=== PATIENT | female | born 1940 | race Caucasian/White ===

== ENCOUNTER → 2017-01-16 | Outpatient (REF) | payer MEDICARE ==
[~2017-01-16] MED LIST: /WARF5TA OR; ACET65TA OR; ALLO100T OR; ALLO100T PO; COUM1TAB17 PO; COUMADIN PO; DIGO25TA PO; ENAL20TA PO; ENALAPRIL PO; ENOX40SY SC; FURO40TA2 OR; FURO40TA2 PO; METF1000 PO; METFORMIN PO; METO25TAB PO; METOPROLOL PO; NUCYNTA PO; SIMVPOW2 PO; ZOCO40TA PO
== END ==
LOC: M LAB REF 14:45
PROVIDERS: ATTEND Internal Medicine
DX: M25.561 Pain in right knee (principal)

== ENCOUNTER → 2017-01-30 | Outpatient (REF) | payer MEDICARE ==
[2017-01-30 13:57] LABS: URIC ACID 6.5 MG/DL (2.6-6.0)
== END ==
LOC: M LAB REF 12:32
PROVIDERS: ATTEND Internal Medicine
DX: M10.9 Gout, unspecified (principal)

== ENCOUNTER → 2017-06-01 | Outpatient (REF) | payer MEDICARE ==
[~2017-06-01] MED LIST changes: -METF1000 PO; +METF10004 PO
[2017-06-01 19:31] LABS: PERCENT SATURATION 28.1 % (13.2-45.0)
== END ==
LOC: M LAB REF 16:52
PROVIDERS: ATTEND Internal Medicine
DX: D50.9 Iron deficiency anemia, unspecified (principal)

== ENCOUNTER → 2017-07-07 | Outpatient (REF) | payer MEDICARE ==
[2017-07-07 12:34] LABS: INR 3.68
== END ==
LOC: M LAB REF 11:54
PROVIDERS: ATTEND Internal Medicine
DX: Z51.81 Encounter for therapeutic drug level monitoring (principal)

== ENCOUNTER 2017-09-20 06:22 | Day surgery (SDC) | payer MEDICARE ==
[~2017-09-20] VITALS: Ht 154.9 cm; Wt 95.3 kg
[~2017-09-20 06:22] MED LIST changes: +ACETAMINOPHEN 325 MG TAB PO PRN; +ATOR1TAB19 PO; +CYCL10TA PO; +DIGO0.127 PO; +ENAL10TA2 PO; +MAGN64TASA PO; +TORS100T PO
[2017-09-20] MEDS ORDERED: SLF 3 ML SYR IV PRN (06:30)
[2017-09-20] MEDS ORDERED: OFLOXACIN 0.3 % (OCUFLOX) OPTH SOL 5ML OD ONE (07:00)
[2017-09-20] MEDS ORDERED: TROPICAMIDE 1% OPHTH SOLN 2ML OD ONE (07:00)
[2017-09-20] MEDS ORDERED: LIDOCAINE 3.5 % 1ML OPHTH TOPICAL GEL OU ONE (07:00)
[2017-09-20] MEDS ORDERED: CYCLOPENTOLATE 2% OPHTH SOLN 2ML BTL OD ONE (07:00)
[2017-09-20] MEDS ORDERED: PHENYLEPHRINE 2.5% OPHTH SOL 2ML OD ONE (07:00)
[2017-09-20] MEDS ORDERED: PROPARACAINE 0.5% OPHTH SOL 15ML OD PRN (07:01)
[2017-09-20] MEDS ORDERED: ACETYLCHOLINE OPHTH SOLN 1% 2ML (MIOCHOL-E) As Ordered ONE (07:50)
[2017-09-20] MEDS ORDERED: POVIDONE-IODINE 5% OPHTH PREP SOL 30ML As Ordered ONE (07:50)
[2017-09-20] MEDS ORDERED: HEALON DUET (HEALON 10MG/ML 0.55ML & HEALON ENDOCOAT 30MG/ML 0.85ML) As Ordered ONE (07:50)
[2017-09-20] MEDS ORDERED: CEFUROXIME 1MG/0.1ML INTRACAMERAL INJ As Ordered ONE (07:50)
[2017-09-20] MEDS ORDERED: LIDOCAINE 1% SDV 5 ML VIAL As Ordered ONE (07:50)
[2017-09-20] MEDS ORDERED: BALANCED SALT IRRIGATION SOLUTION 500ML BAG (FOR OR EYE MACHINE) As Ordered ONE (08:36)
[2017-09-20] MEDS ORDERED: MIDAZOLAM INJ 2 MG/2 ML VIAL (J2250) As Ordered ONE (08:57)
[2017-09-20] MEDS ORDERED: fentaNYL 100 MCG/2 ML INJECTION (J3010) As Ordered ONE (08:57)
[2017-09-20 09:57] VITALS: BP 138/88
[2017-09-20] MEDS ORDERED: TRIMETHOBENZAMIDE 300 MG CAP PO PRN (10:00)
[2017-09-20] MEDS ORDERED: AcetaZOLAMIDE 500 MG ER CAP PO ONE (10:00)
[2017-09-20] MEDS ORDERED: KETOROLAC 0.5% OPHTH SOLN OD ONE (10:00)
--- NOTE | 2017-09-20 10:38 | RO ---
DATE OF PROCEDURE: 09/20/2017DATE OF PROCEDURE: PREPROCEDURE DIAGNOSIS: Age related nuclear cataract right eye. POSTPROCEDURE DIAGNOSIS: Age related nuclear cataract right eye. PROCEDURE: Phacoemulsification and posterior chamber intraocular lens implantation, right eye. The lens used was PCB00, 30.5 diopter. SURGEON: Keisha Barlow MD DIVING SUPERVISOR: ANESTHESIA: Topical with sedation. DESCRIPTION OF PROCEDURE: The patient was prepped and draped in the usual fashion. A lid speculum was placed between the lids. The eye was fixated. A stab incision was made to the anterior chamber, and 1% non-preserved lidocaine was instilled. Then, viscoelastic was instilled. The eye was re-fixated. A 2.75 mm sapphire keratome was used to make a clear corneal temporal limbal incision. Capsulorrhexis was begun with a 30-gauge bent needle and then carried out in a circular fashion with capsulorrhexis forceps. The lens was hydrodissected, and then the phacoemulsification unit was used to make a groove in the nucleus in two meridians. The nucleus was then cracked into four quadrants. Each quadrant was removed with the phacoemulsification unit. Any remaining cortex was removed with the irrigation and aspiration (I and A) unit. Capsular bag was refilled with viscoelastic. A posterior chamber intraocular lens was placed in the capsular bag without difficulty. Any remaining viscoelastic was removed with the I and A unit. The wound was hydrated, and Miochol and cefuroxime were instilled into the anterior chamber. The patient tolerated the procedure well and went to the recovery room in stable condition.
[2017-09-20] MEDS ORDERED: SLF 3 ML SYR IV SCH (14:00)
== END 2017-09-20 10:01 | disposition home or self-care (01) ==
LOC: M SDC 06:22
PROVIDERS: ATTEND Ophthalmology
DX: H25.11 Age-related nuclear cataract, right eye (principal); I11.0 Hypertensive heart disease with heart failure; E78.5 Hyperlipidemia, unspecified; E11.9 Type 2 diabetes mellitus without complications; M10.9 Gout, unspecified; R29.898 Other symptoms and signs involving the musculoskeletal system; M17.12 Unilateral primary osteoarthritis, left knee; R06.02 Shortness of breath; I50.32 Chronic diastolic (congestive) heart failure; I48.2 Chronic atrial fibrillation; Z79.899 Other long term (current) drug therapy; Z79.01 Long term (current) use of anticoagulants; Z86.73 Personal history of transient ischemic attack (TIA), and cerebral infarction without residual deficits; Z96.652 Presence of left artificial knee joint; Z95.4 Presence of other heart-valve replacement
CPT/HCPCS: 66984; J2250; J3010; V2632

== ENCOUNTER → 2018-04-27 | Outpatient (CLI) | payer MEDICARE | LOC: M RAD 08:17 | DX: M54.5 Low back pain (principal); Z96.651 Presence of right artificial knee joint | CPT/HCPCS: 78306 ==

== ENCOUNTER 2018-05-03 09:25 | Inpatient (IN) | payer MEDICARE ==
[2018-05-03] MEDS: NORCO, ANEXSIA 5/325MG TABLET (HYDROcodone/ACETAMINOPHEN) PO (10:41)
[2018-05-03] MEDS ORDERED: ONDANSETRON 4MG/2ML VIAL (J2405) IV (16:00)
[2018-05-03] MEDS ORDERED: GLUCOSE 4 GM CHEW TABLET PO (16:30)
[2018-05-03] MEDS ORDERED: GLUCAGON FOR INJ 1 MG VIAL (J1610) SC (16:30)
[2018-05-03] MEDS ORDERED: DEXTROSE 50% 50 ML SYRINGE IV (16:30)
[2018-05-03 17:23] LABS: ANION GAP 12 MEQ/L (8-16); BLOOD UREA NITROGEN 37 MG/DL (7-18); CALCIUM LEVEL 10.1 MG/DL (8.8-10.2); CARBON DIOXIDE LEVEL 19 MEQ/L (21-32); CHLORIDE LEVEL 109 MEQ/L (98-107); CREATININE FOR GFR 1.13 MG/DL (0.55-1.30); GLOMERULAR FILTRATION RATE 49.7 (>39); GLUCOSE, FASTING 148 MG/DL (70-100); SODIUM LEVEL 140 MEQ/L (136-145)
[2018-05-03 17:24] LABS: BASO % 0.2 % (0.0-1.0); EOS # 0.1 10^3/uL (0.0-0.50); EOS % 0.4 % (0.0-3.0); HEMATOCRIT 33.9 % (36.0-47.0); HEMOGLOBIN 10.8 g/dl (12.0-15.5); IMMATURE GRANULOCYTE % 0.6 % (0-3.0); LYMPH # 1.4 10^3/uL (1.5-4.5); LYMPH % 9.4 % (24.0-44.0); MEAN CORPUSCULAR HEMOGLOBIN 29.9 pg (27.0-33.0); MEAN CORPUSCULAR HGB CONC 31.9 g/dl (32.0-36.5); MEAN CORPUSCULAR VOLUME 93.9 fl (80.0-96.0); MONO # 1.1 10^3/uL (0.0-0.8); MONO % 7.8 % (0.0-5.0); NEUTROPHILS # 11.8 10^3/uL (1.8-7.7); NEUTROPHILS % 81.6 % (36.0-66.0); PLATELET COUNT, AUTOMATED 314 10^3/uL (150-450); RED BLOOD COUNT 3.61 10^6/uL (4.00-5.40); RED CELL DISTRIBUTION WIDTH 13.2 % (11.5-14.5); WHITE BLOOD COUNT 14.4 10^3/uL (4.0-10.0)
[2018-05-03 17:31] LABS: POTASSIUM SERUM 5.3 MEQ/L (3.5-5.1)
[2018-05-03 17:42] LABS: INR 2.34; PROTHROMBIN TIME 26.1 SECONDS (12.1-14.4)
[2018-05-03 17:43] LABS: BEDSIDE GLUCOSE 136 MG/DL (83-110)
[2018-05-03 17:43] LABS: PARTIAL THROMBOPLASTIN TIME 52.7 SECONDS (25.4-37.6)
[2018-05-03 17:56] LABS: DIGOXIN LEVEL 1.1 NG/ML (0.5-2.0)
[2018-05-03] MEDS: HumaLOG INSULIN (NovoLOG) PER UNIT SC ×2 (18:15→20:55)
[2018-05-03] MEDS: PERCOCET 5MG/325MG TAB PO (18:16)
[2018-05-03 20:41] LABS: BEDSIDE GLUCOSE 185 MG/DL (83-110)
[2018-05-03] MEDS: MAGNESIUM CHLORIDE 64 MG TABCR (SLO MAG) PO (20:59)
[2018-05-03] MEDS: NYSTATIN 100,000 UNITS/GM TOPICAL PWD 15 GM TOP (20:59)
[2018-05-03] MEDS: CYCLOBENZAPRINE 10 MG TAB PO (20:59)
[2018-05-03] MEDS: WARFARIN SOD 5 MG TAB PO (20:59)
[2018-05-03] MEDS: SENOKOT S TAB PO (20:59)
[2018-05-03] MEDS: ENALAPRIL MALEATE 10 MG TAB PO (21:00)
[2018-05-04] MEDS: PERCOCET 5MG/325MG TAB PO ×3 (06:30→21:31)
[2018-05-04 06:55] LABS: BASO % 0.2 % (0.0-1.0); EOS # 0.1 10^3/uL (0.0-0.50); EOS % 0.8 % (0.0-3.0); HEMATOCRIT 31.3 % (36.0-47.0); HEMOGLOBIN 9.8 g/dl (12.0-15.5); IMMATURE GRANULOCYTE % 0.3 % (0-3.0); LYMPH # 1.4 10^3/uL (1.5-4.5); LYMPH % 12.5 % (24.0-44.0); MEAN CORPUSCULAR HEMOGLOBIN 29.6 pg (27.0-33.0); MEAN CORPUSCULAR HGB CONC 31.3 g/dl (32.0-36.5); MEAN CORPUSCULAR VOLUME 94.6 fl (80.0-96.0); MONO % 9.1 % (0.0-5.0); NEUTROPHILS # 8.9 10^3/uL (1.8-7.7); NEUTROPHILS % 77.1 % (36.0-66.0); PLATELET COUNT, AUTOMATED 271 10^3/uL (150-450); RED BLOOD COUNT 3.31 10^6/uL (4.00-5.40); RED CELL DISTRIBUTION WIDTH 13.3 % (11.5-14.5); WHITE BLOOD COUNT 11.5 10^3/uL (4.0-10.0)
[2018-05-04 07:06] LABS: ANION GAP 6 MEQ/L (8-16); BLOOD UREA NITROGEN 34 MG/DL (7-18); CALCIUM LEVEL 9.5 MG/DL (8.8-10.2); CARBON DIOXIDE LEVEL 24 MEQ/L (21-32); CHLORIDE LEVEL 111 MEQ/L (98-107); CREATININE FOR GFR 1.02 MG/DL (0.55-1.30); GLOMERULAR FILTRATION RATE 55.9 (>39); GLUCOSE, FASTING 125 MG/DL (70-100); SODIUM LEVEL 141 MEQ/L (136-145)
[2018-05-04 07:07] LABS: POTASSIUM SERUM 5.4 MEQ/L (3.5-5.1)
[2018-05-04] MEDS ORDERED: TORSEMIDE 20 MG TAB PO (09:00)
[2018-05-04] MEDS: SENOKOT S TAB PO ×2 (09:27→21:30)
[2018-05-04] MEDS: HumaLOG INSULIN (NovoLOG) PER UNIT SC ×4 (09:28→21:00)
[2018-05-04] MEDS: TORSEMIDE 20 MG TAB PO (09:30)
[2018-05-04] MEDS: ALLOPURINOL 100 MG TAB PO (09:30)
[2018-05-04] MEDS: DIGOXIN 0.125 MG TAB PO (09:30)
[2018-05-04] MEDS: ATORVASTATIN 10 MG TAB PO (09:30)
[2018-05-04] MEDS: MAGNESIUM CHLORIDE 64 MG TABCR (SLO MAG) PO ×2 (09:31→21:29)
[2018-05-04] MEDS: NYSTATIN 100,000 UNITS/GM TOPICAL PWD 15 GM TOP ×2 (09:31→21:29)
[2018-05-04 12:12] LABS: BEDSIDE GLUCOSE 181 MG/DL (83-110)
[2018-05-04 16:54] LABS: BEDSIDE GLUCOSE 118 MG/DL (83-110)
[2018-05-04] MEDS: CYCLOBENZAPRINE 10 MG TAB PO (18:31)
[2018-05-04 20:47] LABS: BEDSIDE GLUCOSE 123 MG/DL (83-110)
[2018-05-04] MEDS: WARFARIN SOD 5 MG TAB PO (21:30)
[2018-05-04] MEDS: ENALAPRIL MALEATE 10 MG TAB PO (21:30)
[2018-05-05 06:43] LABS: BASO % 0.4 % (0.0-1.0); EOS # 0.3 10^3/uL (0.0-0.50); EOS % 2.5 % (0.0-3.0); HEMOGLOBIN 10.2 g/dl (12.0-15.5); IMMATURE GRANULOCYTE % 0.6 % (0-3.0); LYMPH # 1.6 10^3/uL (1.5-4.5); LYMPH % 16.6 % (24.0-44.0); MEAN CORPUSCULAR HEMOGLOBIN 29.7 pg (27.0-33.0); MEAN CORPUSCULAR HGB CONC 30.9 g/dl (32.0-36.5); MEAN CORPUSCULAR VOLUME 95.9 fl (80.0-96.0); MONO % 10.4 % (0.0-5.0); NEUTROPHILS # 6.9 10^3/uL (1.8-7.7); NEUTROPHILS % 69.5 % (36.0-66.0); PLATELET COUNT, AUTOMATED 279 10^3/uL (150-450); RED BLOOD COUNT 3.44 10^6/uL (4.00-5.40); RED CELL DISTRIBUTION WIDTH 13.3 % (11.5-14.5); WHITE BLOOD COUNT 9.9 10^3/uL (4.0-10.0)
[2018-05-05 07:04] LABS: ANION GAP 7 MEQ/L (8-16); BLOOD UREA NITROGEN 40 MG/DL (7-18); CALCIUM LEVEL 8.9 MG/DL (8.8-10.2); CARBON DIOXIDE LEVEL 26 MEQ/L (21-32); CHLORIDE LEVEL 107 MEQ/L (98-107); CREATININE FOR GFR 1.25 MG/DL (0.55-1.30); GLOMERULAR FILTRATION RATE 44.2 (>39); GLUCOSE, FASTING 109 MG/DL (70-100); POTASSIUM SERUM 4.7 MEQ/L (3.5-5.1); SODIUM LEVEL 140 MEQ/L (136-145)
[2018-05-05] MEDS: HumaLOG INSULIN (NovoLOG) PER UNIT SC ×4 (07:56→21:00)
[2018-05-05] MEDS: PERCOCET 5MG/325MG TAB PO ×2 (07:57→14:56)
[2018-05-05] MEDS: ATORVASTATIN 10 MG TAB PO (07:59)
[2018-05-05] MEDS: DIGOXIN 0.125 MG TAB PO (08:01)
[2018-05-05] MEDS: ALLOPURINOL 100 MG TAB PO (08:01)
[2018-05-05] MEDS: SENOKOT S TAB PO ×2 (08:01→21:39)
[2018-05-05] MEDS: NYSTATIN 100,000 UNITS/GM TOPICAL PWD 15 GM TOP ×2 (08:02→21:40)
[2018-05-05] MEDS: TORSEMIDE 20 MG TAB PO (08:02)
[2018-05-05 09:46] LABS: INR 2.85; PROTHROMBIN TIME 30.5 SECONDS (12.1-14.4)
[2018-05-05] MEDS: MAGNESIUM CHLORIDE 64 MG TABCR (SLO MAG) PO ×2 (10:49→21:38)
[2018-05-05 12:07] LABS: BEDSIDE GLUCOSE 139 MG/DL (83-110)
[2018-05-05 17:18] LABS: BEDSIDE GLUCOSE 131 MG/DL (83-110)
[2018-05-05] MEDS: CYCLOBENZAPRINE 10 MG TAB PO (17:23)
[2018-05-05 20:20] LABS: BEDSIDE GLUCOSE 121 MG/DL (83-110)
[2018-05-05] MEDS: WARFARIN SOD 5 MG TAB PO (21:39)
[2018-05-05] MEDS: ENALAPRIL MALEATE 10 MG TAB PO (21:39)
[2018-05-06 07:13] LABS: BASO % 0.4 % (0.0-1.0); EOS # 0.2 10^3/uL (0.0-0.50); EOS % 1.6 % (0.0-3.0); HEMATOCRIT 35.4 % (36.0-47.0); HEMOGLOBIN 11.1 g/dl (12.0-15.5); IMMATURE GRANULOCYTE % 0.7 % (0-3.0); LYMPH # 1.2 10^3/uL (1.5-4.5); LYMPH % 11.7 % (24.0-44.0); MEAN CORPUSCULAR HEMOGLOBIN 29.8 pg (27.0-33.0); MEAN CORPUSCULAR HGB CONC 31.4 g/dl (32.0-36.5); MEAN CORPUSCULAR VOLUME 94.9 fl (80.0-96.0); MONO # 0.8 10^3/uL (0.0-0.8); MONO % 7.6 % (0.0-5.0); NEUTROPHILS # 8.2 10^3/uL (1.8-7.7); PLATELET COUNT, AUTOMATED 281 10^3/uL (150-450); RED BLOOD COUNT 3.73 10^6/uL (4.00-5.40); RED CELL DISTRIBUTION WIDTH 13.2 % (11.5-14.5); WHITE BLOOD COUNT 10.5 10^3/uL (4.0-10.0)
[2018-05-06 07:14] LABS: INR 3.15
[2018-05-06 07:15] LABS: ANION GAP 9 MEQ/L (8-16); BLOOD UREA NITROGEN 46 MG/DL (7-18); CALCIUM LEVEL 9.7 MG/DL (8.8-10.2); CARBON DIOXIDE LEVEL 21 MEQ/L (21-32); CHLORIDE LEVEL 107 MEQ/L (98-107); CREATININE FOR GFR 1.37 MG/DL (0.55-1.30); GLOMERULAR FILTRATION RATE 39.8 (>39); GLUCOSE, FASTING 115 MG/DL (70-100); POTASSIUM SERUM 4.4 MEQ/L (3.5-5.1); SODIUM LEVEL 137 MEQ/L (136-145)
[2018-05-06] MEDS: HumaLOG INSULIN (NovoLOG) PER UNIT SC ×4 (08:29→21:00)
[2018-05-06] MEDS: ALLOPURINOL 100 MG TAB PO (08:29)
[2018-05-06] MEDS: ATORVASTATIN 10 MG TAB PO (08:29)
[2018-05-06] MEDS: SENOKOT S TAB PO ×2 (08:29→21:10)
[2018-05-06] MEDS: TORSEMIDE 20 MG TAB PO (08:30)
[2018-05-06] MEDS: DIGOXIN 0.125 MG TAB PO (08:31)
[2018-05-06] MEDS: NYSTATIN 100,000 UNITS/GM TOPICAL PWD 15 GM TOP ×2 (08:32→21:12)
[2018-05-06] MEDS: MAGNESIUM CHLORIDE 64 MG TABCR (SLO MAG) PO ×2 (08:36→21:10)
[2018-05-06] MEDS: PERCOCET 5MG/325MG TAB PO ×2 (08:37→21:12)
[2018-05-06] MEDS: SPIRONOLACTONE 25 MG TAB PO (09:23)
[2018-05-06 12:18] LABS: BEDSIDE GLUCOSE 154 MG/DL (83-110)
[2018-05-06 17:07] LABS: BEDSIDE GLUCOSE 107 MG/DL (83-110)
[2018-05-06 21:01] LABS: BEDSIDE GLUCOSE 159 MG/DL (83-110)
[2018-05-06] MEDS: ENALAPRIL MALEATE 10 MG TAB PO (21:11)
[2018-05-07 07:21] LABS: BASO % 0.3 % (0.0-1.0); EOS # 0.2 10^3/uL (0.0-0.50); EOS % 1.9 % (0.0-3.0); HEMATOCRIT 33.9 % (36.0-47.0); HEMOGLOBIN 10.6 g/dl (12.0-15.5); IMMATURE GRANULOCYTE % 0.4 % (0-3.0); LYMPH # 1.4 10^3/uL (1.5-4.5); MEAN CORPUSCULAR HEMOGLOBIN 29.6 pg (27.0-33.0); MEAN CORPUSCULAR HGB CONC 31.3 g/dl (32.0-36.5); MEAN CORPUSCULAR VOLUME 94.7 fl (80.0-96.0); MONO # 1.1 10^3/uL (0.0-0.8); MONO % 11.2 % (0.0-5.0); NEUTROPHILS # 6.8 10^3/uL (1.8-7.7); NEUTROPHILS % 71.2 % (36.0-66.0); PLATELET COUNT, AUTOMATED 340 10^3/uL (150-450); RED BLOOD COUNT 3.58 10^6/uL (4.00-5.40); RED CELL DISTRIBUTION WIDTH 13.2 % (11.5-14.5); WHITE BLOOD COUNT 9.6 10^3/uL (4.0-10.0)
[2018-05-07] MEDS: HumaLOG INSULIN (NovoLOG) PER UNIT SC ×4 (07:30→20:59)
[2018-05-07 07:34] LABS: INR 3.85; PROTHROMBIN TIME 38.8 SECONDS (12.1-14.4)
[2018-05-07 07:38] LABS: ANION GAP 7 MEQ/L (8-16); BLOOD UREA NITROGEN 59 MG/DL (7-18); CALCIUM LEVEL 8.9 MG/DL (8.8-10.2); CARBON DIOXIDE LEVEL 28 MEQ/L (21-32); CHLORIDE LEVEL 105 MEQ/L (98-107); GLUCOSE, FASTING 121 MG/DL (70-100); POTASSIUM SERUM 4.4 MEQ/L (3.5-5.1); SODIUM LEVEL 140 MEQ/L (136-145)
[2018-05-07] MEDS: NYSTATIN 100,000 UNITS/GM TOPICAL PWD 15 GM TOP ×2 (09:00→21:05)
[2018-05-07] MEDS: DIGOXIN 0.125 MG TAB PO (10:19)
[2018-05-07] MEDS: TORSEMIDE 20 MG TAB PO (10:20)
[2018-05-07] MEDS: ATORVASTATIN 10 MG TAB PO (10:21)
[2018-05-07] MEDS: ALLOPURINOL 100 MG TAB PO (10:21)
[2018-05-07] MEDS: SENOKOT S TAB PO ×2 (10:21→21:04)
[2018-05-07] MEDS: SPIRONOLACTONE 25 MG TAB PO (10:22)
[2018-05-07] MEDS: MAGNESIUM CHLORIDE 64 MG TABCR (SLO MAG) PO ×2 (10:22→21:04)
[2018-05-07 11:55] LABS: BEDSIDE GLUCOSE 150 MG/DL (83-110)
[2018-05-07] MEDS: PERCOCET 5MG/325MG TAB PO ×2 (13:48→21:05)
[2018-05-07 17:11] LABS: BEDSIDE GLUCOSE 133 MG/DL (83-110)
[2018-05-07 20:40] LABS: BEDSIDE GLUCOSE 127 MG/DL (83-110)
[2018-05-07] MEDS ORDERED: WARFARIN SOD 7.5 MG TAB PO (21:00)
[2018-05-07] MEDS: BISACODYL 5 MG TAB PO (21:03)
[2018-05-08 06:58] LABS: BASO % 0.4 % (0.0-1.0); EOS # 0.2 10^3/uL (0.0-0.50); EOS % 2.4 % (0.0-3.0); HEMATOCRIT 35.6 % (36.0-47.0); HEMOGLOBIN 11.1 g/dl (12.0-15.5); IMMATURE GRANULOCYTE % 0.4 % (0-3.0); LYMPH # 1.5 10^3/uL (1.5-4.5); LYMPH % 16.7 % (24.0-44.0); MEAN CORPUSCULAR HEMOGLOBIN 29.8 pg (27.0-33.0); MEAN CORPUSCULAR HGB CONC 31.2 g/dl (32.0-36.5); MEAN CORPUSCULAR VOLUME 95.4 fl (80.0-96.0); MONO % 10.9 % (0.0-5.0); NEUTROPHILS # 6.3 10^3/uL (1.8-7.7); NEUTROPHILS % 69.2 % (36.0-66.0); PLATELET COUNT, AUTOMATED 349 10^3/uL (150-450); RED BLOOD COUNT 3.73 10^6/uL (4.00-5.40); RED CELL DISTRIBUTION WIDTH 13.2 % (11.5-14.5); WHITE BLOOD COUNT 9.2 10^3/uL (4.0-10.0)
[2018-05-08 07:07] LABS: INR 3.87; PROTHROMBIN TIME 38.9 SECONDS (12.1-14.4)
[2018-05-08 07:14] LABS: ANION GAP 8 MEQ/L (8-16); BLOOD UREA NITROGEN 57 MG/DL (7-18); CARBON DIOXIDE LEVEL 28 MEQ/L (21-32); CHLORIDE LEVEL 103 MEQ/L (98-107); CREATININE FOR GFR 1.45 MG/DL (0.55-1.30); GLOMERULAR FILTRATION RATE 37.3 (>39); GLUCOSE, FASTING 111 MG/DL (70-100); POTASSIUM SERUM 4.4 MEQ/L (3.5-5.1); SODIUM LEVEL 139 MEQ/L (136-145)
[2018-05-08] MEDS: SENOKOT S TAB PO ×2 (09:00→21:57)
[2018-05-08] MEDS: ATORVASTATIN 10 MG TAB PO (09:14)
[2018-05-08] MEDS: ALLOPURINOL 100 MG TAB PO (09:14)
[2018-05-08] MEDS: DIGOXIN 0.125 MG TAB PO (09:14)
[2018-05-08] MEDS: HumaLOG INSULIN (NovoLOG) PER UNIT SC ×4 (09:15→21:00)
[2018-05-08] MEDS: MAGNESIUM CHLORIDE 64 MG TABCR (SLO MAG) PO ×2 (09:15→21:57)
[2018-05-08] MEDS: NYSTATIN 100,000 UNITS/GM TOPICAL PWD 15 GM TOP ×2 (09:16→21:57)
[2018-05-08 12:13] LABS: BEDSIDE GLUCOSE 157 MG/DL (83-110)
[2018-05-08] MEDS: PERCOCET 5MG/325MG TAB PO ×2 (12:34→21:57)
[2018-05-08 16:50] LABS: BEDSIDE GLUCOSE 152 MG/DL (83-110)
[2018-05-08] MEDS: MIRALAX *UNIT DOSE* 17GM PACKET PO (17:34)
[2018-05-08 20:40] LABS: BEDSIDE GLUCOSE 150 MG/DL (83-110)
[2018-05-08] MEDS: BISACODYL 5 MG TAB PO (21:57)
[2018-05-09 05:55] LABS: BASO % 0.4 % (0.0-1.0); EOS # 0.3 10^3/uL (0.0-0.50); EOS % 3.4 % (0.0-3.0); HEMATOCRIT 34.2 % (36.0-47.0); HEMOGLOBIN 10.7 g/dl (12.0-15.5); IMMATURE GRANULOCYTE % 0.4 % (0-3.0); LYMPH # 1.5 10^3/uL (1.5-4.5); LYMPH % 17.8 % (24.0-44.0); MEAN CORPUSCULAR HEMOGLOBIN 29.6 pg (27.0-33.0); MEAN CORPUSCULAR HGB CONC 31.3 g/dl (32.0-36.5); MEAN CORPUSCULAR VOLUME 94.5 fl (80.0-96.0); MONO # 0.9 10^3/uL (0.0-0.8); MONO % 10.4 % (0.0-5.0); NEUTROPHILS # 5.5 10^3/uL (1.8-7.7); NEUTROPHILS % 67.6 % (36.0-66.0); PLATELET COUNT, AUTOMATED 336 10^3/uL (150-450); RED BLOOD COUNT 3.62 10^6/uL (4.00-5.40); WHITE BLOOD COUNT 8.2 10^3/uL (4.0-10.0)
[2018-05-09 06:05] LABS: INR 2.87; PROTHROMBIN TIME 30.7 SECONDS (12.1-14.4)
[2018-05-09 06:15] LABS: ANION GAP 7 MEQ/L (8-16); BLOOD UREA NITROGEN 52 MG/DL (7-18); CALCIUM LEVEL 9.4 MG/DL (8.8-10.2); CARBON DIOXIDE LEVEL 29 MEQ/L (21-32); CHLORIDE LEVEL 104 MEQ/L (98-107); CREATININE FOR GFR 1.15 MG/DL (0.55-1.30); GLOMERULAR FILTRATION RATE 48.7 (>39); GLUCOSE, FASTING 144 MG/DL (70-100); POTASSIUM SERUM 4.1 MEQ/L (3.5-5.1); SODIUM LEVEL 140 MEQ/L (136-145)
[2018-05-09] MEDS: MIRALAX *UNIT DOSE* 17GM PACKET PO (08:40)
[2018-05-09] MEDS: SENOKOT S TAB PO ×2 (08:40→20:32)
[2018-05-09] MEDS: ALLOPURINOL 100 MG TAB PO (08:40)
[2018-05-09] MEDS: ATORVASTATIN 10 MG TAB PO (08:40)
[2018-05-09] MEDS: HumaLOG INSULIN (NovoLOG) PER UNIT SC ×4 (08:40→20:31)
[2018-05-09] MEDS: MAGNESIUM CHLORIDE 64 MG TABCR (SLO MAG) PO ×2 (08:41→20:32)
[2018-05-09] MEDS: DIGOXIN 0.125 MG TAB PO (08:41)
[2018-05-09] MEDS: NYSTATIN 100,000 UNITS/GM TOPICAL PWD 15 GM TOP ×2 (09:50→20:31)
[2018-05-09 11:43] LABS: BEDSIDE GLUCOSE 117 MG/DL (83-110)
[2018-05-09] MEDS: PERCOCET 5MG/325MG TAB PO ×2 (12:27→20:33)
[2018-05-09 16:55] LABS: BEDSIDE GLUCOSE 157 MG/DL (83-110)
[2018-05-09] MEDS: WARFARIN SOD 7.5 MG TAB PO (17:55)
[2018-05-09 20:19] LABS: BEDSIDE GLUCOSE 104 MG/DL (83-110)
[2018-05-09] MEDS: WARFARIN SOD 5 MG TAB PO (20:33)
[2018-05-10 06:20] LABS: BASO # 0.1 10^3/uL (0.0-0.2); BASO % 0.7 % (0.0-1.0); EOS # 0.2 10^3/uL (0.0-0.50); EOS % 3.1 % (0.0-3.0); HEMATOCRIT 33.8 % (36.0-47.0); HEMOGLOBIN 10.5 g/dl (12.0-15.5); IMMATURE GRANULOCYTE % 0.5 % (0-3.0); LYMPH # 1.5 10^3/uL (1.5-4.5); LYMPH % 19.5 % (24.0-44.0); MEAN CORPUSCULAR HEMOGLOBIN 29.2 pg (27.0-33.0); MEAN CORPUSCULAR HGB CONC 31.1 g/dl (32.0-36.5); MEAN CORPUSCULAR VOLUME 94.2 fl (80.0-96.0); MONO # 0.9 10^3/uL (0.0-0.8); MONO % 11.4 % (0.0-5.0); NEUTROPHILS # 4.9 10^3/uL (1.8-7.7); NEUTROPHILS % 64.8 % (36.0-66.0); PLATELET COUNT, AUTOMATED 337 10^3/uL (150-450); RED BLOOD COUNT 3.59 10^6/uL (4.00-5.40); RED CELL DISTRIBUTION WIDTH 13.1 % (11.5-14.5); WHITE BLOOD COUNT 7.5 10^3/uL (4.0-10.0)
[2018-05-10 06:37] LABS: ANION GAP 5 MEQ/L (8-16); BLOOD UREA NITROGEN 39 MG/DL (7-18); CALCIUM LEVEL 9.9 MG/DL (8.8-10.2); CARBON DIOXIDE LEVEL 31 MEQ/L (21-32); CHLORIDE LEVEL 107 MEQ/L (98-107); CREATININE FOR GFR 1.13 MG/DL (0.55-1.30); GLOMERULAR FILTRATION RATE 49.7 (>39); GLUCOSE, FASTING 148 MG/DL (70-100); POTASSIUM SERUM 4.3 MEQ/L (3.5-5.1); SODIUM LEVEL 143 MEQ/L (136-145)
[2018-05-10 06:39] LABS: INR 2.03; PROTHROMBIN TIME 23.3 SECONDS (12.1-14.4)
[2018-05-10] MEDS: HumaLOG INSULIN (NovoLOG) PER UNIT SC ×2 (08:33→12:02)
[2018-05-10] MEDS: ALLOPURINOL 100 MG TAB PO (08:33)
[2018-05-10] MEDS: SENOKOT S TAB PO (08:34)
[2018-05-10] MEDS: ATORVASTATIN 10 MG TAB PO (08:35)
[2018-05-10] MEDS: MIRALAX *UNIT DOSE* 17GM PACKET PO (08:35)
[2018-05-10] MEDS: DIGOXIN 0.125 MG TAB PO (08:35)
[2018-05-10] MEDS: MAGNESIUM CHLORIDE 64 MG TABCR (SLO MAG) PO (08:36)
[2018-05-10] MEDS: NYSTATIN 100,000 UNITS/GM TOPICAL PWD 15 GM TOP (08:38)
[2018-05-10] MEDS: SPIRONOLACTONE 25 MG TAB PO (10:20)
[2018-05-10] MEDS: TORSEMIDE 20 MG TAB PO (10:21)
[2018-05-10 11:57] LABS: BEDSIDE GLUCOSE 172 MG/DL (83-110)
[2018-05-10] MEDS ORDERED: WARFARIN SOD 5 MG TAB PO ×2 (17:00)
== END 2018-05-10 12:56 | DRG 552 ==
LOC: M ED 09:25 → M ED INP 15:59 → M MS5PR 17:25
DX: M48.061 Spinal stenosis, lumbar region without neurogenic claudication (principal); I50.22 Chronic systolic (congestive) heart failure; J96.11 Chronic respiratory failure with hypoxia; N17.9 Acute kidney failure, unspecified; I11.0 Hypertensive heart disease with heart failure; E78.5 Hyperlipidemia, unspecified; M51.16 Intervertebral disc disorders with radiculopathy, lumbar region; E66.9 Obesity, unspecified; I48.91 Unspecified atrial fibrillation; M10.9 Gout, unspecified; E11.9 Type 2 diabetes mellitus without complications; I25.10 Atherosclerotic heart disease of native coronary artery without angina pectoris; M17.12 Unilateral primary osteoarthritis, left knee; I25.2 Old myocardial infarction; Z95.2 Presence of prosthetic heart valve; Z96.651 Presence of right artificial knee joint; Z98.41 Cataract extraction status, right eye; Z79.01 Long term (current) use of anticoagulants; Z79.899 Other long term (current) drug therapy; Z68.38 Body mass index [BMI] 38.0-38.9, adult; Z79.84 Long term (current) use of oral hypoglycemic drugs; Z99.81 Dependence on supplemental oxygen

== ENCOUNTER → 2018-05-14 | Outpatient (REF) ==
[2018-05-14 19:46] LABS: INR 3.78; PROTHROMBIN TIME 38.2 SECONDS (12.1-14.4)
== END ==
DX: I48.91 Unspecified atrial fibrillation (principal)

== ENCOUNTER → 2018-05-15 | Outpatient (REF) | payer MEDICARE ==
[2018-05-15 13:50] LABS: INR 3.23; PROTHROMBIN TIME 33.7 SECONDS (12.1-14.4)
== END ==
DX: I50.9 Heart failure, unspecified (principal)
CPT/HCPCS: 85610

== ENCOUNTER → 2018-05-16 | Outpatient (REF) ==
[2018-05-16 10:57] LABS: INR 2.73; PROTHROMBIN TIME 29.5 SECONDS (12.1-14.4)
== END ==
DX: I48.91 Unspecified atrial fibrillation (principal)

== ENCOUNTER → 2018-05-18 | Outpatient (REF) ==
[2018-05-18 11:38] LABS: INR 2.01; PROTHROMBIN TIME 23.1 SECONDS (12.1-14.4)
== END ==
DX: Z79.01 Long term (current) use of anticoagulants (principal)

== ENCOUNTER → 2018-05-22 | Outpatient (REF) ==
[2018-05-22 10:10] LABS: HEMATOCRIT 36.6 % (36.0-47.0); HEMOGLOBIN 11.7 g/dl (12.0-15.5); MEAN CORPUSCULAR HEMOGLOBIN 29.3 pg (27.0-33.0); MEAN CORPUSCULAR VOLUME 91.5 fl (80.0-96.0); PLATELET COUNT, AUTOMATED 323 10^3/uL (150-450); RED CELL DISTRIBUTION WIDTH 12.7 % (11.5-14.5); WHITE BLOOD COUNT 10.5 10^3/uL (4.0-10.0)
[2018-05-22 11:11] LABS: ANION GAP 12 MEQ/L (8-16); BLOOD UREA NITROGEN 99 MG/DL (7-18); CALCIUM LEVEL 10.3 MG/DL (8.8-10.2); CARBON DIOXIDE LEVEL 28 MEQ/L (21-32); CHLORIDE LEVEL 94 MEQ/L (98-107); CREATININE FOR GFR 2.25 MG/DL (0.55-1.30); GLOMERULAR FILTRATION RATE 22.5 (>39); GLUCOSE, FASTING 180 MG/DL (70-100); POTASSIUM SERUM 4.5 MEQ/L (3.5-5.1); SODIUM LEVEL 134 MEQ/L (136-145)
== END ==
DX: I50.9 Heart failure, unspecified (principal); I48.91 Unspecified atrial fibrillation

== ENCOUNTER 2018-05-24 08:18 | Outpatient (REF) ==
[2018-05-23 11:31] LABS: INR 2.15; PROTHROMBIN TIME 24.5 SECONDS (12.1-14.4)
[2018-05-25 10:43] LABS: ANION GAP 13 MEQ/L (8-16); BLOOD UREA NITROGEN 103 MG/DL (7-18); CALCIUM LEVEL 10.2 MG/DL (8.8-10.2); CARBON DIOXIDE LEVEL 24 MEQ/L (21-32); CHLORIDE LEVEL 99 MEQ/L (98-107); CREATININE FOR GFR 1.87 MG/DL (0.55-1.30); GLOMERULAR FILTRATION RATE 27.8 (>39); GLUCOSE, FASTING 108 MG/DL (70-100); POTASSIUM SERUM 4.9 MEQ/L (3.5-5.1); SODIUM LEVEL 136 MEQ/L (136-145)
[2018-05-25 19:22] LABS: CPK CREATINE PHOSPHOKINASE 76 U/L (26-192)
[2018-05-25 19:22] LABS: HEMATOCRIT 36.4 % (36.0-47.0); HEMOGLOBIN 11.6 g/dl (12.0-15.5); MEAN CORPUSCULAR HEMOGLOBIN 29.4 pg (27.0-33.0); MEAN CORPUSCULAR HGB CONC 31.9 g/dl (32.0-36.5); MEAN CORPUSCULAR VOLUME 92.4 fl (80.0-96.0); PLATELET COUNT, AUTOMATED 331 10^3/uL (150-450); RED BLOOD COUNT 3.94 10^6/uL (4.00-5.40); RED CELL DISTRIBUTION WIDTH 12.7 % (11.5-14.5); WHITE BLOOD COUNT 12.4 10^3/uL (4.0-10.0)
[2018-05-25 20:05] LABS: MYOGLOBIN SCREEN, URINE NEGATIVE (NEGATIVE)
== END 2018-05-25 ==
DX: I48.91 Unspecified atrial fibrillation (principal); I50.9 Heart failure, unspecified

== ENCOUNTER → 2018-05-28 | Outpatient (REF) ==
[2018-05-28 12:20] LABS: HEMATOCRIT 34.6 % (36.0-47.0); HEMOGLOBIN 11.1 g/dl (12.0-15.5); MEAN CORPUSCULAR HEMOGLOBIN 29.8 pg (27.0-33.0); MEAN CORPUSCULAR HGB CONC 32.1 g/dl (32.0-36.5); MEAN CORPUSCULAR VOLUME 92.8 fl (80.0-96.0); PLATELET COUNT, AUTOMATED 313 10^3/uL (150-450); RED BLOOD COUNT 3.73 10^6/uL (4.00-5.40); RED CELL DISTRIBUTION WIDTH 12.7 % (11.5-14.5); WHITE BLOOD COUNT 10.8 10^3/uL (4.0-10.0)
[2018-05-28 12:47] LABS: ANION GAP 9 MEQ/L (8-16); BLOOD UREA NITROGEN 83 MG/DL (7-18); CALCIUM LEVEL 9.9 MG/DL (8.8-10.2); CARBON DIOXIDE LEVEL 24 MEQ/L (21-32); CHLORIDE LEVEL 106 MEQ/L (98-107); CREATININE FOR GFR 1.85 MG/DL (0.55-1.30); GLOMERULAR FILTRATION RATE 28.1 (>39); GLUCOSE, FASTING 151 MG/DL (70-100); POTASSIUM SERUM 5.1 MEQ/L (3.5-5.1); SODIUM LEVEL 139 MEQ/L (136-145)
== END ==
DX: I50.9 Heart failure, unspecified (principal)

== ENCOUNTER → 2018-05-30 | Outpatient (REF) ==
[2018-05-30 12:44] LABS: HEMATOCRIT 35.1 % (36.0-47.0); HEMOGLOBIN 11.4 g/dl (12.0-15.5); MEAN CORPUSCULAR HEMOGLOBIN 29.9 pg (27.0-33.0); MEAN CORPUSCULAR HGB CONC 32.5 g/dl (32.0-36.5); MEAN CORPUSCULAR VOLUME 92.1 fl (80.0-96.0); PLATELET COUNT, AUTOMATED 300 10^3/uL (150-450); RED BLOOD COUNT 3.81 10^6/uL (4.00-5.40); RED CELL DISTRIBUTION WIDTH 12.8 % (11.5-14.5)
[2018-05-30 12:49] LABS: ANION GAP 10 MEQ/L (8-16); BLOOD UREA NITROGEN 72 MG/DL (7-18); CARBON DIOXIDE LEVEL 24 MEQ/L (21-32); CHLORIDE LEVEL 104 MEQ/L (98-107); CREATININE FOR GFR 1.68 MG/DL (0.55-1.30); GLOMERULAR FILTRATION RATE 31.4 (>39); GLUCOSE, FASTING 163 MG/DL (70-100); POTASSIUM SERUM 5.1 MEQ/L (3.5-5.1); SODIUM LEVEL 138 MEQ/L (136-145)
== END ==
DX: I50.9 Heart failure, unspecified (principal)

== ENCOUNTER → 2018-06-04 | Outpatient (REF) | payer MEDICARE ==
[2018-06-04 13:22] LABS: PHOSPHORUS LEVEL 3.4 MG/DL (2.5-4.9)
[2018-06-04 13:39] LABS: PROTHROMBIN TIME 21.2 SECONDS (12.1-14.4)
== END ==
LOC: M LAB REF 13:06
DX: I50.32 Chronic diastolic (congestive) heart failure (principal)
CPT/HCPCS: 84100

== ENCOUNTER 2018-06-08 13:46 | Emergency (ER) | payer MEDICARE ==
[2018-06-08 15:11] LABS: BASO % 0.3 % (0.0-1.0); EOS # 0.1 10^3/uL (0.0-0.50); EOS % 0.4 % (0.0-3.0); HEMATOCRIT 28.6 % (36.0-47.0); HEMOGLOBIN 9.1 g/dl (12.0-15.5); IMMATURE GRANULOCYTE % 0.6 % (0-3.0); LYMPH # 0.7 10^3/uL (1.5-4.5); LYMPH % 6.2 % (24.0-44.0); MEAN CORPUSCULAR HEMOGLOBIN 29.5 pg (27.0-33.0); MEAN CORPUSCULAR HGB CONC 31.8 g/dl (32.0-36.5); MEAN CORPUSCULAR VOLUME 92.9 fl (80.0-96.0); MONO # 0.8 10^3/uL (0.0-0.8); MONO % 6.4 % (0.0-5.0); NEUTROPHILS # 10.1 10^3/uL (1.8-7.7); NEUTROPHILS % 86.1 % (36.0-66.0); PLATELET COUNT, AUTOMATED 268 10^3/uL (150-450); RED BLOOD COUNT 3.08 10^6/uL (4.00-5.40); RED CELL DISTRIBUTION WIDTH 13.2 % (11.5-14.5); WHITE BLOOD COUNT 11.7 10^3/uL (4.0-10.0)
[2018-06-08 15:22] LABS: PROTHROMBIN TIME 24.9 SECONDS (12.1-14.4)
[2018-06-08 15:23] LABS: PARTIAL THROMBOPLASTIN TIME 41.5 SECONDS (25.4-37.6)
[2018-06-08 15:36] LABS: ALBUMIN 3.9 GM/DL (3.2-5.2); ALBUMIN/GLOBULIN RATIO 1.11 (1.00-1.93); ALKALINE PHOSPHATASE 73 U/L (45-117); ALT/SGPT 27 U/L (12-78); ANION GAP 10 MEQ/L (8-16); AST/SGOT 20 U/L (7-37); BILIRUBIN,DIRECT 0.2 MG/DL (0.0-0.2); BILIRUBIN,TOTAL 0.5 MG/DL (0.2-1.0); BLOOD UREA NITROGEN 35 MG/DL (7-18); C REACTIVE PROTEIN QUANTITATIV 5.28 MG/DL (0.00-0.30); CALCIUM LEVEL 9.4 MG/DL (8.8-10.2); CARBON DIOXIDE LEVEL 22 MEQ/L (21-32); CHLORIDE LEVEL 108 MEQ/L (98-107); CPK CREATINE PHOSPHOKINASE 99 U/L (26-192); CREATININE FOR GFR 1.91 MG/DL (0.55-1.30); GLOMERULAR FILTRATION RATE 27.1 (>39); GLUCOSE, FASTING 154 MG/DL (70-100); POTASSIUM SERUM 4.8 MEQ/L (3.5-5.1); SODIUM LEVEL 140 MEQ/L (136-145); TOTAL PROTEIN 7.4 GM/DL (6.4-8.2)
[2018-06-08 15:39] LABS: TROPONIN I 3.66 NG/ML (< 0.10)
[2018-06-08 15:46] LABS: CK-MB VALUE MASS 3.2 NG/ML (<3.6); DIGOXIN LEVEL 1.7 NG/ML (0.5-2.0); MB/CK RELATIVE INDEX 3.23 (< OR =4); NT-PRO BNP 20753 PG/ML (<450); THYROID STIMULATING HORMONE 0.349 uIU/ML (0.358-3.740)
[2018-06-08 18:20] LABS: CK-MB VALUE MASS 2.9 NG/ML (<3.6); CPK CREATINE PHOSPHOKINASE 215 U/L (26-192); MB/CK RELATIVE INDEX 1.34 (< OR =4)
[2018-06-08 18:22] LABS: TROPONIN I 3.23 NG/ML (< 0.10)
== END 2018-06-08 22:07 | disposition short-term general hospital (02) ==
LOC: M ED 13:46
DX: I21.4 Non-ST elevation (NSTEMI) myocardial infarction (principal); R79.89 Other specified abnormal findings of blood chemistry; M54.5 Low back pain; G89.29 Other chronic pain; R01.1 Cardiac murmur, unspecified; E11.9 Type 2 diabetes mellitus without complications; I11.9 Hypertensive heart disease without heart failure; I25.10 Atherosclerotic heart disease of native coronary artery without angina pectoris; Z95.2 Presence of prosthetic heart valve
CPT/HCPCS: 71045

== ENCOUNTER → 2018-10-30 | Outpatient (REF) | payer MEDICARE ==
[~2018-10-30] MED LIST changes: -ACETAMINOPHEN 325 MG TAB PO PRN; +BISO5TAB5 PO; +DEMA20TA6 PO; +DIGO0.12 PO; +METF-415 PO; +METF500T4 PO; +MONT10TA2 PO; +OXYC1TAB23 PO; +PERCOCET PO; +SPIR-10 PO; +TORS20TA2 PO; +TYLE650T35 PO; +VASO10TA8 PO; +WARF-20 PO; +WARF-23 PO
[2018-10-30 16:59] LABS: INR 2.17; PROTHROMBIN TIME 24.6 SECONDS (12.1-14.4)
== END ==
LOC: M LAB REF 16:28
PROVIDERS: ATTEND Internal Medicine
DX: I50.9 Heart failure, unspecified (principal)

== ENCOUNTER 2018-11-25 20:38 | Inpatient (IN) | payer MEDICARE ==
[~2018-11-25] VITALS: Ht 154.9 cm; Wt 94.5 kg
[2018-11-25 21:09] LABS: VENOUS BASE EXCESS -0.3 (-2.0-2.0); VENOUS HCO3 27.9 MEQ/L (23.0-27.0); VENOUS O2 SATURATION 84.6 % (60.0-80.0); VENOUS PARTIAL PRESSURE CO2 61.4 mmHg (38.0-50.0); VENOUS PARTIAL PRESSURE O2 55.5 mmHg (30.0-50.0); VENOUS PH 7.275 UNITS (7.330-7.430); VENOUS STANDARD HCO3 23.9 MEQ/L; VENOUS TOTAL CO2 29.8 MEQ/L (24.0-28.0)
[2018-11-25 21:12] LABS: BASO % 0.3 % (0.0-1.0); EOS % 0.3 % (0.0-3.0); HEMATOCRIT 43.2 % (36.0-47.0); HEMOGLOBIN 12.9 g/dl (12.0-15.5); LYMPH # 1.4 10^3/uL (1.5-4.5); LYMPH % 10.9 % (24.0-44.0); MEAN CORPUSCULAR HEMOGLOBIN 28.3 pg (27.0-33.0); MEAN CORPUSCULAR HGB CONC 29.9 g/dl (32.0-36.5); MEAN CORPUSCULAR VOLUME 94.7 fl (80.0-96.0); MONO # 1.2 10^3/uL (0.0-0.8); MONO % 9.6 % (0.0-5.0); NEUTROPHILS # 9.8 10^3/uL (1.8-7.7); NEUTROPHILS % 78.3 % (36.0-66.0); PLATELET COUNT, AUTOMATED 300 10^3/uL (150-450); RED BLOOD COUNT 4.56 10^6/uL (4.00-5.40); WHITE BLOOD COUNT 12.5 10^3/uL (4.0-10.0)
[2018-11-25 22:04] LABS: ABG BASE EXCESS 0.8 (-2.0-2.0); ABG HCO3 29.5 MEQ/L (22.0-26.0); ABG O2 SATURATION 99.9 % (95.0-99.0); ABG PARTIAL PRESSURE O2 256.7 mmHg (75.0-100.0); ABG STANDARD HCO3 25.2 MEQ/L (22.0-26.0); ABG TOTAL CO2 31.6 MEQ/L (23.0-31.0)
[2018-11-25 22:09] LABS: ABG PARTIAL PRESSURE CO2 67.3 mmHg (35.0-45.0)
[2018-11-25 22:29] LABS: ALBUMIN 4.4 GM/DL (3.2-5.2); BILIRUBIN,DIRECT 0.3 MG/DL (0.0-0.2); BILIRUBIN,TOTAL 0.6 MG/DL (0.2-1.0); CALCIUM LEVEL 9.9 MG/DL (8.8-10.2); CREATININE FOR GFR 1.75 MG/DL (0.55-1.30); GLOMERULAR FILTRATION RATE 29.9 (>39); MB/CK RELATIVE INDEX 4.22 (< OR =4); POTASSIUM SERUM 4.6 MEQ/L (3.5-5.1); TOTAL PROTEIN 7.7 GM/DL (6.4-8.2); TROPONIN I 1.83 NG/ML (< 0.10)
[2018-11-25] MEDS ORDERED: NITROGLYCERIN 2% OINT 1 GM *U/D* PKT TOP ONE (23:00)
[2018-11-25] MEDS ORDERED: ASPIRIN 81 MG CHEW TABLET PO ONE (23:00)
[2018-11-25] MEDS ORDERED: FUROSEMIDE 40 MG/4 ML VIAL (J1940) IV ONE (23:00)
[2018-11-25] MEDS ORDERED: WARF-23 PO (23:54)
[2018-11-25] MEDS ORDERED: ASPI81TA85 PO (23:54)
[2018-11-25] MEDS ORDERED: TORS20TA2 PO (23:54)
[2018-11-25] MEDS ORDERED: LISI-542 PO (23:54)
[2018-11-25] MEDS ORDERED: MAGN400T2 PO (23:54)
[2018-11-26] VITALS (19 sets, daily range): BP systolic 95–155; BP diastolic 49–92
[2018-11-26 00:03] LABS: INR 1.96; PARTIAL THROMBOPLASTIN TIME 31.4 SECONDS (25.4-37.6); PROTHROMBIN TIME 22.7 SECONDS (12.1-14.4)
[2018-11-26 00:24] LABS: ABG BASE EXCESS 3.3 (-2.0-2.0); ABG HCO3 30.6 MEQ/L (22.0-26.0); ABG O2 SATURATION 95.1 % (95.0-99.0); ABG PARTIAL PRESSURE CO2 59.1 mmHg (35.0-45.0); ABG STANDARD HCO3 27.3 MEQ/L (22.0-26.0); ABG TOTAL CO2 32.4 MEQ/L (23.0-31.0); ABG pH (ARTERIAL) 7.332 UNITS (7.350-7.450)
[2018-11-26 00:28] LABS: DIGOXIN LEVEL 1.3 NG/ML (0.5-2.0); MB/CK RELATIVE INDEX 5.56 (< OR =4); TROPONIN I 1.87 NG/ML (< 0.10)
[2018-11-26] MEDS ORDERED: DEXTROSE 50% 50 ML SYRINGE IV PRN (00:45)
[2018-11-26] MEDS ORDERED: GLUCAGON FOR INJ 1 MG VIAL (J1610) SC PRN (00:45)
[2018-11-26] MEDS ORDERED: GLUCOSE 4 GM CHEW TABLET PO PRN (00:45)
[2018-11-26] MEDS ORDERED: WARFARIN SOD 7.5 MG TAB PO ONE (01:15)
[2018-11-26] MEDS ORDERED: AZITHROMYCIN 250 MG TAB PO SCH (01:22)
[2018-11-26] MEDS ORDERED: LISINOPRIL 5 MG TAB PO SCH (01:31)
[2018-11-26] MEDS: methylPREDNISolone INJ 125 MG/2 ML VIAL (J2930) IV SCH ×2 (02:31→08:29)
[2018-11-26] MEDS: DOXYCYCLINE HYCLATE 100 MG TAB PO SCH ×2 (02:32→08:28)
[2018-11-26 02:51] LABS: AMORPHOUS SEDIMENT SMALL (NEGATIVE); APPEARANCE, URINE HAZY (CLEAR); BACTERIA, URINE AUTO NEGATIVE (NEGATIVE); BILIRUBIN, URINE AUTO NEGATIVE (NEGATIVE); BLOOD, URINE BLOOD NEGATIVE (NEGATIVE); COLOR, URINE YELLOW (YELLOW); GLUCOSE, URINE (UA) AUTO NEGATIVE (NEGATIVE); KETONE, URINE AUTO NEGATIVE (NEGATIVE); LEUKOCYTE ESTERASE, URINE AUTO NEGATIVE (NEGATIVE); MUCUS, URINE SMALL (NEGATIVE); NITRITE, URINE AUTO NEGATIVE (NEGATIVE); PROTEIN, URINE AUTO NEGATIVE (NEGATIVE); RBC, URINE AUTO 1 /HPF (0-3); SPECIFIC GRAVITY URINE AUTO 1.008 (1.002-1.035); SQUAMOUS EPITHELIAL CELL UR AU 2 /HPF (0-6); UROBILINOGEN, URINE AUTO 0.2 mg/dL (0.0-2.0); WBC, URINE AUTO 1 /HPF (0-3)
[2018-11-26] MEDS: IPRATROPIUM 0.5MG/ALBUTEROL 2.5MG INH SOL UD 3ML (DUONEB)(J7620) NEB SCH ×6 (04:20→23:42)
[2018-11-26 05:29] LABS: ABG BASE EXCESS 3.3 (-2.0-2.0); ABG HCO3 30.1 MEQ/L (22.0-26.0); ABG O2 SATURATION 98.2 % (95.0-99.0); ABG PARTIAL PRESSURE CO2 55.3 mmHg (35.0-45.0); ABG PARTIAL PRESSURE O2 113.7 mmHg (75.0-100.0); ABG STANDARD HCO3 27.5 MEQ/L (22.0-26.0); ABG TOTAL CO2 31.7 MEQ/L (23.0-31.0); ABG pH (ARTERIAL) 7.353 UNITS (7.350-7.450)
[2018-11-26 05:40] LABS: INR 1.9; PROTHROMBIN TIME 22.1 SECONDS (12.1-14.4)
[2018-11-26 06:02] LABS: MAGNESIUM LEVEL 2.3 MG/DL (1.8-2.4); THYROID STIMULATING HORMONE 0.063 uIU/ML (0.358-3.740); TROPONIN I 1.72 NG/ML (< 0.10)
[2018-11-26] MEDS: FUROSEMIDE 40 MG/4 ML VIAL (J1940) IV SCH ×2 (07:34→15:53)
[2018-11-26 07:36] LABS: BASO % 0.2 % (0.0-1.0); HEMATOCRIT 38.5 % (36.0-47.0); HEMOGLOBIN 11.7 g/dl (12.0-15.5); LYMPH # 0.5 10^3/uL (1.5-4.5); LYMPH % 3.9 % (24.0-44.0); MEAN CORPUSCULAR HEMOGLOBIN 28.6 pg (27.0-33.0); MEAN CORPUSCULAR HGB CONC 30.4 g/dl (32.0-36.5); MEAN CORPUSCULAR VOLUME 94.1 fl (80.0-96.0); MONO # 0.3 10^3/uL (0.0-0.8); MONO % 2.2 % (0.0-5.0); NEUTROPHILS # 12.2 10^3/uL (1.8-7.7); NEUTROPHILS % 92.9 % (36.0-66.0); PLATELET COUNT, AUTOMATED 236 10^3/uL (150-450); RED BLOOD COUNT 4.09 10^6/uL (4.00-5.40); WHITE BLOOD COUNT 13.2 10^3/uL (4.0-10.0)
[2018-11-26 07:47] LABS: CALCIUM LEVEL 9.9 MG/DL (8.8-10.2); CREATININE FOR GFR 1.52 MG/DL (0.55-1.30); FREE T4 1.45 NG/DL (0.76-1.46); GLOMERULAR FILTRATION RATE 35.2 (>39); POTASSIUM SERUM 4.7 MEQ/L (3.5-5.1)
--- NOTE | 2018-11-26 08:22 | REP ---
Portable chest x-ray: Single view. History: Shortness of breath. Comparison study: June 08, 2018. Findings: The patient is status post median sternotomy and cardiac valve replacement as before. A unipolar pacemaker has been inserted into the right heart via the left side in the interval since the prior chest x-ray. EKG electrodes are seen. Moderate to marked cardiomegaly is again observed. Pulmonary vasculature is cephalized and a little indistinct consistent with some degree of CHF. No pleural effusion or pulmonary edema is seen. There is discoid atelectasis in the right base. No infiltrate is seen. Impression: Moderate to marked cardiomegaly. Pulmonary vascular congestion. Discoid atelectasis right base. Status post cardiac valve replacement and pacemaker. Electronically Signed by Matthew Garrett MD 11/26/2018 09:20 A
[2018-11-26] MEDS: ASPIRIN 81 MG ENTERIC TAB PO SCH (08:27)
[2018-11-26] MEDS: MAGNESIUM OXIDE 400 MG TAB (MAG-OX) PO SCH ×2 (08:28→20:26)
[2018-11-26] MEDS: ATORVASTATIN 10 MG TAB PO SCH (08:28)
[2018-11-26] MEDS: DIGOXIN 0.125 MG TAB PO SCH (08:28)
[2018-11-26] MEDS: ALLOPURINOL 100 MG TAB PO SCH (08:28)
[2018-11-26] MEDS: HumaLOG INSULIN (NovoLOG) PER UNIT SC SCH ×3 (08:29→17:13)
[2018-11-26] MEDS: BISOPROLOL FUMARATE 5 MG TAB PO SCH (09:00)
[2018-11-26] MEDS ORDERED: SPIRONOLACTONE 25 MG TAB PO SCH (09:00)
--- NOTE | 2018-11-26 09:37 | HPE ---
DATE OF ADMISSION: 11/26/2018 CHIEF COMPLAINT: Progressively worsening dyspnea on exertion over the past several days to weeks. HISTORY OF PRESENT ILLNESS: The patient is a 78-year-old female with complex cardiac history. She has coronary artery disease (CAD) status post coronary artery bypass graft (CABG) approximately ten years ago. She has chronic respiratory failure on 2 liters of oxygen at home. The reason is unclear. She does not have a diagnosed history of chronic obstructive pulmonary disease (COPD) or asthma. No obstructive lung disease as per her knowing. However, on ABG in the emergency room, she was noted to be retaining. 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 The surgery was done approximately ten years ago. She has diabetes, gout, atrial fibrillation on Coumadin, hyperlipidemia, hypertension, systolic congestive heart failure, as mentioned CAD status post CABG. She has an AICD pacemaker in place, but states she still has to be a consultation with a Dr. Brice at [facility] to appropriately place the leads and have her AICD pacemaker functional. She presented today with worsening dyspnea on exertion. She states that she is only able to walk a few feet now before short of breath. This has progressively worsened over the last several weeks, primarily so over the past 3-4 days, with orthopnea and lower extremity edema. She denies any chest pain. She denies any chest pain. She denies any cough, fevers, or chills. She is nontoxic appearing. She denies any abdominal pain, constipation, diarrhea, or urinary symptoms. PAST MEDICAL HISTORY: See history of present illness (HPI). PAST SURGICAL HISTORY: She has had mitral valve repair, right knee arthroscopy, carpal tunnel syndrome, , cataract surgery. HOME MEDICATIONS: - Tylenol - allopurinol - aspirin - Lipitor - bisoprolol - lisinopril - magnesium oxide - metformin - spironolactone - torsemide - Coumadin - digoxin ALLERGIES: No known drug allergies. SOCIAL HISTORY: Denies tobacco, alcohol or illicit drug use. FAMILY HISTORY: Cancers, noncontributory in this setting. REVIEW OF SYSTEMS: A 12-point review of systems was completed, all of which were negative except those listed in the history of present illness. VITALS ON ADMISSION: Temperature 97.9, pulse 98, respirations 25. She was satting at 99% on nonrebreather when she came in. Blood pressure 147/87. PHYSICAL EXAMINATION: General: When I see the patient, she is well nourished. She is in no apparent distress. She is on BiPAP. Head is normocephalic, atraumatic. Eyes: Extraocular movements intact. Pupils equally round and reactive to light. Neck is supple. No noticeable jugular venous distention (JVD). Lungs: She has bibasilar crackles. No discernible wheezing. Cardiovascular: Irregularly irregular rhythm. She has a murmur heard at the apex, grade 2/6. Abdomen: Soft. Nontender. Nondistended. Positive bowel sounds. No rebound or guarding. Extremities: She has 1+ edema, but no calf tenderness. Skin appears to be intact. No rashes, lesions or breakdown. Neurological Exam: She is alert and oriented times three. No focal deficit appreciated in the exam. LABS AND IMAGING: Done in the ER, white count 12, hemoglobin/hematocrit (H/H) 12/43, platelet count 300. Initial blood gas 7.26, 67, 256, 29, 31, 99. Repeat 7.33, 59, 80, 30, 95. This is after being on BiPAP for 2 hours at settings of 12/6/10/30%. Coags: INR 1.96. Chemistry shows a BUN and creatinine of 54 and 1.7. Her baseline creatinine is unknown, but has best creatinine in the past several months of 2.9. Troponin 1.83, repeat of 1.87. Her EKG is atrial fibrillation, some intraventricular conduction delay, some ST elevation in the anterior septal leads likely secondary to repolarization. Chest x-ray shows bilateral haziness, pulmonary venous congestion, cardiomegaly, likely underlying pulmonary edema, AICD pacemaker in place with a single lead, likely underlying pulmonary edema, venous congestion, unable to rule out underlying infiltrate. ASSESSMENT AND PLAN: The patient is acute on chronic respiratory failure with hypercapnia and hypoxia likely multifactorial, acute on chronic congestive heart failure exacerbation likely secondary to possible medication noncompliance, rule out infectious causes, r/o ACS though to this point in time her troponin elevations likely seems to be from demand ischemia. The patient has shortness of breath which can be an anginal equivalent, however, her troponins have remained relatively steady after trending times two. For now, will continue Lasix 40 IV every 8 hours, strict ins and outs, daily weights, elevate head of bed, continue BiPAP, titrate to nasal cannula as needed, trend troponins, serial EKGs, telemetry, continue Coumadin. INR was slightly subtherapeutic at 1.96. Will give a 7.5 mg dose right now and continue with 5 mg daily with daily INRs. She is already anticoagulated on her Coumadin. Will continue her aspirin. Will do daily EKGs. Will repeat an echo. To be seen by cardiology in the a.m. Cardiology, Dr. Daniels, was spoken to in the emergency room. The patient is a private patient of Dr. Kennedy. As she is on BiPAP, pulmonary consult, Dr. Street, to follow in the a.m. For the hypercapnic respiratory failure, patient states she has no known history of COPD, obstructive airway disease. She is noted to be retaining, which is improved on BiPAP. She is on 2 liters of oxygen at home. Will continue the BiPAP. Will treat her as COPD, obstructive airway disease type patient with Solu-Medrol 40 twice a day. Insulin sliding scale while on Solu-Medrol. DuoNeb every [address] the patient cover for upper respiratory infection (URI). She does not have any type of infectious symptoms. She denies cough. She denies fevers or chills. She does not look infectious. Will cover her with doxycycline for now. Her was recently sick with respiratory syncytial virus (RSV) and presented to the hospital. He was recently discharged. Will also send a procalcitonin level. Based on the clinical picture, it does not appear to be an underlying pneumonia. For elevated troponins, NSTEMI, like type 2 demand ischemia in the setting of acute hypoxic respiratory failure, will continue to trend troponins, telemetry, serial EKGs, echo, cardiology consult in the a.m., continue anticoagulation with Coumadin. The patient denies any chest pain, though again as stated, the shortness of breath can be an anginal equivalent. Will continue aspirin. She was loaded with aspirin in the ER and will continue aspirin 81 mg. For congestive heart failure and atrial fibrillation, will continue her bisoprolol, will continue her digoxin, will continue her Coumadin with daily INRs, will also continue nitroglycerin as needed. For congestive heart failure exacerbation, continue spironolactone as well. For hypertension, continue lisinopril. This is also for congestive heart failure. For hyperlipidemia, continue Lipitor. For gout, continue allopurinol. For mitral valve repair secondary to endocarditis, will get the echo to evaluate and will get cardiology consult. For diabetes, hold metformin. Insulin sliding scale. For supportive deep vein thrombosis (DVT) prophylaxis, the patient is on Coumadin. GI prophylaxis is not indicated. Diet is cardiac, diabetic diet with fluid restriction. MTDD
--- NOTE | 2018-11-26 09:46 | REP ---
Portable chest x-ray: Single AP view. History: Dyspnea. Comparison study: November 25, 2018. Findings: The patient is status post median sternotomy, cardiac valve replacement, and unipolar pacemaker placement. EKG electrodes are seen. Moderate to marked cardiomegaly is again observed. Heart size is a little less prominent than on the previous day's radiograph. Pulmonary vascular markings are also improved. No pleural effusion or pulmonary edema seen. No focal infiltrate is observed. Oxygen delivery tubing is seen. Impression: Moderate cardiomegaly. Improved pulmonary vasculature. No focal infiltrate, pleural effusion, or pulmonary edema seen. Electronically Signed by Matthew Garrett MD 11/26/2018 09:48 A
--- NOTE | 2018-11-26 11:54 | IPNPDOC ---
Date Seen The patient was seen on 11/26/18. Progress Note SUBJECTIVE: Pt examined at bedside in ICU. Noted to be on BiPAP with FiO2 of 35. Pt is fast asleep and minimally interactive. No reported issues overnight. She continues to be diuresed with Tyler in place for strict I/Os. OBJECTIVE PHYSICAL EXAMINATION: VITAL SIGNS: Please see below. General: NAD, resting comfortably. Fast asleep, exam limited HEENT: NC, AT, moist mucous membranes. JVD difficult to assess given her body habitus CV: irregularly irregular, in Afib with HR 60s on monitor Resp: course rhonchi throughout with crackles b/l bases, on BiPAP Abd: obese, soft, NT, ND, hypoactive bowel sounds Extremities: 1+ pitting edema b/l LE. No cyanosis Skin: no visible rashes or lesions. Healing scars b/l LE : Tyler in place with dark yellow output LABORATORY DATA, IMAGING STUDIES, MICROBIOLOGY: Please see below. ASSESSMENT AND PLAN: Acute on chronic respiratory failure, with hypoxia and hypercarbia likely 2/2 to acutely decompensated CHF and questionable med compliance her ABG has improved this morning. Per Pulm, she will be weaned off BiPAP and recommended to discontinue Doxy and IV Solumedrol unlikely infectious as she continues to be afebrile and denied coughing or sputum. Mild leukocytosis likely 2/2 steroids. Procalcitonin level pending at baseline is on 2L NC, but no previous record of document obstructive disease or asthma continue optimizing fluid status Acutely decompensated CHF has hx of systolic chf. Last echo per our records is 03/2007. Last reported EF is 30% per clinic record presented with GUZMAN worsening over past few weeks, orthopnea, & LE edema continue home po Spironolactone 25mg. Replace home po Torsemide 20mg with IV Lasix 40mg q8h with hold parameters and net neg 2L continue home Zebeta with hold parameters home Lisinopril on hold given hypotension this am closely monitor I&O, daily wts, fluid restriction echo & cardiac rehab pending NSTEMI troponin has trended down to 1.72 this am. Repeat is pending. May be 2/2 demand ischemia[address] No new ST changes and pt denied chest pain or pressure of note, pt had subtherapeutic INR of 1.96 on admission. At baseline, is on 5mg po Warfarin. Was given a 1x dose of 7.5mg on admission. Check daily INR with goal 2-3. Cardiology consulted. Appreciate Dr. Castellanos's input Chronic Afib rate controlled on home Zebeta & Digoxin chronically anticoagulated on Coumadin per pt, has a nonfunctional AICD, with leads pending placement by Dr. Brice in [place]. Per records, vessel is too large and lead keeps falling. 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 VS, I&O, 24H, Fishbone Vital Signs/I&O Vital Signs Date Time Temp Pulse Resp B/P (MAP) Pulse Ox O2 Delivery O2 Flow Rate FiO2 11/26/18 09:00 74 95/54 11/26/18 08:30 91 2.0 11/26/18 08:00 35 11/26/18 08:00 98.2 22 11/26/18 02:23 NIPPV (BIPAP/CPAP) I&O- Last 24 Hours up to 6 AM 11/26/18 06:00 Intake Total 120 ml Output Total 650 ml Balance -530 ml Laboratory Data 24H LABS Laboratory Tests 2 11/25/18 20:46: Immature Granulocyte % (Auto) 0.6, White Blood Count 12.5H, Red Blood Count 4.56, Hemoglobin 12.9, Hematocrit 43.2, Mean Corpuscular Volume 94.7, Mean Corpuscular Hemoglobin 28.3, Mean Corpuscular Hemoglobin Concent 29.9L, Red Cell Distribution Width 17.0H, Platelet Count 300, Neutrophils (%) (Auto) 78.3H, Lymphocytes (%) (Auto) 10.9L, Monocytes (%) (Auto) 9.6H, Eosinophils (%) (Auto) 0.3, Basophils (%) (Auto) 0.3, Neutrophils # (Auto) 9.8H, Lymphocytes # (Auto) 1.4L, Monocytes # (Auto) 1.2H, Eosinophils # (Auto) 0.0, Basophils # (Auto) 0.0, Nucleated Red Blood Cells % (auto) 0.0, Blood Gas Bicarbonate Standard 23.9, Venous Blood pH 7.275L, Venous Blood Partial Pressure CO2 61.4H, Venous Blood Partial Pressure O2 55.5H, Venous Blood Total Carbon Dioxide 29.8H, Venous Blood HCO3 27.9H, Venous Blood Oxygen Saturation 84.6H, Venous Blood Base Excess -0.3, Anion Gap 10, Glomerular Filtration Rate 29.9L, Lactic Acid Level 2.9*H, Calcium Level 9.9, Aspartate Amino Transf (AST/SGOT) 35, Alanine Aminotransferase (ALT/SGPT) 39, Alkaline Phosphatase 224H, Total Bilirubin 0.6, Direct Bilirubin 0.3H, Total Creatine Kinase 45, Creatine Kinase MB 2.0, Creatine Kinase MB Relative Index 4.22H, Troponin I 1.83*H, Total Protein 7.7, Albumin 4.4, Albumin/Globulin Ratio 1.33 11/25/18 21:55: Blood Gas Bicarbonate Standard 25.2, Arterial Blood pH 7.260L, Arterial Blood Partial Pressure CO2 67.3*H, Arterial Blood Partial Pressure O2 256.7H, Arterial Blood Total CO2 31.6H, Arterial Blood HCO3 29.5H, Arterial Blood Base Excess 0.8, Arterial Blood Oxygen Saturation 99.9H 11/25/18 23:23: Total Creatine Kinase 36, Creatine Kinase MB 2.0, Creatine Kinase MB Relative Index 5.56H, Troponin I 1.87*H, Digoxin Level 1.3 11/25/18 23:42: Prothrombin Time 22.7H, Prothromb Time International Ratio 1.96, Activated Partial Thromboplast Time 31.4 11/26/18 00:04: Blood Gas Bicarbonate Standard 27.3H, Arterial Blood pH 7.332L, Arterial Blood Partial Pressure CO2 59.1H, Arterial Blood Partial Pressure O2 80.0, Arterial Blood Total CO2 32.4H, Arterial Blood HCO3 30.6H, Arterial Blood Base Excess 3.3H, Arterial Blood Oxygen Saturation 95.1 11/26/18 01:59: Lactic Acid Followup at 4 Hours 1.0 11/26/18 02:33: Urine Appearance HAZY, Urine Color YELLOW, Urine pH 5.0, Urine Specific [place] 1.008, Urine Protein NEGATIVE, Urine Glucose (UA) NEGATIVE, Urine Ketones NEGATIVE, Urine Urobilinogen 0.2, Urine Bilirubin NEGATIVE, Urine Leukocyte Esterase NEGATIVE, Urine Blood NEGATIVE, Urine Nitrite NEGATIVE, Urine WBC (Auto) 1, Urine RBC (Auto) 1, Urine Hyaline Casts (Auto) 7, Urine Bacteria (Auto) NEGATIVE, Urine Squamous Epithelial Cells 2, Urine Amorphous Sediment SMALLH, Urine Mucus (Auto) SMALL, Urine Sperm (Auto) 11/26/18 05:08: Prothrombin Time 22.1H, Prothromb Time International Ratio 1.90, Anion Gap 9, Glomerular Filtration Rate 35.2L, Blood Urea Nitrogen 59H, Creatinine 1.52H, Sodium Level 140, Potassium Level 4.7, Chloride Level 103, Carbon Dioxide Level 28, Calcium Level 9.9, Magnesium Level 2.3, Troponin I 1.72*H, Thyroid Stimulati ng Hormone (TSH) 0.063L, Free Thyroxine 1.45 11/26/18 05:10: Immature Granulocyte % (Auto) 0.8, White Blood Count 13.2H, Red Blood Count 4.09, Hemoglobin 11.7L, Hematocrit 38.5, Mean Corpuscular Volume 94.1, Mean Corpuscular Hemoglobin 28.6, Mean Corpuscular Hemoglobin Concent 30.4L, Red Cell Distribution Width 16.7H, Platelet Count 236, Neutrophils (%) (Auto) 92.9H, Lymphocytes (%) (Auto) 3.9L, Monocytes (%) (Auto) 2.2, Eosinophils (%) (Auto) 0.0, Basophils (%) (Auto) 0.2, Neutrophils # (Auto) 12.2H, Lymphocytes # (Auto) 0.5L, Monocytes # (Auto) 0.3, Eosinophils # (Auto) 0.0, Basophils # (Auto) 0.0, Nucleated Red Blood Cells % (auto) 0.0 11/26/18 05:18: Blood Gas Bicarbonate Standard 27.5H, Arterial Blood pH 7.353, Arterial Blood Partial Pressure CO2 55.3H, Arterial Blood Partial Pressure O2 113.7H, Arterial Blood Total CO2 31.7H, Arterial Blood HCO3 30.1H, Arterial Blood Base Excess 3.3H, Arterial Blood Oxygen Saturation 98.2 CBC/BMP Laboratory Tests 11/25/18 20:46 Red Blood Count 4.56, Mean Corpuscular Volume 94.7, Mean Corpuscular Hemoglobin 28.3, Mean Corpuscular Hemoglobin Concent 29.9 L, Red Cell Distribution Width 17.0 H, Neutrophils (%) (Auto) 78.3 H, Lymphocytes (%) (Auto) 10.9 L, Monocytes (%) (Auto) 9.6 H, Eosinophils (%) (Auto) 0.3, Basophils (%) (Auto) 0.3, Neutrophils # (Auto) 9.8 H, Lymphocytes # (Auto) 1.4 L, Monocytes # (Auto) 1.2 H, Eosinophils # (Auto) 0.0, Basophils # (Auto) 0.0 11/26/18 05:08 Calcium Level 9.9 11/26/18 05:10 Red Blood Count 4.09, Mean Corpuscular Volume 94.1, Mean Corpuscular Hemoglobin 28.6, Mean Corpuscular Hemoglobin Concent 30.4 L, Red Cell Distribution Width 16.7 H, Neutrophils (%) (Auto) 92.9 H, Lymphocytes (%) (Auto) 3.9 L, Monocytes (%) (Auto) 2.2, Eosinophils (%) (Auto) 0.0, Basophils (%) (Auto) 0.2, Neutrophils # (Auto) 12.2 H, Lymphocytes # (Auto) 0.5 L, Monocytes # (Auto) 0.3, Eosinophils # (Auto) 0.0, Basophils # (Auto) 0.0 GME ATTESTATION GME ATTESTATION My faculty preceptor for this patient encounter was physically present during the encounter and was fully available. All aspects of the patient interview, examination, medical decision making process, and medical care plan development were reviewed and approved by the faculty preceptor. The faculty preceptor is aware and concurs with the plan as stated in the body of this note and will attest to such by his/her cosignature. EMIGDIO HARPER DO Nov 26, 2018 10:55
--- NOTE | 2018-11-26 12:05 | CR ---
DATE OF CONSULTATION: 11/26/2018 REASON FOR CONSULTATION: Acute respiratory failure. HISTORY OF PRESENT ILLNESS: The pulmonary critical care team were asked by the medicine attending physician for consultation on Lenka Ling. She is a pleasant 78-year-old female who was admitted with respiratory failure. The patient gives a history stating that she started to become short of breath on Monday at some point and this continued throughout Monday and by Monday night she was brought to the emergency department at [facility] with increasing shortness of breath. The patient reports that she had no recent illnesses. She denies any recent fevers or chills. She states she has not been coughing or bringing up mucus recently. She does have a history of congestive heart failure and follows with cardiology for congestive heart failure as well as coronary artery disease and atrial fibrillation. She has a pacemaker that was implanted, but she states that she needs to go back for further adjustments. She states that appointment is coming up in a couple of weeks. She is on chronic anticoagulation therapy with Coumadin for history of atrial fibrillation and history of mitral valve replacement with a titanium valve. She reports that she is feeling better now that she was started on BiPap in the emergency room. She has been on BiPap overnight and her numbers on blood gas have improved. Her pH has normalized and her pCO2 has improved significantly. The patient states she is a lifelong smoker. She denies history of obstructive sleep apnea. She states that she does watch her weight closely and has not had any increases in weight recently. She states she does have some intermittent lower extremity edema, but she feels that has not changed much in recent days. Her prior admission from the summer lists her as having had a LVEF of 30% on echocardiogram. The patient is on spironolactone and torsemide as an outpatient. PAST MEDICAL HISTORY: 1. Coronary artery disease status post myocardial infarction (OR). Congestive heart failure with LVEF 30%. 2. Hypertensive heart disease. 3. Hyperlipidemia. 4. Atrial fibrillation. 5. 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 She has a metal valve. She is on Coumadin. 6. History of diabetes. 7. History of gout. 8. She is status post right total knee arthroplasty. 9. She is status post carpal tunnel surgery. REVIEW OF SYSTEMS: The patient denies fevers, chills, night sweats, unexplained weight loss, unexplained weight gain. HEENT: The patient denies headaches, acute changes in vision. She denies sore throat. Cardiac: The patient denies current chest pain or palpitations. She denies claudication symptoms. Pulmonary: The patient has had shortness of breath as noted above. She denies any significant cough or mucus production. She denies hemoptysis. Gastrointestinal (GI): The patient denies abdominal pain, nausea, vomiting, diarrhea, or constipation. Genitourinary (): The patient denies urinary symptoms. Endocrine: The patient does have a history of diabetes and is on metformin as an outpatient. Neurologic: The patient denies any unilateral weakness or dizziness. Psych: The patient denies any suicidal thoughts. Musculoskeletal: The patient denies any joint pain or joint swelling. Hematological: The patient denies any known blood transfusions or bleeding issues. She is on chronic anticoagulation with Coumadin. ALLERGIES: No known allergies. MEDICATIONS: - allopurinol 100 mg by mouth daily - atorvastatin 10 mg by mouth daily - spironolactone 12.5 mg by mouth daily - digoxin 125 mcg by mouth daily - metformin ER 500 mg by mouth twice a day - Tylenol 650 mg by mouth every 8 hours as needed - bisoprolol 5 mg by mouth daily - torsemide 20 mg by mouth daily - magnesium oxide 400 mg by mouth twice a day - warfarin 5 mg by mouth daily - lisinopril 5 mg daily - aspirin 81 mg daily SOCIAL HISTORY: The patient lives with her . She is a lifelong nonsmoker. She denies alcohol or illicit drug use. FAMILY MEDICAL HISTORY: Noncontributory. PHYSICAL EXAMINATION: Vitals: Temperature 98.2, pulse 74, blood pressure 110/55, pulse oximetry 91% on BiPap 126 with FIO2 of 35. General: The patient is alert and oriented. She is seen in the intensive care unit (ICU) with BiPap mask on. She is alert to place and knows the year. She speaks in complete sentences. HEENT: Head is normocephalic, atraumatic. Moist mucous membranes. Neck: Neck is supple. No cervical lymphadenopathy. No obvious jugular venous distention (JVD). Trachea is midline. Cardiac: Irregularly irregular, metallic valvular click. Pulmonary: Scattered rhonchi or rales. No accessory muscle use. Abdomen: Positive bowel sounds, soft, nontender. No rebound or guarding. Extremities: Trace bilateral lower extremity edema. Skin: Skin is warm and dry. Neurologic: Nonfocal. LABORATORY DATA: ABG: pH 7.353, pCO2 55.3, pO2 113.7, HCO3 30.1. CBC: WBC is 13.2, hemoglobin 11.7, hematocrit 38.5, platelets 236. Sodium 140, potassium 4.7, chloride 103, carbon dioxide 28, BUN 59, creatinine 1.52, glucose 206, calcium 9.9, magnesium 2.3, TSH 0.063, free T4 1.45. Troponin I: 1.83/1.87/1.72. Coagulation: PT 22.1, INR 1.90. Chest x-ray from 11/25/2018 shows cardiomegaly, pulmonary vascular congestion, valve replacement, pacemaker/AICD. Chest x-ray done this morning on 11/26/2018 - overall improvement with decreased pulmonary vascular markings, cardiomegaly still noted, status post valve replacement and pacemaker. EKGs were reviewed and show atrial fibrillation. ASSESSMENT/PLAN: 1. Acute hypercarbic and hypoxic respiratory failure. Likely secondary to congestive heart failure. Pulmonary critical care team was consulted for BiPap management. The patient has improved with BiPap. We will discontinue BiPap. The patient does not have a history of chronic obstructive pulmonary disease (COPD and therefore we recommend stopping Solu-Medrol. The patient does not have any evidence of infection and therefore we recommend stopping the doxycycline. As noted, the patient has improved on BiPap, which we will stop. At this point, we will sign off on this patient. However, if there are any additional respiratory issues, we will be happy to see the patient again. 2. Congestive heart failure. As noted, likely causing her acute respiratory failure. The patient is getting diuresed with Lasix and Aldactone and there is improvement on chest x-ray. The primary medical team is a managing the congestive heart failure. 3. GI prophylaxis. The patient is currently not on a proton pump inhibitor (PPI). We would recommend adding PPI, especially if the patient is on steroids.
[2018-11-26 12:21] LABS: TROPONIN I 1.71 NG/ML (< 0.10)
--- NOTE | 2018-11-26 17:30 | CR ---
DATE OF CONSULTATION: 11/26/2018 REFERRING PHYSICIAN: Dr. Abdifatah Cooney REASON FOR CONSULTATION: Abnormal troponin I, heart failure. HISTORY OF PRESENT ILLNESS: Lenka Ling is a pleasant 78-year-old woman with chronic systolic and diastolic heart failure on the basis of valvular cardiomyopathy (prior severe mitral regurgitation. She has angiographically normal coronary arteries on her last cardiac catheterization. She is status-post placement of a biventricular AICD for which the left ventricular lead could not be successfully implanted which occurred 11/01/2018. Her AICD device is a [employer] which is attached to an AICD lead. Her biventricular AICD operation was by Dr. Myrtle Rios at [facility] in [place] 11/01/2018. She has been referred to and has seen Dr. Abiel Brice with regards to placement of a epicardial left ventricular lead. The patient tells me that she is scheduled to undergo placement of the left ventricle epicardial lead on 12/03/2018. She had her placement of her mitral valve with a #31 [employer] mechanical prosthesis because of severe mitral regurgitation/severe mitral stenosis as well as placement of a #30 [employer]ace tricuspid valve annuloplasty ring performed by Dr. Kaur 05/21/[address] [facility] in [place]. She is known to have degenerative, calcific aortic valve with moderate aortic valve stenosis. She had streptococcus group B prosthetic infective endocarditis which was previously successfully treated with IV antibiotics. She has left bundle branch block, systemic hypertension, obesity type 2 diabetes, hypercholesterolemia, and gout and chronic kidney disease stage 3. Patient has chronic atrial fibrillation. Dobutamine stress echocardiogram 07/29/2018 showed baseline echocardiogram, severe global hyperkinesis with paradoxical septal motion and severe reduction in overall LV systolic function (LVEF 15% by visual estimate). Mild concentric LVH. Normal RV size and systolic function, well seated and normally functioning double tilting disc mitral prosthesis. Severe focal thickening and focal calcific deposits of a three-cuspid aortic valve with moderate aortic regurgitation. Mild reduction in aortic cusp mobility. Peak gradient across the aortic valve was 39 mmHg with peak aortic valve velocity 313 cm squared consistent with moderate aortic stenosis. Very mild aortic regurgitation. Mild diltation of the proximal ascending aorta (3.8 cm). Tricuspid annuloplasty ring in situ. Moderate tricuspid regurgitation. No tricuspid stenosis. Severe left atrial dilatation. Moderate dilatation of the right atrium suggestive of moderate elevation of estimated right ventricular systolic pressure (56 mmHg). Very small pericardial effusion. Type 2 spontaneous echocontrast seen in the left ventricle. The Dobutamine portion of the stress echocardiogram showed progressive improvement in overall LV contraction performance. Aortic cusp mobility continued to remain mildly decreased during Dobutamine infusion. Aortic valve gradients were not remeasured showing Dobutamine infusion. The patient's most recent cardiac catheterization occurred 06/08/2018 at [facility]. Mild gradient on pull back across the aortic valve consistent with mild aortic stenosis. Left ventricle and diastolic pressure elevated at 22 mmHg. LV diastolic pressure of 7 mmHg. Approximately 15 mm gradient across the aortic valve on pull back. Coronary circulation was right dominant. CARDIAC SYMPTOMS STATUS: Patient reports progressive worsening and shortness of breath in the 3 days prior to her hospitalization. She presented to the hospital 11/25/2017. Her dyspnea worsened to the point with dyspnea with inactivity and dyspnea at rest. No orthopnea or PND. She is normally on home oxygen 2 liters per minute by nasal cannula. She reports chronic mild bilateral leg edema which she reports chronic mild bilateral leg edema which she thought was worse for the past 3 days prior to hospitalization. No chest pain or chest discomfort with overhead exertion. No palpitations. No presyncope or syncope. No embolic events. No intermittent claudication. ADVERSE DRUG REACTIONS: No known adverse drug reactions. MEDICATIONS PRIOR TO ADMISSION: Acetaminophen 650 mg every 8 hours as needed for pain, allopurinol 100 mg daily, aspirin 81 mg daily, atorvastatin 10 mg daily, bisoprolol 5 mg daily, digoxin 125 mcg daily, lisinopril 5 mg at bedtime. Magnesium oxide 400 mg twice a day, metformin extended release 500 mg twice a day, spironolactone 12.5 mg daily, torsemide 20 mg daily, warfarin 5 mg tablets 5 mg at bedtime. CURRENT MEDICATIONS IN HOSPITAL: Acetaminophen 650 mg every 4 hours as needed for pain, DuoNebs every 4 hours, allopurinol 100 mg daily, aspirin 81 mg daily, atorvastatin 10 mg daily, bisoprolol 5 mg daily, Digoxin 0.125 mg by mouth daily, furosemide 40 mg IV every 8 hours, Humalog insulin before meals per sliding scale, magnesium oxide 400 mg by mouth twice a day, spironolactone 12.5 mg daily, warfarin 5 mg at bedtime. OTHER PAST MEDICAL AND SURGICAL HISTORY: Cardiomyopathy, chronic systolic and diastolic heart failure, previous severe mitral stenosis and severe mitral regurgitation, previous severe tricuspid regurgitation, status-post mitral valve replacement with #31 [employer] mechanical bioprosthesis and tricuspid annuloplasty ring (#30 Sherwin-Peace ring) by Dr. Kaur 05/21/2007, chronic atrial fibrillation, moderate aortic stenosis with aortic regurgitation, status-post biventricular AICF implant 11/01/2018 for which the left ventricular lead could not be successfully placed, awaiting placement of an epicardial left ventricle pacing lead, systemic hypertension, left bundle branch bloc, prior defective endocarditis of the mechanical bioprosthesis successfully treated with antibiotics (group B streptococcus), obesity, chronic kidney disease stage 3, type 2 diabetes, hypercholesterolemia, gout, previous acute hepatitis (10/2015), history of acute kidney injury 10/2015 secondary to hypotension secondary to retroperitoneal bleed, arthritis, prior stroke, bilateral carpal tunnel. SURGICAL HISTORY: section 1960 and 1963, left carpal tunnel surgery release 04/2005, right carpal tunnel release 05/2005, colonoscopy 2005, right knee replacement 2010, bilateral cataract extractions 2015. SOCIAL HISTORY: DO NOT RESUSCITATE. Life long nonsmoker. No alcohol. . Resident of [place], [place]. Retired. FAMILY HISTORY: Positive for premature coronary artery disease. REVIEW OF SYSTEMS: As per history of present illness above. No anxiety or panic attacks. History of bilateral eyelid reconstruction, stroke 2008 (no residual), pneumonia 11/04/2015, times two, post menopausal, kidney stones 30 years ago, left knee arthritis, gout, status-post right total knee replacement, bilateral carpal tunnel release, spinal stenosis, type 2 diabetes on oral hypoglycemics. All other 10 point review of systems is negative. PHYSICAL EXAMINATION: Pleasant , obese woman who appears her stated age not in any respiratory distress. Height 61 inches, weight 87.5 kg, BMI 36.4, blood pressure 120/52, pulse 73 (irregularly irregular), oxygen saturation 94% on oxygen 2 liters by nasal cannula. No conjunctiva pallor, icterus. Teeth in poor condition. Oral mucosa is moist and without pallor. Jugular venous pulsations were at 10 cm, trachea is midline. No palpable thyroid. No clubbing of the nailbed cyanosis or splinter hemorrhages. No skin lesions, skin pallor or icterus. Oriented to person, place and time. No curvature of the spine. Gait is not appropriate to test at this time as patient is on bedrest for heart failure. Gross motor strength and tone normal. No tremors. Respiratory expansion effort was good. No crackles or wheezes. No dullness to percussion. No palpable apex beat. AICD in situ left pectoral region. The incision appears to be healing well. Well healed midline sternal scar. First heart sound was mechanical and crisp. Second heart sound was single. No S3 appreciated. Grade 2 mixed frequency systolic ejection murmur maximal over the right 2nd interspace with radiation towards the carotids. No diastolic murmurs appreciated. Carotids were normal in volume and contour. No carotid bruits. Difficulty to palpate the abdominal aorta due to abdominal obesity. No abdominal bruits. Femoral pulse is normal. Pedal pulse is normal. 2 mm of pitting edema is present at mid and mid and distal tibial level bilaterally. No varicose veins. Abdomen was obese, soft and nontender with normal bowel sounds. No hepatosplenography or organomegaly. The span not measurable due to abdominal obesity. Stool for occult blood not presently indicated. ELECTROCARDIOGRAM: 11/25/2018 at 2222 hours shows atrial fibrillation with controlled ventricular response, atypical left bundle branch block with left axis deviation secondary repolarization abnormalities. I have independently visualized the patient's semi-upright portable AP chest x-ray acquired 11/26/2018 at 0658 hours. It shows presence of an AICD in the left pectoral region. Presence of a single coil AICD lead implanted at the right ventricle apex. Presence of a ring corresponding to the patient's mitral valve mechanical prosthesis in the mitral position and presence of a ring corresponding to the tricuspid annuloplasty ring. Midline sternal wires. Presence of cardiomegaly despite the portable technique. Presence of pulmonary vascular redistribution. Peribronchial cuffing and some mild patchy interstitial edema. No alveolar edema. No pleural effusions. LABORATORY WORK 11/26/2018: WBC 13.2, hemoglobin 11.7, hematocrit 38.5, platelets 236, PT/INR 1.90, sodium 140, potassium 4.7, chloride 103, CO2 28, BUN 59, creatinine 1.52, estimated GFR 35.2, glucose 206, calcium 9.9, magnesium 2.3, ASSESSMENT AND RECOMMENDATIONS: 1. Heart failure (systolic and diastolic), acute on chronic. This patient's heart failure is secondary to valvular cardiomyopathy from previous severe mitral regurgitation. Other factors that may contribute to the patient's heart failure include left bundle branch block, systemic hypertension, diabetes, and moderate atrial stenosis. Periaortic stenosis is not severe enough to justify aortic valve replacement at this time. She is decompensated and has pulmonary venous congestion and some mild interstitial pulmonary edema. Her NT PROBNP is quite severely elevated. Patient has been taken off of lisinopril. Once she has been off of lisinopril for 36 hours I recommend she be started on Entresto 26-24 mg twice a day which I have ordered. Continue bisoprolol 5 mg daily, Digoxin 125 mcg daily, furosemide 40 mg IV every 8 hours, spironolactone 12.5 mg daily. Patient tells me she is scheduled for placement of a left ventricle epicardial lead 12/03/[address] Abiel Brice in [place]. Recommend cardiac rehabilitation. Recommend a 2.5 gram sodium restriction and an 1800 mL per day oral fluid restriction. Continue with input and output and daily weights and daily electrolytes and renal function. 2. Abnormal troponin I. This patient's last cardiac catheterization showed angiographically normal coronary arteries (06/11/2018). She has not been having any chest pain or chest discomfort. I believe her mildly elevated troponin I levels are secondary to heart failure and further exaggerated by chronic kidney disease stage 3B. I would recommend not repeating a cardiac catheterization at this time as I believe that would be inappropriate. 3. Chronic atrial fibrillation. Continue warfarin target PT/INR is 2.5-3.5 because the patient has a mechanical mitral valve. Continue bisoprolol and Digoxin at the current doses for rate control. 4. Degenerative calcific aortic valve disease with moderate aortic stenosis and mild aortic regurgitation. Stable. She does not meet criteria for aortic valve replacement at this time. 5. Status post biventricular AICD in situ. Patient is awaiting placement of an epicardial left ventricular lead in [place] by Dr. Abiel Brice on 12/03/2018. 6. Status post mechanical double tilting disc mitral valve prosthesis status-post tricuspid valve repair. Prior severe mitral regurgitation, severe mitral stenosis and severe tricuspid regurgitation. Prior infective endocarditis (could be streptococcus) successfully treated with IV antibiotics. Stable. 7. Systemic hypertension. Blood pressure presently controlled. Continue furosemide IV at the current dosage. Continue bisoprolol and spironolactone at the current dosage. As noted above I will be switching her from lisinopril to valsartan (Entresto). 8. Left bundle branch block. Awaiting implantation of an epicardial left ventricular pacing lead to attach to her biventricular AICD as mentioned above. 9. Valvular cardiomyopathy. Patient's valvular cardiomyopathy is secondary to previous chronic severe mitral regurgitation. She is status-post mitral valve replacement with the last assessment showing normal function of the mitral valve prosthesis. Management of systolic and diastolic heart failure as described above.
--- NOTE | 2018-11-26 17:33 | ECHO ---
DATE OF PROCEDURE: 11/26/2018 REFERRING PHYSICIAN: Dr. Arias Monday INDICATION: Dyspnea. HEIGHT: 155 cm WEIGHT: 90 kg 2D MEASUREMENTS: Ventricular septum: 1.13 cm Posterior wall: 1.36 cm Left ventricle diastole: 6.8 cm Left atrium: 7.5 cm Left atrial volume index: 76 Inferior vena cava: 2.1 cm Aortic annulus: 2.0 cm DOPPLER MEASUREMENTS: Mild aortic regurgitation. Mild aortic stenosis. Peak aortic valve velocity: 285 cm/s Peak aortic valve gradient: 33 mmHg Mean aortic valve gradient: 19 mmHg Aortic VTI: 55.8 cm LVOT velocity: 71.4 cm/s LVOT VTI: 14.6 cm No mitral regurgitation. No mitral stenosis. Moderate tricuspid regurgitation. Estimated right ventricle systolic pressure: 56-61 mmHg DESCRIPTION: Rhythm was atrial fibrillation with controlled ventricular response. Image quality was fair. This was a 2D, M-mode, color flow Doppler and pulse wave Doppler examination and included mitral annular tissue Doppler. CONCLUSIONS: 1. Moderate left ventricle dilatation with mild eccentric left ventricle hypertrophy. Paradoxical septal motion with moderate global left ventricular (LV) hypokinesis elsewhere. Severe reduction in overall LV systolic function. Left ventricular ejection fraction (LVEF) 25% by visual estimate. Unable to determine LV diastolic function in the setting of atrial fibrillation and mechanical mitral valve in situ. 2. Well-seated and normally functioning double-tilting disc mitral valve prosthesis. No mitral regurgitation or stenosis. 3. Severe left atrial dilatation. 4. Severe focal thickening and focal calcific deposits of a 3-cusp aortic valve. Mild reduction in aortic cusp mobility. Mild aortic stenosis and mild aortic regurgitation. 5. Very small pericardial effusion. No diastolic chamber collapse. 6. Presence of an implantable cardioverter defibrillator (ICD) lead coursing towards the right ventricle apex. 7. Suggestive of moderately severe elevation of estimated right ventricle systolic pressure. Normal right ventricle size and systolic function. At least mild hypertrophy of the right ventricle free wall. Inferior vena cava dilatation. Suggestive of elevated central venous pressure in the range of 10-15 mmHg. At least mild right atrial dilatation.
[2018-11-26] MEDS: WARFARIN SOD 5 MG TAB PO SCH (20:27)
--- NOTE | 2018-11-26 20:58 | REPVR ---
EXAM: US Retroperitoneal Limited, Kidneys EXAM DATE/TIME: 11/26/2018 8:36 PM CLINICAL HISTORY: 78 years old, female; Signs and symptoms; Other: Oliguria TECHNIQUE: Real-time ultrasound of the retroperitoneum with image documentation. Examination was focused on the kidneys. COMPARISON: No relevant prior studies available. FINDINGS: Tubes, catheters and devices/bladder: Bladder collapsed due to the presence of a Tyler catheter. Right kidney: Right kidney measures 10.3 x 5.8 x 5 cm. Renal parenchyma hyperechoic. There are 2 right renal cyst measuring 3 x 2.8 x 4.6 cm in the upper pole with complex hypoechoic fluid and a simple cyst in the mid to lower pole measuring 4.2 x 4.5 x 4 cm. Left kidney: Left kidney measures 11.8 x 3.8 x 6.4 cm. Mild increased echogenicity of the renal parenchyma. Small upper pole exophytic cyst measures 1.1 x 1 x 1 cm. IMPRESSION: Increased echogenicity of both kidneys consistent with advanced patient age and/or medical renal disease. Bilateral renal cysts including a complex cyst in the upper pole the right kidney. Finding likely represents a hemorrhagic cyst and should be correlated with additional imaging such as CT or MRI if clinically desired. Followup ultrasound could also be obtained to document stability. Urinary bladder not evaluated due to the presence of a Tyler catheter. Electronically signed by: Carlos Suh On 11/26/2018 20:58:37 PM
--- NOTE | 2018-11-26 22:35 | ECGEPIP ---
Stationary ECG Study [facility] Test Date: 2018-11-26 Pat Name: FANY CASTILLO Department: Room: [place] [address] Gender: F Electromechanisms Design Drafter: ALEJANDRA : 1940 Requested By: PATT MONDAY Order Number: [id number] Reading MD: Roberth Nicole Measurements Intervals [place] Rate: 83 P: [place]: 0 QRS: 221 QRSD: 129 T: 31 QT: 388 QTc: 456 Interpretive Statements ATRIAL FIBRILLATION MARKED RIGHT AXIS DEVIATION ANTEROSEPTAL MYOCARDIAL INFARCTION, PROBABLY OLD SIMILAR TO 06/08/18 Electronically Signed On 11-26-2018 22:35:28 EST by Roberth Nicole
[2018-11-26] MEDS ORDERED: FUROSEMIDE 100 MG/10 ML VIAL (J1940) IV ONE (23:55)
[2018-11-27] VITALS: BP 113/74
[2018-11-27 04:00] VITALS: BP 136/87
[2018-11-27] MEDS: IPRATROPIUM 0.5MG/ALBUTEROL 2.5MG INH SOL UD 3ML (DUONEB)(J7620) NEB SCH ×6 (04:31→23:45)
[2018-11-27 05:11] LABS: HEMATOCRIT 34.8 % (36.0-47.0); HEMOGLOBIN 10.7 g/dl (12.0-15.5); MEAN CORPUSCULAR HEMOGLOBIN 28.2 pg (27.0-33.0); MEAN CORPUSCULAR HGB CONC 30.7 g/dl (32.0-36.5); MEAN CORPUSCULAR VOLUME 91.8 fl (80.0-96.0); PLATELET COUNT, AUTOMATED 245 10^3/uL (150-450); RED BLOOD COUNT 3.79 10^6/uL (4.00-5.40); WHITE BLOOD COUNT 15.1 10^3/uL (4.0-10.0)
[2018-11-27 05:23] LABS: INR 2.61; PROTHROMBIN TIME 28.5 SECONDS (12.1-14.4)
[2018-11-27 05:33] LABS: CALCIUM LEVEL 9.9 MG/DL (8.8-10.2); CREATININE FOR GFR 2.15 MG/DL (0.55-1.30); GLOMERULAR FILTRATION RATE 23.6 (>39); POTASSIUM SERUM 4.8 MEQ/L (3.5-5.1)
[2018-11-27 08:00] VITALS: BP 116/62
[2018-11-27] MEDS: FUROSEMIDE 40 MG/4 ML VIAL (J1940) IV SCH (08:00)
[2018-11-27] MEDS: ALLOPURINOL 100 MG TAB PO SCH (08:24)
[2018-11-27] MEDS: MAGNESIUM OXIDE 400 MG TAB (MAG-OX) PO SCH ×2 (08:24→20:26)
[2018-11-27] MEDS: ATORVASTATIN 10 MG TAB PO SCH (08:24)
[2018-11-27] MEDS: BISOPROLOL FUMARATE 5 MG TAB PO SCH (08:25)
[2018-11-27] MEDS: ASPIRIN 81 MG ENTERIC TAB PO SCH (08:25)
[2018-11-27] MEDS: DIGOXIN 0.125 MG TAB PO SCH (08:26)
[2018-11-27] MEDS: HumaLOG INSULIN (NovoLOG) PER UNIT SC SCH ×3 (08:26→17:46)
[2018-11-27] MEDS ORDERED: SPIRONOLACTONE 12.5MG PER 1/2 TABLET PO SCH (09:00)
[2018-11-27 12:00] VITALS: BP 122/60
[2018-11-27] MEDS ORDERED: NS 500 ML IV ONE (13:30)
--- NOTE | 2018-11-27 14:32 | REP ---
CT abdomen and pelvis without IV or oral contrast: History: Renal cyst. Oliguria. No comparison abdomen CT. CT findings: Preliminary digital clod puller radiograph demonstrates a large calcified uterine myoma filling much of the pelvis just to the left of midline. This is unchanged from prior radiographs in this patient dating back to May 10, 2011. The bowel gas pattern is unremarkable. The lung bases show discoid atelectasis in the left lower lobe. No pleural effusion is seen. Moderate cardiac enlargement is observed with a pacemaker. Normal adrenal glands are seen. No hepatic or splenic lesion is observed. The gallbladder shows no evidence of stone or mural thickening. No pancreatic abnormality is observed. There appears to be a descending duodenal diverticulum. There are renal cysts affecting the right kidney. The largest of these measures 4.8 cm in greatest diameter. There is a complex cyst in the right kidney measuring 3.8 cm in greatest diameter with slightly increased attenuation consistent with proteinaceous content. No hydronephrosis or intrarenal calculus is seen. No ureteral stone is observed on either side. The calcified uterine myoma measures 8.2 x 8.1 cm in transverse dimension. There is a Tyler catheter in the urinary bladder. The bladder is displaced somewhat to the right and compressed by the large uterine myoma. No ovarian mass lesion is seen. No pelvic adenopathy is observed. No abdominal wall defect is seen. Small and large intestinal bowel loops are unremarkable. No obstructive lesion is seen. Impression: There are three cysts in the right kidney. No hydronephrosis is seen. There is some left colonic diverticulosis. There is a 8.2 cm densely calcified uterine myoma. Tyler catheter. Cardiomegaly with pacemaker. Electronically Signed by Matthew Garrett MD 11/27/2018 08:39 P
[2018-11-27 16:00] VITALS: BP 111/78
[2018-11-27 20:00] VITALS: BP 139/65
[2018-11-27] MEDS: WARFARIN SOD 5 MG TAB PO SCH (20:28)
--- NOTE | 2018-11-27 20:30 | IPNPDOC ---
Date Seen The patient was seen on 11/27/18. Progress Note SUBJECTIVE: Pt examined at bedside in ICU with in room. Was weaned off BiPap yesterday and doing well on her baseline 2L NC. She has no new complaints and no reported events overnight. Still having low urine output despite heavy Lasix doses. OBJECTIVE PHYSICAL EXAMINATION: VITAL SIGNS: Please see below. General: NAD, resting comfortably. Fast asleep, exam limited HEENT: NC, AT, moist mucous membranes. JVD difficult to assess given her body habitus CV: irregularly irregular, in Afib on monitor. Systolic click present from MV repair Resp: course rhonchi throughout with crackles b/l bases, on BiPAP Abd: obese, soft, NT, ND, hypoactive bowel sounds Extremities: 1+ pitting edema b/l LE. No cyanosis Skin: no visible rashes or lesions. Healing scars b/l LE : Tyler in place with dark yellow-light pink output LABORATORY DATA, IMAGING STUDIES, MICROBIOLOGY: Please see below. ASSESSMENT AND PLAN: Acutely decompensated CHF Likely source of her sob has hx of systolic & diastolic chf. Echo this admission reveals EF 25%, LVH & RVH with signs of pulm HTN. Cr yomi from baseline 1.5 to 2.15 today, likely 2/2 heavy diuretics. Discussed with Cardiology: recommended stop Lasix & Spironolactone and start 500cc bolus NS @50cc/hr continue home Zebeta with hold parameters continue holding Lisinopril given LOYD closely monitor I&O, daily wts, 1800cc fluid restriction. Tyler leakage noted- will attempt to switch to PureWick catheter cardiac rehab pending Acute on chronic respiratory failure, with hypoxia and hypercarbia resolved. Pt weaned of BiPAP 2/4 and now back to baseline 2L NC, although no previously documented lung disease likely was 2/2 to acutely decompensated CHF and questionable med compliance unlikely infectious as she continues to be afebrile and denied coughing or sputum. Mild leukocytosis likely 2/2 steroids. Procalcitonin level essentially WNL 0.18 LOYD with oliguria expected to improve as diuretics are held and started on gentle fluids renal US & CT reveal complex cysts and uterine myoma. Will reassess in am, pending urine o/p NSTEMI stable, Cardio consulted. Appreciate Dr. Castellanos's input. Likely 2/2 acute on chronic CHF and CKD. No new ST changes or chest pain or pressure. Repeat cardiac cath not recommended per Cardio of note, pt had subtherapeutic INR of 1.96 on admission. At baseline, is on 5mg po Warfarin. Was given a 1x dose of 7.5mg on admission. Check daily INR with goal 2.5-3.5, given her hx of mechanical mitral valve. Chronic Afib rate controlled on home Zebeta & Digoxin chronically anticoagulated on Coumadin per pt, has a nonfunctional AICD, with leads pending placement by Dr. Brice in [place]. 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 Currently on hold given LOYD. BP controlled on Zebeta. Continue monitoring. Gout continue home Allopurinol DVT ppx: on Warfarin DISPOSITION: pending clinical improvement with volume status & renal function. Will downgrade to PCU. VS, I&O, 24H, Fishbone Vital Signs/I&O Vital Signs Date Time Temp Pulse Resp B/P (MAP) Pulse Ox O2 Delivery O2 Flow Rate FiO2 11/27/18 16:00 98.5 84 20 111/78 (89) 96 2.0 11/26/18 08:00 35 11/26/18 02:23 NIPPV (BIPAP/CPAP) I&O- Last 24 Hours up to 6 AM 11/27/18 06:00 Intake Total 720 ml Output Total 726 ml Balance -6 ml Laboratory Data 24H LABS Laboratory Tests 2 11/26/18 20:28: Bedside Glucose (Misc Panel) 277H 11/27/18 04:48: Nucleated Red Blood Cells % (auto) 0.0, Prothrombin Time 28.5H, Prothromb Time International Ratio 2.61, Anion Gap 8, Glomerular Filtration Rate 23.6L, Blood Urea Nitrogen 84H, Creatinine 2.15H, Sodium Level 139, Potassium Level 4.8, Chloride Level 102, Carbon Dioxide Level 29, Calcium Level 9.9 11/27/18 12:09: Bedside Glucose (Misc Panel) 213H 11/27/18 17:10: Bedside Glucose (Misc Panel) 146H CBC/BMP Laboratory Tests 11/27/18 04:48 Red Blood Count 3.79 L, Mean Corpuscular Volume 91.8, Mean Corpuscular Hemoglobin 28.2, Mean Corpuscular Hemoglobin Concent 30.7 L, Red Cell Distribution Width 16.9 H, Calcium Level 9.9 GME ATTESTATION GME ATTESTATION My faculty preceptor for this patient encounter was physically present during the encounter and was fully available. All aspects of the patient interview, examination, medical decision making process, and medical care plan development were reviewed and approved by the faculty preceptor. The faculty preceptor is aware and concurs with the plan as stated in the body of this note and will attest to such by his/her cosignature. EMIGDIO HARPER DO Nov 27, 2018 19:05
[2018-11-27] MEDS: ACETAMINOPHEN 650MG ER TAB (TYLENOL ARTHRITIS) PO PRN (20:41)
[2018-11-28] VITALS: BP 124/58
[2018-11-28 04:00] VITALS: BP 131/54
[2018-11-28] MEDS: IPRATROPIUM 0.5MG/ALBUTEROL 2.5MG INH SOL UD 3ML (DUONEB)(J7620) NEB SCH ×6 (04:38→19:39)
[2018-11-28 05:05] LABS: HEMATOCRIT 37.6 % (36.0-47.0); HEMOGLOBIN 11.3 g/dl (12.0-15.5); MEAN CORPUSCULAR HEMOGLOBIN 28.5 pg (27.0-33.0); MEAN CORPUSCULAR HGB CONC 30.1 g/dl (32.0-36.5); MEAN CORPUSCULAR VOLUME 94.7 fl (80.0-96.0); PLATELET COUNT, AUTOMATED 271 10^3/uL (150-450); RED BLOOD COUNT 3.97 10^6/uL (4.00-5.40); WHITE BLOOD COUNT 13.1 10^3/uL (4.0-10.0)
[2018-11-28 05:21] LABS: INR 2.73; PROTHROMBIN TIME 29.5 SECONDS (12.1-14.4)
[2018-11-28 05:26] LABS: CREATININE FOR GFR 1.67 MG/DL (0.55-1.30); GLOMERULAR FILTRATION RATE 31.6 (>39); POTASSIUM SERUM 4.9 MEQ/L (3.5-5.1)
[2018-11-28 08:00] VITALS: BP 126/69
--- NOTE | 2018-11-28 08:33 | ECGEPIP ---
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
[2018-11-28] MEDS: HumaLOG INSULIN (NovoLOG) PER UNIT SC SCH ×4 (08:37→21:00)
[2018-11-28] MEDS: ASPIRIN 81 MG ENTERIC TAB PO SCH (08:38)
[2018-11-28] MEDS: DIGOXIN 0.125 MG TAB PO SCH (08:38)
[2018-11-28] MEDS: ALLOPURINOL 100 MG TAB PO SCH (08:46)
[2018-11-28] MEDS: BISOPROLOL FUMARATE 5 MG TAB PO SCH (08:46)
[2018-11-28] MEDS: ATORVASTATIN 10 MG TAB PO SCH (08:46)
[2018-11-28] MEDS: MAGNESIUM OXIDE 400 MG TAB (MAG-OX) PO SCH ×2 (08:46→21:42)
[2018-11-28] MEDS ORDERED: ENTRESTO 24-26MG TABLET (SACUBITRIL/VALSARTAN) PO ONE (11:00)
[2018-11-28 12:00] VITALS: BP 99/68
--- NOTE | 2018-11-28 15:42 | IPNPDOC ---
Date Seen The patient was seen on 11/28/18. Progress Note SUBJECTIVE: Pt examined at bedside in ICU. Continues to do well on her baseline 2L NC and overall feeling better. Urine output & edema are improving. OBJECTIVE PHYSICAL EXAMINATION: VITAL SIGNS: Please see below. General: NAD, resting comfortably. A&Ox3 HEENT: NC, AT, moist mucous membranes. JVD difficult to assess given her body habitus CV: irregularly irregular, in Afib on monitor. Systolic click present from MV repair Resp: rhonchi with mild bibasilar crackles Abd: obese, soft, NT, ND, normal bowel sounds Extremities: trace edema b/l LE. No cyanosis Skin: no visible rashes or lesions. Healing scars b/l LE : Tyler in place with dark yellow-light pink output LABORATORY DATA, IMAGING STUDIES, MICROBIOLOGY: Please see below. ASSESSMENT AND PLAN: Acutely decompensated CHF Likely source of her sob. Volume status is improving has hx of systolic & diastolic chf. Echo this admission reveals EF 25%, LVH & RVH with signs of pulm HTN. continue home Zebeta. On Entresto per Cardio closely monitor I&O, daily wts, 1800cc fluid restriction cardiac rehab pending LOYD with oliguria improving. Cr back to 1.67 after diuretics were helf and pt given gentle hydration yesterday renal US & CT reveal complex cysts and uterine myoma. Discussed results with pt. F/u o/p Acute on chronic respiratory failure, with hypoxia and hypercarbia resolved. Pt weaned of BiPAP 2/4 and now back to baseline 2L NC, although no previously documented lung disease likely was 2/2 to acutely decompensated CHF and questionable med compliance Elevated Troponin stable, Cardio consulted. Appreciate Dr. Castellanos's input. Likely 2/2 acute on chronic CHF and CKD. No new ST changes or chest pain or pressure. Repeat cardiac cath not recommended per Cardio of note, pt had subtherapeutic INR of 1.96 on admission. At baseline, is on 5mg po Warfarin. Was given a 1x dose of 7.5mg on admission. Check daily INR with goal 2.5-3.5, given her hx of mechanical mitral valve. She continues to be therapeutic. Chronic Afib rate controlled on home Zebeta & Digoxin chronically anticoagulated on Coumadin per pt, has a nonfunctional AICD, with leads pending placement by Dr. Brice in [place]. 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 Currently on hold given LOYD. BP controlled on Zebeta. Continue monitoring. Gout continue home Allopurinol DVT ppx: on Warfarin DISPOSITION: pending clinical improvement & PT. VS, I&O, 24H, Fishbone Vital Signs/I&O Vital Signs Date Time Temp Pulse Resp B/P (MAP) Pulse Ox O2 Delivery O2 Flow Rate FiO2 11/28/18 12:00 97.6 77 20 99/68 (78) 97 2.0 11/26/18 08:00 35 11/26/18 02:23 NIPPV (BIPAP/CPAP) I&O- Last 24 Hours up to 6 AM 11/28/18 06:00 Intake Total 1430 ml Output Total 1240 ml Balance 190 ml Laboratory Data 24H LABS Laboratory Tests 2 11/27/18 17:10: Bedside Glucose (Misc Panel) 146H 11/28/18 04:39: Nucleated Red Blood Cells % (auto) 0.0, Prothrombin Time 29.5H, Prothromb Time International Ratio 2.73, Anion Gap 6L, Glomerular Filtration Rate 31.6L, Blood Urea Nitrogen 87H, Creatinine 1.67H, Sodium Level 140, Potassium Level 4.9, Chloride Level 104, Carbon Dioxide Level 30, Calcium Level 10.0 11/28/18 12:29: Bedside Glucose (Misc Panel) 240H CBC/BMP Laboratory Tests 11/28/18 04:39 Red Blood Count 3.97 L, Mean Corpuscular Volume 94.7, Mean Corpuscular Hemoglobin 28.5, Mean Corpuscular Hemoglobin Concent 30.1 L, Red Cell Distribution Width 17.1 H, Calcium Level 10.0 GME ATTESTATION GME ATTESTATION My faculty preceptor for this patient encounter was physically present during the encounter and was fully available. All aspects of the patient interview, examination, medical decision making process, and medical care plan development were reviewed and approved by the faculty preceptor. The faculty preceptor is aware and concurs with the plan as stated in the body of this note and will attest to such by his/her cosignature. EMIGDIO HARPER DO Nov 28, 2018 15:42
[2018-11-28 20:00] VITALS: BP 141/61
[2018-11-28] MEDS: ENTRESTO 24-26MG TABLET (SACUBITRIL/VALSARTAN) PO SCH (21:42)
[2018-11-28] MEDS: ACETAMINOPHEN 650MG ER TAB (TYLENOL ARTHRITIS) PO PRN (21:42)
[2018-11-28] MEDS: WARFARIN SOD 5 MG TAB PO SCH (21:42)
[2018-11-29] VITALS: BP 111/53
[2018-11-29] MEDS: IPRATROPIUM 0.5MG/ALBUTEROL 2.5MG INH SOL UD 3ML (DUONEB)(J7620) NEB SCH ×7 (01:11→22:54)
[2018-11-29 04:00] VITALS: BP 118/70
[2018-11-29 05:02] LABS: HEMATOCRIT 37.9 % (36.0-47.0); HEMOGLOBIN 11.3 g/dl (12.0-15.5); MEAN CORPUSCULAR HEMOGLOBIN 28.3 pg (27.0-33.0); MEAN CORPUSCULAR HGB CONC 29.8 g/dl (32.0-36.5); MEAN CORPUSCULAR VOLUME 94.8 fl (80.0-96.0); PLATELET COUNT, AUTOMATED 254 10^3/uL (150-450); WHITE BLOOD COUNT 10.6 10^3/uL (4.0-10.0)
[2018-11-29 05:20] LABS: INR 2.57; PROTHROMBIN TIME 28.1 SECONDS (12.1-14.4)
[2018-11-29 05:21] LABS: CALCIUM LEVEL 9.5 MG/DL (8.8-10.2); CREATININE FOR GFR 1.29 MG/DL (0.55-1.30); GLOMERULAR FILTRATION RATE 42.6 (>39); POTASSIUM SERUM 4.6 MEQ/L (3.5-5.1)
[2018-11-29 08:00] VITALS: BP 117/75
[2018-11-29] MEDS: HumaLOG INSULIN (NovoLOG) PER UNIT SC SCH ×4 (09:44→20:09)
[2018-11-29] MEDS: ASPIRIN 81 MG ENTERIC TAB PO SCH (09:45)
[2018-11-29] MEDS: DIGOXIN 0.125 MG TAB PO SCH (09:45)
[2018-11-29] MEDS: ENTRESTO 24-26MG TABLET (SACUBITRIL/VALSARTAN) PO SCH ×2 (09:45→20:08)
[2018-11-29] MEDS: ATORVASTATIN 10 MG TAB PO SCH (09:45)
[2018-11-29] MEDS: ALLOPURINOL 100 MG TAB PO SCH (09:46)
[2018-11-29] MEDS: BISOPROLOL FUMARATE 5 MG TAB PO SCH (09:46)
[2018-11-29] MEDS: MAGNESIUM OXIDE 400 MG TAB (MAG-OX) PO SCH ×2 (09:46→20:09)
[2018-11-29 12:00] VITALS: BP 90/49
--- NOTE | 2018-11-29 12:45 | IPNPDOC ---
Date Seen The patient was seen on 11/29/18. Progress Note SUBJECTIVE: Pt examined at bedside in ICU. Continues to do well on her baseline 2L NC and overall feeling better. States she feels better than her usual. OBJECTIVE PHYSICAL EXAMINATION: VITAL SIGNS: Please see below. General: NAD, resting comfortably. A&Ox3 HEENT: NC, AT, moist mucous membranes. JVD difficult to assess given her body habitus CV: irregularly irregular, in Afib on monitor. Systolic click present from MV repair Resp: rhonchi with minimal base crackles Abd: obese, soft, NT, ND, normal bowel sounds Extremities: trace edema b/l LE. No cyanosis Skin: no visible rashes or lesions. Healing scars b/l LE : catheter in place, light pink output LABORATORY DATA, IMAGING STUDIES, MICROBIOLOGY: Please see below. ASSESSMENT AND PLAN: Acutely decompensated CHF Likely source of her sob. Volume status is improving has hx of systolic & diastolic chf. Echo this admission reveals EF 25%, LVH & RVH with signs of pulm HTN. continue home Zebeta. On Entresto per Cardio closely monitor I&O, daily wts, 1800cc fluid restriction cardiac rehab pending LOYD with oliguria improving. Cr back down to 1.29 today. Is tolerating Entresto bid well-restarted yesterday per Cardio renal US & CT reveal complex cysts and uterine myoma. Will require o/p f/u Acute on chronic respiratory failure, with hypoxia and hypercarbia resolved. Pt weaned of BiPAP 2/4 and now back to baseline 2L NC, although no previously documented lung disease likely was 2/2 to acutely decompensated CHF and questionable med compliance Elevated Troponin stable, Cardio consulted. Appreciate Dr. Castellanos's input. Likely 2/2 acute on chronic CHF and CKD. No new ST changes or chest pain or pressure. Repeat cardiac cath not recommended per Cardio of note, pt had subtherapeutic ond admission, but currently at goal (2.5-3.5, given her hx of mechanical mitral valve) Chronic Afib rate controlled on home Zebeta & Digoxin chronically anticoagulated on Coumadin per pt, has a nonfunctional AICD, with leads pending placement by Dr. Brice in [place]. Per pt, "vessel is too large and lead keeps falling." Continue o/p f/u-she has appt 12/03/18. 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 Currently on hold given LOYD. BP controlled on Zebeta. Continue monitoring. Gout continue home Allopurinol DVT ppx: on Warfarin DISPOSITION: pending clinical improvement & PT. Possible d/c in next few days VS, I&O, 24H, Fishbone Vital Signs/I&O Vital Signs Date Time Temp Pulse Resp B/P (MAP) Pulse Ox O2 Delivery O2 Flow Rate FiO2 11/29/18 09:46 74 117/75 11/29/18 04:00 97.9 22 96 2.0 11/26/18 08:00 35 11/26/18 02:23 NIPPV (BIPAP/CPAP) I&O- Last 24 Hours up to 6 AM 11/29/18 06:00 Intake Total 720 ml Output Total 550 ml Balance 170 ml Laboratory Data 24H LABS Laboratory Tests 2 11/28/18 17:28: Bedside Glucose (Misc Panel) 188H 11/28/18 21:45: Bedside Glucose (Misc Panel) 181H 11/29/18 04:41: Nucleated Red Blood Cells % (auto) 0.0, Prothrombin Time 28.1H, Prothromb Time International Ratio 2.57, Anion Gap 4L, Glomerular Filtration Rate 42.6, Blood Urea Nitrogen 68H, Creatinine 1.29, Sodium Level 139, Potassium Level 4.6, Chloride Level 106, Carbon Dioxide Level 29, Calcium Level 9.5 11/29/18 11:46: Bedside Glucose (Misc Panel) 255H CBC/BMP Laboratory Tests 11/29/18 04:41 Red Blood Count 4.00, Mean Corpuscular Volume 94.8, Mean Corpuscular Hemoglobin 28.3, Mean Corpuscular Hemoglobin Concent 29.8 L, Red Cell Distribution Width 16.8 H, Calcium Level 9.5 GME ATTESTATION GME ATTESTATION My faculty preceptor for this patient encounter was physically present during the encounter and was fully available. All aspects of the patient interview, examination, medical decision making process, and medical care plan development were reviewed and approved by the faculty preceptor. The faculty preceptor is aware and concurs with the plan as stated in the body of this note and will attest to such by his/her cosignature. EMIGDIO HARPER DO Nov 29, 2018 12:45
[2018-11-29 16:00] VITALS: BP 107/57
[2018-11-29 20:00] VITALS: BP 119/76
[2018-11-29] MEDS: ACETAMINOPHEN 650MG ER TAB (TYLENOL ARTHRITIS) PO PRN (20:07)
[2018-11-29] MEDS: WARFARIN SOD 5 MG TAB PO SCH (20:08)
[2018-11-30] VITALS: BP 119/82
[2018-11-30] MEDS: IPRATROPIUM 0.5MG/ALBUTEROL 2.5MG INH SOL UD 3ML (DUONEB)(J7620) NEB SCH ×6 (03:46→23:29)
[2018-11-30 04:00] VITALS: BP 128/55
[2018-11-30 04:48] LABS: HEMOGLOBIN 11.4 g/dl (12.0-15.5); MEAN CORPUSCULAR HEMOGLOBIN 28.4 pg (27.0-33.0); MEAN CORPUSCULAR VOLUME 94.8 fl (80.0-96.0); PLATELET COUNT, AUTOMATED 265 10^3/uL (150-450); RED BLOOD COUNT 4.01 10^6/uL (4.00-5.40); WHITE BLOOD COUNT 9.6 10^3/uL (4.0-10.0)
[2018-11-30 05:09] LABS: CALCIUM LEVEL 9.1 MG/DL (8.8-10.2); CREATININE FOR GFR 1.39 MG/DL (0.55-1.30); POTASSIUM SERUM 4.9 MEQ/L (3.5-5.1)
[2018-11-30 05:11] LABS: INR 2.5; PROTHROMBIN TIME 27.5 SECONDS (12.1-14.4)
[2018-11-30 08:00] VITALS: BP 121/91
[2018-11-30] MEDS: HumaLOG INSULIN (NovoLOG) PER UNIT SC SCH ×4 (08:22→21:00)
[2018-11-30] MEDS: ENTRESTO 24-26MG TABLET (SACUBITRIL/VALSARTAN) PO SCH ×2 (08:23→22:08)
[2018-11-30] MEDS: BISOPROLOL FUMARATE 5 MG TAB PO SCH (08:23)
[2018-11-30] MEDS: ALLOPURINOL 100 MG TAB PO SCH (08:23)
[2018-11-30] MEDS: MAGNESIUM OXIDE 400 MG TAB (MAG-OX) PO SCH ×2 (08:23→22:08)
[2018-11-30] MEDS: ASPIRIN 81 MG ENTERIC TAB PO SCH (08:24)
[2018-11-30] MEDS: DIGOXIN 0.125 MG TAB PO SCH (08:24)
[2018-11-30] MEDS: ATORVASTATIN 10 MG TAB PO SCH (08:24)
[2018-11-30 12:00] VITALS: BP 101/58
--- NOTE | 2018-11-30 14:37 | IPNPDOC ---
Date Seen The patient was seen on 11/30/18. Progress Note SUBJECTIVE: Pt examined at bedside in ICU. No issues overnight. Remains on her baseline 2L NC. Her PureWick cath fell out yesterday with movement, and I/Os are now through weighing her pads. Otherwise, is doing well and has no complaints. In PT. OBJECTIVE PHYSICAL EXAMINATION: VITAL SIGNS: Please see below. General: NAD, resting comfortably. A&Ox3 HEENT: [place], AT, moist mucous membranes. JVD difficult to assess given her body habitus CV: irregularly irregular, in Afib on monitor. Systolic click present from MV repair Resp: CTAB besides mild base crackles Abd: obese, soft, NT, ND, normal bowel sounds Extremities: trace edema b/l LE. No cyanosis Skin: no visible rashes or lesions. Healing scars b/l LE LABORATORY DATA, IMAGING STUDIES, MICROBIOLOGY: Please see below. ASSESSMENT AND PLAN: Acutely decompensated CHF with reduced EF Likely source of her sob. Volume status is improving has hx of systolic & diastolic chf. Echo this admission reveals EF 25%, LVH & RVH with signs of pulm HTN. continue home Zebeta. On Entresto per Cardio-would like to maintain her on current dose closely monitor I&O, daily wts, 1800cc fluid restriction cardiac rehab pending LOYD with oliguria Cr at 1.39 today. Is tolerating Entresto bid well. Appears euvolemic on exam and will continue monitoring output and renal fxn on curret dose per cardio renal US & CT reveal complex cysts and uterine myoma. Will require o/p f/u ------- Acute on chronic respiratory failure, with hypoxia and hypercarbia resolved. Pt weaned of BiPAP 2/4 and now back to baseline 2L NC, although no previously documented lung disease likely was 2/2 to acutely decompensated CHF and questionable med compliance Elevated Troponin stable, Cardio consulted. Appreciate Dr. Castellanos's input. Likely 2/2 acute on chronic CHF and CKD. No new ST changes or chest pain or pressure. Repeat cardiac cath not recommended per Cardio of note, pt had subtherapeutic INR admission, but currently at goal (2.5-3.5, given her hx of mechanical mitral valve) Chronic Afib rate controlled on home Zebeta & Digoxin chronically anticoagulated on Coumadin per pt, has a nonfunctional AICD, with leads pending placement by Dr. Brice in [place]. Per pt, "vessel is too large and lead keeps falling." Continue o/p f/u-she has appt 12/03/18. 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 Currently on hold given LOYD. BP controlled on Zebeta. Continue monitoring. Gout continue home Allopurinol DVT ppx: on Warfarin DISPOSITION: pending clinical improvement & PT. Possible d/c in next few days. Will downgrade to Med Surg. VS, I&O, 24H, Fishbone Vital Signs/I&O Vital Signs Date Time Temp Pulse Resp B/P (MAP) Pulse Ox O2 Delivery O2 Flow Rate FiO2 11/30/18 12:00 98.4 62 20 101/58 (72) 97 2.0 11/26/18 08:00 35 11/26/18 02:23 NIPPV (BIPAP/CPAP) I&O- Last 24 Hours up to 6 AM 11/30/18 06:00 Intake Total 1190 ml Output Total 825 ml Balance 365 ml Laboratory Data 24H LABS Laboratory Tests 2 11/29/18 17:24: Bedside Glucose (Misc Panel) 144H 11/29/18 20:05: Bedside Glucose (Misc Panel) 202H 11/30/18 04:16: Nucleated Red Blood Cells % (auto) 0.0, Prothrombin Time 27.5H, Prothromb Time International Ratio 2.50, Anion Gap 5L, Glomerular Filtration Rate 39.0, Blood Urea Nitrogen 64H, Creatinine 1.39H, Sodium Level 139, Potassium Level 4.9, Chloride Level 105, Carbon Dioxide Level 29, Calcium Level 9.1 11/30/18 11:27: Bedside Glucose (Misc Panel) 225H CBC/BMP Laboratory Tests 11/30/18 04:16 Red Blood Count 4.01, Mean Corpuscular Volume 94.8, Mean Corpuscular Hemoglobin 28.4, Mean Corpuscular Hemoglobin Concent 30.0 L, Red Cell Distribution Width 16.5 H, Calcium Level 9.1 GME ATTESTATION GME ATTESTATION My faculty preceptor for this patient encounter was physically present during the encounter and was fully available. All aspects of the patient interview, examination, medical decision making process, and medical care plan development were reviewed and approved by the faculty preceptor. The faculty preceptor is aware and concurs with the plan as stated in the body of this note and will attest to such by his/her cosignature. EMIGDIO HARPER DO Nov 30, 2018 14:00
[2018-11-30 16:35] VITALS: BP 112/66
[2018-11-30 22:00] VITALS: BP 137/70
[2018-11-30] MEDS: ACETAMINOPHEN 650MG ER TAB (TYLENOL ARTHRITIS) PO PRN (22:07)
[2018-11-30] MEDS: WARFARIN SOD 5 MG TAB PO SCH (22:08)
[2018-12-01] MEDS: IPRATROPIUM 0.5MG/ALBUTEROL 2.5MG INH SOL UD 3ML (DUONEB)(J7620) NEB SCH ×5 (04:00→20:08)
[2018-12-01 06:00] VITALS: BP 109/55
[2018-12-01 06:43] LABS: HEMATOCRIT 36.3 % (36.0-47.0); HEMOGLOBIN 11.1 g/dl (12.0-15.5); MEAN CORPUSCULAR HGB CONC 30.6 g/dl (32.0-36.5); MEAN CORPUSCULAR VOLUME 91.7 fl (80.0-96.0); PLATELET COUNT, AUTOMATED 267 10^3/uL (150-450); RED BLOOD COUNT 3.96 10^6/uL (4.00-5.40); WHITE BLOOD COUNT 9.7 10^3/uL (4.0-10.0)
[2018-12-01 06:54] LABS: CALCIUM LEVEL 9.2 MG/DL (8.8-10.2); CREATININE FOR GFR 1.14 MG/DL (0.55-1.30); GLOMERULAR FILTRATION RATE 49.1 (>39); POTASSIUM SERUM 5.2 MEQ/L (3.5-5.1)
[2018-12-01] MEDS: ATORVASTATIN 10 MG TAB PO SCH (09:53)
[2018-12-01] MEDS: HumaLOG INSULIN (NovoLOG) PER UNIT SC SCH ×4 (09:53→21:00)
[2018-12-01] MEDS: DIGOXIN 0.125 MG TAB PO SCH (09:53)
[2018-12-01] MEDS: MAGNESIUM OXIDE 400 MG TAB (MAG-OX) PO SCH ×2 (09:54→21:33)
[2018-12-01] MEDS: BISOPROLOL FUMARATE 5 MG TAB PO SCH (09:54)
[2018-12-01] MEDS: ENTRESTO 24-26MG TABLET (SACUBITRIL/VALSARTAN) PO SCH ×2 (09:54→21:33)
[2018-12-01] MEDS: ALLOPURINOL 100 MG TAB PO SCH (09:55)
[2018-12-01] MEDS: ASPIRIN 81 MG ENTERIC TAB PO SCH (09:55)
--- NOTE | 2018-12-01 13:20 | IPNPDOC ---
Date Seen The patient was seen on 12/01/18. Progress Note SUBJECTIVE: Pt examined at bedside in Med Surg. No issues overnight. Cleared PT yesterday and feels almost back to baseline. No complaints today. OBJECTIVE PHYSICAL EXAMINATION: VITAL SIGNS: Please see below. General: NAD, resting comfortably. A&Ox3 HEENT: NC, AT, moist mucous membranes. JVD difficult to assess given her body habitus CV: irregularly irregular. Systolic click present from MV repair Resp: CTAB, no w/r/r Abd: obese, soft, NT, ND, normal bowel sounds Extremities: trace edema b/l LE. No cyanosis Skin: no visible rashes or lesions. Healing scars b/l LE LABORATORY DATA, IMAGING STUDIES, MICROBIOLOGY: Please see below. ASSESSMENT AND PLAN: Acutely decompensated CHF with reduced EF much improved with diuresis. Tolerating Entresto well-Cardio would like to maintain her on current dose has hx of systolic & diastolic chf. Echo this admission reveals EF 25%, LVH & RVH with signs of pulm HTN. continue monitoring I&O, daily wts, 1800cc fluid restriction LOYD with oliguria Cr improved WNL today. Is tolerating Entresto bid well. Appears euvolemic on exam and will continue monitoring output and renal fxn on curret dose per cardio renal US & CT reveal complex cysts and uterine myoma. Pt aware this will require o/p f/u ------- Acute on chronic respiratory failure, with hypoxia and hypercarbia resolved. Pt weaned of BiPAP 2/4 and now back to baseline 2L NC, although no previously documented lung disease likely was 2/2 to acutely decompensated CHF and questionable med compliance Elevated Troponin stable, Cardio consulted. Appreciate Dr. Castellanos's input. Likely 2/2 acute on chronic CHF and CKD. No new ST changes or chest pain or pressure. Repeat cardiac cath not recommended per Cardio of note, pt had subtherapeutic INR admission, but currently at goal (2.5-3.5, given her hx of mechanical mitral valve) Chronic Afib rate controlled on home Zebeta & Digoxin chronically anticoagulated on Coumadin per pt, has a nonfunctional AICD, with leads pending placement by Dr. Brice in [place]. Per pt, "vessel is too large and lead keeps falling." Continue o/p f/u-she has appt 12/03/18. 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 Currently on hold given LOYD. BP controlled on Zebeta. Continue monitoring. Gout continue home Allopurinol DVT ppx: on Warfarin DISPOSITION: pending clinical improvement. D/C delayed, as she requires home services not available over the weekend. Will aim to d/c in time for her to make her appt with Director Orange Dr. Brice on 12/03. VS, I&O, 24H, Fishbone Vital Signs/I&O Vital Signs Date Time Temp Pulse Resp B/P (MAP) Pulse Ox O2 Delivery O2 Flow Rate FiO2 12/01/18 09:54 75 120/60 12/01/18 08:00 2.5 12/01/18 06:00 97.9 18 95 11/26/18 08:00 35 11/26/18 02:23 NIPPV (BIPAP/CPAP) I&O- Last 24 Hours up to 6 AM 12/01/18 06:00 Intake Total 1360 ml Output Total 550 ml Balance 810 ml Laboratory Data 24H LABS Laboratory Tests 2 11/30/18 16:54: Bedside Glucose (Misc Panel) 183H 11/30/18 21:29: Bedside Glucose (Misc Panel) 213H 12/01/18 06:13: Bedside Glucose (Misc Panel) 163H 12/01/18 06:15: Nucleated Red Blood Cells % (auto) 0.0, Anion Gap 3L, Glomerular Filtration Rate 49.1, Blood Urea Nitrogen 57H, Creatinine 1.14, Sodium Level 140, Potassium Level 5.2H, Chloride Level 107, Carbon Dioxide Level 30, Calcium Level 9.2 12/01/18 11:30: Bedside Glucose (Misc Panel) 206H CBC/BMP Laboratory Tests 12/01/18 06:15 Red Blood Count 3.96 L, Mean Corpuscular Volume 91.7, Mean Corpuscular Hemoglobin 28.0, Mean Corpuscular Hemoglobin Concent 30.6 L, Red Cell Distribution Width 16.4 H, Calcium Level 9.2 GME ATTESTATION GME ATTESTATION My faculty preceptor for this patient encounter was physically present during the encounter and was fully available. All aspects of the patient interview, examination, medical decision making process, and medical care plan development were reviewed and approved by the faculty preceptor. The faculty preceptor is aware and concurs with the plan as stated in the body of this note and will attest to such by his/her cosignature. EMIGDIO HARPER DO Dec 01, 2018 13:20
[2018-12-01 14:00] VITALS: BP 113/52
[2018-12-01 14:02] LABS: INR 2.49; PROTHROMBIN TIME 27.4 SECONDS (12.1-14.4)
[2018-12-01] MEDS: WARFARIN SOD 5 MG TAB PO SCH (21:33)
[2018-12-01 22:00] VITALS: BP 135/56
[2018-12-01] MEDS ORDERED: ENTR1TAB PO (23:05)
[2018-12-02] MEDS: IPRATROPIUM 0.5MG/ALBUTEROL 2.5MG INH SOL UD 3ML (DUONEB)(J7620) NEB SCH ×7 (04:19→23:29)
[2018-12-02 06:00] VITALS: BP 137/72
[2018-12-02 06:56] LABS: HEMATOCRIT 37.4 % (36.0-47.0); HEMOGLOBIN 11.2 g/dl (12.0-15.5); MEAN CORPUSCULAR HEMOGLOBIN 28.1 pg (27.0-33.0); MEAN CORPUSCULAR HGB CONC 29.9 g/dl (32.0-36.5); PLATELET COUNT, AUTOMATED 264 10^3/uL (150-450); RED BLOOD COUNT 3.98 10^6/uL (4.00-5.40); WHITE BLOOD COUNT 8.1 10^3/uL (4.0-10.0)
[2018-12-02 07:19] LABS: INR 2.51; PROTHROMBIN TIME 27.6 SECONDS (12.1-14.4)
[2018-12-02 07:20] LABS: CALCIUM LEVEL 9.4 MG/DL (8.8-10.2); CREATININE FOR GFR 1.22 MG/DL (0.55-1.30); GLOMERULAR FILTRATION RATE 45.4 (>39); POTASSIUM SERUM 5.2 MEQ/L (3.5-5.1)
[2018-12-02] MEDS: MAGNESIUM OXIDE 400 MG TAB (MAG-OX) PO SCH ×2 (09:00→20:57)
[2018-12-02] MEDS: ASPIRIN 81 MG ENTERIC TAB PO SCH (09:00)
[2018-12-02] MEDS: ATORVASTATIN 10 MG TAB PO SCH (09:00)
[2018-12-02] MEDS: HumaLOG INSULIN (NovoLOG) PER UNIT SC SCH ×4 (09:00→20:58)
[2018-12-02] MEDS: DIGOXIN 0.125 MG TAB PO SCH (09:01)
[2018-12-02] MEDS: ALLOPURINOL 100 MG TAB PO SCH (09:01)
[2018-12-02] MEDS: BISOPROLOL FUMARATE 5 MG TAB PO SCH (09:01)
[2018-12-02] MEDS: ENTRESTO 24-26MG TABLET (SACUBITRIL/VALSARTAN) PO SCH ×2 (09:02→20:56)
--- NOTE | 2018-12-02 12:01 | IPNPDOC ---
Text Note Date of Service The patient was seen on 12/02/18. NOTE SUBJECTIVE: Patient seen and examined at bedside. No acute overnight events reported. Patient has no new medical complaints. OBJECTIVE PHYSICAL EXAMINATION: VITAL SIGNS: Please see below. General: NAD, sitting comfortably in chair, in good spirits, at bedside HEENT: NC/AT CV: irregularly irregular. Systolic click Resp: CTA B/L, no w/r/r Abd: obese, soft, NT, ND, +BS Extremities: trace edema b/l LE. No cyanosis Skin: no visible rashes or lesions. Healing scars b/l LE LABORATORY DATA, IMAGING STUDIES, MICROBIOLOGY: Please see below. ASSESSMENT AND PLAN: Acutely decompensated CHF with reduced EF much improved with diuresis. Tolerating Entresto well-Cardio would like to maintain her on current dose has hx of systolic & diastolic chf. Echo this admission reveals EF 25%, LVH & RVH with signs of pulm HTN. continue monitoring I&O, daily wts, 1800cc fluid restriction LOYD with oliguria Is tolerating Entresto bid well. Appears euvolemic on exam and will continue monitoring output and renal fxn on curret dose per cardio renal US & CT reveal complex cysts and uterine myoma. Pt aware this will require o/p f/u ------- Acute on chronic respiratory failure, with hypoxia and hypercarbia resolved. Pt weaned of BiPAP 2/4 and now back to baseline 2L NC, although no previously documented lung disease likely was 2/2 to acutely decompensated CHF and questionable med compliance Elevated Troponin Cardio consulted. Appreciate Dr. Castellanos's input. Likely 2/2 acute on chronic CHF and CKD. No new ST changes or chest pain or pressure. Repeat cardiac cath not recommended per Cardio of note, pt had subtherapeutic INR admission, but currently at goal (2.5-3.5, given her hx of mechanical mitral valve) Chronic Afib rate controlled on home Zebeta & Digoxin chronically anticoagulated on Coumadin per pt, has a nonfunctional AICD, with leads pending placement by Dr. Brice in [place]. Per pt, "vessel is too large and lead keeps falling." Continue o/p f/u-she has appt 12/03/18. 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 Currently on hold given LOYD. BP controlled on Zebeta. Continue monitoring. Gout continue home Allopurinol DVT ppx: on Warfarin DISPOSITION: Anticipating discharge in 24 hours, reinstate home services; Will aim to d/c in time for her to make her appt with Anesthesia Attending Dr. Brice on 12/03. VS,Fishbone, I+O VS, Fishbone, I+O Laboratory Tests 12/02/18 06:30 Red Blood Count 3.98 L, Mean Corpuscular Volume 94.0, Mean Corpuscular Hemoglobin 28.1, Mean Corpuscular Hemoglobin Concent 29.9 L, Red Cell Distribution Width 16.5 H, Calcium Level 9.4 Vital Signs Date Time Temp Pulse Resp B/P (MAP) Pulse Ox O2 Delivery O2 Flow Rate FiO2 12/02/18 09:01 62 12/02/18 09:01 132/70 12/02/18 06:00 96.5 20 96 2.5 11/26/18 08:00 35 11/26/18 02:23 NIPPV (BIPAP/CPAP) I&O- Last 24 Hours up to 6 AM 12/02/18 06:00 Intake Total 1500 ml Output Total 0 ml Balance 1500 ml ELAINE HARRISON MD Dec 02, 2018 12:01
[2018-12-02 14:00] VITALS: BP 110/51
[2018-12-02] MEDS: WARFARIN SOD 5 MG TAB PO SCH (20:56)
[2018-12-02] MEDS: ACETAMINOPHEN 650MG ER TAB (TYLENOL ARTHRITIS) PO PRN (20:57)
[2018-12-02 22:00] VITALS: BP 112/56
[2018-12-03] MEDS: IPRATROPIUM 0.5MG/ALBUTEROL 2.5MG INH SOL UD 3ML (DUONEB)(J7620) NEB SCH ×2 (03:19→09:21)
[2018-12-03 06:00] VITALS: BP 115/69
[2018-12-03 06:50] LABS: HEMATOCRIT 36.5 % (36.0-47.0); HEMOGLOBIN 11.4 g/dl (12.0-15.5); MEAN CORPUSCULAR HEMOGLOBIN 28.4 pg (27.0-33.0); MEAN CORPUSCULAR HGB CONC 31.2 g/dl (32.0-36.5); PLATELET COUNT, AUTOMATED 294 10^3/uL (150-450); RED BLOOD COUNT 4.01 10^6/uL (4.00-5.40)
[2018-12-03 07:18] LABS: CALCIUM LEVEL 9.4 MG/DL (8.8-10.2); CREATININE FOR GFR 1.33 MG/DL (0.55-1.30); GLOMERULAR FILTRATION RATE 41.1 (>39); POTASSIUM SERUM 5.5 MEQ/L (3.5-5.1)
[2018-12-03] MEDS: HumaLOG INSULIN (NovoLOG) PER UNIT SC SCH (08:12)
[2018-12-03] MEDS ORDERED: PATIROMER SORBITEX CALCIUM 8.4 GM POWDER PACKET (VELTASSA) PO ONE (08:15)
[2018-12-03 09:30] VITALS: BP 155/68
[2018-12-03] MEDS: ENTRESTO 24-26MG TABLET (SACUBITRIL/VALSARTAN) PO SCH (10:11)
[2018-12-03] MEDS: ALLOPURINOL 100 MG TAB PO SCH (10:12)
[2018-12-03] MEDS: MAGNESIUM OXIDE 400 MG TAB (MAG-OX) PO SCH (10:12)
[2018-12-03] MEDS: ATORVASTATIN 10 MG TAB PO SCH (10:13)
[2018-12-03] MEDS: ASPIRIN 81 MG ENTERIC TAB PO SCH (10:13)
[2018-12-03 10:14] VITALS: BP 155/68
[2018-12-03] MEDS: BISOPROLOL FUMARATE 5 MG TAB PO SCH (10:14)
[2018-12-03] MEDS: DIGOXIN 0.125 MG TAB PO SCH (10:15)
--- NOTE | 2018-12-03 13:54 | DS.PDOC ---
Discharge Summary General Date of Admission Nov 26, 2018 at 00:42 Date of Discharge 12/03/18 Primary Care Physician: SARA BAUER DO Attending Physician: ELAINE HARRISON MD Specialist/Consultants Involve Press Catcher/critical care: Dr. Street Catering Associate: Dr. Castellanos Discharge Summary PROCEDURES PERFORMED DURING STAY: 2d echo ADMITTING DIAGNOSES: 1. Acute on chronic CHF exacerbation 2. Elevated troponins 3. Acute hypercarbic and hypoxic respiratory failure DISCHARGE DIAGNOSES: 1. Acutely decompensated chronic heart failure, systolic and diastolic 2. Elevated troponin 3. Acute hypercarbic and hypoxic respiratory failure 4. Acute on CKD 5. Hyperkalemia CAD S/P CABG Chronic respiratory failure, on 2L NC baseline NIDDM 2 Gout Atrial fibrillation chronically on Coumadin Hyperlipidemia Hypertension with hypertensive heart disease CHF, with reduced EF of 25% History of mechanical mitral valve repair for endocarditis COMPLICATIONS/CHIEF COMPLAINT: Chf Exacerbation, Resp Failure W/ Hypercapnia. HISTORY OF PRESENT ILLNESS: 70-year-old female presented with progressively worsening dyspnea on exertion for the past couple days 2 weeks. Of note, she has an AICD pacemaker in place that is currently not functional. She normally follows with Dr. Brice in [place] who has to place the leads, as it appears the leads have fallen off the left ventricle in the past. On admission, she complained that she was only able to walk a few feet before getting short of breath, also associated with orthopnea and lower extremity edema. No chest pain, cough, fevers, chills. HOSPITAL COURSE: Patient was admitted to the hospital and started IV diuretics, strict I's and O's, daily weights. Pulmonology was consulted for BiPAP management. Of note, INR was slightly subtherapeutic on admission at 1.96 area did she is given a 7.5 MG dose of Coumadin, and resumed on her normal 5 MG dose. Daily INR for checks, and her INR remained therapeutic thereafter. Patient was given DuoNeb treatments as well. Her elevated troponins of 1.83 were deemed 2/2 her CKD, increased work of breathing, and acutely decompensated CHF. She had no chest pain or ST changes on EKG, and cardiology did not believe a cardiac cath was necessary. Patient was eventually weaned off BiPAP without complications, and her fluid status was optimized and she overall improved. 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 She was changed from lisinopril, spironolactone, and torsemide to Entresto twice a day. During her stay, she did have a period of oliguria, which improved with time and continued Entresto per Cardio. Renal ultrasound and CT revealed complex cysts and uterine myoma, which patient was made aware of and recommended for follow-up outpatient. Was back to her baseline of 2L NC and much improved from admission, cleared PT, and was safely discharged home with home health. Of note, on her last day, her potassium was 5.5. Due to Kayexalate being backordered, patient was given a dose of Valtessa, and a handwritten prescription to get a repeat BMP the next day. She is to follow-up with her PCP and cardiology, and return to ER for emergency. DISCHARGE MEDICATIONS: Please see below. ALLERGIES: Please see below. PHYSICAL EXAMINATION ON DISCHARGE: VITAL SIGNS: Please see below. General: NAD, resting comfortably. A&Ox3 HEENT: NC, AT, moist mucous membranes. JVD difficult to assess given her body habitus CV: irregularly irregular. Systolic click present from MV repair Resp: CTAB, no w/r/r Abd: obese, soft, NT, ND, normal bowel sounds Extremities: trace edema b/l LE. No cyanosis Skin: no visible rashes or lesions. Healing scars b/l LE LABORATORY DATA: Please see below. IMAGING: * 11/25/2018 CXR: Moderate to marked cardiomegaly. Pulmonary vascular congestion. Discoid atelectasis right base. Status post cardiac valve replacement and pacemaker. * 11/26/2018 CXR: Moderate cardiomegaly. Improved pulmonary vasculature. No focal infiltrate, pleural effusion, or pulmonary edema seen. * 11/26/2018 2-D echo: 1. Moderate left ventricle dilatation with mild eccentric left ventricle hypertrophy. Paradoxical septal motion with moderate global left ventricular (LV) hypokinesis elsewhere. Severe reduction in overall LV systolic function. Left ventricular ejection fraction (LVEF) 25% by visual estimate. Unable to determine LV diastolic function in the setting of atrial fibrillation and mechanical mitral valve in situ. 2. Well-seated and normally functioning double-tilting disc mitral valve prosthesis. No mitral regurgitation or stenosis. 3. Severe left atrial dilatation. 4. Severe focal thickening and focal calcific deposits of a 3-cusp aortic valve. Mild reduction in aortic cusp mobility. Mild aortic stenosis and mild aortic regurgitation. 5. Very small pericardial effusion. No diastolic chamber col lapse. 6. Presence of an implantable cardioverter defibrillator (ICD) lead coursing towards the right ventricle apex. 7. Suggestive of moderately severe elevation of estimated right ventricle systolic pressure. Normal right ventricle size and systolic function. At least mild hypertrophy of the right ventricle free wall. Inferior vena cava dilatation. Suggestive of elevated central venous pressure in the range of 10-15 mmHg. At least mild right atrial dilatation. * 11/26/2018 renal ultrasound: Increased echogenicity of both kidneys consistent with advanced patient age and/or medical renal disease. Bilateral renal cysts including a complex cyst in the upper pole the right kidney. Finding likely represents a hemorrhagic cyst and should be correlated with additional imaging such as CT or MRI if clinically desired. Followup ultrasound could also be obtained to document stability. Urinary bladder not evaluated due to the presence of a Tyler catheter. * 11/2018 CT abdomen and pelvis: There are three cysts in the right kidney. No hydronephrosis is seen. There is some left colonic diverticulosis. There is a 8.2 cm densely calcified uterine myoma. Tyler catheter. Cardiomegaly with pacemaker. PROGNOSIS: fair ACTIVITY: As tolerated. DIET: DASH DISPOSITION: Home with services. DISCHARGE INSTRUCTIONS: 1. Follow-up with PCP within one week, with cardiology as scheduled, including Dr. Brice since her case for AICD lead placement 2. NEW MEDS: Entresto bid. STOP: Lisinopril, spironolactone, torsemide 3. Return to ER for emergency DISCHARGE CONDITION: Stable. TIME SPENT ON DISCHARGE: Greater than 35 minutes. Vital Signs/I&Os Vital Signs Date Time Temp Pulse Resp B/P (MAP) Pulse Ox O2 Delivery O2 Flow Rate FiO2 12/03/18 10:15 69 12/03/18 10:14 155/68 12/03/18 09:30 97.6 19 97 2.0 12/03/18 09:21 Nasal Cannula I&O- Last 24 Hours up to 6 AM 12/03/18 06:00 Intake Total 1220 ml Output Total 0 ml Balance 1220 ml Laboratory Data Labs 24H Laboratory Tests 2 12/02/18 16:31: Bedside Glucose (Misc Panel) 156H 12/02/18 20:53: Bedside Glucose (Misc Panel) 186H 12/03/18 06:19: Nucleated Red Blood Cells % (auto) 0.0, Anion Gap 4L, Glomerular Filtration Rate 41.1, Blood Urea Nitrogen 54H, Creatinine 1.33H, Sodium Level 137, Potassium Level 5.5H, Chloride Level 105, Carbon Dioxide Level 28, Calcium Level 9.4 CBC/BMP Laboratory Tests 12/03/18 06:19 Red Blood Count 4.01, Mean Corpuscular Volume 91.0, Mean Corpuscular Hemoglobin 28.4, Mean Corpuscular Hemoglobin Concent 31.2 L, Red Cell Distribution Width 16.6 H, Calcium Level 9.4 FSBS Laboratory Tests Test 12/02/18 16:31 12/02/18 20:53 Range/Units Bedside Glucose (Misc Panel) 156 186 83-110 MG/DL Discharge Medications Scheduled (Digoxin) 125 Mcg Tab, 125 MCG PO DAILY, (Reported) Allopurinol (Allopurinol) 100 Mg Tab, 100 MG PO DAILY, (Reported) Aspirin (Aspir-81) 81 Mg Tab, 81 MG PO DAILY, (Reported) Atorvastatin Calcium (Atorvastatin Calcium) 10 Mg Tab, 10 MG PO DAILY, (Reported) Bisoprolol Fumarate (Bisoprolol Fumarate) 5 Mg Tab, 5 MG PO DAILY, (Reported) Magnesium Oxide (Magnesium Oxide) 400 Mg Tab, 400 MG PO BID, (Reported) Metformin Hydrochloride (Metformin HCl ER) 500 Mg Tab, 500 MG PO BID, (Reported) Sacubitril/Valsartan (Entresto 24-26 mg) 1 Tab Tab, 1 TAB PO BID Warfarin Sod (Warfarin Sodium) 5 Mg Tab, 5 MG PO QHS, (Reported) Scheduled PRN Acetaminophen (Tylenol 8 Hour Arthritis) 650 Mg Tab, 650 MG PO Q8H PRN for PAIN, (Reported) Allergies Coded Allergies: No Known Allergies (Verified , 09/20/17) GME ATTESTATION GME ATTESTATION My faculty preceptor for this patient encounter was physically present during the encounter and was fully available. All aspects of the patient interview, examination, medical decision making process, and medical care plan development were reviewed and approved by the faculty preceptor. The faculty preceptor is aware and concurs with the plan as stated in the body of this note and will attest to such by his/her cosignature. EMIGDIO HARPER DO Dec 03, 2018 13:54
== END 2018-12-03 11:40 | disposition home health service (06) | DRG 291 ==
LOC: M ED 20:38 → M ED INP 11-26 00:42 → M ICU 11-26 03:00 → M MS5PR 11-30 16:21
PROVIDERS: ADMIT Internal Medicine; ATTEND Internal Medicine
DX: I13.0 Hypertensive heart and chronic kidney disease with heart failure and stage 1 through stage 4 chronic kidney disease, or unspecified chronic kidney disease (principal); J96.22 Acute and chronic respiratory failure with hypercapnia; J96.21 Acute and chronic respiratory failure with hypoxia; I50.43 Acute on chronic combined systolic (congestive) and diastolic (congestive) heart failure; N17.9 Acute kidney failure, unspecified; I25.10 Atherosclerotic heart disease of native coronary artery without angina pectoris; E11.9 Type 2 diabetes mellitus without complications; M10.9 Gout, unspecified; I35.2 Nonrheumatic aortic (valve) stenosis with insufficiency; I48.2 Chronic atrial fibrillation; N18.3 Chronic kidney disease, stage 3 (moderate); E87.5 Hyperkalemia; E78.5 Hyperlipidemia, unspecified; I42.8 Other cardiomyopathies; Z95.1 Presence of aortocoronary bypass graft; Z95.810 Presence of automatic (implantable) cardiac defibrillator; Z79.82 Long term (current) use of aspirin; Z79.84 Long term (current) use of oral hypoglycemic drugs; Z79.01 Long term (current) use of anticoagulants; Z79.899 Other long term (current) drug therapy; Z98.49 Cataract extraction status, unspecified eye; Z91.14 Patient's other noncompliance with medication regimen; Z95.4 Presence of other heart-valve replacement; Z96.651 Presence of right artificial knee joint; Z68.36 Body mass index [BMI] 36.0-36.9, adult

== ENCOUNTER → 2018-12-04 | Outpatient (CLI) | payer MEDICARE ==
[~2018-12-04] MED LIST changes: +ASPI81TA85 PO; +ENTR1TAB PO; +LISI-542 PO; +MAGN400T2 PO
[2018-12-04 18:10] LABS: CALCIUM LEVEL 9.9 MG/DL (8.8-10.2); CREATININE FOR GFR 1.24 MG/DL (0.55-1.30); GLOMERULAR FILTRATION RATE 44.5 (>39); POTASSIUM SERUM 5.5 MEQ/L (3.5-5.1)
== END ==
LOC: M LAB 17:32
PROVIDERS: ATTEND Internal Medicine
DX: I48.91 Unspecified atrial fibrillation (principal); E87.5 Hyperkalemia

== ENCOUNTER → 2018-12-04 | Outpatient (REF) | payer MEDICARE ==
[2018-12-04 13:47] LABS: CALCIUM LEVEL 9.7 MG/DL (8.8-10.2); CREATININE FOR GFR 1.2 MG/DL (0.55-1.30); GLOMERULAR FILTRATION RATE 46.3 (>39); POTASSIUM SERUM 6.4 MEQ/L (3.5-5.1)
== END ==
LOC: M SHH 11:34 → M LAB REF 11:34
PROVIDERS: ATTEND Internal Medicine
DX: E87.5 Hyperkalemia (principal)

== ENCOUNTER 2019-01-12 17:24 | Inpatient (IN) | payer MEDICARE ==
[~2019-01-12] VITALS: Ht 154.9 cm; Wt 89.1 kg
[2019-01-12] MEDS ORDERED: POTA1TAB14 PO (18:07)
[2019-01-12] MEDS ORDERED: DAILTAB49 PO (18:07)
[2019-01-12] MEDS ORDERED: DOK100TA PO (18:07)
[2019-01-12] MEDS ORDERED: CEFU1TAB20 PO (18:07)
[2019-01-12] MEDS ORDERED: FURO40TA2 PO (18:07)
[2019-01-12] MEDS ORDERED: CARV3.12 PO (18:07)
[2019-01-12] MEDS ORDERED: FERR32TA PO (18:07)
[2019-01-12] MEDS ORDERED: ENOX40IN3 SC (18:07)
[2019-01-12] MEDS ORDERED: FOLI1TAB11 PO (18:07)
[2019-01-12] MEDS ORDERED: MORPHINE 2 MG/ML 1ML SYRINGE (J2270) IV ONE (18:30)
[2019-01-12 18:53] LABS: BASO % 0.3 % (0.0-1.0); EOS # 0.2 10^3/uL (0.0-0.50); EOS % 2.5 % (0.0-3.0); HEMATOCRIT 31.9 % (36.0-47.0); HEMOGLOBIN 9.6 g/dl (12.0-15.5); LYMPH # 1.3 10^3/uL (1.5-4.5); LYMPH % 13.7 % (24.0-44.0); MEAN CORPUSCULAR HEMOGLOBIN 28.7 pg (27.0-33.0); MEAN CORPUSCULAR HGB CONC 30.1 g/dl (32.0-36.5); MEAN CORPUSCULAR VOLUME 95.2 fl (80.0-96.0); MONO # 0.9 10^3/uL (0.0-0.8); MONO % 9.1 % (0.0-5.0); PLATELET COUNT, AUTOMATED 293 10^3/uL (150-450); RED BLOOD COUNT 3.35 10^6/uL (4.00-5.40); WHITE BLOOD COUNT 9.4 10^3/uL (4.0-10.0)
[2019-01-12 19:11] LABS: INR 2.1
[2019-01-12 19:12] LABS: PARTIAL THROMBOPLASTIN TIME 52.5 SECONDS (25.4-37.6)
[2019-01-12 19:18] LABS: C REACTIVE PROTEIN QUANTITATIV 1.47 MG/DL (0.00-0.30); CALCIUM LEVEL 9.4 MG/DL (8.8-10.2); CREATININE FOR GFR 1.17 MG/DL (0.55-1.30); GLOMERULAR FILTRATION RATE 47.6 (>39); POTASSIUM SERUM 5.4 MEQ/L (3.5-5.1)
--- NOTE | 2019-01-12 19:25 | ECGEPIP ---
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
[2019-01-12 19:51] LABS: ERYTHROCYTE SEDIMENTATION RATE 46 mm/hr (0-30)
[2019-01-12] MEDS ORDERED: PERCOCET 5MG/325MG TAB PO ONE (20:00)
--- NOTE | 2019-01-12 20:07 | REPVR ---
EXAM: US Duplex Left Lower Extremity Veins, Limited EXAM DATE/TIME: 01/12/2019 7:31 PM CLINICAL HISTORY: 78 years old, female; Pain; Leg, lower; Left TECHNIQUE: Imaging protocol: Real-time Duplex ultrasound of the Left Lower Extremity with 2-D gonzalez scale, color Doppler flow and spectral waveform analysis. Limited exam focused on the left lower extremity veins. COMPARISON: No relevant prior studies available. FINDINGS: Left deep veins: Unremarkable. The common femoral, femoral, proximal profunda femoral and popliteal veins are patent without thrombus. Normal Doppler waveforms. Normal compressibility and/or augmentation response. Left superficial veins: Unremarkable. Saphenofemoral junction is patent without thrombus. Soft tissues: Large fluid collection demonstrated in the proximal medial left calf measures 14.8 x 3.7 x 7 cm. Soft tissue edema in the calf. IMPRESSION: 1. Large fluid collection demonstrated in the proximal medial left calf measures 14.8 x 3.7 x 7 cm (? seroma). 2. Soft tissue edema in the calf. No DVT. Electronically signed by: Carlos Suh On 01/12/2019 20:06:50 PM
[2019-01-12] MEDS: HYDROMORPHONE HCL 0.5 MG/ 0.5 ML SYRINGE (J1170 PER 1) IV PRN ×2 (20:24→23:21)
[2019-01-12] MEDS ORDERED: LOVE0.8I SC (22:35)
[2019-01-12] MEDS ORDERED: FURO20TA2 PO (22:35)
[2019-01-12] MEDS ORDERED: ENTR1TAB PO (22:35)
[2019-01-12] MEDS ORDERED: BISACODYL 5 MG TAB PO PRN (23:15)
[2019-01-12] MEDS ORDERED: ONDANSETRON 4 MG TAB (S0181) PO PRN (23:15)
--- NOTE | 2019-01-12 23:31 | HPEPDOC ---
[facility] Medical History & Physical Date of Admission Jan 12, 2019 History and Physical CHIEF COMPLAINT: [LEFT LEG PAIN] HISTORY OF PRESENT ILLNESS: Patient is a 78 yo female with multiple pmhx listed below, including sCHF who has AICD and PM placement 3 weeks ago and was placed on lovenox and coumadin. Her INR is therapeutic, but patient has multiple hematomas and ecchymoses. She has been having left leg cramps for the past few days and until today when she couldn't walk due to pain in her leg so she came to the ED. She denied fever, chills, chest pain, sob, headache, blurry vision, dysuria , hematuria or hematochezia. ROS - all 14 point review of system is negative except for whats listed in HPI PAST MEDICAL HISTORY: coronary artery disease (CAD) status post coronary artery bypass graft (CABG) approximately ten years ago. Chronic respiratory failure on 2 liters of oxygen at home. afib on AC sCHF PAST SURGICAL HISTORY: She has had mitral valve repair, right knee arthroscopy, carpal tunnel syndrome, , cataract surgery. ALLERGIES: No known drug allergies. SOCIAL HISTORY: Denies tobacco, alcohol or illicit drug use. FAMILY HISTORY: Cancers, noncontributory in this setting. ALLERGIES: Please see below. Physical exam Gen: NAD, healthy appearing , HEENT: normocephalic, atraumatic, no discharge from ears or nose, no oropharyngeal erythema or exudate, neck is supple, no lymphadenopathy, trachea midline CVS: RRR, normal S1n S2, + murmur, rubs, or gallops, B/L lower extremity edema, left leg swelling -wrapped, no jvd Resp: LCTAB, no rhonchi, wheezes or crackles Abd : soft nontender, normal bowel sounds, no rebound tenderness or guarding, multiple ecchymoses and hematoma on abd where lovenox was being injection MSK: strength 5/5, but reduced strength and ROM in left leg due to swelling Neuro: AOAx3, no confusion, no focal deficit skin - multiple areas of ecchymoses and hematomas Psych: normal mood and affect, good judgment HOME MEDICATIONS: Please see below. LABORATORY DATA: See below. IMAGING: [venous doppler - hematoma , no dvt , no active blood flow in hematoma -less likely patient is still bleeding ] MICROBIOLOGY: Please see below. ASSESSMENT and PLan hematoma in left leg -left leg is wrapped , could not appreciate DP pulse but capillary refill is within 2sec - continue compression -c/w prn pain meds -hold coumadin and lovenox per concrete floor installer (per ED) - ortho was contacted by ED and rec to monitor for now - periodic exam for compression syndrome if hematoma gets bigger c/w home meds except AC dvt ppx - INR therapeutic Vital Signs Vital Signs Date Time Temp Pulse Resp B/P (MAP) Pulse Ox O2 Delivery O2 Flow Rate FiO2 01/12/19 22:55 84 20 97 Nasal Cannula 2.0 01/12/19 22:30 150/63 (92) 01/12/19 17:51 97.1 Laboratory Data Labs 24H Laboratory Tests 2 01/12/19 18:34: Prothrombin Time 24.0H, Prothromb Time International Ratio 2.10, Activated Partial Thromboplast Time 52.5H 01/12/19 18:35: Immature Granulocyte % (Auto) 0.4, White Blood Count 9.4, Red Blood Count 3.35L, Hemoglobin 9.6L, Hematocrit 31.9L, Mean Corpuscular Volume 95.2, Mean Corpuscular Hemoglobin 28.7, Mean Corpuscular Hemoglobin Concent 30.1L, Red Cell Distribution Width 17.2H, Platelet Count 293, Neutrophils (%) (Auto) 74.0H, Lymphocytes (%) (Auto) 13.7L, Monocytes (%) (Auto) 9.1H, Eosinophils (%) (Auto) 2.5, Basophils (%) (Auto) 0.3, Neutrophils # (Auto) 7.0, Lymphocytes # (Auto) 1.3L, Monocytes # (Auto) 0.9H, Eosinophils # (Auto) 0.2, Basophils # (Auto) 0.0, Nucleated Red Blood Cells % (auto) 0.0, Erythrocyte Sedimentation Rate 46H, Anion Gap 7L, Glomerular Filtration Rate 47.6, Blood Urea Nitrogen 41H, Creatinine 1.17, Sodium Level 140, Potassium Level 5.4H, Chloride Level 104, Carbon Dioxide Level 29, Calcium Level 9.4, C-Reactive Protein, Quantitative 1.47H CBC/BMP Laboratory Tests 01/12/19 18:35 Red Blood Count 3.35 L, Mean Corpuscular Volume 95.2, Mean Corpuscular Hemoglobin 28.7, Mean Corpuscular Hemoglobin Concent 30.1 L, Red Cell Distribution Width 17.2 H, Neutrophils (%) (Auto) 74.0 H, Lymphocytes (%) (Auto) 13.7 L, Monocytes (%) (Auto) 9.1 H, Eosinophils (%) (Auto) 2.5, Basophils (%) (Auto) 0.3, Neutrophils # (Auto) 7.0, Lymphocytes # (Auto) 1.3 L, Monocytes # (Auto) 0.9 H, Eosinophils # (Auto) 0.2, Basophils # (Auto) 0.0, Calcium Level 9.4 Microbiology Microbiology 01/12/19 Blood Culture, Received Pending 01/12/19 Blood Culture, Received Pending Home Medications Scheduled (Digoxin) 125 Mcg Tab, 125 MCG PO DAILY Allopurinol (Allopurinol) 100 Mg Tab, 100 MG PO DAILY Aspirin (Aspir-81) 81 Mg Tab, 81 MG PO DAILY Atorvastatin Calcium (Atorvastatin Calcium) 10 Mg Tab, 10 MG PO DAILY Bisoprolol Fumarate (Bisoprolol Fumarate) 5 Mg Tab, 5 MG PO DAILY Carvedilol (Carvedilol) 3.125 Mg Tab, 3.125 MG PO BID Cefuroxime Axetil (Cefuroxime Axetil) 250 Mg Tab, 250 MG PO BID Enoxaparin Sodium (Lovenox) 100 Mg/Ml Inj, 100 MG SC BID Ferrous Gluconate (Ferrous Gluconate) 324 Mg Tab, 324 MG PO BID Folic Acid (Folic Acid) 1 Mg Tab, 1 MG PO DAILY Furosemide (Furosemide) 20 Mg Tab, 20 MG PO BID Magnesium Oxide (Magnesium Oxide) 400 Mg Tab, 400 MG PO BID Metformin Hydrochloride (Metformin HCl ER) 500 Mg Tab, 500 MG PO DAILY Potassium Chloride (Potassium Chloride ER) 20 Meq Tab, 20 MEQ PO DAILY Sacubitril/Valsartan (Entresto 24-26 mg) 1 Tab Tab, 1 TAB PO BID Warfarin Sod (Warfarin Sodium) 5 Mg Tab, 5 MG PO QHS RELATIVE STATES THIS WAS HER LAST DOSE PER PHYSICIAN Scheduled PRN Acetaminophen (Tylenol 8 Hour Arthritis) 650 Mg Tab, 650 MG PO Q8H PRN for PAIN Miscellaneous Medications (Daily Multiple Vitamin) 1 Tab Tab, 1 TAB PO Allergies Coded Allergies: No Known Allergies (Verified , 09/20/17) LISE PNEA MD Jan 12, 2019 23:15
[2019-01-13] MEDS: PERCOCET 5MG/325MG TAB PO PRN ×4 (00:13→18:46)
[2019-01-13] MEDS: MORPHINE 4 MG/ML 1ML VIAL/SYRINGE (J2270) IV PRN ×3 (00:14→21:10)
[2019-01-13] MEDS ORDERED: METAL LOCK LOOP XX ONE (02:43)
[2019-01-13 06:46] LABS: BASO % 0.4 % (0.0-1.0); EOS # 0.1 10^3/uL (0.0-0.50); EOS % 0.7 % (0.0-3.0); HEMATOCRIT 28.9 % (36.0-47.0); HEMOGLOBIN 8.7 g/dl (12.0-15.5); LYMPH # 0.8 10^3/uL (1.5-4.5); LYMPH % 11.1 % (24.0-44.0); MEAN CORPUSCULAR HEMOGLOBIN 29.8 pg (27.0-33.0); MEAN CORPUSCULAR HGB CONC 30.1 g/dl (32.0-36.5); MONO # 0.7 10^3/uL (0.0-0.8); MONO % 9.7 % (0.0-5.0); NEUTROPHILS # 5.7 10^3/uL (1.8-7.7); NEUTROPHILS % 77.7 % (36.0-66.0); PLATELET COUNT, AUTOMATED 260 10^3/uL (150-450); RED BLOOD COUNT 2.92 10^6/uL (4.00-5.40); WHITE BLOOD COUNT 7.3 10^3/uL (4.0-10.0)
[2019-01-13 07:03] LABS: INR 1.91; PROTHROMBIN TIME 22.2 SECONDS (12.1-14.4)
[2019-01-13 07:09] LABS: CALCIUM LEVEL 9.6 MG/DL (8.8-10.2); CREATININE FOR GFR 1.28 MG/DL (0.55-1.30); GLOMERULAR FILTRATION RATE 42.9 (>39); MAGNESIUM LEVEL 2.2 MG/DL (1.8-2.4); POTASSIUM SERUM 4.7 MEQ/L (3.5-5.1)
[2019-01-13] MEDS: DOCUSATE SODIUM 100 MG CAP PO SCH ×2 (09:16→21:11)
[2019-01-13] MEDS: FUROSEMIDE 20 MG TAB PO SCH ×2 (09:16→17:00)
[2019-01-13] MEDS: DIGOXIN 0.125 MG TAB PO SCH (09:17)
[2019-01-13] MEDS: MAGNESIUM OXIDE 400 MG TAB (MAG-OX) PO SCH ×2 (09:17→21:10)
[2019-01-13] MEDS: ALLOPURINOL 100 MG TAB PO SCH (09:17)
[2019-01-13] MEDS: FOLIC ACID 1 MG TAB PO SCH (09:17)
[2019-01-13] MEDS: PANTOPRAZOLE 40MG TAB (PROTONIX) PO SCH (09:17)
[2019-01-13] MEDS: ATORVASTATIN 10 MG TAB PO SCH (09:17)
[2019-01-13] MEDS: CARVedilol 3.125 MG TAB PO SCH ×2 (09:18→21:11)
[2019-01-13] MEDS: POTASSIUM CHLORIDE 10 MEQ SR TABLET PO SCH (09:18)
[2019-01-13] MEDS: FERROUS GLUCONATE 324 MG TAB PO SCH ×2 (09:43→21:10)
--- NOTE | 2019-01-13 10:09 | REP ---
LEFT KNEE, FOUR VIEWS: Four views of the left knee performed. I see no acute fracture or dislocation. There is moderately severe joint space narrowing with subchondral sclerosis and spurring of the medial joint. There is chondral calcinosis, subchondral sclerosis and spurring of the lateral joint. There is patellofemoral compartment narrowing. Benign appearing soft tissue calcification is seen in the proximal lower leg. IMPRESSION: Moderate degenerative changes without fracture or dislocation. Electronically Signed by Bruce Maddox MD 01/13/2019 10:41 A
--- NOTE | 2019-01-13 10:11 | REP ---
LEFT LOWER LEG, TWO VIEWS: Two views of left lower leg performed. There is moderately severe joint space narrowing of the medial knee joint. There is moderate spurring at the margins of the joint. There is chondrocalcinosis in the lateral joint. Benign appearing soft tissue calcifications are seen in the lower leg. IMPRESSION: Moderate degenerative changes at the knee. Osseous structures are intact with no acute fracture or dislocation. Electronically Signed by Bruce Maddox MD 01/13/2019 10:41 A
[2019-01-13 12:48] VITALS: BP 127/61
[2019-01-13] MEDS: WARFARIN SOD 5 MG TAB PO SCH (17:00)
[2019-01-13] MEDS ORDERED: NYSTATIN 100,000 UNITS/GM TOPICAL PWD 15 GM TOP PRN (18:00)
--- NOTE | 2019-01-13 18:26 | IPNPDOC ---
Subjective Date Seen The patient was seen on 01/13/19. Subjective Chief Complaint/HPI Patient seen and examined at the bedside. Reports that her left lower extremity pain is improved this morning following application of surgical compression dressing. Objective Physical Examination General Exam: Positive: Alert, Cooperative, No Acute Distress ENT Exam: Positive: Atraumatic, Mucous membr. moist/pink Neck Exam: Negative: JVD Chest Exam: Positive: Clear to auscultation, Normal air movement Heart Exam: Positive: Rate Normal, Normal S1, Normal S2 Abdomen Exam: Positive: Soft; Negative: Tenderness Extremity Exam: Positive: Other (left lower extremity noted to be wrapped in surgical compression dressing from inferior to the knee distally to the ankle. The patient is noted to have a palpable pulse distally. Good capillary refill in the nailbeds. Neurovascularly intact distally.) Psych Exam: Positive: Oriented x 3 Assessment /Plan Plan/VTE VTE Prophylaxis Ordered?: Yes Plan Left Leg Hematoma 2/2 Dual Anticoagulation Therapy U/S of the LLE notable for large fluid collection measuring 14.8 x 13.7 x 7 cm The patient's left lower extremity is neurovascularly intact distally with palpable pulse, good capillary refill, and intact sensation to light palpation I have discussed the case with the on-call Orthopedic Surgeon, Dr. Quinn via telephone this morning who reviewed the case with the ER attending on last night, and he has recommended compression dressing at this time, no surgical intervention indicated. I have also discussed the case with Cardiology (Dr. Castellanos was online marketer, patient follows with Dr. Kennedy as outpatient) via telephone this morning. He has recommended resuming the patient's coumadin at this time given no active bleeding and the need for AC given the patient's mechanical mitral valve. Lovenox has been discontinued Risks, benefits, and alternative options regarding anticoagulation discussed at length with the patient and her at the bedside, as well as the recommendations of orthopedic surgery and cardiology as delineated above. The patient and her have verbalized understanding of the same, and are agreeable to resuming anticoagulation therapy at this time. History of systolic and diastolic congestive heart failure Patient has an AICD which is pending left ventricular epicardial lead placement in [place] with Dr. Brice sometime next week Patient not decompensated at this time. Continue therapy as ordered Chronic kidney disease Serum creatinine appears to be at baseline Chronic atrial fibrillation Continue Coreg, Digoxin, Coumadin History of mechanical mitral valve Continue Coumadin with goal INR of 2.5-3.5 Diabetes mellitus Insulin sliding scale Hypertension, stable Continue medications as ordered Gout Continue allopurinol GERD Continue PPI Dyslipidemia Continue statin DVT prophylaxis On Coumadin Disposition-pending continued clinical improvement VS, I&O, 24H, Fishbone Vital Signs/I&O Vital Signs Date Time Temp Pulse Resp B/P (MAP) Pulse Ox O2 Delivery O2 Flow Rate FiO2 01/13/19 15:17 16 01/13/19 12:48 98.9 89 127/61 (83) 97 2.0 01/13/19 09:13 Room Air Laboratory Data 24H LABS Laboratory Tests 2 01/12/19 18:34: Prothrombin Time 24.0H, Prothromb Time International Ratio 2.10, Activated Partial Thromboplast Time 52.5H 01/12/19 18:35: Immature Granulocyte % (Auto) 0.4, White Blood Count 9.4, Red Blood Count 3.35L, Hemoglobin 9.6L, Hematocrit 31.9L, Mean Corpuscular Volume 95.2, Mean Corpuscular Hemoglobin 28.7, Mean Corpuscular Hemoglobin Concent 30.1L, Red Cell Distribution Width 17.2H, Platelet Count 293, Neutrophils (%) (Auto) 74.0H, Lymphocytes (%) (Auto) 13.7L, Monocytes (%) (Auto) 9.1H, Eosinophils (%) (Auto) 2.5, Basophils (%) (Auto) 0.3, Neutrophils # (Auto) 7.0, Lymphocytes # (Auto) 1.3L, Monocytes # (Auto) 0.9H, Eosinophils # (Auto) 0.2, Basophils # (Auto) 0.0, Nucleated Red Blood Cells % (auto) 0.0, Erythrocyte Sedimentation Rate 46H, Anion Gap 7L, Glomerular Filtration Rate 47.6, Blood Urea Nitrogen 41H, Creatinine 1.17, Sodium Level 140, Potassium Level 5.4H, Chloride Level 104, Carbon Dioxide Level 29, Calcium Level 9.4, C-Reactive Protein, Quantitative 1.47H 01/13/19 06:30: Prothrombin Time 22.2H, Prothromb Time International Ratio 1.91, Immature Granulocyte % (Auto) 0.4, White Blood Count 7.3, Red Blood Count 2.92L, Hemoglobin 8.7L, Hematocrit 28.9L, Mean Corpuscular Volume 99.0H, Mean Corpuscular Hemoglobin 29.8, Mean Corpuscular Hemoglobin Concent 30.1L, Red Cell Distribution Width 17.0H, Platelet Count 260, Neutrophils (%) (Auto) 77.7H, Lymphocytes (%) (Auto) 11.1L, Monocytes (%) (Auto) 9.7H, Eosinophils (%) (Auto) 0.7, Basophils (%) (Auto) 0.4, Neutrophils # (Auto) 5.7, Lymphocytes # (Auto) 0.8L, Monocytes # (Auto) 0.7, Eosinophils # (Auto) 0.1, Basophils # (Auto) 0.0, Nucleated Red Blood Cells % (auto) 0.0, Anion Gap 5L, Glomerular Filtration Rate 42.9, Blood Urea Nitrogen 41H, Creatinine 1.28, Sodium Level 139, Potassium Level 4.7, Chloride Level 103, Carbon Dioxide Level 31, Calcium Level 9.6, Magnesium Level 2.2 CBC/BMP Laboratory Tests 01/12/19 18:35 Red Blood Count 3.35 L, Mean Corpuscular Volume 95.2, Mean Corpuscular Hemoglobin 28.7, Mean Corpuscular Hemoglobin Concent 30.1 L, Red Cell Distribution Width 17.2 H, Neutrophils (%) (Auto) 74.0 H, Lymphocytes (%) (Auto) 13.7 L, Monocytes (%) (Auto) 9.1 H, Eosinophils (%) (Auto) 2.5, Basophils (%) (Auto) 0.3, Neutrophils # (Auto) 7.0, Lymphocytes # (Auto) 1.3 L, Monocytes # (Auto) 0.9 H, Eosinophils # (Auto) 0.2, Basophils # (Auto) 0.0, Calcium Level 9.4 01/13/19 06:30 Red Blood Count 2.92 L, Mean Corpuscular Volume 99.0 H, Mean Corpuscular Hemoglobin 29.8, Mean Corpuscular Hemoglobin Concent 30.1 L, Red Cell Distribution Width 17.0 H, Neutrophils (%) (Auto) 77.7 H, Lymphocytes (%) (Auto) 11.1 L, Monocytes (%) (Auto) 9.7 H, Eosinophils (%) (Auto) 0.7, Basophils (%) (Auto) 0.4, Neutrophils # (Auto) 5.7, Lymphocytes # (Auto) 0.8 L, Monocytes # (Auto) 0.7, Eosinophils # (Auto) 0.1, Basophils # (Auto) 0.0, Calcium Level 9.6 Microbiology Microbiology 01/12/19 Blood Culture, Received Pending 01/12/19 Blood Culture, Received Pending SANTA HUANG MD Jan 13, 2019 18:26
[2019-01-13 22:00] VITALS: BP 116/60
[2019-01-14] MEDS: PERCOCET 5MG/325MG TAB PO PRN ×4 (02:12→22:47)
[2019-01-14 04:15] VITALS: BP 131/63
[2019-01-14] MEDS: MORPHINE 4 MG/ML 1ML VIAL/SYRINGE (J2270) IV PRN ×2 (05:42→13:26)
[2019-01-14 06:00] VITALS: BP 134/59
[2019-01-14 06:09] LABS: HEMATOCRIT 27.8 % (36.0-47.0); HEMOGLOBIN 8.4 g/dl (12.0-15.5); MEAN CORPUSCULAR HEMOGLOBIN 29.2 pg (27.0-33.0); MEAN CORPUSCULAR HGB CONC 30.2 g/dl (32.0-36.5); MEAN CORPUSCULAR VOLUME 96.5 fl (80.0-96.0); PLATELET COUNT, AUTOMATED 282 10^3/uL (150-450); RED BLOOD COUNT 2.88 10^6/uL (4.00-5.40); WHITE BLOOD COUNT 10.5 10^3/uL (4.0-10.0)
[2019-01-14 06:33] LABS: INR 1.69; PROTHROMBIN TIME 20.2 SECONDS (12.1-14.4)
[2019-01-14 06:34] LABS: CREATININE FOR GFR 1.25 MG/DL (0.55-1.30); GLOMERULAR FILTRATION RATE 44.1 (>39); MAGNESIUM LEVEL 2.4 MG/DL (1.8-2.4)
[2019-01-14] MEDS: FUROSEMIDE 20 MG TAB PO SCH ×2 (08:08→17:14)
[2019-01-14] MEDS: DIGOXIN 0.125 MG TAB PO SCH (08:09)
[2019-01-14] MEDS: CARVedilol 3.125 MG TAB PO SCH ×2 (08:09→20:13)
[2019-01-14] MEDS: FERROUS GLUCONATE 324 MG TAB PO SCH ×2 (08:09→20:12)
[2019-01-14] MEDS: ATORVASTATIN 10 MG TAB PO SCH (08:09)
[2019-01-14] MEDS: ALLOPURINOL 100 MG TAB PO SCH (08:09)
[2019-01-14] MEDS: FOLIC ACID 1 MG TAB PO SCH (08:09)
[2019-01-14] MEDS: PANTOPRAZOLE 40MG TAB (PROTONIX) PO SCH (08:09)
[2019-01-14] MEDS: DOCUSATE SODIUM 100 MG CAP PO SCH ×2 (08:09→20:13)
[2019-01-14] MEDS: POTASSIUM CHLORIDE 10 MEQ SR TABLET PO SCH (08:10)
[2019-01-14] MEDS: MAGNESIUM OXIDE 400 MG TAB (MAG-OX) PO SCH ×2 (08:10→20:13)
[2019-01-14 14:00] VITALS: BP 147/81
--- NOTE | 2019-01-14 14:09 | IPNPDOC ---
Subjective Date Seen The patient was seen on 01/14/19. Subjective Chief Complaint/HPI Patient seen and examined at the bedside this point. The patient states that she had a rough night last night as her pain in her left lower extremity was uncontrolled. She reports some alleviation of the pain when she sits at the edge of the bed with her lower extremities dangling off of the side. She reports that she still has good range of motion, and intact sensation. Otherwise, no acute overnight events noted. Objective Physical Examination General Exam: Positive: Alert, Cooperative, No Acute Distress ENT Exam: Positive: Atraumatic, Mucous membr. moist/pink Neck Exam: Negative: JVD Chest Exam: Positive: Clear to auscultation, Normal air movement Heart Exam: Positive: Rate Normal, Normal S1, Normal S2 Abdomen Exam: Positive: Soft; Negative: Tenderness Extremity Exam: Positive: Other (left lower extremity noted to be wrapped in surgical compression dressing from around the ankle joint. The patient is noted to have a palpable pulse distally. Good capillary refill in the nailbeds. Neurovascularly intact distally. ROM of the ankle joint intact.) Psych Exam: Positive: Oriented x 3 Assessment /Plan Plan/VTE VTE Prophylaxis Ordered?: Yes Plan Left Leg Hematoma 2/2 Dual Anticoagulation Therapy U/S of the LLE notable for large fluid collection measuring 14.8 x 13.7 x 7 cm The patient's left lower extremity is neurovascularly intact distally with palpable pulse, good capillary refill, and intact sensation to light palpation However, the patient notes continued pain despite pain medication as ordered. In addition, she also notes that the swelling in the LLE is somewhat increased I called the orthopedic surgical service this morning, and have asked them to once again evaluate the patient. We will follow up with their recommendations History of systolic and diastolic congestive heart failure Patient has an AICD which is pending left ventricular epicardial lead placement in [place] with Dr. Brice sometime next week Patient not decompensated at this time. Continue therapy as ordered Chronic kidney disease Serum creatinine appears to be at baseline Chronic atrial fibrillation Continue Coreg, Digoxin, Coumadin History of mechanical mitral valve Continue Coumadin with goal INR of 2.5-3.5 INR subtherapeutic at this time--we will adjust dosing accordingly We will try to avoid bridging with Lovenox SC given hematoma--risks, benefits, alternative options of this discussed with the patient and her at the bedside who have verbalized understanding of the same. Diabetes mellitus Insulin sliding scale Hypertension, stable Continue medications as ordered Gout Continue allopurinol GERD Continue PPI Dyslipidemia Continue statin DVT prophylaxis On Coumadin Disposition-pending continued clinical improvement VS, I&O, 24H, Fishbone Vital Signs/I&O Vital Signs Date Time Temp Pulse Resp B/P (MAP) Pulse Ox O2 Delivery O2 Flow Rate FiO2 01/14/19 13:26 19 01/14/19 08:09 78 01/14/19 08:09 135/64 01/14/19 06:00 97.7 99 2.0 01/13/19 09:13 Room Air I&O- Last 24 Hours up to 6 AM 01/14/19 06:00 Intake Total 540 ml Output Total 0 ml Balance 540 ml Laboratory Data 24H LABS Laboratory Tests 2 01/14/19 05:48: Nucleated Red Blood Cells % (auto) 0.0, Prothrombin Time 20.2H, Prothromb Time International Ratio 1.69, Anion Gap 5L, Glomerular Filtration Rate 44.1, Blood Urea Nitrogen 38H, Creatinine 1.25, Sodium Level 134L, Potassium Level 5.0, Chl oride Level 98, Carbon Dioxide Level 31, Calcium Level 10.0, Magnesium Level 2.4 CBC/BMP Laboratory Tests 01/14/19 05:48 Red Blood Count 2.88 L, Mean Corpuscular Volume 96.5 H, Mean Corpuscular Hemoglobin 29.2, Mean Corpuscular Hemoglobin Concent 30.2 L, Red Cell Distribution Width 16.6 H, Calcium Level 10.0 Microbiology Microbiology 01/12/19 Blood Culture - Preliminary, Resulted No growth after 24 hours . All specim... 01/12/19 Blood Culture - Preliminary, Resulted No growth after 24 hours . All specim... SANTA HUANG MD Jan 14, 2019 14:09
[2019-01-14] MEDS ORDERED: WARFARIN SOD 2.5 MG TAB PO ONE (17:00)
[2019-01-14] MEDS: ACETAMINOPHEN TAB 650MG DOSE (2X325MG) PO PRN (17:15)
[2019-01-14] MEDS: WARFARIN SOD 5 MG TAB PO SCH (18:35)
[2019-01-14 18:46] LABS: HEMATOCRIT 25.7 % (36.0-47.0)
--- NOTE | 2019-01-14 19:51 | REP ---
Clinical: Rule out fluid collection. Technique: Axial noncontrast images of the left lower extremity from the distal femoral metaphysis through the ankle with coronal and sagittal re-formations. Findings: There is a large heterogeneous fluid collection involving the posteromedial calf deep to the subcutaneous tissues measuring 7.9 x 5.2 cm maximal AP and transverse diameter extending from the level of the posterior knee to the mid/distal tibia approximately 27 cm in length likely representing an intramuscular hematoma involving the gastrocnemius muscle. Extensive subcutaneous edema and infiltration to the subcutaneous fat throughout the visualized left lower extremity is appreciated along with smaller scattered fluid collections along the medial upper calf as well as fluid along the lateral aspect overlying the distal fibula. No evidence for subcutaneous or abnormal gas collections noted. The osseous structures demonstrate age-related osteodystrophy and degenerative changes without evidence for acute fracture or dislocation. Extensive atherosclerotic changes and peripheral vascular disease noted with intimal calcifications. Impression: Large complex fluid collection likely representing hematoma and likely involving the gastrocnemius muscle along with smaller subcutaneous collections and extensive subcutaneous edema and infiltration. Clinical correlation is recommended and differential diagnosis includes post traumatic as well as post infectious/inflammatory pathologic causes. Electronically Signed by Donald Martínez MD 01/14/2019 07:42 P
--- NOTE | 2019-01-14 21:28 | CR ---
DATE OF CONSULTATION: 01/14/2019 CONSULTATION FOR: Dr. Bhat CHIEF COMPLAINT: Left calf pain and swelling. HISTORY: This is a 78-year-old woman who was admitted 01/12/2019 due to some pain in her left leg. Apparently the night before she bumped her calf and developed some swelling in her leg. She has been treated recently on Coumadin but was also placed on Lovenox 3 weeks prior. She has recent placement of an automatic implantable cardioverter defibrillator (AICD) and pacemaker. She is due to have some sort of followup cardiac procedure later this week in [place]. She has been intermittently elevating the leg. There has been some use of a compressive wrap, just gently Mekhi wrapping the leg. She indicates that the pain had been fairly constant for the first couple of days. Today it seems to be more intermittent. She is getting some pain medication and today has received apparently Percocet and 2 mg of IV morphine. The pain is fairly diffuse in the calf. She has no pain with range of motion of the ankle, foot or toes. There has been no progression in the swelling in her left lower extremity. She has difficulty bearing weight. PAST MEDICAL HISTORY: Notable for coronary disease, status post coronary artery bypass graft (CABG). She has chronic respiratory failure and on oxygen at home. She has atrial fibrillation. PAST SURGICAL HISTORY: Past surgical history is listed as mitral valve repair, right knee arthroplasty, carpal tunnel release, section, cataract surgery. ALLERGIES: She has no known drug allergies. SOCIAL HISTORY: Denies any tobacco or alcohol use. FAMILY HISTORY: Notable for cancers but otherwise noncontributory. MEDICATIONS ON ADMISSION: Include digoxin, allopurinol, aspirin, atorvastatin, bisoprolol fumarate, carvedilol, cefuroxime, Lovenox which she is not currently getting but was getting 100 mg twice a day at home, ferrous gluconate, folic acid, Lasix, magnesium oxide, metformin, potassium chloride, Entresto and Coumadin. She is also getting as needed Tylenol. REVIEW OF SYSTEMS: Denies any current chest pain, shortness of breath. Denies any abdominal discomfort. Endocrine as noted above for diabetes. PHYSICAL EXAMINATION: She is alert and oriented. She is in no acute distress. She is resting comfortably. She does say that the pain in her calf is intermittent, at times is completely pain free, and other times it can be an 8. She seems to get some relief when she hangs it in a more dependent position. She has no significant erythema of the calf. There are some very superficial abrasions, no sign of any infection. She does have some diffuse tenderness of her calf but it is relatively mild. There is absolutely zero pain elicited with passive and active range of motion of her toes and her foot and ankle. She does have some swelling that extends up into her knee and thigh on the left side as well. No signs of compartment syndrome, currently. Abdomen is soft, nontender, nondistended. Nonlabored breathing. IMAGING STUDIES: She has had an ultrasound on 01/12/2019 in the emergency room that showed a fluid collection in her left calf that presumably would be a hematoma. They felt it was 14.8 x 3.7 x 7 cm. No evidence of deep vein thrombosis (DVT). Also had a tib-fib x-ray that showed some underlying arthritis of the knee but no other acute findings. And her left knee was noted to have arthritis. She has fairly significant medial compartment narrowing. Again, no acute findings. IMPRESSION: Left calf swelling, pain is somewhat intermittent in nature. She tends to keep it in a more dependent position, which I have told her is probably working against this and she really needs to keep it elevated above her heart. This is likely to be a hematoma that is related to a contusion and her anticoagulation. It does not appear to be progressing in any sense in terms of her symptoms or in terms of her reported size of her calf. She is neurovascularly intact with intact pulses, good capillary refill and no signs at all of current compartment syndrome. Her pain is intermittent, and she has no pain with active or passive range of motion of her foot, ankle and toes distally which works against this being a compartment syndrome. She does have some degree of tightness of her left calf, but it is not tense that would be more consistent with compartment syndrome. RECOMMENDATIONS: 1. Elevation. I think we need to keep this above her heart, and I have talked to her and her about this and elevated the bed and propped pillows under her leg to demonstrate how I would like this done. 2. I think it is worth a retrial of compressive wrap just gently with an Mekhi wrap. I do not think that we are going to be able to get a thromboembolism deterrent (JAVIER) stocking on her leg. 3. It appears that they are holding the Lovenox and keeping her Coumadin going. It is likely that her anticoagulation is an important part of her medical care. I would suggest continuing that for now. 4. Would recommend getting a CT scan of her left lower extremity from involving her tib-fib region to assess this fluid collection. 5. Would suggest possibly considering radiology ultrasound-guided drain placement depending upon what this fluid collection looks like. 6. There does not appear to be any emergent surgical indications here, and the patient is not likely to be a good surgical candidate, but for now I think we need to concentrate on elevation, gentle compression and a trial of icing. It does seem that her symptoms are becoming more tolerable. Will follow along. Thank you for the consult REKHA
[2019-01-14 22:00] VITALS: BP 128/59
[2019-01-15 00:45] LABS: HEMATOCRIT 24.7 % (36.0-47.0); HEMOGLOBIN 7.6 g/dl (12.0-15.5)
[2019-01-15 06:00] VITALS: BP 125/69
[2019-01-15 06:31] LABS: HEMATOCRIT 23.6 % (36.0-47.0); HEMOGLOBIN 7.4 g/dl (12.0-15.5); MEAN CORPUSCULAR HEMOGLOBIN 29.5 pg (27.0-33.0); MEAN CORPUSCULAR HGB CONC 31.4 g/dl (32.0-36.5); PLATELET COUNT, AUTOMATED 263 10^3/uL (150-450); RED BLOOD COUNT 2.51 10^6/uL (4.00-5.40)
[2019-01-15 06:46] LABS: INR 1.99; PROTHROMBIN TIME 22.9 SECONDS (12.1-14.4)
[2019-01-15 06:56] LABS: CALCIUM LEVEL 10.2 MG/DL (8.8-10.2); CREATININE FOR GFR 1.34 MG/DL (0.55-1.30); GLOMERULAR FILTRATION RATE 40.7 (>39); MAGNESIUM LEVEL 2.4 MG/DL (1.8-2.4); POTASSIUM SERUM 5.2 MEQ/L (3.5-5.1)
[2019-01-15] MEDS: FERROUS GLUCONATE 324 MG TAB PO SCH ×2 (08:32→20:10)
[2019-01-15] MEDS: MAGNESIUM OXIDE 400 MG TAB (MAG-OX) PO SCH ×2 (08:32→20:11)
[2019-01-15] MEDS: DIGOXIN 0.125 MG TAB PO SCH (08:32)
[2019-01-15] MEDS: ATORVASTATIN 10 MG TAB PO SCH (08:33)
[2019-01-15] MEDS: FUROSEMIDE 20 MG TAB PO SCH ×2 (08:33→17:16)
[2019-01-15] MEDS: DOCUSATE SODIUM 100 MG CAP PO SCH ×2 (08:33→20:10)
[2019-01-15] MEDS: CARVedilol 3.125 MG TAB PO SCH ×2 (08:33→20:11)
[2019-01-15] MEDS: ALLOPURINOL 100 MG TAB PO SCH (08:33)
[2019-01-15] MEDS: PANTOPRAZOLE 40MG TAB (PROTONIX) PO SCH (08:34)
[2019-01-15] MEDS: FOLIC ACID 1 MG TAB PO SCH (08:34)
[2019-01-15] MEDS ORDERED: PATIROMER SORBITEX CALCIUM 8.4 GM POWDER PACKET (VELTASSA) PO ONE (10:00)
[2019-01-15] MEDS ORDERED: LIDOCAINE 1% MDV 20ML VIAL As Ordered ONE (12:40)
--- NOTE | 2019-01-15 12:58 | IPNPDOC ---
Subjective Date Seen The patient was seen on 01/15/19. Subjective Chief Complaint/HPI Patient seen and examined at the bedside. Reports that her left lower extremity is still painful, and that she was only able to get a few hours of sleep last night. She continues to have palpable pulses, good range of motion in the ankle, intact sensation, and good capillary refill. An ultrasound guided drain placement has been ordered by orthopedic surgery to be done by interventional radiology. 1 unit of packed blood cells has also been ordered given her hemoglobin drop below 8.0 Objective Physical Examination General Exam: Positive: Alert, Cooperative, No Acute Distress ENT Exam: Positive: Atraumatic, Mucous membr. moist/pink Neck Exam: Negative: JVD Chest Exam: Positive: Clear to auscultation, Normal air movement Heart Exam: Positive: Rate Normal, Normal S1, Normal S2 Abdomen Exam: Positive: Soft; Negative: Tenderness Extremity Exam: Positive: Other (left lower extremity noted to be wrapped in surgical compression dressing from inferior to the knee distally to the ankle. The patient is noted to have a palpable pulse distally. Good capillary refill in the nailbeds. Neurovascularly intact distally.) Psych Exam: Positive: Oriented x 3 Assessment /Plan Plan/VTE VTE Prophylaxis Ordered?: Yes Plan Left Leg Hematoma 2/2 Dual Anticoagulation Therapy U/S of the LLE notable for large fluid collection measuring 14.8 x 13.7 x 7 cm from admission The patient's left lower extremity is neurovascularly intact distally with palpable pulse, good capillary refill, and intact sensation to light palpation CT Extremity from 01/14 notable for large complex fluid collection involving the gastrocnemius muscle with extensive subcutaneous edema and infiltration Orthopedic surgery on board--ultrasound guided drain placement with interventional radiology has been ordered History of systolic and diastolic congestive heart failure Patient has an AICD which is pending left ventricular epicardial lead placement in [place] with Dr. Brice sometime next week Patient not decompensated at this time. Continue therapy as ordered Chronic kidney disease Serum creatinine appears to be at baseline Chronic atrial fibrillation Continue Coreg, Digoxin, Coumadin History of mechanical mitral valve Continue Coumadin with goal INR of 2.5-3.5 INR subtherapeutic at this time--we will adjust dosing accordingly We will try to avoid bridging with Lovenox SC given hematoma--risks, benefits, alternative options of this discussed with the patient and her at the bedside who have verbalized understanding of the same. Diabetes mellitus Insulin sliding scale Hypertension, stable Continue medications as ordered Gout Continue allopurinol GERD Continue PPI Dyslipidemia Continue statin DVT prophylaxis On Coumadin Disposition-pending continued clinical improvement VS, I&O, 24H, [place] Vital Signs/I&O Vital Signs Date Time Temp Pulse Resp B/P (MAP) Pulse Ox O2 Delivery O2 Flow Rate FiO2 01/15/19 08:32 90 01/15/19 06:00 97.5 18 125/69 (87) 97 2.0 01/13/19 09:13 Room Air I&O- Last 24 Hours up to 6 AM 01/15/19 06:00 Intake Total 400 ml Output Total 650 ml Balance -250 ml Laboratory Data 24H LABS Laboratory Tests 2 01/15/19 06:08: Nucleated Red Blood Cells % (auto) 0.0, Prothrombin Time 22.9H, Prothromb Time International Ratio 1.99, Anion Gap 6L, Glomerular Filtration Rate 40.7, Blood Urea Nitrogen 46H, Creatinine 1.34H, Sodium Level 136, Potassium Level 5.2H, Chloride Level 100, Carbon Dioxide Level 30, Calcium Level 10.2, Magnesium Level 2.4 CBC/BMP Laboratory Tests 01/14/19 18:40 01/15/19 00:13 01/15/19 06:08 Red Blood Count 2.51 L, Mean Corpuscular Volume 94.0, Mean Corpuscular Hemoglobin 29.5, Mean Corpuscular Hemoglobin Concent 31.4 L, Red Cell Distribution Width 16.6 H, Calcium Level 10.2 Microbiology Microbiology 01/12/19 Blood Culture - Preliminary, Resulted No Growth after 48 hours. All Specime... 01/12/19 Blood Culture - Preliminary, Resulted No Growth after 48 hours. All Specime... SANTA HUANG MD Jan 15, 2019 12:58
[2019-01-15 14:00] VITALS: BP 142/64
[2019-01-15] MEDS ORDERED: WARFARIN SOD 2.5 MG TAB PO ONE (17:00)
[2019-01-15] MEDS: WARFARIN SOD 5 MG TAB PO SCH (17:16)
[2019-01-15 22:00] VITALS: BP 130/85
[2019-01-16 06:00] VITALS: BP 141/63
[2019-01-16 06:39] LABS: HEMATOCRIT 25.5 % (36.0-47.0); MEAN CORPUSCULAR HGB CONC 31.4 g/dl (32.0-36.5); MEAN CORPUSCULAR VOLUME 95.5 fl (80.0-96.0); PLATELET COUNT, AUTOMATED 265 10^3/uL (150-450); RED BLOOD COUNT 2.67 10^6/uL (4.00-5.40); WHITE BLOOD COUNT 13.3 10^3/uL (4.0-10.0)
[2019-01-16 06:43] LABS: INR 2.18; PROTHROMBIN TIME 24.7 SECONDS (12.1-14.4)
[2019-01-16 06:53] LABS: CALCIUM LEVEL 9.8 MG/DL (8.8-10.2); CREATININE FOR GFR 1.36 MG/DL (0.55-1.30); MAGNESIUM LEVEL 2.4 MG/DL (1.8-2.4); POTASSIUM SERUM 4.9 MEQ/L (3.5-5.1)
[2019-01-16] MEDS: DOCUSATE SODIUM 100 MG CAP PO SCH ×2 (08:35→20:15)
[2019-01-16] MEDS: FERROUS GLUCONATE 324 MG TAB PO SCH ×2 (08:35→20:15)
[2019-01-16] MEDS: MAGNESIUM OXIDE 400 MG TAB (MAG-OX) PO SCH ×2 (08:36→20:15)
[2019-01-16] MEDS: PANTOPRAZOLE 40MG TAB (PROTONIX) PO SCH (08:36)
[2019-01-16] MEDS: ATORVASTATIN 10 MG TAB PO SCH (08:36)
[2019-01-16] MEDS: CARVedilol 3.125 MG TAB PO SCH ×2 (08:36→20:16)
[2019-01-16] MEDS: ALLOPURINOL 100 MG TAB PO SCH (08:36)
[2019-01-16] MEDS: DIGOXIN 0.125 MG TAB PO SCH (08:36)
[2019-01-16] MEDS: FUROSEMIDE 20 MG TAB PO SCH ×2 (08:36→18:00)
[2019-01-16] MEDS: FOLIC ACID 1 MG TAB PO SCH (08:36)
--- NOTE | 2019-01-16 10:06 | REP ---
ULTRASOUND-GUIDED LEFT CALF HEMATOMA DRAIN The procedure was performed under the direct supervision of Dr. maddox. The risks and benefits of the procedure were explained to the patient and informed consent was obtained. The left calf hematoma was localized using ultrasound guidance. The skin was prepped and draped in a sterile fashion. 1% lidocaine was used as a local anesthetic. Using ultrasound guidance a 10-[place] standard the medial catheter was inserted using trocar technique. 40 ml of red colored fluid was withdrawn and sent to lab for analysis. The catheter was affixed to the skin and a sterile dressing was applied. The catheter was connected to a gravity drainage bag. The patient tolerated the procedure well and there were no immediate complications. After the appropriate amount of monitored convalescence the patient was discharged from the department. Reviewed by SANDRA Steward 01/15/2019 04:23 P Electronically Signed by Bruce Maddox MD 01/16/2019 09:58 A
--- NOTE | 2019-01-16 12:22 | IPNPDOC ---
Subjective Date Seen The patient was seen on 01/16/19. Subjective Chief Complaint/HPI Patient seen and examined at the bedside. She had an ultrasound guided drain placement in her left lower extremity and has drained out 130 mL of serosanguineous/bloody fluid. Her pain appears to be better controlled, as she has not required any pain medications since 01/14. No other acute overnight events noted. Objective Physical Examination General Exam: Positive: Alert, Cooperative, No Acute Distress ENT Exam: Positive: Atraumatic, Mucous membr. moist/pink Neck Exam: Negative: JVD Chest Exam: Positive: Clear to auscultation, Normal air movement Heart Exam: Positive: Rate Normal, Normal S1, Normal S2 Abdomen Exam: Positive: Soft; Negative: Tenderness Extremity Exam: Positive: Other (left lower extremity noted to be wrapped in surgical compression dressing from inferior to the knee distally to the ankle. The patient is noted to have a palpable pulse distally. Good capillary refill in the nailbeds. Neurovascularly intact distally. +Drain placement with bloody/serosanguineous fluid collection noted in bag.) Psych Exam: Positive: Oriented x 3 Assessment /Plan Plan/VTE VTE Prophylaxis Ordered?: Yes Plan Left Leg Hematoma 2/2 Dual Anticoagulation Therapy U/S of the LLE notable for large fluid collection measuring 14.8 x 13.7 x 7 cm from admission The patient's left lower extremity is neurovascularly intact distally with palpable pulse, good capillary refill, and intact sensation to light palpation CT Extremity from 01/14 notable for large complex fluid collection involving the gastrocnemius muscle with extensive subcutaneous edema and infiltration s/p ultrasound guided drain placement on 01/15--total drainage of 130 cc's noted thus far Patient with improved pain control Orthopedic surgery on board-- we will cont to follow up with their recommendations Acute on Chronic Normocytic Anemia 2/2 LLE Hematoma s/p Transfusion of 1 Unit of PRBC's since admission Will serially monitor H&H's, and transfuse for hemoglobin less than 8 History of systolic and diastolic congestive heart failure Patient has an AICD which is pending left ventricular epicardial lead placement in [place] with Dr. Brice which is tentatively scheduled for Monday01/18/19 Patient not decompensated at this time. Continue therapy as ordered Chronic kidney disease Serum creatinine appears to be at baseline Chronic atrial fibrillation Continue Coreg, Digoxin, Coumadin History of mechanical mitral valve Continue Coumadin with goal INR of 2.5-3.5 INR subtherapeutic at this time--we will adjust dosing accordingly We will try to avoid bridging with Lovenox SC given hematoma--risks, benefits, alternative options of this discussed with the patient and her at the bedside who have verbalized understanding of the same. Diabetes mellitus Insulin sliding scale Hypertension, stable Continue medications as ordered Gout Continue allopurinol GERD Continue PPI Dyslipidemia Continue statin DVT prophylaxis On Coumadin Disposition-pending continued clinical improvement VS, I&O, 24H, Fishbone Vital Signs/I&O Vital Signs Date Time Temp Pulse Resp B/P (MAP) Pulse Ox O2 Delivery O2 Flow Rate FiO2 01/16/19 08:36 84 01/16/19 08:36 127/66 01/16/19 06:00 98.1 19 95 2.0 01/13/19 09:13 Room Air I&O- Last 24 Hours up to 6 AM 01/16/19 06:00 Intake Total 1720 ml Output Total 130 ml Balance 1590 ml Laboratory Data 24H LABS Laboratory Tests 2 01/16/19 06:13: Nucleated Red Blood Cells % (auto) 0.2H, Prothrombin Time 24.7H, Prothromb Time International Ratio 2.18, Anion Gap 8, Glomerular Filtration Rate 40.0, Blood Urea Nitrogen 44H, Creatinine 1.36H, Sodium Level 136, Potassium Level 4.9, Chloride Level 99, Carbon Dioxide Level 29, Calcium Level 9.8, Magnesium Level 2.4 CBC/BMP Laboratory Tests 01/16/19 06:13 Red Blood Count 2.67 L, Mean Corpuscular Volume 95.5, Mean Corpuscular Hemoglobin 30.0, Mean Corpuscular Hemoglobin Concent 31.4 L, Red Cell Distributi on Width 17.2 H, Calcium Level 9.8 Microbiology Microbiology 01/12/19 Blood Culture - Preliminary, Resulted No Growth after 72 hours. All specime... 01/12/19 Blood Culture - Preliminary, Resulted No Growth after 72 hours. All specime... 01/15/19 Anaerobic Culture, Received Pending 01/15/19 Gram Stain - Final, Resulted 01/15/19 Body Fluid Culture, Resulted Pending SANTA HUANG MD Jan 16, 2019 12:22
[2019-01-16 14:00] VITALS: BP 135/57
[2019-01-16 16:31] LABS: HEMATOCRIT 25.5 % (36.0-47.0); HEMOGLOBIN 8.1 g/dl (12.0-15.5)
[2019-01-16] MEDS ORDERED: WARFARIN SOD 2.5 MG TAB PO ONE (17:00)
[2019-01-16] MEDS: WARFARIN SOD 5 MG TAB PO SCH (18:00)
[2019-01-16 22:00] VITALS: BP 128/66
[2019-01-17 06:00] VITALS: BP 133/64
[2019-01-17 06:18] LABS: HEMATOCRIT 25.5 % (36.0-47.0); HEMOGLOBIN 7.8 g/dl (12.0-15.5); MEAN CORPUSCULAR HGB CONC 30.6 g/dl (32.0-36.5); MEAN CORPUSCULAR VOLUME 94.8 fl (80.0-96.0); PLATELET COUNT, AUTOMATED 313 10^3/uL (150-450); RED BLOOD COUNT 2.69 10^6/uL (4.00-5.40); WHITE BLOOD COUNT 14.4 10^3/uL (4.0-10.0)
[2019-01-17 06:23] LABS: INR 2.14; PROTHROMBIN TIME 24.3 SECONDS (12.1-14.4)
[2019-01-17 06:41] LABS: CALCIUM LEVEL 9.8 MG/DL (8.8-10.2); CREATININE FOR GFR 1.4 MG/DL (0.55-1.30); GLOMERULAR FILTRATION RATE 38.7 (>39); MAGNESIUM LEVEL 2.4 MG/DL (1.8-2.4); POTASSIUM SERUM 4.6 MEQ/L (3.5-5.1)
[2019-01-17] MEDS: FERROUS GLUCONATE 324 MG TAB PO SCH ×2 (09:04→20:24)
[2019-01-17] MEDS: MAGNESIUM OXIDE 400 MG TAB (MAG-OX) PO SCH ×2 (09:04→20:25)
[2019-01-17] MEDS: ATORVASTATIN 10 MG TAB PO SCH (09:04)
[2019-01-17] MEDS: CARVedilol 3.125 MG TAB PO SCH ×2 (09:05→20:28)
[2019-01-17] MEDS: ALLOPURINOL 100 MG TAB PO SCH (09:05)
[2019-01-17] MEDS: FUROSEMIDE 20 MG TAB PO SCH (09:05)
[2019-01-17] MEDS: PANTOPRAZOLE 40MG TAB (PROTONIX) PO SCH (09:05)
[2019-01-17] MEDS: FOLIC ACID 1 MG TAB PO SCH (09:05)
[2019-01-17] MEDS: DIGOXIN 0.125 MG TAB PO SCH (09:06)
[2019-01-17] MEDS: DOCUSATE SODIUM 100 MG CAP PO SCH ×2 (09:06→20:24)
[2019-01-17] MEDS: ACETAMINOPHEN TAB 650MG DOSE (2X325MG) PO PRN (09:06)
[2019-01-17] MEDS ORDERED: FUROSEMIDE 40 MG/4 ML VIAL (J1940) IV ONE (11:00)
[2019-01-17 11:24] VITALS: BP 138/70
[2019-01-17 14:00] VITALS: BP 107/59
[2019-01-17] MEDS: ACETAMINOPHEN 500 MG TAB PO SCH ×2 (16:36→20:29)
[2019-01-17] MEDS ORDERED: WARFARIN SOD 2.5 MG TAB PO SCH (17:00)
[2019-01-17 22:00] VITALS: BP 129/70
--- NOTE | 2019-01-17 22:29 | IPNPDOC ---
Subjective Date Seen The patient was seen on 01/17/19. Subjective Chief Complaint/HPI Left leg pain and cramps and inability to walk Events since last encounter Very somnolent this morning but easily arousable. No confusion . Says feels very tired. thinks that she has been sleeping of severeal days and is is catching up on the sleep. Did not get any narcotic or sedativemidication. Does not have any appetite. Had low grade fever this morning. Objective Physical Examination General Exam: Positive: Alert, Cooperative, No Acute Distress ENT Exam: Positive: Atraumatic, Mucous membr. moist/pink Neck Exam: Negative: JVD Chest Exam: Positive: Clear to auscultation, Normal air movement Heart Exam: Positive: Rate Normal, Normal S1, Normal S2 Abdomen Exam: Positive: Soft; Negative: Tenderness Extremity Exam: Positive: Other (left lower extremity noted to be wrapped in surgical compression dressing from inferior to the knee distally to the ankle. The patient is noted to have a palpable pulse distally. Good capillary refill in the nailbeds. Neurovascularly intact distally. +Drain placement with bloody/serosanguineous fluid collection noted in bag.) Psych Exam: Positive: Oriented x 3 Assessment /Plan Assessment Left Leg Hematoma 2/2 Dual Anticoagulation Therapy U/S of the LLE notable for large fluid collection measuring 14.8 x 13.7 x 7 cm from admission The patient's left lower extremity is neurovascularly intact distally with palpable pulse, good capillary refill, and intact sensation to light palpation CT Extremity from 01/14 notable for large complex fluid collection involving the gastrocnemius muscle with extensive subcutaneous edema and infiltration s/p ultrasound guided drain placement on 01/15--total drainage of 130 cc's noted thus far Patient with improved pain control Orthopedic surgery on board-- we will cont to follow up with their rec ommendations Acute on Chronic Normocytic Anemia 2/2 LLE Hematoma s/p Transfusion of 1 Unit of PRBC's since admission Will serially monitor H&H's, and transfuse for hemoglobin less than 8 History of systolic and diastolic congestive heart failure Patient has an AICD which is pending left ventricular epicardial lead placement in [place] with Dr. Brice which is tentatively scheduled for Monday01/18/19 Patient not decompensated at this time. Continue therapy as ordered Chronic kidney disease Serum creatinine appears to be at baseline Chronic atrial fibrillation Continue Coreg, Digoxin, Coumadin History of mechanical mitral valve Continue Coumadin with goal INR of 2.5-3.5 INR subtherapeutic at this time--we will adjust dosing accordingly We will try to avoid bridging with Lovenox SC given hematoma--risks, benefits, alternative options of this discussed with the patient and her at the bedside who have verbalized understanding of the same. Diabetes mellitus Insulin sliding scale Hypertension, stable Continue medications as ordered Gout Continue allopurinol GERD Continue PPI Dyslipidemia Continue statin DVT prophylaxis On Coumadin Disposition-pending continued clinical improvement Plan/VTE VTE Prophylaxis Ordered?: Yes VS, I&O, 24H, Fishbone Vital Signs/I&O Vital Signs Date Time Temp Pulse Resp B/P (MAP) Pulse Ox O2 Delivery O2 Flow Rate FiO2 01/17/19 22:00 97.2 80 18 129/70 (89) 98 2.0 01/13/19 09:13 Room Air I&O- Last 24 Hours up to 6 AM0 01/17/19 06:00 Intake Total 1300 ml Output Total 40 ml Balance 1260 ml Laboratory Data 24H LABS Laboratory Tests 2 01/17/19 05:46: Nucleated Red Blood Cells % (auto) 0.1H, Prothrombin Time 24.3H, Prothromb Time International Ratio 2.14, Anion Gap 7L, Glomerular Filtration Rate 38.7L, Blood Urea Nitrogen 50H, Creatinine 1.40H, Sodium Level 136, Potassium Level 4.6, Chloride Level 99, Carbon Dioxide Level 30, Calcium Level 9.8, Magnesium Level 2.4 CBC/BMP Laboratory Tests 01/17/19 05:46 Red Blood Count 2.69 L, Mean Corpuscular Volume 94.8, Mean Corpuscular Hemoglobin 29.0, Mean Corpuscular Hemoglobin Concent 30.6 L, Red Cell Distribution Width 17.0 H, Calcium Level 9.8 Microbiology Microbiology 01/12/19 Blood Culture - Final, Complete NO GROWTH AFTER 5 DAYS 01/12/19 Blood Culture - Final, Complete NO GROWTH AFTER 5 DAYS 01/15/19 Anaerobic Culture - Final, Complete 01/15/19 Gram Stain - Final, Complete 01/15/19 Body Fluid Culture - Final, Complete MARYJANE MARIEE MD Jan 17, 2019 22:29
[2019-01-18 02:00] VITALS: BP 140/66
[2019-01-18] MEDS ORDERED: MORPHINE 4 MG/ML 1ML VIAL/SYRINGE (J2270) IV ONE (03:30)
[2019-01-18 06:00] VITALS: BP 111/61
[2019-01-18 06:19] LABS: HEMATOCRIT 29.8 % (36.0-47.0); HEMOGLOBIN 9.5 g/dl (12.0-15.5); MEAN CORPUSCULAR HEMOGLOBIN 29.7 pg (27.0-33.0); MEAN CORPUSCULAR HGB CONC 31.9 g/dl (32.0-36.5); MEAN CORPUSCULAR VOLUME 93.1 fl (80.0-96.0); PLATELET COUNT, AUTOMATED 318 10^3/uL (150-450); WHITE BLOOD COUNT 12.9 10^3/uL (4.0-10.0)
[2019-01-18 06:27] LABS: INR 2.6; PROTHROMBIN TIME 28.4 SECONDS (12.1-14.4)
[2019-01-18 06:45] LABS: CALCIUM LEVEL 9.6 MG/DL (8.8-10.2); CREATININE FOR GFR 1.25 MG/DL (0.55-1.30); GLOMERULAR FILTRATION RATE 44.1 (>39); MAGNESIUM LEVEL 2.4 MG/DL (1.8-2.4); POTASSIUM SERUM 4.5 MEQ/L (3.5-5.1)
[2019-01-18] MEDS: FERROUS GLUCONATE 324 MG TAB PO SCH ×2 (08:00→20:42)
[2019-01-18] MEDS: DOCUSATE SODIUM 100 MG CAP PO SCH ×2 (08:00→20:41)
[2019-01-18] MEDS: FOLIC ACID 1 MG TAB PO SCH (08:00)
[2019-01-18] MEDS: PANTOPRAZOLE 40MG TAB (PROTONIX) PO SCH (08:00)
[2019-01-18] MEDS: ATORVASTATIN 10 MG TAB PO SCH (08:00)
[2019-01-18] MEDS: ALLOPURINOL 100 MG TAB PO SCH (08:00)
[2019-01-18] MEDS: MAGNESIUM OXIDE 400 MG TAB (MAG-OX) PO SCH ×2 (08:00→20:41)
[2019-01-18] MEDS: CARVedilol 3.125 MG TAB PO SCH ×2 (08:01→20:41)
[2019-01-18] MEDS: DIGOXIN 0.125 MG TAB PO SCH (08:01)
[2019-01-18] MEDS: ACETAMINOPHEN 500 MG TAB PO SCH ×3 (08:01→20:42)
[2019-01-18] MEDS: FUROSEMIDE 20 MG TAB PO SCH (10:55)
[2019-01-18] MEDS ORDERED: FUROSEMIDE 40 MG/4 ML VIAL (J1940) IV ONE (13:30)
[2019-01-18] MEDS ORDERED: oxyCODONE 5MG TAB PO PRN (13:30)
[2019-01-18 14:00] VITALS: BP 141/5
[2019-01-18] MEDS: WARFARIN SOD 3 MG TAB PO SCH (16:46)
[2019-01-18 22:00] VITALS: BP 107/55
--- NOTE | 2019-01-18 22:43 | IPNPDOC ---
Subjective Date Seen The patient was seen on 01/18/19. Subjective Chief Complaint/HPI Awake and alert this morning. Complaining of left calf pain. feels much better after sleeping well yesterday. No fever or chills, no chest pain or sob. Does complain of some swelling of her fingers. Objective Physical Examination General Exam: Positive: Alert, Cooperative, No Acute Distress ENT Exam: Positive: Atraumatic, Mucous membr. moist/pink Neck Exam: Negative: JVD Chest Exam: Positive: Clear to auscultation, Normal air movement Heart Exam: Positive: Rate Normal, Normal S1, Normal S2 Abdomen Exam: Positive: Soft; Negative: Tenderness Extremity Exam: Positive: Other (left lower extremity noted to be wrapped in surgical compression dressing from inferior to the knee distally to the ankle. The patient is noted to have a palpable pulse distally. Good capillary refill in the nailbeds. Neurovascularly intact distally. +Drain placement with bloody/serosanguineous fluid collection noted in bag.) Psych Exam: Positive: Oriented x 3 Assessment /Plan Assessment Left Leg Hematoma after trauma to calf 2/2 Dual Anticoagulation Therapy U/S of the LLE notable for large fluid collection measuring 14.8 x 13.7 x 7 cm from admission The patient's left lower extremity is neurovascularly intact distally with palpable pulse, good capillary refill, and intact sensation to light palpation CT Extremity from 01/14 notable for large complex fluid collection involving the gastrocnemius muscle with extensive subcutaneous edema and infiltration s/p ultrasound guided drain placement on 01/15--total drainage of 130 cc's now drain is out. Patient with improved pain control Orthopedic surgery on board-- we will cont to follow up with their recommendations Acute on Chronic Normocytic Anemia 2/2 LLE Hematoma s/p Transfusion of 1 Unit of PRBC's since admission Will serially monitor H&H's, and transfuse for hemoglobin less than 8 History of systolic and diastolic congestive heart failure Patient has an AICD which is pending left ventricular epicardial lead placement in [place] with Dr. Brice which is tentatively scheduled for Monday01/18/19 seems to be gettting a little fluid overloaded will give IV lasix today then continue po lasix. Chronic kidney disease Serum creatinine appears to be at baseline Chronic atrial fibrillation Continue Coreg, Digoxin, Coumadin History of mechanical mitral valve Continue Coumadin with goal INR of 2.5-3.5 INR subtherapeutic at this time--we will adjust dosing accordingly We will try to avoid bridging with Lovenox SC given hematoma--risks, benefits, alternative options of this discussed with the patient and her at the bedside who have verbalized understanding of the same. Diabetes mellitus Insulin sliding scale Hypertension, stable Continue medications as ordered Gout Continue allopurinol GERD Continue PPI Dyslipidemia Continue statin DVT prophylaxis On Coumadin Disposition-pending continued clinical improvement Plan/VTE VTE Prophylaxis Ordered?: Yes VS, I&O, 24H, Fishbone Vital Signs/I&O Vital Signs Date Time Temp Pulse Resp B/P (MAP) Pulse Ox O2 Delivery O2 Flow Rate FiO2 01/18/19 20:41 87 142/67 01/18/19 14:44 16 01/18/19 14:00 96.9 96 2.0 01/13/19 09:13 Room Air I&O- Last 24 Hours up to 6 AM 01/18/19 06:00 Intake Total 1091 ml Output Total 605 ml Balance 486 ml Laboratory Data 24H LABS Laboratory Tests 2 01/18/19 05:45: Nucleated Red Blood Cells % (auto) 0.2H, Prothrombin Time 28.4H, Prothromb Time International Ratio 2.60, Anion Gap 6L, Glomerular Filtration Rate 44.1, Blood Urea Nitrogen 52H, Creatinine 1.25, Sodium Level 135L, Potassium Level 4.5, Chloride Level 99, Carbon Dioxide Level 30, Calcium Level 9.6, Magnesium Level 2.4 CBC/BMP Laboratory Tests 01/18/19 05:45 Red Blood Count 3.20 L, Mean Corpuscular Volume 93.1, Mean Corpuscular Hemoglobin 29.7, Mean Corpuscular Hemoglobin Concent 31.9 L, Red Cell Distribution Width 16.2 H, Calcium Level 9.6 Microbiology Microbiology 01/12/19 Blood Culture - Final, Complete NO GROWTH AFTER 5 DAYS 01/12/19 Blood Culture - Final, Complete NO GROWTH AFTER 5 DAYS 01/15/19 Anaerobic Culture - Final, Complete 01/15/19 Gram Stain - Final, Complete 01/15/19 Body Fluid Culture - Final, Complete MARYJANE MARIEE MD Jan 18, 2019 22:43
[2019-01-19 06:00] VITALS: BP 121/69
[2019-01-19 06:21] LABS: HEMATOCRIT 29.5 % (36.0-47.0); HEMOGLOBIN 9.3 g/dl (12.0-15.5); MEAN CORPUSCULAR HEMOGLOBIN 29.3 pg (27.0-33.0); MEAN CORPUSCULAR HGB CONC 31.5 g/dl (32.0-36.5); MEAN CORPUSCULAR VOLUME 93.1 fl (80.0-96.0); PLATELET COUNT, AUTOMATED 332 10^3/uL (150-450); RED BLOOD COUNT 3.17 10^6/uL (4.00-5.40); WHITE BLOOD COUNT 10.8 10^3/uL (4.0-10.0)
[2019-01-19 06:29] LABS: INR 2.74; PROTHROMBIN TIME 29.6 SECONDS (12.1-14.4)
[2019-01-19 06:45] LABS: CALCIUM LEVEL 9.8 MG/DL (8.8-10.2); CREATININE FOR GFR 1.03 MG/DL (0.55-1.30); GLOMERULAR FILTRATION RATE 55.2 (>39); MAGNESIUM LEVEL 2.2 MG/DL (1.8-2.4); POTASSIUM SERUM 4.5 MEQ/L (3.5-5.1)
[2019-01-19] MEDS: PANTOPRAZOLE 40MG TAB (PROTONIX) PO SCH (08:25)
[2019-01-19] MEDS: FOLIC ACID 1 MG TAB PO SCH (08:25)
[2019-01-19] MEDS: MAGNESIUM OXIDE 400 MG TAB (MAG-OX) PO SCH ×2 (08:25→20:06)
[2019-01-19] MEDS: FERROUS GLUCONATE 324 MG TAB PO SCH ×2 (08:25→20:06)
[2019-01-19] MEDS: ALLOPURINOL 100 MG TAB PO SCH (08:25)
[2019-01-19] MEDS: ATORVASTATIN 10 MG TAB PO SCH (08:25)
[2019-01-19] MEDS: ACETAMINOPHEN 500 MG TAB PO SCH ×3 (08:26→20:07)
[2019-01-19] MEDS: DOCUSATE SODIUM 100 MG CAP PO SCH ×2 (08:26→20:06)
[2019-01-19] MEDS: CARVedilol 3.125 MG TAB PO SCH ×2 (08:27→20:06)
[2019-01-19] MEDS: DIGOXIN 0.125 MG TAB PO SCH (08:27)
[2019-01-19] MEDS: FUROSEMIDE 20 MG TAB PO SCH ×2 (10:00→16:46)
[2019-01-19] MEDS ORDERED: LACTULOSE 20 GM/30 ML SYRUP UD PO PRN (12:00)
--- NOTE | 2019-01-19 13:35 | IPNPDOC ---
Subjective Date Seen The patient was seen on 01/19/19. Subjective Chief Complaint/HPI Pain better controlled this am . No complaints. Objective Physical Examination General Exam: Positive: Alert, Cooperative, No Acute Distress ENT Exam: Positive: Atraumatic, Mucous membr. moist/pink Neck Exam: Negative: JVD Chest Exam: Positive: Clear to auscultation, Normal air movement Heart Exam: Positive: Rate Normal, Normal S1, Normal S2; Negative: Gallops, Murmurs, Rubs Abdomen Exam: Positive: Normal bowel sounds, Soft; Negative: Tenderness Extremity Exam: Positive: Edema, Tenderness, Swelling, Other (left lower extremity noted to be wrapped in surgical compression dressing from inferior to the knee distally to the ankle. The patient is noted to have a palpable pulse distally. Good capillary refill in the nailbeds. Neurovascularly intact distally. +Drain placement with bloody/serosanguineous fluid collection noted in bag.) Psych Exam: Positive: Oriented x 3 Assessment /Plan Assessment Left Leg Hematoma after trauma to calf 2/2 Dual Anticoagulation Therapy U/S of the LLE notable for large fluid collection measuring 14.8 x 13.7 x 7 cm from admission The patient's left lower extremity is neurovascularly intact distally with palpable pulse, good capillary refill, and intact sensation to light palpation CT Extremity from 01/14 notable for large complex fluid collection involving the gastrocnemius muscle with extensive subcutaneous edema and infiltration s/p ultrasound guided drain placement on 01/15--total drainage of 130 cc's now drain is out. Patient with improved pain control Orthopedic surgery on board-- we will cont to follow up with their recommendations Acute on Chronic Normocytic Anemia 2/2 LLE Hematoma s/p Transfusion of 1 Unit of PRBC's since admission Will serially monitor H&H's, and transfuse for hemoglobin less than 8 History of systolic and diastolic congestive heart failure Patient has an AICD which is pending left ventricular epicardial lead placement in [place] with Dr. Brice which is tentatively scheduled for Monday01/18/19 seems to be gettting a little fluid overloaded will give IV lasix today then continue po lasix. Chronic kidney disease Serum creatinine appears to be at baseline Chronic atrial fibrillation Continue Coreg, Digoxin, Coumadin History of mechanical mitral valve Continue Coumadin with goal INR of 2.5-3.5 INR subtherapeutic at this time--we will adjust dosing accordingly We will try to avoid bridging with Lovenox SC given hematoma--risks, benefits, alternative options of this discussed with the patient and her at the bedside who have verbalized understanding of the same. Diabetes mellitus Insulin sliding scale Hypertension, stable Continue medications as ordered Gout Continue allopurinol GERD Continue PPI Dyslipidemia Continue statin DVT prophylaxis On Coumadin Disposition-pending continued clinical improvement Plan/VTE VTE Prophylaxis Ordered?: Yes VS, I&O, 24H, Fishbone Vital Signs/I&O Vital Signs Date Time Temp Pulse Resp B/P (MAP) Pulse Ox O2 Delivery O2 Flow Rate FiO2 01/19/19 08:27 74 01/19/19 08:27 121/69 01/19/19 06:00 97.8 18 95 2.0 01/13/19 09:13 Room Air l I&O- Last 24 Hours up to 6 AM 01/19/19 06:00 Intake Total 2660 ml Output Total 0 ml Balance 2660 ml Laboratory Data 24H LABS Laboratory Tests 2 01/19/19 06:00: Nucleated Red Blood Cells % (auto) 0.2H, Prothrombin Time 29.6H, Prothromb Time International Ratio 2.74, Anion Gap 7L, Glomerular Filtration Rate 55.2, Blood Urea Nitrogen 48H, Creatinine 1.03, Sodium Level 135L, Potassium Level 4.5, Chloride Level 97L, Carbon Dioxide Level 31, Calcium Level 9.8, Magnesium Level 2.2 CBC/BMP Laboratory Tests 01/19/19 06:00 Red Blood Count 3.17 L, Mean Corpuscular Volume 93.1, Mean Corpuscular Hemoglobin 29.3, Mean Corpuscular Hemoglobin Concent 31.5 L, Red Cell Distribution Width 15.9 H, Calcium Level 9.8 Microbiology Microbiology 01/12/19 Blood Culture - Final, Complete NO GROWTH AFTER 5 DAYS 01/12/19 Blood Culture - Final, Complete NO GROWTH AFTER 5 DAYS 01/15/19 Anaerobic Culture - Final, Complete 01/15/19 Gram Stain - Final, Complete 01/15/19 Body Fluid Culture - Final, Complete MARYJANE MARIEE MD Jan 19, 2019 13:35
[2019-01-19 14:00] VITALS: BP 106/55
[2019-01-19] MEDS: WARFARIN SOD 3 MG TAB PO SCH (16:12)
[2019-01-19 22:00] VITALS: BP 118/65
[2019-01-20 06:00] VITALS: BP 119/67
[2019-01-20 06:27] LABS: HEMATOCRIT 31.8 % (36.0-47.0); HEMOGLOBIN 9.9 g/dl (12.0-15.5); MEAN CORPUSCULAR HEMOGLOBIN 29.8 pg (27.0-33.0); MEAN CORPUSCULAR HGB CONC 31.1 g/dl (32.0-36.5); MEAN CORPUSCULAR VOLUME 95.8 fl (80.0-96.0); PLATELET COUNT, AUTOMATED 352 10^3/uL (150-450); RED BLOOD COUNT 3.32 10^6/uL (4.00-5.40); WHITE BLOOD COUNT 9.8 10^3/uL (4.0-10.0)
[2019-01-20 06:40] LABS: INR 2.35; PROTHROMBIN TIME 26.2 SECONDS (12.1-14.4)
[2019-01-20 07:01] LABS: CALCIUM LEVEL 9.7 MG/DL (8.8-10.2); CREATININE FOR GFR 1.05 MG/DL (0.55-1.30); MAGNESIUM LEVEL 2.2 MG/DL (1.8-2.4); POTASSIUM SERUM 4.6 MEQ/L (3.5-5.1)
[2019-01-20] MEDS: DOCUSATE SODIUM 100 MG CAP PO SCH ×2 (08:13→20:40)
[2019-01-20] MEDS: ALLOPURINOL 100 MG TAB PO SCH (08:13)
[2019-01-20] MEDS: ATORVASTATIN 10 MG TAB PO SCH (08:13)
[2019-01-20] MEDS: MAGNESIUM OXIDE 400 MG TAB (MAG-OX) PO SCH ×2 (08:13→20:40)
[2019-01-20] MEDS: PANTOPRAZOLE 40MG TAB (PROTONIX) PO SCH (08:13)
[2019-01-20] MEDS: FOLIC ACID 1 MG TAB PO SCH (08:13)
[2019-01-20] MEDS: CARVedilol 3.125 MG TAB PO SCH ×2 (08:14→20:39)
[2019-01-20] MEDS: DIGOXIN 0.125 MG TAB PO SCH (08:14)
[2019-01-20] MEDS: FERROUS GLUCONATE 324 MG TAB PO SCH ×2 (08:14→20:35)
[2019-01-20] MEDS: FUROSEMIDE 20 MG TAB PO SCH ×2 (08:14→16:18)
[2019-01-20] MEDS: ACETAMINOPHEN 500 MG TAB PO SCH ×3 (08:15→20:35)
--- NOTE | 2019-01-20 12:53 | IPNPDOC ---
Subjective Date Seen The patient was seen on 01/20/19. Subjective Chief Complaint/HPI Feels good today, still cannot bear much weight on the left leg. generalized swelling is going down. No fever or chills, no chest pain or SOB. Objective Physical Examination General Exam: Positive: Alert, Cooperative, No Acute Distress ENT Exam: Positive: Atraumatic, Mucous membr. moist/pink Neck Exam: Negative: JVD Chest Exam: Positive: Clear to auscultation, Normal air movement Heart Exam: Positive: Rate Normal, Normal S1, Normal S2; Negative: Gallops, Murmurs, Rubs Abdomen Exam: Positive: Normal bowel sounds, Soft; Negative: Tenderness Extremity Exam: Positive: Edema, Tenderness, Swelling, Other (left lower extremity noted to be wrapped in surgical compression dressing from inferior to the knee distally to the ankle. The patient is noted to have a palpable pulse distally. Good capillary refill in the nailbeds. Neurovascularly intact distally. +Drain placement with bloody/serosanguineous fluid collection noted in bag.) Psych Exam: Positive: Oriented x 3 Assessment /Plan Assessment Left Leg Hematoma after trauma to calf 2/2 Dual Anticoagulation Therapy U/S of the LLE notable for large fluid collection measuring 14.8 x 13.7 x 7 cm from admission The patient's left lower extremity is neurovascularly intact distally with palpable pulse, good capillary refill, and intact sensation to light palpation CT Extremity from 01/14 notable for large complex fluid collection involving the gastrocnemius muscle with extensive subcutaneous edema and infiltration s/p ultrasound guided drain placement on 01/15--total drainage of 130 cc's now drain is out. Patient with improved pain control Orthopedic surgery on board-- we will cont to follow up with their recommendations Acute on Chronic Normocytic Anemia 2/2 LLE Hematoma s/p Transfusion of 1 Unit of PRBC's since admission Will serially monitor H&H's, and transfuse for hemoglobin less than 8 History of systolic and diastolic congestive heart failure Patient has an AICD which is pending left ventricular epicardial lead placement in [place] with Dr. Brice which is tentatively scheduled for Monday01/18/19 seems to be gettting a little fluid overloaded will give IV lasix today then continue po lasix. Chronic kidney disease Serum creatinine appears to be at baseline Chronic atrial fibrillation Continue Coreg, Digoxin, Coumadin History of mechanical mitral valve Continue Coumadin with goal INR of 2.5-3.5 INR subtherapeutic at this time--we will adjust dosing accordingly We will try to avoid bridging with Lovenox SC given hematoma--risks, benefits, alternative options of this discussed with the patient and her at the bedside who have verbalized understanding of the same. Diabetes mellitus Insulin sliding scale Hypertension, stable Continue medications as ordered Gout Continue allopurinol GERD Continue PPI Dyslipidemia Continue statin DVT prophylaxis On Coumadin Disposition-pending continued clinical improvement Plan/VTE VTE Prophylaxis Ordered?: Yes VS, I&O, 24H, Fishbone Vital Signs/I&O Vital Signs Date Time Temp Pulse Resp B/P (MAP) Pulse Ox O2 Delivery O2 Flow Rate FiO2 01/20/19 09:00 2.0 01/20/19 08:14 78 01/20/19 08:14 119/67 01/20/19 06:00 97.2 18 97 I&O- Last 24 Hours up to 6 AM 01/20/19 06:00 Intake Total 2180 ml Output Total 0 ml Balance 2180 ml Laboratory Data 24H LABS Laboratory Tests 2 01/20/19 06:03: Nucleated Red Blood Cells % (auto) 0.2H, Prothrombin Time 26.2H, Prothromb Time International Ratio 2.35, Anion Gap 5L, Glomerular Filtration Rate 54.0, Blood Urea Nitrogen 44H, Creatinine 1.05, Sodium Level 136, Potassium Level 4.6, Chloride Level 99, Carbon Dioxide Level 32, Calcium Level 9.7, Magnesium Level 2.2 CBC/BMP Laboratory Tests 01/20/19 06:03 Red Blood Count 3.32 L, Mean Corpuscular Volume 95.8, Mean Corpuscular Hemoglobin 29.8, Mean Corpuscular Hemoglobin Concent 31.1 L, Red Cell Distribution Width 15.9 H, Calcium Level 9.7 Microbiology Microbiology 01/12/19 Blood Culture - Final, Complete NO GROWTH AFTER 5 DAYS 01/12/19 Blood Culture - Final, Complete NO GROWTH AFTER 5 DAYS 01/15/19 Anaerobic Culture - Final, Complete 01/15/19 Gram Stain - Final, Complete 01/15/19 Body Fluid Culture - Final, Complete MARYJANE MARIEE MD Jan 20, 2019 12:53
[2019-01-20 14:00] VITALS: BP 129/75
[2019-01-20] MEDS: WARFARIN SOD 2 MG TAB PO SCH (16:18)
[2019-01-20] MEDS: WARFARIN SOD 5 MG TAB PO SCH (16:18)
[2019-01-20 22:00] VITALS: BP 120/58
[2019-01-21 06:00] VITALS: BP 110/59
[2019-01-21 08:12] LABS: HEMATOCRIT 31.7 % (36.0-47.0); HEMOGLOBIN 9.8 g/dl (12.0-15.5); MEAN CORPUSCULAR HEMOGLOBIN 29.3 pg (27.0-33.0); MEAN CORPUSCULAR HGB CONC 30.9 g/dl (32.0-36.5); MEAN CORPUSCULAR VOLUME 94.6 fl (80.0-96.0); PLATELET COUNT, AUTOMATED 395 10^3/uL (150-450); RED BLOOD COUNT 3.35 10^6/uL (4.00-5.40); WHITE BLOOD COUNT 10.5 10^3/uL (4.0-10.0)
[2019-01-21 08:23] LABS: INR 2.35; PROTHROMBIN TIME 26.2 SECONDS (12.1-14.4)
[2019-01-21] MEDS: DOCUSATE SODIUM 100 MG CAP PO SCH ×2 (08:47→20:49)
[2019-01-21] MEDS: ALLOPURINOL 100 MG TAB PO SCH (08:48)
[2019-01-21] MEDS: PANTOPRAZOLE 40MG TAB (PROTONIX) PO SCH (08:48)
[2019-01-21] MEDS: MAGNESIUM OXIDE 400 MG TAB (MAG-OX) PO SCH ×2 (08:48→20:50)
[2019-01-21] MEDS: FOLIC ACID 1 MG TAB PO SCH (08:48)
[2019-01-21] MEDS: FUROSEMIDE 20 MG TAB PO SCH ×2 (08:48→16:45)
[2019-01-21] MEDS: ATORVASTATIN 10 MG TAB PO SCH (08:48)
[2019-01-21] MEDS: FERROUS GLUCONATE 324 MG TAB PO SCH ×2 (08:48→20:49)
[2019-01-21] MEDS: DIGOXIN 0.125 MG TAB PO SCH (08:51)
[2019-01-21] MEDS: CARVedilol 3.125 MG TAB PO SCH ×2 (08:52→20:50)
[2019-01-21] MEDS: ACETAMINOPHEN 500 MG TAB PO SCH ×3 (08:52→20:50)
[2019-01-21 10:23] LABS: BLOOD UREA NITROGEN 37 MG/DL (7-18); CALCIUM LEVEL 9.6 MG/DL (8.8-10.2); CARBON DIOXIDE LEVEL 29 MEQ/L (21-32); CHLORIDE LEVEL 101 MEQ/L (98-107); CREATININE FOR GFR 0.93 MG/DL (0.55-1.30); GLOMERULAR FILTRATION RATE > 60.0 (>39); GLUCOSE, FASTING 183 MG/DL (70-100); POTASSIUM SERUM 4.9 MEQ/L (3.5-5.1); SODIUM LEVEL 138 MEQ/L (136-145)
--- NOTE | 2019-01-21 13:56 | IPNPDOC ---
Subjective Date Seen The patient was seen on 01/21/19. Subjective Chief Complaint/HPI Feels well today. No complaints except for left leg pain. Now able to bear some weight on it. Her leg swelling and hand swelling has gone done, no chest pain ro sob , no abdominal pain , nausea or vomiting or diarrhea. Objective Physical Examination General Exam: Positive: Alert, Cooperative, No Acute Distress ENT Exam: Positive: Atraumatic, Mucous membr. moist/pink Neck Exam: Negative: JVD Chest Exam: Positive: Clear to auscultation, Normal air movement Heart Exam: Positive: Rate Normal, Normal S1, Normal S2; Negative: Gallops, Murmurs, Rubs Abdomen Exam: Positive: Normal bowel sounds, Soft; Negative: Tenderness Extremity Exam: Positive: Edema, Tenderness, Swelling, Other (left lower extremity noted to be wrapped in surgical compression dressing from inferior to the knee distally to the ankle. The patient is noted to have a palpable pulse distally. Good capillary refill in the nailbeds. Neurovascularly intact distally. +Drain placement with bloody/serosanguineous fluid collection noted in bag.) Psych Exam: Positive: Oriented x 3 Assessment /Plan Assessment Left Leg Hematoma after trauma to calf Being on 2/2 Dual Anticoagulation Therapy U/S of the LLE notable for large fluid collection measuring 14.8 x 13.7 x 7 cm from admission The patient's left lower extremity is neurovascularly intact distally with palpable pulse, good capillary refill, and intact sensation to light palpation CT Extremity from 01/14 notable for large complex fluid collection involving the gastrocnemius muscle with extensive subcutaneous edema and infiltration s/p ultrasound guided drain placement on 01/15--total drainage of 130 cc's now drain is out. Patient with improved pain control Orthopedic surgery on board-- we will cont to follow up with their recommendations Acute on Chronic Normocytic Anemia 2/2 LLE Hematoma s/p Transfusion of 1 Unit of PRBC's since admission Will serially monitor H&H's, and transfuse for hemoglobin less than 8 History of systolic and diastolic congestive heart failure Patient has an AICD which is pending left ventricular epicardial lead placement in [place] with Dr. Brice which is tentatively scheduled for Monday01/18/19 seems to be gettting a little fluid overloaded will give IV lasix today then continue po lasix. Chronic kidney disease Serum creatinine appears to be at baseline Chronic atrial fibrillation Continue Coreg, Digoxin, Coumadin History of mechanical mitral valve Continue Coumadin with goal INR of 2.5-3.5 INR subtherapeutic at this time--we will adjust dosing accordingly We will try to avoid bridging with Lovenox SC given hematoma--risks, benefits, alternative options of this discussed with the patient and her at the bedside who have verbalized understanding of the same. Diabetes mellitus Insulin sliding scale Hypertension, stable Continue medications as ordered Gout Continue allopurinol GERD Continue PPI Dyslipidemia Continue statin DVT prophylaxis On Coumadin Disposition-pending continued clinical improvement Plan/VTE VTE Prophylaxis Ordered?: Yes VS, I&O, 24H, Fishbone Vital Signs/I&O Vital Signs Date Time Temp Pulse Resp B/P (MAP) Pulse Ox O2 Delivery O2 Flow Rate FiO2 01/21/19 08:52 2.0 01/21/19 08:52 85 141/71 01/21/19 06:00 97.5 17 99 I&O- Last 24 Hours up to 6 AM 01/21/19 06:00 Intake Total 1870 ml Output Total 0 ml Balance 1870 ml Laboratory Data 24H LABS Laboratory Tests 2 01/21/19 07:50: Nucleated Red Blood Cells % (auto) 0.0, Prothrombin Time 26.2H, Prothromb Time International Ratio 2.35, Anion Gap 8, Glomerular Filtration Rate > 60.0, Blood Urea Nitrogen 37H, Creatinine 0.93, Sodium Level 138, Potassium Level 4.9, Chloride Level 101, Carbon Dioxide Level 29, Calcium Level 9.6 CBC/BMP Laboratory Tests 01/21/19 07:50 Red Blood Count 3.35 L, Mean Corpuscular Volume 94.6, Mean Corpuscular Hemoglobin 29.3, Mean Corpuscular Hemoglobin Concent 30.9 L, Red Cell Distri bution Width 15.9 H, Calcium Level 9.6 Microbiology Microbiology 01/12/19 Blood Culture - Final, Complete NO GROWTH AFTER 5 DAYS 01/12/19 Blood Culture - Final, Complete NO GROWTH AFTER 5 DAYS 01/15/19 Anaerobic Culture - Final, Complete 01/15/19 Gram Stain - Final, Complete 01/15/19 Body Fluid Culture - Final, Complete MARYJANE MARIEE MD Jan 21, 2019 13:56
[2019-01-21 14:00] VITALS: BP 146/97
[2019-01-21 15:00] VITALS: BP 138/88
[2019-01-21] MEDS: WARFARIN SOD 5 MG TAB PO SCH (16:44)
[2019-01-21] MEDS: WARFARIN SOD 2 MG TAB PO SCH (16:44)
[2019-01-21 22:00] VITALS: BP 124/66
[2019-01-22 06:00] VITALS: BP 115/60
[2019-01-22] MEDS: ATORVASTATIN 10 MG TAB PO SCH (07:58)
[2019-01-22] MEDS: FERROUS GLUCONATE 324 MG TAB PO SCH (07:58)
[2019-01-22] MEDS: DOCUSATE SODIUM 100 MG CAP PO SCH (07:59)
[2019-01-22] MEDS: ACETAMINOPHEN 500 MG TAB PO SCH (07:59)
[2019-01-22] MEDS: DIGOXIN 0.125 MG TAB PO SCH (07:59)
[2019-01-22] MEDS: ALLOPURINOL 100 MG TAB PO SCH (07:59)
[2019-01-22] MEDS: FUROSEMIDE 20 MG TAB PO SCH (07:59)
[2019-01-22 08:00] VITALS: BP 146/65
[2019-01-22] MEDS: PANTOPRAZOLE 40MG TAB (PROTONIX) PO SCH (08:00)
[2019-01-22] MEDS: MAGNESIUM OXIDE 400 MG TAB (MAG-OX) PO SCH (08:00)
[2019-01-22] MEDS: CARVedilol 3.125 MG TAB PO SCH (08:00)
[2019-01-22] MEDS: FOLIC ACID 1 MG TAB PO SCH (08:00)
--- NOTE | 2019-01-22 13:18 | DS.PDOC ---
Discharge Summary General Date of Admission Jan 14, 2019 at 16:59 Date of Discharge January 22, 2019 Discharge Summary DISCHARGE DIAGNOSES: Left leg Hematoma due to trauma to calf Acute blood loss due to hematoma acute anemia Systolic and Diastolic CHF CKD Afib on chronic warfarin Mechanical Mitral Valve on chronic warfarin HTN DM gout GERD Dyslipidemia DISCHARGE MEDICATIONS: pls see below HISTORY OF PRESENTING ILLNESS: Patient is a 78 yo female with multiple pmhx listed below, including sCHF who has AICD and PM placement 3 weeks ago and was placed on lovenox and coumadin. Her INR is therapeutic, but patient has multiple hematomas and ecchymoses. She has been having left leg cramps for the past few days and until today when she couldn't walk due to pain in her leg so she came to the ED. She denied fever, chills, chest pain, sob, headache, blurry vision, dysuria , hematuria or hematochezia. HOSPITAL COURSE; Left Leg Hematoma after trauma to calf Being on 2/2 Dual Anticoagulation Therapy U/S of the LLE notable for large fluid collection measuring 14.8 x 13.7 x 7 cm from admission The patient's left lower extremity is neurovascularly intact distally with palpable pulse, good capillary refill, and intact sensation to light palpation CT Extremity from 01/14 notable for large complex fluid collection involving the gastrocnemius muscle with extensive subcutaneous edema and infiltration s/p ultrasound guided drain placement on 01/15--total drainage of 130 cc's now drain is out. Patient with improved pain control Orthopedic surgery on board-- we will cont to follow up with their recommendations Acute on Chronic Normocytic Anemia 2/2 LLE Hematoma s/p Transfusion of 1 Unit of PRBC's since admission Will serially monitor H&H's, and transfuse for hemoglobin less than 8 History of systolic and diastolic congestive heart failure Patient has an AICD which is pending left ventricular epicardial lead placement in [place] with Dr. Brice which is tentatively scheduled for Monday01/18/19 seems to be gettting a little fluid overloaded will give IV lasix today then continue po lasix. Chronic kidney disease Serum creatinine appears to be at baseline Chronic atrial fibrillation Continue Coreg, Digoxin, Coumadin History of mechanical mitral valve Continue Coumadin with goal INR of 2.5-3.5 INR subtherapeutic at this time--we will adjust dosing accordingly We will try to avoid bridging with Lovenox SC given hematoma--risks, benefits, alternative options of this discussed with the patient and her at the bedside who have verbalized understanding of the same. Diabetes mellitus Insulin sliding scale Hypertension, stable Continue medications as ordered Gout Continue allopurinol GERD Continue PPI Dyslipidemia Continue statin DVT prophylaxis On Coumadin DISCHARGE PHYSICAL EXAMINATION VITALS: PLS SEE BELOW General Exam: Positive: Alert, Cooperative, No Acute Distress ENT Exam: Positive: Atraumatic, Mucous membr. moist/pink Neck Exam: Negative: JVD Chest Exam: Positive: Clear to auscultation, Normal air movement Heart Exam: Positive: Rate Normal, Normal S1, Normal S2; Negative: Gallops, Murmurs, Rubs Abdomen Exam: Positive: Normal bowel sounds, Soft; Negative: Tenderness Extremity Exam: Positive: Edema, Tenderness, Swelling, Other (left lower extremity noted to be wrapped in surgical compression dressing from inferior to the knee distally to the ankle. The patient is noted to have a palpable pulse distally. Good capillary refill in the nailbeds. Neurovascularly intact distally. +Drain placement with bloody/serosanguineous fluid collection noted in bag.) Psych Exam: Positive: Oriented x 3 LABORATORY DATA, IMAGING STUDIES, MICROBIOLOGY: PLS SEE BELOW TIME SPENT ON DISCHARGE: 30 MIN Vital Signs/I&Os Vital Signs Date Time Temp Pulse Resp B/P (MAP) Pulse Ox O2 Delivery O2 Flow Rate FiO2 01/22/19 08:00 2.0 01/22/19 08:00 88 146/65 01/22/19 06:00 98.6 20 96 I&O- Last 24 Hours up to 6 AM 01/22/19 05:59 Intake Total 1260 ml Output Total 0 ml Balance 1260 ml Microbiology Microbiology 01/12/19 Blood Culture - Final, Complete NO GROWTH AFTER 5 DAYS 01/12/19 Blood Culture - Final, Complete NO GROWTH AFTER 5 DAYS 01/15/19 Anaerobic Culture - Final, Complete 01/15/19 Gram Stain - Final, Complete 01/15/19 Body Fluid Culture - Final, Complete Discharge Medications Scheduled (Digoxin) 125 Mcg Tab, 125 MCG PO DAILY, (Reported) Allopurinol (Allopurinol) 100 Mg Tab, 100 MG PO DAILY, (Reported) Atorvastatin Calcium (Atorvastatin Calcium) 10 Mg Tab, 10 MG PO DAILY, (Reported) Bisoprolol Fumarate (Bisoprolol Fumarate) 5 Mg Tab, 5 MG PO DAILY, (Reported) Carvedilol (Carvedilol) 3.125 Mg Tab, 3.125 MG PO BID, (Reported) Cefuroxime Axetil (Cefuroxime Axetil) 250 Mg Tab, 250 MG PO BID, (Reported) Ferrous Gluconate (Ferrous Gluconate) 324 Mg Tab, 324 MG PO BID, (Reported) Folic Acid (Folic Acid) 1 Mg Tab, 1 MG PO DAILY, (Reported) Furosemide (Furosemide) 20 Mg Tab, 20 MG PO BID, (Reported) Magnesium Oxide (Magnesium Oxide) 400 Mg Tab, 400 MG PO BID, (Reported) Metformin Hydrochloride (Metformin HCl ER) 500 Mg Tab, 500 MG PO DAILY, (Reported) Potassium Chloride (Potassium Chloride ER) 20 Meq Tab, 20 MEQ PO DAILY, (Reported) Sacubitril/Valsartan (Entresto 24-26 mg) 1 Tab Tab, 1 TAB PO BID, (Reported) Warfarin Sod (Warfarin Sodium) 5 Mg Tab, 5 MG PO QHS, (Reported) RELATIVE STATES THIS WAS HER LAST DOSE PER PHYSICIAN Scheduled PRN Acetaminophen (Tylenol 8 Hour Arthritis) 650 Mg Tab, 650 MG PO Q8H PRN for PAIN, (Reported) Miscellaneous Medications (Daily Multiple Vitamin) 1 Tab Tab, 1 TAB PO, (Reported) Allergies Coded Allergies: No Known Allergies (Verified , 09/20/17) EWA MONDRAGON MD Jan 22, 2019 13:17
== END 2019-01-22 09:36 | DRG 813 ==
LOC: M ED 17:24 → EDBD 17:24 → M ED INP 23:10 → M MSPAV 01-13 12:46 → OBSVTOIN 01-14 16:59
PROVIDERS: ADMIT Internal Medicine; ATTEND General Practice
PROC: 30233N1 Transfusion of Nonautologous Red Blood Cells into Peripheral Vein, Percutaneous Approach (ICD-10-PCS; 2019-01-14)
PROC: 0K9 Muscles, Drainage (ICD-10-PCS; principal; 2019-01-15)
DX: D68.32 Hemorrhagic disorder due to extrinsic circulating anticoagulants (principal); I50.42 Chronic combined systolic (congestive) and diastolic (congestive) heart failure; J96.10 Chronic respiratory failure, unspecified whether with hypoxia or hypercapnia; I13.0 Hypertensive heart and chronic kidney disease with heart failure and stage 1 through stage 4 chronic kidney disease, or unspecified chronic kidney disease; D62 Acute posthemorrhagic anemia; S80.12XA Contusion of left lower leg, initial encounter; I25.10 Atherosclerotic heart disease of native coronary artery without angina pectoris; I48.2 Chronic atrial fibrillation; E11.22 Type 2 diabetes mellitus with diabetic chronic kidney disease; M10.9 Gout, unspecified; E78.5 Hyperlipidemia, unspecified; K21.9 Gastro-esophageal reflux disease without esophagitis; N18.9 Chronic kidney disease, unspecified; Z79.01 Long term (current) use of anticoagulants; Z79.82 Long term (current) use of aspirin; Z79.4 Long term (current) use of insulin; Z79.899 Other long term (current) drug therapy; Z98.49 Cataract extraction status, unspecified eye; Z95.810 Presence of automatic (implantable) cardiac defibrillator; Z95.2 Presence of prosthetic heart valve; T45.515A Adverse effect of anticoagulants, initial encounter; Z99.81 Dependence on supplemental oxygen; W22.8XXA Striking against or struck by other objects, initial encounter; Y92.009 Unspecified place in unspecified non-institutional (private) residence as the place of occurrence of the external cause

== ENCOUNTER → 2019-01-25 | Outpatient (REF) | payer MEDICARE ==
[~2019-01-25] MED LIST changes: -/WARF5TA OR; +CARV3.12 PO; +CEFU1TAB20 PO; +COUM1TAB17 OR; +DAILTAB49 PO; +DOK100TA PO; +ENOX40IN3 SC; -ENOX40SY SC; +FERR32TA PO; +FOLI1TAB11 PO; +FURO20TA2 PO; +LOVE0.8I SC; +LOVE1INJ SC; +METO1TAB63 PO; -METO25TAB PO; +POTA1TAB14 PO
[2019-01-25 10:51] LABS: INR 3.24; PROTHROMBIN TIME 33.8 SECONDS (12.1-14.4)
== END ==
PROVIDERS: ATTEND Physician Assistant
DX: Z79.01 Long term (current) use of anticoagulants (principal); I48.91 Unspecified atrial fibrillation

== ENCOUNTER → 2019-01-28 | Outpatient (REF) | payer MEDICARE ==
[~2019-01-28] MED LIST changes: -DAILTAB49 PO; +TH DTAB2 PO
[2019-01-28 12:53] LABS: INR 2.08; PROTHROMBIN TIME 23.8 SECONDS (12.1-14.4)
== END ==
PROVIDERS: ATTEND Internal Medicine
DX: I48.91 Unspecified atrial fibrillation (principal)

== ENCOUNTER → 2019-01-30 | Outpatient (REF) ==
[2019-01-30 09:11] LABS: HEMATOCRIT 36.7 % (36.0-47.0); HEMOGLOBIN 10.8 g/dl (12.0-15.5); MEAN CORPUSCULAR HGB CONC 29.4 g/dl (32.0-36.5); MEAN CORPUSCULAR VOLUME 98.7 fl (80.0-96.0); PLATELET COUNT, AUTOMATED 419 10^3/uL (150-450); RED BLOOD COUNT 3.72 10^6/uL (4.00-5.40); WHITE BLOOD COUNT 9.4 10^3/uL (4.0-10.0)
[2019-01-30 09:28] LABS: INR 1.67; PROTHROMBIN TIME 19.9 SECONDS (12.1-14.4)
[2019-01-30 09:30] LABS: BLOOD UREA NITROGEN 25 MG/DL (7-18); CARBON DIOXIDE LEVEL 33 MEQ/L (21-32); CHLORIDE LEVEL 101 MEQ/L (98-107); CREATININE FOR GFR 0.93 MG/DL (0.55-1.30); GLOMERULAR FILTRATION RATE > 60.0 (>39); GLUCOSE, FASTING 137 MG/DL (70-100); POTASSIUM SERUM 5.2 MEQ/L (3.5-5.1); SODIUM LEVEL 139 MEQ/L (136-145)
== END ==
PROVIDERS: ATTEND Internal Medicine
DX: I48.91 Unspecified atrial fibrillation (principal)

== ENCOUNTER → 2019-02-04 | Outpatient (REF) ==
[2019-02-04 10:01] LABS: INR 1.8; PROTHROMBIN TIME 21.2 SECONDS (12.1-14.4)
== END ==
PROVIDERS: ATTEND Internal Medicine
DX: I48.91 Unspecified atrial fibrillation (principal)

== ENCOUNTER → 2019-02-05 | Outpatient (REF) ==
[2019-02-05 09:32] LABS: HEMATOCRIT 35.1 % (36.0-47.0); HEMOGLOBIN 10.4 g/dl (12.0-15.5); MEAN CORPUSCULAR HEMOGLOBIN 29.1 pg (27.0-33.0); MEAN CORPUSCULAR HGB CONC 29.6 g/dl (32.0-36.5); MEAN CORPUSCULAR VOLUME 98.3 fl (80.0-96.0); PLATELET COUNT, AUTOMATED 340 10^3/uL (150-450); RED BLOOD COUNT 3.57 10^6/uL (4.00-5.40); WHITE BLOOD COUNT 7.9 10^3/uL (4.0-10.0)
[2019-02-05 09:51] LABS: BLOOD UREA NITROGEN 22 MG/DL (7-18); CARBON DIOXIDE LEVEL 33 MEQ/L (21-32); CHLORIDE LEVEL 103 MEQ/L (98-107); CREATININE FOR GFR 0.88 MG/DL (0.55-1.30); GLOMERULAR FILTRATION RATE > 60.0 (>39); GLUCOSE, FASTING 131 MG/DL (70-100); POTASSIUM SERUM 4.6 MEQ/L (3.5-5.1); SODIUM LEVEL 140 MEQ/L (136-145)
== END ==
PROVIDERS: ATTEND Internal Medicine
DX: M79.605 Pain in left leg (principal)

== ENCOUNTER → 2019-02-06 | Outpatient (REF) | payer MEDICARE ==
[2019-02-06 09:50] LABS: INR 1.9; PROTHROMBIN TIME 22.1 SECONDS (12.1-14.4)
== END ==
PROVIDERS: ATTEND Internal Medicine
DX: I48.91 Unspecified atrial fibrillation (principal)

== ENCOUNTER → 2019-02-11 | Outpatient (REF) ==
[2019-02-11 08:42] LABS: INR 2.03; PROTHROMBIN TIME 23.3 SECONDS (12.1-14.4)
== END ==
PROVIDERS: ATTEND Internal Medicine
DX: I48.91 Unspecified atrial fibrillation (principal)

== ENCOUNTER → 2019-02-12 | Outpatient (REF) ==
[2019-02-12 09:18] LABS: HEMATOCRIT 35.9 % (36.0-47.0); HEMOGLOBIN 10.7 g/dl (12.0-15.5); MEAN CORPUSCULAR HEMOGLOBIN 30.1 pg (27.0-33.0); MEAN CORPUSCULAR HGB CONC 29.8 g/dl (32.0-36.5); MEAN CORPUSCULAR VOLUME 101.1 fl (80.0-96.0); PLATELET COUNT, AUTOMATED 312 10^3/uL (150-450); RED BLOOD COUNT 3.55 10^6/uL (4.00-5.40); WHITE BLOOD COUNT 7.3 10^3/uL (4.0-10.0)
[2019-02-12 09:54] LABS: BLOOD UREA NITROGEN 24 MG/DL (7-18); CARBON DIOXIDE LEVEL 35 MEQ/L (21-32); CHLORIDE LEVEL 100 MEQ/L (98-107); CREATININE FOR GFR 0.82 MG/DL (0.55-1.30); GLOMERULAR FILTRATION RATE > 60.0 (>39); GLUCOSE, FASTING 128 MG/DL (70-100); POTASSIUM SERUM 4.9 MEQ/L (3.5-5.1); SODIUM LEVEL 140 MEQ/L (136-145)
== END ==
PROVIDERS: ATTEND Internal Medicine
DX: I50.9 Heart failure, unspecified (principal)

== ENCOUNTER → 2019-02-13 | Outpatient (REF) ==
[2019-02-13 11:14] LABS: INR 1.98; PROTHROMBIN TIME 22.9 SECONDS (12.1-14.4)
== END ==
PROVIDERS: ATTEND Internal Medicine
DX: I48.91 Unspecified atrial fibrillation (principal); Z79.01 Long term (current) use of anticoagulants

== ENCOUNTER → 2019-02-19 | Outpatient (REF) ==
[2019-02-19 08:46] LABS: HEMATOCRIT 35.4 % (36.0-47.0); HEMOGLOBIN 10.4 g/dl (12.0-15.5); MEAN CORPUSCULAR HEMOGLOBIN 29.5 pg (27.0-33.0); MEAN CORPUSCULAR HGB CONC 29.4 g/dl (32.0-36.5); MEAN CORPUSCULAR VOLUME 100.6 fl (80.0-96.0); PLATELET COUNT, AUTOMATED 257 10^3/uL (150-450); RED BLOOD COUNT 3.52 10^6/uL (4.00-5.40); WHITE BLOOD COUNT 7.3 10^3/uL (4.0-10.0)
[2019-02-19 09:01] LABS: BLOOD UREA NITROGEN 25 MG/DL (7-18); CALCIUM LEVEL 9.8 MG/DL (8.8-10.2); CARBON DIOXIDE LEVEL 33 MEQ/L (21-32); CHLORIDE LEVEL 102 MEQ/L (98-107); GLOMERULAR FILTRATION RATE > 60.0 (>39); GLUCOSE, FASTING 125 MG/DL (70-100); POTASSIUM SERUM 4.6 MEQ/L (3.5-5.1); SODIUM LEVEL 141 MEQ/L (136-145)
== END ==
PROVIDERS: ATTEND Internal Medicine
DX: I48.91 Unspecified atrial fibrillation (principal)

== ENCOUNTER → 2019-02-20 | Outpatient (REF) ==
[2019-02-20 09:22] LABS: INR 1.98; PROTHROMBIN TIME 22.9 SECONDS (12.1-14.4)
== END ==
PROVIDERS: ATTEND Internal Medicine
DX: I48.91 Unspecified atrial fibrillation (principal)

== ENCOUNTER → 2019-02-22 | Outpatient (REF) | payer MEDICARE ==
[2019-02-22 11:16] LABS: INR 2.16; PROTHROMBIN TIME 24.5 SECONDS (12.1-14.4)
== END ==
PROVIDERS: ATTEND Internal Medicine
DX: Z79.01 Long term (current) use of anticoagulants (principal); I50.9 Heart failure, unspecified

== ENCOUNTER → 2019-02-27 | Outpatient (REF) ==
[2019-02-27 09:23] LABS: HEMATOCRIT 36.6 % (36.0-47.0); HEMOGLOBIN 10.9 g/dl (12.0-15.5); MEAN CORPUSCULAR HEMOGLOBIN 29.6 pg (27.0-33.0); MEAN CORPUSCULAR HGB CONC 29.8 g/dl (32.0-36.5); MEAN CORPUSCULAR VOLUME 99.5 fl (80.0-96.0); PLATELET COUNT, AUTOMATED 269 10^3/uL (150-450); RED BLOOD COUNT 3.68 10^6/uL (4.00-5.40); WHITE BLOOD COUNT 7.5 10^3/uL (4.0-10.0)
[2019-02-27 09:27] LABS: INR 2.17; PROTHROMBIN TIME 24.6 SECONDS (12.1-14.4)
[2019-02-27 09:37] LABS: BLOOD UREA NITROGEN 30 MG/DL (7-18); CALCIUM LEVEL 10.3 MG/DL (8.8-10.2); CARBON DIOXIDE LEVEL 34 MEQ/L (21-32); CHLORIDE LEVEL 104 MEQ/L (98-107); GLOMERULAR FILTRATION RATE > 60.0 (>39); GLUCOSE, FASTING 143 MG/DL (70-100); POTASSIUM SERUM 4.6 MEQ/L (3.5-5.1); SODIUM LEVEL 142 MEQ/L (136-145)
== END ==
PROVIDERS: ATTEND Internal Medicine
DX: I48.91 Unspecified atrial fibrillation (principal)

== ENCOUNTER → 2019-03-04 | Outpatient (REF) | payer MEDICARE ==
[2019-03-04 10:32] LABS: INR 1.97; PROTHROMBIN TIME 22.8 SECONDS (12.1-14.4)
== END ==
PROVIDERS: ATTEND Internal Medicine
DX: I48.91 Unspecified atrial fibrillation (principal)

== ENCOUNTER 2019-05-29 12:13 | Inpatient (IN) | payer MEDICARE, MEDICAID ==
[~2019-05-29] VITALS: Ht 154.9 cm; Wt 99.2 kg
[2019-05-29] MEDS ORDERED: FURO40TA2 PO (12:34)
[2019-05-29] MEDS ORDERED: WARF-60 PO ×2 (12:34→15:32)
[2019-05-29] MEDS ORDERED: FUROSEMIDE 40 MG/4 ML VIAL (J1940) IV ONE (13:00)
[2019-05-29 13:07] LABS: VENOUS HCO3 26.3 MEQ/L (23.0-27.0); VENOUS O2 SATURATION 98.3 % (60.0-80.0); VENOUS PARTIAL PRESSURE CO2 44.5 mmHg (38.0-50.0); VENOUS PARTIAL PRESSURE O2 111.7 mmHg (30.0-50.0); VENOUS STANDARD HCO3 25.4 MEQ/L; VENOUS TOTAL CO2 27.7 MEQ/L (24.0-28.0)
[2019-05-29 13:16] LABS: BASO % 0.1 % (0.0-1.0); EOS % 0.5 % (0.0-3.0); HEMATOCRIT 40.1 % (36.0-47.0); HEMOGLOBIN 12.8 g/dl (12.0-15.5); LYMPH # 0.9 10^3/uL (1.5-4.5); LYMPH % 11.6 % (24.0-44.0); MEAN CORPUSCULAR HEMOGLOBIN 28.9 pg (27.0-33.0); MEAN CORPUSCULAR HGB CONC 31.9 g/dl (32.0-36.5); MEAN CORPUSCULAR VOLUME 90.5 fl (80.0-96.0); MONO # 0.7 10^3/uL (0.0-0.8); MONO % 8.7 % (0.0-5.0); NEUTROPHILS # 6.4 10^3/uL (1.8-7.7); NEUTROPHILS % 78.6 % (36.0-66.0); PLATELET COUNT, AUTOMATED 252 10^3/uL (150-450); RED BLOOD COUNT 4.43 10^6/uL (4.00-5.40); WHITE BLOOD COUNT 8.1 10^3/uL (4.0-10.0)
[2019-05-29 13:43] LABS: INR 4.91; PROTHROMBIN TIME 46.1 SECONDS (11.8-14.0)
[2019-05-29 14:13] LABS: CALCIUM LEVEL 9.5 MG/DL (8.8-10.2); CK-MB VALUE MASS 1.9 NG/ML (<3.6); CREATININE FOR GFR 1.54 MG/DL (0.55-1.30); GLOMERULAR FILTRATION RATE 34.6 (>39); POTASSIUM SERUM 4.1 MEQ/L (3.5-5.1); TROPONIN I 3.04 NG/ML (< 0.10)
--- NOTE | 2019-05-29 14:19 | REP ---
REASON FOR EXAM: Cough and dyspnea. COMPARISON EXAM: 11/26/2018. The technique utilized in obtaining the radiograph has magnified the cardiac silhouette and accentuated the interstitial markings. There is global cardiomegaly status quo. There is a single chamber bipolar pacemaker device. Chronic fibrotic changes are seen throughout the lung fong status quo. There is mild right CP angle blunting representing a change. No acute patchy parenchymal opacities have developed. There is no change in the osseous structures. IMPRESSION: 1. New right CP angle blunting possibly reflecting a small pleural effusion, correlate clinically with followup. 2. Other findings and chronic changes as described above. Electronically Signed by Rocael Hua DO 05/29/2019 05:13 P
[2019-05-29 14:42] LABS: DIGOXIN LEVEL 1.3 NG/ML (0.5-2.0); THYROID STIMULATING HORMONE 0.839 uIU/ML (0.358-3.740)
[2019-05-29] MEDS ORDERED: ACET-683 PO (15:32)
[2019-05-29] MEDS ORDERED: TAB-TAB PO (15:32)
[2019-05-29] MEDS ORDERED: ECOT81TA5 PO (15:33)
[2019-05-29] MEDS ORDERED: METO25TA PO (16:06)
--- NOTE | 2019-05-29 16:51 | HPEPDOC ---
General Date of Admission 05/29/19 Date of Service: May 29, 2019 Chief Complaint The patient is a 79-year-old female admitted with a reason for visit of Shortness Of Breath. History of Present Illness 79-year-old female with past medical history of hypertension, dyslipidemia, mitral valve replacement, tricuspid valve repair, chronic atrial fibrillation, gout, and systolic and diastolic congestive heart failure status post ICD with a left ventricular ejection fraction of 20% from April 2019 presented to the ER with a chief complaint of increased shortness of breath and increased lower extremity swelling. The patient states that she has gained over 20 pounds over the last 2+ weeks. She states that there was some confusion about how often to take her diuretic therapy over the last several weeks. She was supposed to be taking metolazone 2.5 mg 3 times a week, but was only taking it once a week. The patient denies any increased fluid or salt intake. She denies any complaints of fevers, chills, cough, chest pain, palpitations, abdominal pain, or any nausea/vomiting/diarrhea. She went to see her primary care physician today who sent her to the ER for further evaluation and management after noticing the significant fluid overload and weight gain. In the ER, the patient was noted to be in decompensated heart failure. She was also noted to have an elevated troponin level. The case was discussed with Dr. Castellanos of Cardiology upon admission, who did not recommend transfer for cardiac catheterization as the patient recently had a clean cardiac cath in May 2018. He recommended volume optimization with IV diuretic therapy. The patient will be admitted to the hospitalist service for management of the same. Home Medications Scheduled Acetaminophen (Acetaminophen) 500 Mg Tablet, 1,000 MG PO QHS, (Reported) Allopurinol (Allopurinol) 100 Mg Tab, 100 MG PO DAILY, (Reported) Aspirin (Ecotrin) 81 Mg Tablet.dr, 81 MG PO DAILY, (Reported) Atorvastatin Calcium (Atorvastatin Calcium) 10 Mg Tab, 10 MG PO DAILY, (Reported) Carvedilol (Carvedilol) 3.125 Mg Tab, 3.125 MG PO BID, (Reported) Digoxin (Digoxin) 125 Mcg Tab, 125 MCG PO DAILY, (Reported) Folic Acid (Folic Acid) 1 Mg Tab, 1 MG PO DAILY, (Reported) Furosemide (Furosemide) 40 Mg Tablet, 40 MG PO BID, (Reported) Magnesium Oxide (Magnesium Oxide) 400 Mg Tab, 400 MG PO BID, (Reported) Metolazone (Metolazone) 2.5 Mg Tablet, 2.5 MG PO QWEEK, (Reported) MONDAY Multivitamin (Tab-A-Sergio) 1 Each Tablet, 1 TAB PO DAILY, (Reported) Sacubitril/Valsartan (Entresto 24 mg-26 mg Tablet) 1 Tab Tab, 1 TAB PO BID, (Reported) Warfarin Sodium (Warfarin Sodium) 6 Mg Tablet, 6 MG PO 5XW, (Reported) QPM: MON, MON, WED, , MON Warfarin Sodium (Warfarin Sodium) 6 Mg Tablet, 3 MG PO 2XW, (Reported) QPM: AND MON Allergies Coded Allergies: No Known Allergies (Verified , 09/20/17) Past Medical History Medical History As noted in HPI Surgical History section 196 and 1963, left carpal tunnel surgery release 04/2005, right carpal tunnel release 05/2005, colonoscopy 2005, right knee replacement 2010, bilateral cataract extractions 2015. Social History * Smoker: Denies Alcohol: Denies Drugs: denies Review of Systems Other systems 10 point ROS negative unless otherwise specified in the HPI. Physical Examination General Exam: Positive: Alert, Cooperative, No Acute Distress ENT Exam: Positive: Atraumatic, Mucous membr. moist/pink Chest Exam: Positive: Rales (bibasilar), Diminished Heart Exam: Positive: Rate Normal, Normal S1, Normal S2 Telemetry: Positive: Other Telemetry: (paced electronic ventricular rhythm) Abdomen Exam: Positive: Soft; Negative: Tenderness Extremity Exam: Positive: Edema (4+); Negative: Tenderness Skin Exam: Positive: Other skin issue (LLE with some erythema noted distal to the knee/proximal to the ankle joint on the dorsal surface) Psych Exam: Positive: Oriented x 3 Vital Signs Vital Signs Date Time Temp Pulse Resp B/P (MAP) Pulse Ox O2 Delivery O2 Flow Rate FiO2 05/29/19 16:13 80 97 Nasal Cannula 2.0 05/29/19 13:00 110/70 (83) 05/29/19 12:45 96.8 20 Laboratory Data Labs 24H Laboratory Tests 2 05/29/19 12:53: Immature Granulocyte % (Auto) 0.5, White Blood Count 8.1, Red Blood Count 4.43, Hemoglobin 12.8, Hematocrit 40.1, Mean Corpuscular Volume 90.5, Mean Corpuscular Hemoglobin 28.9, Mean Corpuscular Hemoglobin Concent 31.9L, Red Cell Distribution Width 15.5H, Platelet Count 252, Neutrophils (%) (Auto) 78.6H, Lymphocytes (%) (Auto) 11.6L, Monocytes (%) (Auto) 8.7H, Eosinophils (%) (Auto) 0.5, Basophils (%) (Auto) 0.1, Neutrophils # (Auto) 6.4, Lymphocytes # (Auto) 0.9L, Monocytes # (Auto) 0.7, Eosinophils # (Auto) 0.0, Basophils # (Auto) 0.0, Nucleated Red Blood Cells % (auto) 0.2H, Anion Gap 8, Glomerular Filtration Rate 34.6L, Blood Urea Nitrogen 56H, Creatinine 1.54H, Sodium Level 138, Potassium Level 4.1, Chloride Level 102, Carbon Dioxide Level 28, Calcium Level 9.5, Total Creatine Kinase 38, Creatine Kinase MB 1.9, Creatine Kinase MB Relative Index 5.00H, Troponin I 3.04*H, KQ-Ecr-X-Type Natriuretic Peptide 7457H, Thyroid Stimulating Hormone (TSH) 0.839, Digoxin Level 1.3 05/29/19 12:55: Prothrombin Time 46.1H, Prothromb Time International Ratio 4.91, Blood Gas Bicarbonate Standard 25.4, Venous Blood pH 7.390, Venous Blood Partial Pressure CO2 44.5, Venous Blood Partial Pressure O2 111.7H, Venous Blood Total Carbon D ioxide 27.7, Venous Blood HCO3 26.3, Venous Blood Oxygen Saturation 98.3H, Venous Blood Base Excess 1.0, Lactic Acid Level 1.6 CBC/BMP Laboratory Tests 05/29/19 12:53 Red Blood Count 4.43, Mean Corpuscular Volume 90.5, Mean Corpuscular Hemoglobin 28.9, Mean Corpuscular Hemoglobin Concent 31.9 L, Red Cell Distribution Width 15.5 H, Neutrophils (%) (Auto) 78.6 H, Lymphocytes (%) (Auto) 11.6 L, Monocytes (%) (Auto) 8.7 H, Eosinophils (%) (Auto) 0.5, Basophils (%) (Auto) 0.1, Ne utrophils # (Auto) 6.4, Lymphocytes # (Auto) 0.9 L, Monocytes # (Auto) 0.7, Eosinophils # (Auto) 0.0, Basophils # (Auto) 0.0, Calcium Level 9.5, Total Creatine Kinase 38 Microbiology Microbiology 05/29/19 Blood Culture, Received Pending 05/29/19 Blood Culture, Received Pending Plan / VTE VTE Prophylaxis Ordered?: Yes Plan Plan 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 IV Lasix q4h ordered with net negative goal Daily Weights Fluid Restriction Strict monitoring of I/O's We will cont to monitor the patient Acute Kidney Injury 2/2 Above Serum creatinine noted to be 1.5 We will follow up with a BMP in the AM Elevated Troponin Level Likely 2/2 Decompensated CHF in the setting of LOYD It appears that the patient had a cardiac cath done in May of 2018 for elevated Troponin levels and was found to have normal coronary arties I discussed the case with Dr. Castellanos, he has recommended to treat the decompensated CHF, and does not recommend another cardiac cath given the recent cardiac catheterization results and evidence of acute on chronic decompensation of systolic heart failure due to nonadherence of medications. We will cont to monitor cardiac markers Chronic atrial fibrillation Continue Coreg, Digoxin Coumadin on hold 2/2 supra-therapeutic INR History of mechanical mitral valve Continue Coumadin with goal INR of 2.5-3.5 INR supratherapeutic at this time--we will adjust dosing accordingly Diabetes mellitus Insulin sliding scale Hypertension, stable Continue medications as ordered Gout Continue allopurinol GERD Continue PPI Dyslipidemia Continue statin DVT prophylaxis On Coumadin at baseline Disposition-pending continued clinical improvement SANTA HUANG MD May 29, 2019 16:51
[2019-05-29 18:07] VITALS: BP 110/70
[2019-05-29 20:00] VITALS: BP 122/63
[2019-05-29] MEDS: MAGNESIUM OXIDE 400 MG TAB (MAG-OX) PO SCH (20:49)
[2019-05-29] MEDS: ACETAMINOPHEN 500 MG TAB PO SCH (20:49)
[2019-05-29] MEDS: CEPHALEXIN 500 MG CAP PO SCH (20:49)
[2019-05-29] MEDS: CARVedilol 3.125 MG TAB PO SCH (20:50)
[2019-05-29] MEDS: FUROSEMIDE 40 MG/4 ML VIAL (J1940) IV SCH (20:50)
--- NOTE | 2019-05-29 21:44 | ECGEPIP ---
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
[2019-05-29 22:54] LABS: MB/CK RELATIVE INDEX 5.41 (< OR =4); TROPONIN I 2.89 NG/ML (< 0.10)
[2019-05-29 23:59] VITALS: BP 130/70
[2019-05-30] MEDS: FUROSEMIDE 40 MG/4 ML VIAL (J1940) IV SCH ×7 (00:47→23:48)
[2019-05-30 04:00] VITALS: BP 125/79
[2019-05-30 05:39] LABS: HEMATOCRIT 41.8 % (36.0-47.0); HEMOGLOBIN 12.6 g/dl (12.0-15.5); MEAN CORPUSCULAR HEMOGLOBIN 27.6 pg (27.0-33.0); MEAN CORPUSCULAR HGB CONC 30.1 g/dl (32.0-36.5); MEAN CORPUSCULAR VOLUME 91.7 fl (80.0-96.0); PLATELET COUNT, AUTOMATED 256 10^3/uL (150-450); RED BLOOD COUNT 4.56 10^6/uL (4.00-5.40); WHITE BLOOD COUNT 8.1 10^3/uL (4.0-10.0)
[2019-05-30 05:53] LABS: INR 4.11
[2019-05-30 05:55] LABS: HEMOGLOBIN A1c 9.2 %
[2019-05-30 06:21] LABS: CALCIUM LEVEL 9.3 MG/DL (8.8-10.2); CK-MB VALUE MASS 2.2 NG/ML (<3.6); CREATININE FOR GFR 1.51 MG/DL (0.55-1.30); GLOMERULAR FILTRATION RATE 35.4 (>39); MAGNESIUM LEVEL 2.4 MG/DL (1.8-2.4); MB/CK RELATIVE INDEX 6.11 (< OR =4); POTASSIUM SERUM 3.8 MEQ/L (3.5-5.1); TROPONIN I 2.87 NG/ML (< 0.10)
--- NOTE | 2019-05-30 07:21 | REP ---
Bilateral lower extremity Duplex Doppler venous ultrasound: Real time compression and duplex Doppler interrogation of the bilateral lower extremity deep venous system is performed. Bilaterally, the common femoral, superficial femoral and popliteal veins are fully compressible with transducer pressure and demonstrate normal spontaneous and phasic flow, without evidence of deep venous thrombosis. Impression: No evidence of deep venous thrombosis of the bilateral lower extremity femoral popliteal venous system. Electronically Signed by Bruce Maddox MD 05/29/2019 03:02 P
[2019-05-30 07:57] VITALS: BP 120/58
[2019-05-30] MEDS: ASPIRIN 81 MG ENTERIC TAB PO SCH (08:10)
[2019-05-30] MEDS: CEPHALEXIN 500 MG CAP PO SCH ×2 (08:12→20:09)
[2019-05-30] MEDS: ATORVASTATIN 10 MG TAB PO SCH (08:12)
[2019-05-30] MEDS: CARVedilol 3.125 MG TAB PO SCH ×2 (08:12→20:09)
[2019-05-30] MEDS: FOLIC ACID 1 MG TAB PO SCH (08:12)
[2019-05-30] MEDS: MULTIVITAMINS/MINERALS THERAP 1 TAB PO SCH (08:12)
[2019-05-30] MEDS: MAGNESIUM OXIDE 400 MG TAB (MAG-OX) PO SCH ×2 (08:12→20:09)
[2019-05-30] MEDS: DIGOXIN 0.0625MG PER 1/2TABLET PO SCH (09:00)
[2019-05-30 12:00] VITALS: BP 125/80
[2019-05-30] MEDS ORDERED: GLUCOSE 4 GM CHEW TABLET PO PRN (12:30)
[2019-05-30] MEDS ORDERED: DEXTROSE 50% 50 ML SYRINGE IV PRN (12:30)
[2019-05-30] MEDS ORDERED: GLUCAGON FOR INJ 1 MG VIAL (J1610) SC PRN (12:30)
--- NOTE | 2019-05-30 13:07 | IPNPDOC ---
Subjective Date Seen The patient was seen on 05/30/19. Subjective Chief Complaint/HPI Patient seen and examined at the bedside. She reports that she is feeling much better after receiving doses of IV Lasix. The patient's output was not able to be likely measured due to incontinent urinary episodes. However, according to the bed scale the patient has lost close to 4 kg of weight. Objective Physical Examination General Exam: Positive: Alert, Cooperative, No Acute Distress ENT Exam: Positive: Atraumatic, Mucous membr. 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 IV Lasix q4h ordered with net negative goal Daily Weights Fluid Restriction Strict monitoring of I/O's We will cont to monitor the patient Acute Kidney Injury 2/2 Above Serum creatinine noted to be 1.5 We will continue to monitor Serum Cr Elevated Troponin Level Likely 2/2 Decompensated CHF in the setting of LOYD It appears that the patient had a cardiac cath done in May of 2018 for elevated Troponin levels and was found to have normal coronary arteries I discussed the case with Dr. Castellanos, he has recommended to treat the decompensated CHF, and does not recommend another cardiac cath given the recent cardiac catheterization results and evidence of acute on chronic decompensation of systolic heart failure due to nonadherence of medications. We will cont to monitor cardiac markers Chronic atrial fibrillation Continue Coreg, Digoxin Coumadin on hold 2/2 supra-therapeutic INR History of mechanical mitral valve Continue Coumadin with goal INR of 2.5-3.5 INR supratherapeutic at this time--we will adjust dosing accordingly Diabetes mellitus Insulin sliding scale Hypertension, stable Continue medications as ordered Gout Continue allopurinol GERD Continue PPI Dyslipidemia Continue statin DVT prophylaxis On Coumadin at baseline Disposition-pending continued clinical improvement VS, I&O, 24H, Fishbone Vital Signs/I&O Vital Signs Date Time Temp Pulse Resp B/P (MAP) Pulse Ox O2 Delivery O2 Flow Rate FiO2 05/30/19 09:00 80 05/30/19 08:12 120/58 05/30/19 07:57 96.2 22 97 2.0 05/29/19 17:28 Nasal Cannula I&O- Last 24 Hours up to 6 AM 05/30/19 06:00 Intake Total 0 ml Output Total 0 ml Balance 0 ml Laboratory Data 24H LABS Laboratory Tests 2 05/29/19 21:58: Total Creatine Kinase 37, Creatine Kinase MB 2.0, Creatine Kinase MB Relative Index 5.41H, Troponin I 2.89*H 05/30/19 05:22: Total Creatine Kinase 36, Creatine Kinase MB 2.2, Creatine Kinase MB Relative Index 6.11H, Troponin I 2.87*H, Nucleated Red Blood Cells % (auto) 0.0, Prothrombin Time 40.0H, Prothromb Time International Ratio 4.11, Anion Gap 7L, Glomerular Filtration Rate 35.4L, Estimated Mean Plasma Glucose 217H, Hemoglobin A1c 9.2, Blood Urea Nitrogen 55H, Creatinine 1.51H, Sodium Level 137, Potassium Level 3.8, Chloride Level 104, Carbon Dioxide Level 26, Calcium Level 9.3, Magnesium Level 2.4 05/30/19 11:22: Bedside Glucose (Misc Panel) 215H CBC/BMP Laboratory Tests 05/30/19 05:22 Red Blood Count 4.56, Mean Corpuscular Volume 91.7, Mean Corpuscular Hemoglobin 27.6, Mean Corpuscular Hemoglobin Concent 30.1 L, Red Cell Distribution Width 15.6 H, Calcium Level 9.3, Total Creatine Kinase 36 Microbiology Microbiology 05/29/19 Blood Culture, Received Pending 05/29/19 Blood Culture - Preliminary, Resulted No growth after 24 hours . All specim... SANTA HUANG MD May 30, 2019 13:07
[2019-05-30 16:00] VITALS: BP 155/84
[2019-05-30] MEDS ORDERED: WARFARIN SOD 3 MG TAB PO ONE (17:00)
[2019-05-30] MEDS: HumaLOG INSULIN (NovoLOG) PER UNIT SC SCH ×2 (17:48→20:09)
[2019-05-30 20:00] VITALS: BP 125/69
[2019-05-30] MEDS: ACETAMINOPHEN 500 MG TAB PO SCH (20:09)
[2019-05-30 23:59] VITALS: BP 142/86
[2019-05-31 04:00] VITALS: BP 134/75
[2019-05-31] MEDS: FUROSEMIDE 40 MG/4 ML VIAL (J1940) IV SCH ×6 (04:17→23:33)
[2019-05-31 05:31] LABS: HEMOGLOBIN 13.1 g/dl (12.0-15.5); MEAN CORPUSCULAR HEMOGLOBIN 27.4 pg (27.0-33.0); MEAN CORPUSCULAR HGB CONC 29.8 g/dl (32.0-36.5); MEAN CORPUSCULAR VOLUME 92.1 fl (80.0-96.0); PLATELET COUNT, AUTOMATED 262 10^3/uL (150-450); RED BLOOD COUNT 4.78 10^6/uL (4.00-5.40); WHITE BLOOD COUNT 7.4 10^3/uL (4.0-10.0)
[2019-05-31 05:45] LABS: INR 3.27; PROTHROMBIN TIME 33.3 SECONDS (11.8-14.0)
[2019-05-31 05:51] LABS: CALCIUM LEVEL 9.7 MG/DL (8.8-10.2); CREATININE FOR GFR 1.58 MG/DL (0.55-1.30); GLOMERULAR FILTRATION RATE 33.6 (>39); MAGNESIUM LEVEL 2.3 MG/DL (1.8-2.4)
[2019-05-31 08:00] VITALS: BP 122/78
[2019-05-31] MEDS: HumaLOG INSULIN (NovoLOG) PER UNIT SC SCH ×4 (08:17→20:22)
[2019-05-31] MEDS: ASPIRIN 81 MG ENTERIC TAB PO SCH (08:18)
[2019-05-31] MEDS: FOLIC ACID 1 MG TAB PO SCH (08:18)
[2019-05-31] MEDS: CARVedilol 3.125 MG TAB PO SCH ×2 (08:19→20:42)
[2019-05-31] MEDS: MAGNESIUM OXIDE 400 MG TAB (MAG-OX) PO SCH ×2 (08:19→20:43)
[2019-05-31] MEDS: CEPHALEXIN 500 MG CAP PO SCH ×2 (08:19→20:41)
[2019-05-31] MEDS: ATORVASTATIN 10 MG TAB PO SCH (08:19)
[2019-05-31] MEDS: MULTIVITAMINS/MINERALS THERAP 1 TAB PO SCH (08:19)
[2019-05-31] MEDS: DIGOXIN 0.0625MG PER 1/2TABLET PO SCH (09:48)
--- NOTE | 2019-05-31 11:49 | IPNPDOC ---
Subjective Date Seen The patient was seen on 05/31/19. Subjective Chief Complaint/HPI Patient seen and examined at the bedside. She reports that her respiratory status is improved as she continues to urinate. Her I/O's were not previously accurately recorded due to her incontinence. She now has a key catheter present. Objective Physical Examination General Exam: Positive: Alert, Cooperative, No Acute Distress ENT Exam: Positive: Atraumatic, Mucous membr. 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 IV Lasix q4h ordered with net negative goal Daily Weights Fluid Restriction Strict monitoring of I/O's We will cont to monitor the patient Acute Kidney Injury 2/2 Above Serum creatinine noted to be 1.5 We will continue to monitor Serum Cr Elevated Troponin Level Likely 2/2 Decompensated CHF in the setting of LOYD It appears that the patient had a cardiac cath done in May of 2018 for elevated Troponin levels and was found to have normal coronary arteries I discussed the case with Dr. Castellanos on admission, he has recommended to treat the decompensated CHF, and does not recommend another cardiac cath given the recent cardiac catheterization results and evidence of acute on chronic decompensation of systolic heart failure due to nonadherence of medications. We will cont to monitor cardiac markers Chronic atrial fibrillation Continue Coreg, Digoxin Coumadin on hold 2/2 supra-therapeutic INR History of mechanical mitral valve Continue Coumadin with goal INR of 2.5-3.5 Diabetes mellitus Insulin sliding scale Hypertension, stable Continue medications as ordered Gout Continue allopurinol GERD Continue PPI Dyslipidemia Continue statin DVT prophylaxis On Coumadin Disposition-pending continued clinical improvement VS, I&O, 24H, Fishbone Vital Signs/I&O Vital Signs Date Time Temp Pulse Resp B/P (MAP) Pulse Ox O2 Delivery O2 Flow Rate FiO2 05/31/19 09:48 84 05/31/19 08:19 122/74 05/31/19 08:00 96.8 18 96 2.0 05/29/19 17:28 Nasal Cannula I&O- Last 24 Hours up to 6 AM 05/31/19 05:59 Intake Total 600 ml Output Total 425 ml Balance 175 ml Laboratory Data 24H LABS Laboratory Tests 2 05/30/19 17:17: Bedside Glucose (Misc Panel) 182H 05/30/19 20:08: Bedside Glucose (Misc Panel) 245H 05/31/19 05:16: Nucleated Red Blood Cells % (auto) 0.0, Prothrombin Time 33.3H, Prothromb Time International Ratio 3.27, Anion Gap 3L, Glomerular Filtration Rate 33.6L, Blood Urea Nitrogen 58H, Creatinine 1.58H, Sodium Level 138, Potassium Level 4.0, Chloride Level 103, Carbon Dioxide Level 32, Calcium Level 9.7, Magnesium Level 2.3 05/31/19 11:27: Bedside Glucose (Misc Panel) 162H CBC/BMP Laboratory Tests 05/31/19 05:16 Red Blood Count 4.78, Mean Corpuscular Volume 92.1, Mean Corpuscular Hemoglobin 27.4, Mean Corpuscular Hemoglobin Concent 29.8 L, Red Cell Distribution Width 15.6 H, Calcium Level 9.7 Microbiology Microbiology 05/29/19 Blood Culture - Preliminary, Resulted No growth after 24 hours . All specim... 05/29/19 Blood Culture - Preliminary, Resulted No growth after 24 hours . All specim... SANTA HUANG MD May 31, 2019 11:49
[2019-05-31 12:00] VITALS: BP_SYST 129; BP_SYST 133; BP_DIAS 59; BP_DIAS 64
[2019-05-31] MEDS: NYSTATIN 100,000 UNITS/GM TOPICAL PWD 15 GM TOP SCH ×2 (12:06→20:42)
[2019-05-31 16:00] VITALS: BP 132/81
[2019-05-31] MEDS: WARFARIN SOD 3 MG TAB PO SCH (16:41)
[2019-05-31 20:00] VITALS: BP 126/80
[2019-05-31] MEDS: SENOKOT S TAB PO SCH (20:41)
[2019-05-31] MEDS: ACETAMINOPHEN 500 MG TAB PO SCH (20:41)
[2019-05-31 23:59] VITALS: BP 123/75
[2019-06-01] MEDS: FUROSEMIDE 40 MG/4 ML VIAL (J1940) IV SCH ×6 (03:57→23:58)
[2019-06-01 04:00] VITALS: BP 127/73
[2019-06-01 05:54] LABS: HEMATOCRIT 42.3 % (36.0-47.0); HEMOGLOBIN 12.8 g/dl (12.0-15.5); MEAN CORPUSCULAR HEMOGLOBIN 27.9 pg (27.0-33.0); MEAN CORPUSCULAR HGB CONC 30.3 g/dl (32.0-36.5); MEAN CORPUSCULAR VOLUME 92.2 fl (80.0-96.0); PLATELET COUNT, AUTOMATED 242 10^3/uL (150-450); RED BLOOD COUNT 4.59 10^6/uL (4.00-5.40); WHITE BLOOD COUNT 7.3 10^3/uL (4.0-10.0)
[2019-06-01 06:03] LABS: INR 2.81; PROTHROMBIN TIME 29.5 SECONDS (11.8-14.0)
[2019-06-01 06:13] LABS: CREATININE FOR GFR 1.47 MG/DL (0.55-1.30); GLOMERULAR FILTRATION RATE 36.5 (>39); MAGNESIUM LEVEL 2.1 MG/DL (1.8-2.4); POTASSIUM SERUM 3.7 MEQ/L (3.5-5.1)
[2019-06-01 08:00] VITALS: BP 146/80
[2019-06-01] MEDS: HumaLOG INSULIN (NovoLOG) PER UNIT SC SCH ×4 (08:21→21:00)
[2019-06-01] MEDS: MAGNESIUM OXIDE 400 MG TAB (MAG-OX) PO SCH ×2 (08:21→20:29)
[2019-06-01] MEDS: MULTIVITAMINS/MINERALS THERAP 1 TAB PO SCH (08:21)
[2019-06-01] MEDS: CARVedilol 3.125 MG TAB PO SCH ×2 (08:21→20:29)
[2019-06-01] MEDS: CEPHALEXIN 500 MG CAP PO SCH ×2 (08:22→20:29)
[2019-06-01] MEDS: ATORVASTATIN 10 MG TAB PO SCH (08:22)
[2019-06-01] MEDS: FOLIC ACID 1 MG TAB PO SCH (08:22)
[2019-06-01] MEDS: ASPIRIN 81 MG ENTERIC TAB PO SCH (08:22)
[2019-06-01] MEDS: DIGOXIN 0.0625MG PER 1/2TABLET PO SCH (08:22)
[2019-06-01] MEDS: NYSTATIN 100,000 UNITS/GM TOPICAL PWD 15 GM TOP SCH ×2 (08:23→20:30)
[2019-06-01 12:00] VITALS: BP 133/85
--- NOTE | 2019-06-01 12:56 | IPNPDOC ---
Subjective Date Seen The patient was seen on 06/01/19. Subjective Chief Complaint/HPI Patient seen and examined at the bedside. Reports that her volume status is improving with the current management. She is also working with physical therapy for functional optimization. Denies any acute complaints at this time. Objective Physical Examination General Exam: Positive: Alert, Cooperative, No Acute Distress ENT Exam: Positive: Atraumatic, Mucous membr. 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 IV Lasix q4h ordered with net negative goal Daily Weights Fluid Restriction--patient maintaining net negative fluid balances Strict monitoring of I/O's We will cont to monitor the patient Acute Kidney Injury 2/2 Above Serum creatinine noted to be 1.5 We will continue to monitor Serum Cr Elevated Troponin Level Likely 2/2 Decompensated CHF in the setting of LOYD It appears that the patient had a cardiac cath done in May of 2018 for elevated Troponin levels and was found to have normal coronary arteries I discussed the case with Dr. Castellanos on admission, he has recommended to treat the decompensated CHF, and does not recommend another cardiac cath given the recent cardiac catheterization results and evidence of acute on chronic decompensation of systolic heart failure due to nonadherence of medications. We will cont to monitor cardiac markers Chronic atrial fibrillation Continue Coreg, Digoxin Cont Coumadin History of mechanical mitral valve Continue Coumadin with goal INR of 2.5-3.5 Diabetes mellitus Insulin sliding scale Hypertension, stable Continue medications as ordered Gout Continue allopurinol GERD Continue PPI Dyslipidemia Continue statin DVT prophylaxis On Coumadin Disposition-pending continued clinical improvement VS, I&O, 24H, Fishbone Vital Signs/I&O Vital Signs Date Time Temp Pulse Resp B/P (MAP) Pulse Ox O2 Delivery O2 Flow Rate FiO2 06/01/19 12:00 97.1 82 18 133/85 (101) 97 2.0 05/29/19 17:28 Nasal Cannula I&O- Last 24 Hours up to 6 AM0 06/01/19 06:00 Intake Total 1050 ml Output Total 1725 ml Balance -675 ml Laboratory Data 24H LABS Laboratory Tests 2 05/31/19 16:10: Bedside Glucose (Misc Panel) 185H 05/31/19 20:18: Bedside Glucose (Misc Panel) 170H 06/01/19 05:14: Nucleated Red Blood Cells % (auto) 0.0, Prothrombin Time 29.5H, Prothromb Time International Ratio 2.81, Anion Gap 7L, Glomerular Filtration Rate 36.5L, Blood Urea Nitrogen 60H, Creatinine 1.47H, Sodium Level 140, Potassium Level 3.7, Chloride Level 102, Carbon Dioxide Level 31, Calcium Level 9.0, Magnesium Level 2.1 06/01/19 11:24: Bedside Glucose (Misc Panel) 203H CBC/BMP Laboratory Tests 06/01/19 05:14 Red Blood Count 4.59, Mean Corpuscular Volume 92.2, Mean Corpuscular Hemoglobin 27.9, Mean Corpuscular Hemoglobin Concent 30.3 L, Red Cell Distribution Width 15.7 H, Calcium Level 9.0 Microbiology Microbiology 05/29/19 Blood Culture - Preliminary, Resulted No Growth after 48 hours. All Specime... 05/29/19 Blood Culture - Preliminary, Resulted No Growth after 48 hours. All Specime... SANTA HUANG MD Jun 01, 2019 12:56
[2019-06-01] MEDS ORDERED: FLEET ENEMA PR PRN (13:00)
[2019-06-01] MEDS: MOM 30ML SUSPENSION UDC PO PRN (13:48)
[2019-06-01 16:00] VITALS: BP 141/68
[2019-06-01] MEDS ORDERED: SLF 3 ML SYR IV PRN (16:45)
[2019-06-01] MEDS ORDERED: WARFARIN SOD 3 MG TAB PO ONE (17:00)
[2019-06-01] MEDS ORDERED: WARFARIN SOD 3 MG TAB PO SCH (17:00)
[2019-06-01 20:00] VITALS: BP 127/65
[2019-06-01] MEDS: ACETAMINOPHEN 500 MG TAB PO SCH ×2 (20:29→21:29)
[2019-06-01] MEDS: SENOKOT S TAB PO SCH (20:30)
[2019-06-01] MEDS: SLF 3 ML SYR IV SCH (20:30)
[2019-06-01 23:59] VITALS: BP 125/70
[2019-06-02 04:00] VITALS: BP 112/63
[2019-06-02] MEDS: MOM 30ML SUSPENSION UDC PO PRN (04:13)
[2019-06-02] MEDS: FUROSEMIDE 40 MG/4 ML VIAL (J1940) IV SCH ×6 (04:13→23:48)
[2019-06-02] MEDS: SLF 3 ML SYR IV SCH ×3 (04:13→22:58)
[2019-06-02 05:33] LABS: HEMATOCRIT 39.9 % (36.0-47.0); HEMOGLOBIN 12.5 g/dl (12.0-15.5); MEAN CORPUSCULAR HEMOGLOBIN 27.4 pg (27.0-33.0); MEAN CORPUSCULAR HGB CONC 31.3 g/dl (32.0-36.5); MEAN CORPUSCULAR VOLUME 87.5 fl (80.0-96.0); PLATELET COUNT, AUTOMATED 254 10^3/uL (150-450); RED BLOOD COUNT 4.56 10^6/uL (4.00-5.40)
[2019-06-02 05:42] LABS: INR 2.78; PROTHROMBIN TIME 29.2 SECONDS (11.8-14.0)
[2019-06-02 05:52] LABS: CALCIUM LEVEL 9.4 MG/DL (8.8-10.2); CREATININE FOR GFR 1.46 MG/DL (0.55-1.30); GLOMERULAR FILTRATION RATE 36.8 (>39); MAGNESIUM LEVEL 2.4 MG/DL (1.8-2.4); POTASSIUM SERUM 3.9 MEQ/L (3.5-5.1)
[2019-06-02] MEDS: ASPIRIN 81 MG ENTERIC TAB PO SCH (07:42)
[2019-06-02] MEDS: HumaLOG INSULIN (NovoLOG) PER UNIT SC SCH ×4 (07:42→21:00)
[2019-06-02] MEDS: ATORVASTATIN 10 MG TAB PO SCH (07:42)
[2019-06-02] MEDS: FOLIC ACID 1 MG TAB PO SCH (07:43)
[2019-06-02] MEDS: CEPHALEXIN 500 MG CAP PO SCH ×2 (07:43→21:01)
[2019-06-02] MEDS: MAGNESIUM OXIDE 400 MG TAB (MAG-OX) PO SCH ×2 (07:43→21:01)
[2019-06-02] MEDS: NYSTATIN 100,000 UNITS/GM TOPICAL PWD 15 GM TOP SCH ×2 (07:43→20:59)
[2019-06-02] MEDS: MULTIVITAMINS/MINERALS THERAP 1 TAB PO SCH (07:43)
[2019-06-02] MEDS: DIGOXIN 0.0625MG PER 1/2TABLET PO SCH (07:48)
[2019-06-02] MEDS: CARVedilol 3.125 MG TAB PO SCH ×2 (07:49→21:00)
[2019-06-02 08:00] VITALS: BP 115/67
--- NOTE | 2019-06-02 11:25 | IPNPDOC ---
Subjective Date Seen The patient was seen on 06/02/19. Subjective Chief Complaint/HPI Patient seen and examined at the bedside. No acute overnight events noted. Objective Physical Examination General Exam: Positive: Alert, Cooperative, No Acute Distress ENT Exam: Positive: Atraumatic, Mucous membr. 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 IV Lasix q4h ordered with net negative goal Daily Weights Fluid Restriction--patient maintaining net negative fluid balances Strict monitoring of I/O's We will cont to monitor the patient Acute Kidney Injury 2/2 Above Serum creatinine noted to be 1.4-1.5 We will continue to monitor Serum Cr Elevated Troponin Level Likely 2/2 Decompensated CHF in the setting of LOYD It appears that the patient had a cardiac cath done in May of 2018 for elevated Troponin levels and was found to have normal coronary arteries I discussed the case with Dr. Castellanos on admission, he has recommended to treat the decompensated CHF, and does not recommend another cardiac cath given the recent cardiac catheterization results and evidence of acute on chronic decompensation of systolic heart failure due to nonadherence of medications. We will cont to monitor cardiac markers Chronic atrial fibrillation Continue Coreg, Digoxin Cont Coumadin History of mechanical mitral valve Continue Coumadin with goal INR of 2.5-3.5 Diabetes mellitus Insulin sliding scale Hypertension, stable Continue medications as ordered Gout Continue allopurinol GERD Continue PPI Dyslipidemia Continue statin DVT prophylaxis On Coumadin Disposition-pending continued clinical improvement VS, I&O, 24H, Fishbone Vital Signs/I&O Vital Signs Date Time Temp Pulse Resp B/P (MAP) Pulse Ox O2 Delivery O2 Flow Rate FiO2 06/02/19 08:00 2.0 06/02/19 08:00 97.1 80 18 115/67 (83) 100 05/29/19 17:28 Nasal Cannula I&O- Last 24 Hours up to 6 AM 06/02/19 05:59 Intake Total 1280 ml Output Total 1900 ml Balance -620 ml Laboratory Data 24H LABS Laboratory Tests 2 06/01/19 17:42: Bedside Glucose (Misc Panel) 143H 06/01/19 21:19: Bedside Glucose (Misc Panel) 208H 06/02/19 05:17: Nucleated Red Blood Cells % (auto) 0.0, Prothrombin Time 29.2H, Prothromb Time International Ratio 2.78, Anion Gap 4L, Glomerular Filtration Rate 36.8L, Blood Urea Nitrogen 63H, Creatinine 1.46H, Sodium Level 138, Potassium Level 3.9, Chloride Level 101, Carbon Dioxide Level 33H, Calcium Level 9.4, Magnesium Level 2.4 CBC/BMP Laboratory Tests 06/02/19 05:17 Red Blood Count 4.56, Mean Corpuscular Volume 87.5, Mean Corpuscular Hemoglobin 27.4, Mean Corpuscular Hemoglobin Concent 31.3 L, Red Cell Distribution Width 15.6 H, Calcium Level 9.4 Microbiology Microbiology 05/29/19 Blood Culture - Preliminary, Resulted No Growth after 72 hours. All specime... 05/29/19 Blood Culture - Preliminary, Resulted No Growth after 72 hours. All specime... SANTA HUANG MD Jun 02, 2019 11:25
[2019-06-02 12:00] VITALS: BP 118/66
[2019-06-02 16:00] VITALS: BP 112/62
[2019-06-02] MEDS: WARFARIN SOD 3 MG TAB PO SCH (16:48)
[2019-06-02 20:00] VITALS: BP 119/70
[2019-06-02] MEDS: SENOKOT S TAB PO SCH (21:00)
[2019-06-02] MEDS: ACETAMINOPHEN 500 MG TAB PO SCH (21:00)
[2019-06-02 23:59] VITALS: BP 115/73
[2019-06-03] VITALS (7 sets, daily range): BP systolic 119–140; BP diastolic 66–83
[2019-06-03] MEDS: FUROSEMIDE 40 MG/4 ML VIAL (J1940) IV SCH ×6 (03:56→23:51)
[2019-06-03 05:19] LABS: HEMATOCRIT 40.2 % (36.0-47.0); HEMOGLOBIN 12.5 g/dl (12.0-15.5); MEAN CORPUSCULAR HEMOGLOBIN 27.4 pg (27.0-33.0); MEAN CORPUSCULAR HGB CONC 31.1 g/dl (32.0-36.5); PLATELET COUNT, AUTOMATED 265 10^3/uL (150-450); RED BLOOD COUNT 4.57 10^6/uL (4.00-5.40); WHITE BLOOD COUNT 7.6 10^3/uL (4.0-10.0)
[2019-06-03 05:29] LABS: CALCIUM LEVEL 9.2 MG/DL (8.8-10.2); CREATININE FOR GFR 1.54 MG/DL (0.55-1.30); GLOMERULAR FILTRATION RATE 34.6 (>39); MAGNESIUM LEVEL 2.7 MG/DL (1.8-2.4)
[2019-06-03 05:33] LABS: INR 3.13; PROTHROMBIN TIME 32.1 SECONDS (11.8-14.0)
[2019-06-03] MEDS: SLF 3 ML SYR IV SCH ×3 (06:25→22:00)
[2019-06-03] MEDS: MULTIVITAMINS/MINERALS THERAP 1 TAB PO SCH (08:57)
[2019-06-03] MEDS: CEPHALEXIN 500 MG CAP PO SCH (08:57)
[2019-06-03] MEDS: ATORVASTATIN 10 MG TAB PO SCH (08:57)
[2019-06-03] MEDS: FOLIC ACID 1 MG TAB PO SCH (08:57)
[2019-06-03] MEDS: MAGNESIUM OXIDE 400 MG TAB (MAG-OX) PO SCH ×2 (08:57→20:37)
[2019-06-03] MEDS: DIGOXIN 0.0625MG PER 1/2TABLET PO SCH (08:57)
[2019-06-03] MEDS: CARVedilol 3.125 MG TAB PO SCH ×2 (08:58→20:40)
[2019-06-03] MEDS: ASPIRIN 81 MG ENTERIC TAB PO SCH (08:58)
[2019-06-03] MEDS: NYSTATIN 100,000 UNITS/GM TOPICAL PWD 15 GM TOP SCH ×2 (08:59→20:38)
[2019-06-03] MEDS: HumaLOG INSULIN (NovoLOG) PER UNIT SC SCH ×4 (08:59→21:00)
--- NOTE | 2019-06-03 10:47 | IPNPDOC ---
Subjective Date Seen The patient was seen on 06/03/19. Subjective Chief Complaint/HPI Patient seen and examined at the bedside this morning. States that her lower extremity edema is improving. Continues to work with physical therapy. The patient's Tyler catheter was leaking yesterday evening, and this was removed. Importance of Checking daily weights reaffirmed with housestaff. No acute overnight events noted. Objective Physical Examination General Exam: Positive: Alert, Cooperative, No Acute Distress ENT Exam: Positive: Atraumatic, Mucous membr. 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 IV Lasix q4h ordered with net negative goal Daily Weights Fluid Restriction--patient maintaining net negative fluid balances Strict monitoring of I/O's We will cont to monitor the patient Acute Kidney Injury 2/2 Above Serum creatinine noted to be 1.4-1.5 We will continue to monitor Serum Cr Elevated Troponin Level Likely 2/2 Decompensated CHF in the setting of LOYD It appears that the patient had a cardiac cath done in May of 2018 for elevated Troponin levels and was found to have normal coronary arteries I discussed the case with Dr. Castellanos on admission, he has recommended to treat the decompensated CHF, and does not recommend another cardiac cath given the recent cardiac catheterization results and evidence of acute on chronic decompensation of systolic heart failure due to nonadherence of medications. We will cont to monitor cardiac markers Chronic atrial fibrillation Continue Coreg, Digoxin Cont Coumadin History of mechanical mitral valve Continue Coumadin with goal INR of 2.5-3.5 Diabetes mellitus Insulin sliding scale Hypertension, stable Continue medications as ordered Gout Continue allopurinol GERD Continue PPI Dyslipidemia Continue statin DVT prophylaxis On Coumadin Disposition-pending continued clinical improvement VS, I&O, 24H, Fishbone Vital Signs/I&O Vital Signs Date Time Temp Pulse Resp B/P (MAP) Pulse Ox O2 Delivery O2 Flow Rate FiO2 06/03/19 08:58 80 126/66 06/03/19 08:00 95.9 18 98 2.0 05/29/19 17:28 Nasal Cannula I&O- Last 24 Hours up to 6 AM 06/03/19 05:59 Intake Total 1010 ml Output Total 920 ml Balance 90 ml Laboratory Data 24H LABS Laboratory Tests 2 06/02/19 11:31: Bedside Glucose (Misc Panel) 179H 06/02/19 16:46: Bedside Glucose (Misc Panel) 186H 06/02/19 21:42: Bedside Glucose (Misc Panel) 189H 06/03/19 04:54: Nucleated Red Blood Cells % (auto) 0.3H, Prothrombin Time 32.1H, Prothromb Time International Ratio 3.13, Anion Gap 8, Glomerular Filtration Rate 34.6L, Blood Urea Nitrogen 66H, Creatinine 1.54H, Sodium Level 135L, Potassium Level 4.0, Chloride Level 100, Carbon Dioxide Level 27, Calcium Level 9.2, Magnesium Level 2.7H CBC/BMP Laboratory Tests 06/03/19 04:54 Red Blood Count 4.57, Mean Corpuscular Volume 88.0, Mean Corpuscular Hemoglobin 27.4, Mean Corpuscular Hemoglobin Concent 31.1 L, Red Cell Distribution Width 15.9 H, Calcium Level 9.2 Microbiology Microbiology 05/29/19 Blood Culture - Preliminary, Resulted No Growth after 72 hours. All specime... 05/29/19 Blood Culture - Preliminary, Resulted No Growth after 72 hours. All specime... SNATA HUANG MD Jun 03, 2019 10:47
[2019-06-03] MEDS: ACETAMINOPHEN TAB 650MG DOSE (2X325MG) PO PRN (16:03)
[2019-06-03] MEDS: WARFARIN SOD 3 MG TAB PO SCH (18:04)
[2019-06-03] MEDS: ACETAMINOPHEN 500 MG TAB PO SCH (20:38)
[2019-06-03] MEDS: SENOKOT S TAB PO SCH (20:40)
[2019-06-04 04:00] VITALS: BP 119/72
[2019-06-04] MEDS: SLF 3 ML SYR IV SCH ×3 (04:52→20:40)
[2019-06-04] MEDS: FUROSEMIDE 40 MG/4 ML VIAL (J1940) IV SCH ×4 (04:52→16:01)
[2019-06-04 05:11] LABS: HEMATOCRIT 42.3 % (36.0-47.0); HEMOGLOBIN 13.1 g/dl (12.0-15.5); MEAN CORPUSCULAR HEMOGLOBIN 27.8 pg (27.0-33.0); MEAN CORPUSCULAR VOLUME 89.6 fl (80.0-96.0); PLATELET COUNT, AUTOMATED 255 10^3/uL (150-450); RED BLOOD COUNT 4.72 10^6/uL (4.00-5.40); WHITE BLOOD COUNT 7.1 10^3/uL (4.0-10.0)
[2019-06-04 05:24] LABS: INR 3.51; PROTHROMBIN TIME 35.3 SECONDS (11.8-14.0)
[2019-06-04 05:32] LABS: CALCIUM LEVEL 9.2 MG/DL (8.8-10.2); CREATININE FOR GFR 1.45 MG/DL (0.55-1.30); GLOMERULAR FILTRATION RATE 37.1 (>39); MAGNESIUM LEVEL 2.8 MG/DL (1.8-2.4); POTASSIUM SERUM 4.1 MEQ/L (3.5-5.1)
[2019-06-04 07:45] VITALS: BP 137/79
[2019-06-04] MEDS: FOLIC ACID 1 MG TAB PO SCH (08:23)
[2019-06-04] MEDS: ATORVASTATIN 10 MG TAB PO SCH (08:23)
[2019-06-04] MEDS: ASPIRIN 81 MG ENTERIC TAB PO SCH (08:23)
[2019-06-04] MEDS: MULTIVITAMINS/MINERALS THERAP 1 TAB PO SCH (08:23)
[2019-06-04] MEDS: DIGOXIN 0.0625MG PER 1/2TABLET PO SCH (08:24)
[2019-06-04] MEDS: CARVedilol 3.125 MG TAB PO SCH ×2 (08:24→20:15)
[2019-06-04] MEDS: HumaLOG INSULIN (NovoLOG) PER UNIT SC SCH ×4 (08:24→20:40)
[2019-06-04] MEDS: NYSTATIN 100,000 UNITS/GM TOPICAL PWD 15 GM TOP SCH ×2 (08:25→20:14)
[2019-06-04] MEDS: MAGNESIUM OXIDE 400 MG TAB (MAG-OX) PO SCH (09:00)
[2019-06-04] MEDS ORDERED: metOLazone 5 MG TAB PO ONE (10:30)
[2019-06-04 12:00] VITALS: BP 120/71
[2019-06-04 16:00] VITALS: BP 126/71
--- NOTE | 2019-06-04 19:02 | IPNPDOC ---
Text Note Date of Service The patient was seen on 06/04/19. NOTE S: patient being treated for CHF and demand ischemia associated with CHF. She states still with GUZMAN but no CP. States no SOB or orthopnea but is sitting up in chair. She states all the swelling and edema is below the belly button. No N, no V but decreased appetite. Key cath removed because leaking around balloon. Patient incontinent of urine and unable to obtain I/O. Current Medications Medications (Trade) Dose Ordered Sig/Jasper Route PRN Reason Start Time Stop Time Status Last Admin Dose Admin Acetaminophen (Tylenol Tab) 650 mg Q6HP PRN PO PAIN / FEVER 06/03/19 10:45 06/03/19 16:03 Acetaminophen (Tylenol Tab) 1,000 mg QHS PO 05/29/19 21:00 06/03/19 20:38 Aspirin (Ecotrin) 81 mg DAILY PO 05/30/19 09:00 06/03/19 08:58 Atorvastatin Calcium (Lipitor) 10 mg DAILY PO 05/30/19 09:00 06/03/19 08:57 Carvedilol (COReg) 3.125 mg BID PO 05/29/19 21:00 06/03/19 20:40 Cephalexin Monohydrate (Keflex) 500 mg BID PO 05/29/19 21:00 06/03/19 12:02 DC 06/03/19 08:57 Dextrose (Dextrose 50%) 25 ml ASDIRECTED PRN IV SEE LABEL COMMENTS 05/30/19 12:30 Digoxin (Lanoxin) 0.0625 mg DAILY PO 05/30/19 09:00 06/03/19 08:57 Folic Acid (Folic Acid) 1 mg DAILY PO 05/30/19 09:00 06/03/19 08:57 Furosemide (LASIX injection) 40 mg Q4H IV 05/29/19 20:00 06/04/19 04:52 Glucagon (Glucagon) 1 mg ASDIRECTED PRN SC SEE LABEL COMMENTS 05/30/19 12:30 Glucose (Glucose) 16 GM ASDIRECTED PRN PO SEE LABEL COMMENTS 05/30/19 12:30 Home Med (Med Rec Complete!) ASDIRECTED XX 05/29/19 16:15 05/29/19 16:15 DC Insulin Human Lispro (HumaLOG INSULIN) SEE PROTOCOL TABLE AC SC 05/30/19 17:30 06/03/19 18:05 Insulin Human Lispro (HumaLOG INSULIN) SEE PROTOCOL TABLE QHS SC 05/30/19 21:00 Magnesium Hydroxide (Milk Of Magnesia) 30 ml DAILYPRN PRN PO CONSTIPATION 06/01/19 13:00 06/02/19 04:13 Magnesium Oxide (Mag-Ox) 400 mg BID PO 05/29/19 21:00 06/03/19 08:57 Multivitamins (Theragram-M) 1 tab DAILY PO 05/30/19 09:00 06/03/19 08:57 Nystatin (Mycostatin Powder, Nystop) Apply to groin, abdomi... BID TOP 05/31/19 09:00 06/03/19 20:38 Senna/Docusate Sodium (Senokot S) 1 tab QHS PO 05/31/19 21:00 06/01/19 20:30 Sodium Biphosphate/ Sodium Phosphate (Fleet Enema) 1 ea DAILYPRN PRN [place] CONSTIPATION 06/01/19 13:00 Sodium Chloride (Saline Lock Flush) 2 ml ASDIRECTED PRN IV SEE LABEL COMMENTS 06/01/19 16:45 Sodium Chloride (Saline Lock Flush) 2 ml SLF IV 06/01/19 22:00 06/04/19 04:52 Warfarin Sodium (Coumadin) 3 mg TuSa@1700 PO 06/01/19 17:00 06/01/19 17:07 Warfarin Sodium (Coumadin) 6 mg SuMoWeThFr@1700 PO 05/31/19 17:00 06/03/19 18:04 O: Vitals as below General: pleasant, NAD, no dyspnea with talking HRRR no murmur, pacer intact LCTA no W/R/R Abdomen: soft distended with 2+ anasarca and sacral edema A/P: 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 - Patient chair weight up (no standing scale available at facility). - continue 1500cc fluid restriction - check CXR and BNP in AM - Daily Weights, I/O as best as possible given incontinence - consider reinserting key for patient comfort - restart entresto, continue coreg, change lasix to BID and spironolactone. assess daily for need of add zarolxyn. BUMEX IV or Torsemide IV not available. Suspect increased GI edema causing decreased oral absorption for diuretics. monitor renal function closely. anticipate bump in creatinine. - patient also with large fibroid on formed CT abd - this might be contributing to lower extremity edema with vascular congestion. Consider repeat CT or US to see if fibroid grown or causing pelvic congestion. LOYD - iatrogenic. baseline creatinine 0.9 with GFR above 60; current creat ranging 1.4 - 1.6; anticipate bump in creat to 1.8 with diuretics before decreasing regimen. Avoid hypotension. restart entresto due to CHF. Elevated Troponin Level - demand ischemia- NSTEMI type II Likely 2/2 Decompensated CHF in the setting of LOYD It appears that the patient had a cardiac cath done in May of 2018 for elevated Troponin levels and was found to have normal coronary arteries Dr Bhat has discussed the case with Dr. Castellanos on admission, he has recommended to treat the decompensated CHF, and does not recommend another cardiac cath given the recent cardiac catheterization results and evidence of acute on chronic decompensation of systolic heart failure due to nonadherence of medications. We will cont to monitor cardiac markers Chronic atrial fibrillation - currently rate controlled. Continue Coreg, Digoxin, - adjust warfarin dose for INR 2.5-3.5 (hold today) due to underlying mechanical MV High decision making due to adjusting medication (warfarin) to avoid toxicity History of mechanical mitral valve Continue Coumadin with goal INR of 2.5-3.5 Diabetes mellitus Insulin sliding scale Hypertension, stable Continue medications as ordered Gout Continue allopurinol - renal dose GERD Continue PPI Dyslipidemia Continue statin DVT prophylaxis On Coumadin Disposition-pending continued clinical improvement VS,Fishbone, I+O VS, Fishbone, I+O Laboratory Tests 06/04/19 04:52 Red Blood Count 4.72, Mean Corpuscular Volume 89.6, Mean Corpuscular Hemoglobin 27.8, Mean Corpuscular Hemoglobin Concent 31.0 L, Red Cell Distribution Width 15.9 H, Calcium Level 9.2 Vital Signs Date Time Temp Pulse Resp B/P (MAP) Pulse Ox O2 Delivery O2 Flow Rate FiO2 06/04/19 07:45 97.0 80 18 137/79 (98) 100 2.0 8/7/19 17:28 Nasal Cannula I&O- Last 24 Hours up to 6 AM 06/04/19 06:00 Intake Total 1100 ml Output Total 75 ml Balance 1025 ml CHELO AGEE DO Jun 04, 2019 08:05
[2019-06-04 20:00] VITALS: BP 127/82
[2019-06-04] MEDS: ACETAMINOPHEN 500 MG TAB PO SCH (20:14)
[2019-06-04] MEDS: SENOKOT S TAB PO SCH (20:14)
[2019-06-04] MEDS: FUROSEMIDE 100 MG/10 ML VIAL (J1940) IV SCH (20:14)
[2019-06-04] MEDS: ENTRESTO 24-26MG TABLET (SACUBITRIL/VALSARTAN) PO SCH (20:14)
[2019-06-04 23:59] VITALS: BP 112/70
[2019-06-05 04:00] VITALS: BP 114/61
[2019-06-05 05:11] LABS: HEMATOCRIT 41.1 % (36.0-47.0); HEMOGLOBIN 12.6 g/dl (12.0-15.5); MEAN CORPUSCULAR HEMOGLOBIN 27.9 pg (27.0-33.0); MEAN CORPUSCULAR HGB CONC 30.7 g/dl (32.0-36.5); MEAN CORPUSCULAR VOLUME 90.9 fl (80.0-96.0); PLATELET COUNT, AUTOMATED 235 10^3/uL (150-450); RED BLOOD COUNT 4.52 10^6/uL (4.00-5.40)
[2019-06-05 05:31] LABS: INR 3.35; PROTHROMBIN TIME 33.9 SECONDS (11.8-14.0)
[2019-06-05 05:42] LABS: CALCIUM LEVEL 8.9 MG/DL (8.8-10.2); CREATININE FOR GFR 1.54 MG/DL (0.55-1.30); GLOMERULAR FILTRATION RATE 34.6 (>39); MAGNESIUM LEVEL 2.4 MG/DL (1.8-2.4); POTASSIUM SERUM 3.4 MEQ/L (3.5-5.1)
[2019-06-05] MEDS: SLF 3 ML SYR IV SCH ×3 (05:49→21:06)
[2019-06-05 08:00] VITALS: BP 111/67
[2019-06-05] MEDS ORDERED: metOLazone 5 MG TAB PO ONE (08:30)
[2019-06-05] MEDS: ENTRESTO 24-26MG TABLET (SACUBITRIL/VALSARTAN) PO SCH ×2 (08:53→21:06)
[2019-06-05] MEDS: SPIRONOLACTONE 50 MG TAB PO SCH (08:53)
[2019-06-05] MEDS: ALLOPURINOL 100 MG TAB PO SCH (08:53)
[2019-06-05] MEDS: DIGOXIN 0.0625MG PER 1/2TABLET PO SCH (08:53)
[2019-06-05] MEDS: FOLIC ACID 1 MG TAB PO SCH (08:53)
[2019-06-05] MEDS: MULTIVITAMINS/MINERALS THERAP 1 TAB PO SCH (08:54)
[2019-06-05] MEDS: ATORVASTATIN 10 MG TAB PO SCH (08:54)
[2019-06-05] MEDS: CARVedilol 3.125 MG TAB PO SCH ×2 (08:54→21:06)
[2019-06-05] MEDS: NYSTATIN 100,000 UNITS/GM TOPICAL PWD 15 GM TOP SCH ×2 (08:55→21:06)
[2019-06-05] MEDS: HumaLOG INSULIN (NovoLOG) PER UNIT SC SCH ×4 (08:55→21:00)
[2019-06-05] MEDS: FUROSEMIDE 100 MG/10 ML VIAL (J1940) IV SCH ×2 (08:55→17:44)
[2019-06-05] MEDS: ASPIRIN 81 MG ENTERIC TAB PO SCH (08:55)
--- NOTE | 2019-06-05 10:09 | REP ---
Chest x-ray: Two views. History: CHF. Comparison chest x-ray: May 29, 2019. Findings: A unipolar pacemaker is seen in the enlarged right heart via the left side as before. Moderate to marked cardiomegaly is observed. The patient is status post two cardiac valve replacements. There is blunting of the posterior pleural angles bilaterally and the left lateral pleural angle is obscured suggesting small bilateral effusions. Pulmonary vascular cephalization and congestion is seen. No pulmonary edema is seen. There is mild linear fibrosis in both bases. Impression: Moderate to marked cardiomegaly status post cardiac valve replacements with pacemaker. Pulmonary vascular congestion. Small bilateral pleural effusions consistent with CHF pattern. Electronically Signed by Matthew Garrett MD 06/05/2019 08:53 P
[2019-06-05 11:50] VITALS: BP 90/55
[2019-06-05 11:59] VITALS: BP 82/52
[2019-06-05 15:56] VITALS: BP 99/55
--- NOTE | 2019-06-05 16:53 | IPNPDOC ---
Text Note Date of Service The patient was seen on 06/05/19 at 1145 with sister and present NOTE S: Patient states no dizziness, increased urination and frequency with diuretics. no CP, still with GUZMAN but no SOB and denies orthopnea. Is laying supine in bed. Later in AM, patient had hypotension after recieving betablocker and entresto. 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 Repeat echo since not clinically improving as expected and because of elevated troponin. - Patient chair weight up (no standing scale available at facility). Her baseline weight 80kg, Anticipate need to diurese 10-15 more kg slowly to avoid hypotension and LOYD - continue 1500cc fluid restriction - Daily Weights, I/O as best as possible given incontinence - consider reinserting key for patient comfort - continue entresto, coreg, change lasix to BID and add spironolactone. assess daily for need of add zarolxyn. BUMEX IV or Torsemide IV not available. Suspect increased GI edema causing decreased oral absorption for diuretics. monitor renal function closely. anticipate bump in creatinine. - if no significant improvement in 48 hours with medication changes made on 06/04, consider cardiology consult. - patient also with large fibroid on formed CT abd - this might be cont ributing to lower extremity edema with vascular congestion. Consider repeat CT or US to see if fibroid grown or causing pelvic congestion. LOYD - iatrogenic. baseline creatinine 0.9 with GFR above 60; current creat ranging 1.4 - 1.6; anticipate bump in creat to 1.8 with diuretics before decreasing regimen. Avoid hypotension. restart entresto due to CHF. Elevated Troponin Level - demand ischemia- NSTEMI type II Likely 2/2 Decompensated CHF in the setting of LOYD It appears that the patient had a cardiac cath done in May of 2018 for elevated Troponin levels and was found to have normal coronary arteries Dr Bhat has discussed the case with Dr. 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 We will cont to monitor cardiac markers Chronic atrial fibrillation - currently rate controlled. Continue Coreg, Digoxin, - adjust warfarin dose for INR 2.5-3.5 (hold today) due to underlying mechanical MV High decision making due to adjusting medication (warfarin) to avoid toxicity History of mechanical mitral valve Continue Coumadin with goal INR of 2.5-3.5 Diabetes mellitus Insulin sliding scale Hypertension, stable Continue medications as ordered Gout Continue allopurinol - renal dose GERD Continue PPI Dyslipidemia Continue statin DVT prophylaxis On Coumadin Disposition-pending continued clinical improvement VS,Alan, I+O VS, Alan, I+O Laboratory Tests 06/05/19 04:43 Red Blood Count 4.52, Mean Corpuscular Volume 90.9, Mean Corpuscular Hemoglobin 27.9, Mean Corpuscular Hemoglobin Concent 30.7 L, Red Cell Distribution Width 15.9 H, Calcium Level 8.9 Vital Signs Date Time Temp Pulse Resp B/P (MAP) Pulse Ox O2 Delivery O2 Flow Rate FiO2 06/05/19 04:00 2.0 06/05/19 04:00 97.2 79 22 114/61 (78) 94 l I&O- Last 24 Hours up to 6 AM 06/05/19 06:00 Intake Total 2440 ml Output Total 1650 ml Balance 790 ml CHELO AGEE DO Jun 05, 2019 07:24
[2019-06-05] MEDS ORDERED: WARFARIN SOD 4 MG TAB PO SCH (17:00)
[2019-06-05 20:00] VITALS: BP 114/61
[2019-06-05] MEDS: SENOKOT S TAB PO SCH (21:05)
[2019-06-05] MEDS: ACETAMINOPHEN 500 MG TAB PO SCH (21:06)
[2019-06-06] VITALS (7 sets, daily range): BP systolic 93–114; BP diastolic 52–65
[2019-06-06] MEDS: SLF 3 ML SYR IV SCH ×3 (05:01→22:21)
[2019-06-06 05:39] LABS: INR 3.26; PROTHROMBIN TIME 33.2 SECONDS (11.8-14.0)
--- NOTE | 2019-06-06 07:34 | ECHO ---
DATE OF PROCEDURE: 06/05/2019 AGE: 79 HEIGHT: 61 inches. GENDER: Female. WEIGHT: 220 pounds. BODY SURFACE AREA: 1.97 meters squared. LOCATION: Inpatient PCU, room 3216. REFERRING PHYSICIAN: Elis Ron MD INDICATION: Congestive heart failure (CHF). Myocardial infarction (MT). Post mitral valve replacement. MEASUREMENTS 2-D MEASUREMENTS: RV - 4.4 cm LV - 7.3 cm Septum 1.4 cm Posterior wall 1.4 cm Aortic root 3.0 cm LA - 7.5 cm LVEF - 20% DOPPLER MEASUREMENTS: AV - 2.29 m/s LVOT - 0.67 m/s LVOT diameter 2.0 cm Dimensionless index 0.25 MV-E 139 Early mitral deceleration time 197 ms PV - 0.6 m/s Pulmonary artery acceleration time 95 ms RVSP 52-57 mmHg IVC - 2.38 cm COMMENTS: Underlying atrial fibrillation with consistent ventricular paced complexes. QRS configuration was right bundle branch block in keeping with a biventricular ICD. Technically difficult study in light of the patient's body habitus, but some diagnostically useful information was still obtained. Prominently dilated and mildly symmetrically hypertrophied left ventricle with fairly global hypokinesis and virtual apical akinesis resulting in severe impairment of global resting systolic function. Grossly dilated left atrium. At least mildly dilated right ventricle with hypokinesis and Doppler evidence of at least moderate to moderately severe pulmonary hypertension. Moderately dilated right atrium and IVC with virtually absent respiratory collapse in keeping with elevated central venous pressure/right heart failure. Moderately severe calcific aortic stenosis with mild insufficiency. Normal aortic root size. Echogenic mechanical bileaflet prosthetic mitral valve with visible leaflet motion and only trace insufficiency. Normal appearing tricuspid valve with moderately severe tricuspid insufficiency. Pacing leads could be visualized traversing right heart structures. No separate intracardiac mass or pericardial effusion.
[2019-06-06 07:59] LABS: CALCIUM LEVEL 8.7 MG/DL (8.8-10.2); CREATININE FOR GFR 1.57 MG/DL (0.55-1.30); GLOMERULAR FILTRATION RATE 33.8 (>39); POTASSIUM SERUM 3.7 MEQ/L (3.5-5.1)
[2019-06-06] MEDS: HumaLOG INSULIN (NovoLOG) PER UNIT SC SCH ×4 (08:35→20:38)
[2019-06-06] MEDS: NYSTATIN 100,000 UNITS/GM TOPICAL PWD 15 GM TOP SCH ×2 (08:36→20:39)
[2019-06-06] MEDS: MULTIVITAMINS/MINERALS THERAP 1 TAB PO SCH (08:36)
[2019-06-06] MEDS: SPIRONOLACTONE 50 MG TAB PO SCH (08:36)
[2019-06-06] MEDS: ATORVASTATIN 10 MG TAB PO SCH (08:36)
[2019-06-06] MEDS: DIGOXIN 0.0625MG PER 1/2TABLET PO SCH (08:36)
[2019-06-06] MEDS: ASPIRIN 81 MG ENTERIC TAB PO SCH (08:36)
[2019-06-06] MEDS: ALLOPURINOL 100 MG TAB PO SCH (08:36)
[2019-06-06] MEDS: FUROSEMIDE 100 MG/10 ML VIAL (J1940) IV SCH ×2 (08:36→17:15)
[2019-06-06] MEDS: CARVedilol 3.125 MG TAB PO SCH ×3 (08:37→18:52)
[2019-06-06] MEDS: FOLIC ACID 1 MG TAB PO SCH (08:37)
[2019-06-06] MEDS ORDERED: ENTRESTO 24-26MG TABLET (SACUBITRIL/VALSARTAN) PO SCH (09:00)
[2019-06-06] MEDS: ENTRESTO 24-26MG TABLET (SACUBITRIL/VALSARTAN) PO SCH ×2 (09:00→20:37)
--- NOTE | 2019-06-06 12:43 | IPNPDOC ---
Text Note Date of Service The patient was seen on 06/06/19. NOTE S: patient states feels better. she states no orthopnea. minimal SOB sitting in chair and was able to ambulate with PT 20 feet without severe GUZMAN. States no CP, no N O: Vitals as below General: pleasant NAD AAOx3 Hirreg/irreg at 70 no murmur, pacemaker along chest wall LCTA with diffuse wheeze and rales Abdomen: obese, NT ND with trace pitting edema Ext: 2+ pitting edema but improved with wrinkles/venous stasis changes. minimal weeping on left leg A/P: 1) Decompensated acute on chronic systolic and diastolic congestive heart failure due to non-adherence to diuretic regimen as prescribed Echo pending Echo 11/26/18 with EF 25%, a normally functioning mitral prosthesis, and tricuspid valve repair.(unable to locate report Cardiology consulted and will see patient tomorrow 06/07/19 - continue with entresto, coreg, lasix to BID and spironolactone. BUMEX IV or Torsemide IV not available. Suspect increased GI edema causing decreased oral absorption for diuretics. monitor renal function closely. anticipate bump in creatinine to 1.8 Inaccurate I/O due to urine incontinence Inaccurate weight (bedscale/chair weights) Her baseline weight 80kg, Anticipate need to diurese 10-15 more kg slowly to avoid hypotension and LOYD - continue 1500cc fluid restriction - patient also with large fibroid on formed CT abd - this might be contributing to lower extremity edema with vascular congestion. Consider repeat CT or US to see if fibroid grown or causing pelvic congestion if does not improve clinically. 2) LOYD - iatrogenic. baseline creatinine 0.9 with GFR above 60; current creat ranging 1.4 - 1.6; anticipate bump in creat to 1.8 with diuretics before decreasing regimen. Avoid hypotension. 3) Elevated Troponin Level - demand ischemia- NSTEMI type II in the setting of CHF and LOYD It appears that the patient had a cardiac cath done in May of 2018 for elevated Troponin levels and was found to have normal coronary arteries Dr Bhat has discussed the case with Dr. 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 We will cont to monitor cardiac markers 4) Chronic atrial fibrillation - currently rate controlled. Continue Coreg, Digoxin, - adjust warfarin dose for INR 2.5-3.5 (hold today) due to underlying mechanical MV and decrease dosing to 3mg daily. High decision making due to adjusting medication (warfarin) to avoid toxicity 5) History of mechanical mitral valve Continue Coumadin with goal INR of 2.5-3.5 6) Diabetes mellitus with hyperglycemia - no hypoglycemia Insulin sliding scale 7) essential Hypertension, stable - hold parameters on med to avoid hypotension 8) Gout Continue allopurinol - renal dose 9) GERD Continue PPI 10) Dyslipidemia Continue statin DVT prophylaxis On Coumadin VS,Fishbone, I+O VS, Fishbone, I+O Laboratory Tests 06/06/19 04:31 Calcium Level 8.7 L Vital Signs Date Time Temp Pulse Resp B/P (MAP) Pulse Ox O2 Delivery O2 Flow Rate FiO2 06/06/19 09:26 80 105/56 06/06/19 08:00 96.2 18 98 2.0 I&O- Last 24 Hours up to 6 AM 06/06/19 06:00 Intake Total 960 ml Output Total 700 ml Balance 260 ml CHELO AGEE DO Jun 06, 2019 12:43
[2019-06-06] MEDS ORDERED: POTASSIUM CHLORIDE 10 MEQ SR TABLET PO ONE (13:00)
[2019-06-06] MEDS: ACETAMINOPHEN 500 MG TAB PO SCH (20:38)
[2019-06-06] MEDS: SENOKOT S TAB PO SCH (20:38)
[2019-06-07] VITALS (8 sets, daily range): BP systolic 92–115; BP diastolic 42–70
[2019-06-07 05:49] LABS: INR 2.38; PROTHROMBIN TIME 25.8 SECONDS (11.8-14.0)
[2019-06-07 05:58] LABS: CALCIUM LEVEL 8.9 MG/DL (8.8-10.2); CREATININE FOR GFR 1.62 MG/DL (0.55-1.30); GLOMERULAR FILTRATION RATE 32.6 (>39); POTASSIUM SERUM 3.9 MEQ/L (3.5-5.1); TROPONIN I 2.86 NG/ML (< 0.10)
[2019-06-07] MEDS: SLF 3 ML SYR IV SCH ×3 (06:41→21:26)
[2019-06-07] MEDS: CARVedilol 3.125 MG TAB PO SCH ×2 (06:41→18:31)
[2019-06-07] MEDS: HumaLOG INSULIN (NovoLOG) PER UNIT SC SCH ×4 (08:00→21:00)
[2019-06-07] MEDS: FUROSEMIDE 100 MG/10 ML VIAL (J1940) IV SCH (08:00)
[2019-06-07] MEDS: ASPIRIN 81 MG ENTERIC TAB PO SCH (08:01)
[2019-06-07] MEDS: MULTIVITAMINS/MINERALS THERAP 1 TAB PO SCH (08:02)
[2019-06-07] MEDS: ATORVASTATIN 10 MG TAB PO SCH (08:02)
[2019-06-07] MEDS: ALLOPURINOL 100 MG TAB PO SCH (08:02)
[2019-06-07] MEDS: SPIRONOLACTONE 50 MG TAB PO SCH (08:02)
[2019-06-07] MEDS: FOLIC ACID 1 MG TAB PO SCH (08:02)
[2019-06-07] MEDS: ENTRESTO 24-26MG TABLET (SACUBITRIL/VALSARTAN) PO SCH ×2 (08:02→21:00)
[2019-06-07] MEDS: DIGOXIN 0.0625MG PER 1/2TABLET PO SCH (08:02)
[2019-06-07] MEDS: NYSTATIN 100,000 UNITS/GM TOPICAL PWD 15 GM TOP SCH ×2 (08:03→21:26)
[2019-06-07] MEDS: TORSEMIDE 20 MG TAB PO SCH (16:58)
[2019-06-07] MEDS ORDERED: WARFARIN SOD 3 MG TAB PO SCH (17:00)
[2019-06-07] MEDS ORDERED: TORSEMIDE 20 MG TAB PO SCH (17:00)
[2019-06-07] MEDS: BISACODYL 5 MG TAB PO PRN (18:23)
--- NOTE | 2019-06-07 18:27 | CR ---
DATE OF CONSULTATION: 06/07/2019 Date of : 1940 REFERRING PHYSICIAN: Dr. Elis Ron INDICATION: Heart failure (systolic and diastolic, acute on chronic). HISTORY OF PRESENT ILLNESS: Mrs. Lenka Ling is a very pleasant 79-year-old woman with a nonischemic dilated cardiomyopathy with chronic systolic and diastolic heart failure who has chronic atrial fibrillation, systemic hypertension, status post biventricular implantable cardioverter defibrillator (ICD) in situ, status post atrioventricular (AV) hillary ablation for control of atrial fibrillation with rapid ventricular response, systemic hypertension, nonrheumatic aortic stenosis and regurgitation, hypertensive heart disease, status post mechanical mitral valve replacement and tricuspid valve repair. She was admitted to the hospital on this occasion on 05/29/2019 with a presenting complaint of shortness of breath. She was found to have decompensated heart failure and acute kidney injury and a mildly elevated troponin I. OTHER SIGNIFICANT PAST MEDICAL HISTORY: Includes gout for which she is on allopurinol and diabetes - on insulin. Echocardiogram Doppler 05/06/2019 showed left ventricular ejection fraction (LVEF) 20%, mild mixed eccentric/concentric left ventricle hypertrophy with severe global left ventricular (LV) hypokinesis and severe reduction in overall LV systolic function with appearance of low cardiac output state. Degenerative, calcific aortic valve disease with moderate aortic regurgitation and probable moderate aortic stenosis. Well seated and normally functionally double-tilting disc mitral prosthesis. No mitral regurgitation. Status post tricuspid valve repair with a sewing ring. Moderate tricuspid regurgitation. No tricuspid stenosis. Severe left atrial dilatation. Severe right atrial dilatation. Inferior vena cava plethora suggestive of an elevated central venous pressure of at least 20 mmHg. Mildly dilated right ventricle with right ventricle hypertrophy and severe reduction in right ventricle systolic function. Suggestive of moderate elevation of pulmonary artery systolic pressure and estimated right ventricle systolic pressure. Mild dilatation of the proximal ascending aorta. Very small pericardial effusion. Presence of an ICD lead coursing towards the right ventricle apex position. The patient's most recent cardiac catheterization was 06/11/2018, which showed angiographically normal coronary arteries. A mild degree of aortic valve stenosis was present. The patient underwent implantation of a [employer] biventricular ICD 11/01/[address] Pruitt in [place]. However, at that time the left ventricle lead could not be implanted. She subsequently underwent placement of an epicardial left ventricle lead by cardiac surgeon, Dr. Abiel Brice, on 12/20/2018. She underwent AV hillary ablation performed by Dr. Pruitt 02/12/2019. The patient's previous cardiac surgery with mitral valve replacement and placement of a tricuspid valve repair ring was 04/2007 at which time she received a [address] [employer] double-tilting disc mechanical valve. The patient had an echocardiogram Doppler performed during this hospitalization 06/05/2019, which reported prominently dilated left ventricle with mild hypertrophy and global LV hypokinesis with essentially akinesis of the left ventricle apex with severe reduction in overall LV systolic function. Left ventricular ejection fraction (LVEF) was estimated at 20%. Ventricular septum 1.4 cm, posterior wall 1.4 cm. Left ventricle diastole 7.3 cm. Dilated left atrium (7.5 cm). At least mildly dilated right ventricle with hypokinesis and suggestive of at least moderate to moderately-severe pulmonary hypertension. Moderately dilated right atrium and inferior vena cava with essentially absent respiratory collapse of the inferior vena cava consistent with elevated central venous pressure. Moderately severe calcific aortic stenosis with mild aortic regurgitation. Aortic valve velocity 2.29 meters per second, dimensionless index 0.25. Aortic valve area calculation not stated. Presence of a double-tilting disc mitral valve prosthesis. Trace mitral regurgitation. Moderately-severe tricuspid regurgitation. Presence of cardiac rhythm management leads seen in the right atrium and right ventricle. No pericardial effusion. CARDIAC SYMPTOM STATUS: The patient reports her breathing has improved quite a bit from when she first came into the hospital. Currently she experiences exertional dyspnea ambulating with a walker in the hallways. No orthopnea or paroxysmal nocturnal dyspnea (PND). She reports ongoing swelling in both lower extremities. No chest pain or chest discomfort. No palpitations. No presyncope or syncope. No embolic events. No claudication. OTHER PAST MEDICAL AND SURGICAL HISTORY: Prior cardiac history as stated above in the history of the present illness. 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 History of acute hepatitis 10/2015 in the setting of hypotension and retroperitoneal bleed; statin discontinued at that time. Hypercholesterolemia. Morbid obesity. Diabetes. Prior acute kidney injury 10/2015. Gout. Goiter. Arthritis. Prior stroke. Bilateral carpal tunnel. Systemic hypertension. section 1960. section 1963. Left carpal tunnel surgery 04/2005. Right carpal tunnel surgery 05/2005. Colonoscopy 2005. Right knee replacement 2010. Bilateral cataract surgeries 2016. FAMILY HISTORY: Father had pancreatic cancer ( at age 64). Mother had heart disease with pacemaker, systemic hypertension, hypercholesterolemia, and diabetes ( at age 89). One brother with lung cancer. Another brother with a pacemaker. Two sisters with osteoarthritis. SOCIAL HISTORY: . 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 Requires assistance. Ambulates with a quad walker. Independent with activities of daily living. Lifetime nonsmoker. No alcohol. Limited by joint pain in her knees, imbalance, generalized weakness and shortness of breath on exertion. REVIEW OF SYSTEMS: Decreased hearing. Shortness of breath with low levels of activity. Anxiety and depression. No panic attacks. Goiter. Heat intolerance. Easy bleeding and bruising tendency. Other review of systems questions as per history of the present illness above. Other review of systems questions all negative. ADVERSE DRUG REACTIONS: No known adverse drug reactions. PATIENT'S CURRENT MEDICATIONS IN THE HOSPITAL ARE FOLLOWS: - acetaminophen 1000 mg nightly and 650 mg every 6 hours as needed - allopurinol 100 mg daily - aspirin 81 mg daily - atorvastatin 10 mg daily - Dulcolax 10 mg daily as needed by mouth for constipation - carvedilol 3.125 mg twice a day - Digoxin 0.0625 mg daily - folic acid 1 mg daily - furosemide 60 mg IV twice a day - Humalog insulin before food and nightly per sliding scale - Milk of Magnesia 30 mL by mouth daily as needed for constipation - multivitamin one daily - a statin topical twice a day, apply to affected areas - Entresto 24-26 mg one twice a day - Senokot S one nightly - Fleet enema one nightly - Fleet enema one daily as needed for constipation per rectum - spironolactone 50 mg daily - warfarin 3 mg daily PHYSICAL EXAMINATION: Pleasant morbidly obese woman who appears her chronologic age who is not in any respiratory or psychologic distress. Height 61 inches, weight 101.4 kg, body mass index (BMI) 42.2. Temperature 97.2, pulse 80 (regular), respiratory rate 18, blood pressure 115/70, oxygen saturation 99% on oxygen two liters per minute by nasal cannula. No conjunctival pallor, scleral icterus or xanthomas. Teeth were in poor condition and only a few remaining teeth were present. Oral mucosa was moist and without pallor or cyanosis. Jugular venous pulsations were to the angle of the jaw at 30 degrees. Trachea midline. No palpable thyroid. No clubbing, nail bed cyanosis, or splinter hemorrhages. No skin lesions, skin pallor, or icterus. Oriented to person, place and time. Mood and affect normal. Curvature of the spine normal. Gait: Gait was not tested. Patient reports she ambulates slowly with a quad walker. Gross motor strength and tone appeared normal. No fasciculations or tremors. No muscle atrophy. Respiratory expansion effort was good. No crackles or wheezes. No dullness to percussion. No palpable apex beat. No parasternal lifts, heaves, thrills or palpable heart sounds. Midline sternal scar present. ICD in situ left pectoral region. First heart sound was crisp and mechanical. The second heart sound had a loud P2 component. No S3 appreciated. Grade 2-3 systolic ejection murmur maximal over the right second interspace with radiation to the carotids was present. No diastolic murmurs appreciated. Carotids were normal in volume and contour and without bruits. No palpable abdominal aorta. No abdominal bruits. Femoral pulses difficult to palpate due to morbid obesity. Pedal pulses normal. 1 cm pitting edema was present at mid and distal tibia level bilaterally. No varicose veins. Abdomen was obese, soft, nontender with normal bowel sounds. No hepatomegaly or splenomegaly or other organomegaly but difficult to palpate due to abdominal obesity. Liver span difficult to assess due to abdominal obesity. Stool for occult blood not presently indicated. INVESTIGATIONS: I have independently visualized the patient's portable chest x-ray from 06/05/2019. It shows cardiomegaly, presence of a tricuspid annulus sewing ring. Presence of mitral valve replacement prosthesis ring. Midline sternal wires. Single coil ICD lead entering into the right ventricle apex position and presence of a left ventricle epicardial pacing lead. Midline sternal wires. Pulmonary vascular redistribution is present. Cannot rule out a small left pleural effusion. I do not see any right pleural effusion. Some increased interstitial markings suggestive of some degree of interstitial pulmonary edema. No alveolar edema. Some peribronchial cuffing present. The left and right pulmonary arteries appear enlarged. ECG 05/29/2019 at 1244 hours shows underlying atrial fibrillation, biventricular paced rhythm at 80 beats per minute. QRS duration 160 milliseconds. Laboratory work 06/05/2019 shows WBC 7.0, hemoglobin 12.6, hematocrit 41.1, platelets 235. Laboratory work 06/07/2019 shows PT/INR 2.38. Laboratory work 06/07/2019 shows sodium 134, potassium 3.9, chloride 96, CO2 33, BUN 77, creatinine 1.62, estimated GFR 32.6, glucose 118, troponin I 2.83, NT-Pro-BNP 3043. ASSESSMENT AND RECOMMENDATIONS: 1. Heart failure (systolic and diastolic, acute on chronic). This patient has end-stage systolic heart failure. She is currently [place] Heart Association (NYHA) functional class III. She is decompensated on examination. Further making the situation difficult in the management of heart failure includes chronic kidney disease with superimposed acute kidney injury, moderately severe pulmonary hypertension, and right ventricle failure. I do not think that she has severe aortic stenosis. The plan will be to switch her from IV furosemide to oral torsemide. Continue carvedilol, digoxin, Entresto, spironolactone at the current dosages. I have re-programmed her base pacing rate from 80 beats per minute down to 60 beats per minute. Hopefully over time this should help her with regards to systolic function. Agree with 1500 mL per day oral fluid restriction. Agree with sodium restriction. 2. Non-ischemic dilated cardiomyopathy. This patient's non-ischemic dilated cardiomyopathy likely has multiple contributory factors including, but not all inclusive, prior mitral valve disease, severe obesity, diabetes, and systemic hypertension. Management as per heart failure category above. 3. Chronic atrial fibrillation. Patient is status post AV hillary destruction of the AV node with presence of a biventricular ICD. Continue warfarin. She is not a candidate for direct oral anticoagulants because of her mechanical mitral valve. Recommend discontinuation of aspirin 81 mg. 4. Status post biventricular ICD in situ. I have reprogrammed her base rate from 80 beats per minute down to 60 beats per minute to help with her heart failure detention. 5. Third-degree AV block secondary to AV hillary ablation for control of rapid ventricular response. Patient is biventricular paced. Stable. 6. Status post mitral valve replacement with double-tilting disc [employer] mechanical prosthesis. [place] S1. Her echocardiogram Doppler indicates normal function of the mitral valve prosthesis. Stable. Patient is also status post tricuspid valve repair with mitral annular sewing ring. She has tricuspid regurgitation. Stable. Continue warfarin. Target INR 2.5-3.5. 7. Systemic hypertension. Blood pressure controlled. As noted above, she will be switched from IV furosemide to torsemide. Continue carvedilol and valsartan (via Entresto), carvedilol and spironolactone. 8. Degenerative, calcific aortic valve disease with aortic stenosis. I believe her aortic stenosis is moderate. Therefore, she would not quality for transaortic valve replacement. She also has mild aortic regurgitation. Stable. 9. Hypercholesterolemia. Continue current therapy with atorvastatin. Recommend a Dietary Approaches to Stop Hypertension (DASH) diet with reduction of consumption of animal products. 10. Hypertensive heart disease with heart failure. As per heart failure category above. 11. Elevated troponin I. The patient's last cardiac catheterization showed angiographically normal coronary arteries. I believe that this patient's small elevation of troponin I is secondary to subendocardial ischemia/necrosis secondary to severe heart failure with elevated left ventricle pressures. Recommend discontinuation of aspirin. Aggressive treatment of heart failure as above. I do not recommend sending the patient for a repeat cardiac catheterization on the basis of the elevated troponin I levels. Thank you for asking me to participate in the cardiac care of Lenka Ling.
--- NOTE | 2019-06-07 18:42 | IPNPDOC ---
Text Note Date of Service The patient was seen on 06/07/19. NOTE S: patient states no better, no worse. states sleepless night worrying about hospitalization and cardiology visit. States constipation; ambulated with PT today and states patient not winded after walking 15 feet. O: Vitals as below General: pleasant NAD AAOx3 Hirreg/irreg at 80 no murmur, pacemaker along chest wall LCTA with diffuse rales but improved airmovement Ext: 2+ pitting edema ; minimal weeping on left leg; SCD ordered but not placed (nursing staff voice concerns with use of SCD and edema) ECHO: Prominently dilated and mildly symmetrically hypertrophied left ventricle with fairly global hypokinesis and virtual apical akinesis resulting in severe impairment of global resting systolic function. Grossly dilated left atrium. At least mildly dilated right ventricle with hypokinesis and Doppler evidence of at least moderate to moderately severe pulmonary hypertension. Moderately dilated right atrium and IVC with virtually absent respiratory collapse in keeping with elevated central venous pressure/right heart failure. Moderately severe calcific aortic stenosis with mild insufficiency. Normal aortic root size. Echogenic mechanical bileaflet prosthetic mitral valve with visible leaflet motion and only trace insufficiency. Normal appearing tricuspid valve with moderately severe tricuspid insufficiency. 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 continue with entresto, coreg, and spironolactone. anticipate bump in creatinine to 1.8 with diuresis Inaccurate I/O due to urine incontinence Inaccurate weight (bedscale/chair weights) Her baseline weight 80kg, Anticipate need to diurese 10-15 more kg slowly to avoid hypotension and LOYD - continue 1500cc fluid restriction; BNP improving. 2) LOYD - iatrogenic. baseline creatinine 0.9 with GFR above 60; current creat ranging 1.4 - 1.6; anticipate bump in creat to 1.8 with diuretics before decreasing regimen. Avoid hypotension. 3) Elevated Troponin Level - demand ischemia- NSTEMI type II in the setting of CHF and LOYD It appears that the patient had a cardiac cath done in May of 2018 for elevated Troponin levels and was found to have normal coronary arteries Dr Bhat has discussed the case with Dr. Castellanos on admission, he has recommended to treat the decompensated CHF, and does not recommend another cardiac cath given the recent cardiac catheterization results and evidence of acute on chronic decompensation of systolic heart failure due to nonadherence of medications. We will cont to monitor cardiac markers 4) Chronic atrial fibrillation - currently rate controlled. Continue Coreg, Digoxin, - adjust warfarin dose for INR 2.5-3.5 due to underlying mechanical MV and decrease dosing to 3mg daily. High decision making due to adjusting medication (warfarin) to avoid toxicity 5) History of mechanical mitral valve Continue Coumadin with goal INR of 2.5-3.5 6) Diabetes mellitus with hyperglycemia - no hypoglycemia Insulin sliding scale 7) essential Hypertension, stable - hold parameters on med to avoid hypotension 8) Gout Continue allopurinol - renal dose 9) GERD Continue PPI 10) Dyslipidemia Continue statin DVT prophylaxis On Coumadin VS,Fishbone, I+O VS, Fishbone, I+O Laboratory Tests 06/07/19 05:18 Calcium Level 8.9 Vital Signs Date Time Temp Pulse Resp B/P (MAP) Pulse Ox O2 Delivery O2 Flow Rate FiO2 06/07/19 18:31 92/42 (59) 06/07/19 16:00 2.0 06/07/19 16:00 98.0 78 20 100 I&O- Last 24 Hours up to 6 AM 06/07/19 06:00 Intake Total 690 ml Output Total 400 ml Balance 290 ml CHELO AGEE DO Jun 07, 2019 18:42
[2019-06-07] MEDS ORDERED: metOLazone 2.5 MG TAB PO ONE (20:00)
[2019-06-07] MEDS: ACETAMINOPHEN 500 MG TAB PO SCH (21:25)
[2019-06-07] MEDS: SENOKOT S TAB PO SCH (21:25)
[2019-06-08] VITALS (8 sets, daily range): BP systolic 99–109; BP diastolic 50–57
[2019-06-08 05:46] LABS: PROTHROMBIN TIME 22.5 SECONDS (11.8-14.0)
[2019-06-08 05:57] LABS: CREATININE FOR GFR 1.7 MG/DL (0.55-1.30); GLOMERULAR FILTRATION RATE 30.9 (>39)
[2019-06-08] MEDS: SLF 3 ML SYR IV SCH ×3 (06:08→20:42)
[2019-06-08] MEDS: HumaLOG INSULIN (NovoLOG) PER UNIT SC SCH ×4 (08:06→20:35)
[2019-06-08] MEDS: DIGOXIN 0.0625MG PER 1/2TABLET PO SCH (08:07)
[2019-06-08] MEDS: TORSEMIDE 20 MG TAB PO SCH ×2 (08:07→16:40)
[2019-06-08] MEDS: ALLOPURINOL 100 MG TAB PO SCH (08:08)
[2019-06-08] MEDS: METOPROLOL SUCC *XL* 12.5MG PER 1/2 TAB (TopROL *XL*) PO SCH (08:08)
[2019-06-08] MEDS: SPIRONOLACTONE 50 MG TAB PO SCH (08:08)
[2019-06-08] MEDS: FOLIC ACID 1 MG TAB PO SCH (08:08)
[2019-06-08] MEDS: MULTIVITAMINS/MINERALS THERAP 1 TAB PO SCH (08:08)
[2019-06-08] MEDS: ATORVASTATIN 10 MG TAB PO SCH (08:08)
[2019-06-08] MEDS: ENTRESTO 24-26MG TABLET (SACUBITRIL/VALSARTAN) PO SCH ×2 (08:08→20:34)
[2019-06-08] MEDS: NYSTATIN 100,000 UNITS/GM TOPICAL PWD 15 GM TOP SCH ×2 (08:09→20:41)
--- NOTE | 2019-06-08 13:53 | REP ---
PA AND LATERAL CHEST: 06/08/2019. Comparison: 06/05/2019. Clinical history: CHF. Findings: Sternotomy wires and evidence of mitral and tricuspid valve surgery. AICD pacer with lead tip over the right ventricle. Epicardial lead is also seen. Lungs are well inflated. Small bilateral effusions are noted on the lateral view. There is vascular redistribution and some interstitial edema again suggested. Engorgement of the vessels may be slightly less than the prior study. Cardiomegaly with left atrial and ventricular as well as right heart enlargement noted. Bones unchanged. Impression: 1. Cardiomegaly with right and left heart enlargement, multiple cardiac valve surgeries and a AICD pacer again seen. 2. Bilateral small effusions and vascular congestion with some interstitial edema consistent with CHF. Slightly less vascular congestion than on the previous study. Electronically Signed by Nikunj Justin MD 06/08/2019 09:56 P
--- NOTE | 2019-06-08 15:42 | ECGEPIP ---
[facility] Test Date: 2019-06-05 Pat Name: FANY CASTILLO Department: Room: [place] [address] Gender: Female Public Health Specialist: ALEJANDRA : 1940 Requested By: CHELO Armstrong Order Number: [id number] Reading MD: Roni Daniels Measurements Intervals [place] Rate: 119 P: 50 [place]: 248 QRS: 138 QRSD: 118 T: 0 QT: 109 QTc: 153 Interpretive Statements ELECTRONIC VENTRICULAR PACEMAKER, PROBABLY BIVENTRICULAR PACEMAKER ABNORMAL RHYTHM ECG MOST RECENT TRACING ON 05/29/2019 AT 12:44, PVCS WERE NOTED OTHERWISE NO SIGNIFICANT CHANGES Electronically Signed on 06-08-2019 15:41:54 EDT by Roni Daniels
[2019-06-08] MEDS ORDERED: metOLazone 2.5 MG TAB PO ONE (16:00)
--- NOTE | 2019-06-08 16:50 | IPN ---
DATE: 06/08/2019 Mrs. Lenka Ling was seen earlier this morning. She was sitting in a chair in no acute distress at rest, and her was at bedside. She stated that she thinks she feels slightly better, but otherwise she still has a lot of pedal edema. She denies any chest pain, palpitations. She denies any bleeding. She has no focal manifestation. She was seen yesterday by her director of patient care, Dr. Castellanos. Her diuretic/furosemide was discontinued, and she was started on torsemide. He also made some changes in the setting of her automatic implantable cardioverter-defibrillator (AICD)/permanent pacemaker. The patient stated she has not noticed any difference. PHYSICAL EXAMINATION: The patient is alert and awake in no acute distress at rest. VITAL SIGNS: This morning reveal a blood pressure of 104/57 with a pulse 70, respiration 18-20, and a maximum temperature was 97 degrees Fahrenheit with an oxygen saturation of 96% on 2 liters cannula. A positive fluid balance of 565 mL was reported. Her weight this morning is 102.4, and yesterday it was 101.4. HEAD: Atraumatic. NECK: Supple with a increased external jugular. LUNGS: Did not reveal any wheezing. There are minimal decreased breath sounds at the bases. HEART: Revealed irregular heart sounds without gallops. The point of maximal impulse (PMI) is displaced inferiorly and laterally. There is no rub. There is a systolic murmur, grade 2/6, over the precordium lateral at the base of the heart and also heard at the lower left sternal border and at the apex. ABDOMEN: Protuberant, obese. EXTREMITIES: Revealed marked bilateral pedal and lower leg edema. NEUROLOGIC: Negative for focal deficit. LABORATORY DATA: CBC done today revealed a WBC of 7.0, hemoglobin 12.6, hematocrit 41.1, and platelets 235,000. BMP revealed a sodium of 133, potassium 4.0, chloride 93, CO2 of 36, BUN 79, creatinine 1.70, GFR 30.9, and fasting glucose 149 with a calcium of 9.0. IMPRESSION: Decompensated congestive heart failure, systolic and diastolic in nature, and with a severely depressed global left ventricular systolic function. The patient has no underlying coronary artery disease (CAD). She has a biventricular automatic implantable cardioverter-defibrillator (bi-V AICD). She appears to be end stage, and patient is aware of that. It seems that she is looking forward to go to another care or in a residential. In the meantime, we will readjust her medications in order to control her heart failure. I have decreased her spirolactone. She has not received the Entresto but one dose for the last 2 days. I will give a trial of metolazone. She will continue with the torsemide. We will monitor closely her BUN, creatinine, and serum potassium. If needed, we will hold the Entresto or stop the spirolactone if her blood pressure is low and prevents her to receive any of her diuretics. [facility]
[2019-06-08] MEDS ORDERED: WARFARIN SOD 5 MG TAB PO SCH (17:00)
--- NOTE | 2019-06-08 17:51 | IPNPDOC ---
Text Note Date of Service The patient was seen on 06/08/19. NOTE S: patient feeling better. no orthopnea and slept well last night. to bring in home scale for more accurate weight . She states walked with nurses and minimal GUZMAN at 20 feet. no CP. O: Vitals as below General: pleasant NAD AAOx3 Heart - RRR with murmur LCTA with good airmovement and bibase rales (improved) no Wheeze, no rhonchi Ext: 2+ edema, minimal weeping, small blisters appearing to left leg, wrinkles present on ankles bilaterally. decreased swelling. 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 continue with entresto,metoprolol, and spironolactone. anticipate bump in creatinine to 1.8 with diuresis Inaccurate I/O due to urine incontinence Inaccurate weight (bedscale/chair weights) Her baseline weight 80kg, Anticipate need to diurese 10-15 more kg slowly to avoid hypotension and LOYD - continue 1500cc fluid restriction; BNP improving. 2) LOYD - iatrogenic. baseline creatinine 0.9 with GFR above 60; current creat ranging 1.4 - 1.6; anticipate bump in creat to 1.8 with diuretics before decreasing regimen. Avoid hypotension. 3) Elevated Troponin Level - demand ischemia- NSTEMI type II in the setting of CHF and LOYD It appears that the patient had a cardiac cath done in May of 2018 for elevated Troponin levels and was found to have normal coronary arteries Dr Bhat has discussed the case with Dr. Castellanos on admission, he has recommended to treat the decompensated CHF, and does not recommend another cardiac cath given the recent cardiac catheterization results and evidence of acute on chronic decompensation of systolic heart failure due to nonadherence of medications. We will cont to monitor cardiac markers 4) Chronic atrial fibrillation - currently rate controlled. Continue metoprolol, Digoxin, - adjust warfarin dose (increase to 5mg) for INR 2.5-3.5 due to underlying mechanical MV High decision making due to adjusting medication (warfarin) to avoid toxicity 5) History of mechanical mitral valve Continue Coumadin with goal INR of 2.5-3.5 6) Diabetes mellitus with hyperglycemia - no hypoglycemia Insulin sliding scale 7) essential Hypertension, stable - hold parameters on med to avoid hypotension 8) Gout Continue allopurinol - renal dose 9) GERD Continue PPI 10) Dyslipidemia Continue statin DVT prophylaxis On Coumadin Current Medications Medications (Trade) Dose Ordered Sig/Jasper Route PRN Reason Start Time Stop Time Status Last Admin Dose Admin Acetaminophen (Tylenol Tab) 650 mg Q6HP PRN PO PAIN / FEVER 06/03/19 10:45 06/03/19 16:03 Acetaminophen (Tylenol Tab) 1,000 mg QHS PO 05/29/19 21:00 06/07/19 21:25 Allopurinol (Zyloprim) 100 mg DAILY PO 06/05/19 09:00 06/07/19 08:02 Aspirin (Ecotrin) 81 mg DAILY PO 05/30/19 09:00 06/07/19 16:01 DC 06/07/19 08:01 Atorvastatin Calcium (Lipitor) 10 mg DAILY PO 05/30/19 09:00 06/07/19 08:02 Bisacodyl (Dulcolax Tab) 10 mg DAILYPRN PRN PO CONSTIPATION 06/07/19 13:30 06/07/19 18:23 Carvedilol (COReg) 3.125 mg BID PO 05/29/19 21:00 06/06/19 09:03 DC 06/05/19 21:06 Carvedilol (COReg) 3.125 mg BID@0700,1900 PO 06/06/19 07:00 06/07/19 19:37 DC 06/07/19 06:41 Cephalexin Monohydrate (Keflex) 500 mg BID PO 05/29/19 21:00 06/03/19 12:02 DC 06/03/19 08:57 Dextrose (Dextrose 50%) 25 ml ASDIRECTED PRN IV SEE LABEL COMMENTS 05/30/19 12:30 Digoxin (Lanoxin) 0.0625 mg DAILY PO 05/30/19 09:00 06/07/19 08:02 Folic Acid (Folic Acid) 1 mg DAILY PO 05/30/19 09:00 06/07/19 08:02 Furosemide (LASIX injection) 40 mg Q4H IV 05/29/19 20:00 06/04/19 18:44 DC 06/04/19 16:01 Furosemide (LASIX injection) 60 mg BID@,17 IV 06/04/19 18:45 06/07/19 16:03 DC 06/07/19 08:00 Glucagon (Glucagon) 1 mg ASDIRECTED PRN SC SEE LABEL COMMENTS 05/30/19 12:30 Glucose (Glucose) 16 GM ASDIRECTED PRN PO SEE LABEL COMMENTS 05/30/19 12:30 Home Med (Med Rec Complete!) ASDIRECTED XX 05/29/19 16:15 05/29/19 16:15 DC Insulin Human Lispro (HumaLOG INSULIN) SEE PROTOCOL TABLE AC SC 05/30/19 17:30 06/07/19 16:57 Insulin Human Lispro (HumaLOG INSULIN) SEE PROTOCOL TABLE QHS SC 05/30/19 21:00 Magnesium Hydroxide (Milk Of Magnesia) 30 ml DAILYPRN PRN PO CONSTIPATION 06/01/19 13:00 06/02/19 04:13 Magnesium Oxide (Mag-Ox) 400 mg BID PO 05/29/19 21:00 06/04/19 10:28 DC 06/03/19 08:57 Metoprolol Succinate (TopROL XL) 12.5 mg DAILY PO 06/08/19 09:00 Multivitamins (Theragram-M) 1 tab DAILY PO 05/30/19 09:00 06/07/19 08:02 Nystatin (Mycostatin Powder, Nystop) Apply to groin, abdomi... BID TOP 05/31/19 09:00 06/07/19 21:26 Sacubitril/ Valsartan (Entresto 24-26 Mg) 0.5 tab BID PO 06/06/19 09:00 06/06/19 09:00 DC Sacubitril/ Valsartan (Entresto 24-26 Mg) 1 tab BID PO 06/04/19 21:00 06/06/19 08:16 DC 06/05/19 21:06 Sacubitril/ Valsartan (Entresto 24-26 Mg) 1 tab BID PO 06/06/19 09:00 06/07/19 08:02 Senna/Docusate Sodium (Senokot S) 1 tab QHS PO 05/31/19 21:00 06/07/19 21:25 Sodium Biphosphate/ Sodium Phosphate (Fleet Enema) 1 ea DAILYPRN PRN OK CONSTIPATION 06/01/19 13:00 Sodium Chloride (Saline Lock Flush) 2 ml ASDIRECTED PRN IV SEE LABEL COMMENTS 06/01/19 16:45 Sodium Chloride (Saline Lock Flush) 2 ml SLF IV 06/01/19 22:00 06/08/19 06:08 Spironolactone (Aldactone) 50 mg DAILY PO 06/05/19 09:00 06/07/19 08:02 Torsemide (Demadex) 20 mg BID@,17 PO 06/07/19 17:00 06/07/19 17:00 DC Torsemide (Demadex) 60 mg BID@,17 PO 06/07/19 17:00 06/07/19 16:58 Warfarin Sodium (Coumadin) 3 mg DAILY@17 PO 06/07/19 17:00 06/07/19 16:57 Warfarin Sodium (Coumadin) 3 mg TuSa@1700 PO 06/01/19 17:00 06/06/19 08:53 DC 06/01/19 17:07 Warfarin Sodium (Coumadin) 4 mg SuMoWeThFr@1700 PO 06/05/19 17:00 06/06/19 08:53 DC Warfarin Sodium (Coumadin) 6 mg SuMoWeThFr@1700 PO 05/31/19 17:00 06/04/19 10:24 DC 06/03/19 18:04 VS,Fishbone, I+O VS, Fishbone, I+O Laboratory Tests 06/08/19 05:20 Calcium Level 9.0 Vital Signs Date Time Temp Pulse Resp B/P (MAP) Pulse Ox O2 Delivery O2 Flow Rate FiO2 06/08/19 04:15 2.0 06/08/19 04:00 97.2 70 20 109/55 (73) 95 I&O- Last 24 Hours up to 6 AM 06/08/19 06:00 Intake Total 1200 ml Output Total 725 ml Balance 475 ml CHELO AGEE DO Jun 08, 2019 07:38
[2019-06-08] MEDS: SENOKOT S TAB PO SCH (20:41)
[2019-06-08] MEDS: ACETAMINOPHEN 500 MG TAB PO SCH (20:42)
[2019-06-09 04:00] VITALS: BP 107/57
[2019-06-09] MEDS: SLF 3 ML SYR IV SCH ×3 (05:34→20:00)
[2019-06-09 05:40] LABS: HEMATOCRIT 38.2 % (36.0-47.0); HEMOGLOBIN 11.9 g/dl (12.0-15.5); MEAN CORPUSCULAR HGB CONC 31.2 g/dl (32.0-36.5); MEAN CORPUSCULAR VOLUME 86.8 fl (80.0-96.0); PLATELET COUNT, AUTOMATED 244 10^3/uL (150-450); WHITE BLOOD COUNT 6.1 10^3/uL (4.0-10.0)
[2019-06-09 05:59] LABS: CALCIUM LEVEL 9.2 MG/DL (8.8-10.2); CREATININE FOR GFR 1.84 MG/DL (0.55-1.30); GLOMERULAR FILTRATION RATE 28.2 (>39); POTASSIUM SERUM 4.1 MEQ/L (3.5-5.1)
[2019-06-09 06:05] LABS: INR 1.9; PROTHROMBIN TIME 21.6 SECONDS (11.8-14.0)
[2019-06-09 08:00] VITALS: BP 105/55
[2019-06-09] MEDS: MULTIVITAMINS/MINERALS THERAP 1 TAB PO SCH (08:14)
[2019-06-09] MEDS: HumaLOG INSULIN (NovoLOG) PER UNIT SC SCH ×4 (08:14→19:58)
[2019-06-09] MEDS: SPIRONOLACTONE 25 MG TAB PO SCH (08:15)
[2019-06-09] MEDS: ATORVASTATIN 10 MG TAB PO SCH (08:15)
[2019-06-09] MEDS: ALLOPURINOL 100 MG TAB PO SCH (08:15)
[2019-06-09] MEDS: FOLIC ACID 1 MG TAB PO SCH (08:15)
[2019-06-09] MEDS: DIGOXIN 0.0625MG PER 1/2TABLET PO SCH (08:15)
[2019-06-09] MEDS: TORSEMIDE 20 MG TAB PO SCH ×2 (08:15→17:10)
[2019-06-09] MEDS: METOPROLOL SUCC *XL* 12.5MG PER 1/2 TAB (TopROL *XL*) PO SCH (08:16)
[2019-06-09] MEDS: ENTRESTO 24-26MG TABLET (SACUBITRIL/VALSARTAN) PO SCH (08:16)
[2019-06-09] MEDS: NYSTATIN 100,000 UNITS/GM TOPICAL PWD 15 GM TOP SCH ×2 (08:16→20:00)
[2019-06-09] MEDS: ENOXAPARIN 100MG/1ML SYRINGE (J1650) SC SCH (09:02)
--- NOTE | 2019-06-09 10:29 | IPNPDOC ---
Text Note Date of Service The patient was seen on 06/09/19. NOTE S: patient is clinically improving despite inaccurate scale showing continued weight gain. to bring in standing scale from home. She states constipation has resolved and had large bowel movement today. no CP, +GUZMAN/SOB with exertion but not at rest, no orthopnea. O: Vitals as below General: pleasant, NAD AAOx3 HRRR no murmur LCTA with bibase rale at right but not left base, good air movement (Improved from yesterday) Abdomen: obese NT ND , no anasarca or pitting edema Ext: 1-2+ pitting edema, ankles now with more definition/wrinkles CXR images reviewed and improved. 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 continue with entresto,metoprolol, and spironolactone. anticipate bump in creatinine to 1.8 with diuresis Inaccurate I/O due to urine incontinence Inaccurate weight (bedscale/chair weights) Her baseline weight 80kg, Anticipate need to diurese 10-15 more kg slowly to avoid hypotension and LOYD - continue 1500cc fluid restriction; BNP improving. 2) LOYD - iatrogenic. baseline creatinine 0.9 with GFR above 60; anticipated b ump in creat to 1.8 with diuretics before decreasing regimen. Avoid hypotension. 3) Elevated Troponin Level - demand ischemia- NSTEMI type II in the setting of CHF and LOYD It appears that the patient had a cardiac cath done in May of 2018 for elevated Troponin levels and was found to have normal coronary arteries Dr Bhat has discussed the case with Dr. Castellanos on admission, he has recomm ended to treat the decompensated CHF, and does not recommend another cardiac cath given the recent cardiac catheterization results and evidence of acute on chronic decompensation of systolic heart failure due to nonadherence of medications. We will cont to monitor cardiac markers 4) Chronic atrial fibrillation - currently rate controlled. Continue metoprolol, Digoxin, - adjust warfarin dose for INR 2.5-3.5 due to underlying mechanical MV ; restart therapeutic lovenox 1mg/kg as INR under 2.0 today High decision making due to adjusting medication (warfarin) to avoid toxicity 5) History of mechanical mitral valve Continue Coumadin with goal INR of 2.5-3.5 6) Diabetes mellitus with hyperglycemia - no hypoglycemia Insulin sliding scale 7) essential Hypertension, stable - hold parameters on med to avoid hypotension 8) Gout Continue allopurinol - renal dose 9) GERD Continue PPI 10) Dyslipidemia Continue statin VS,Fishbone, I+O VS, Fishbone, I+O Laboratory Tests 06/09/19 05:20 Red Blood Count 4.40, Mean Corpuscular Volume 86.8, Mean Corpuscular Hemoglobin 27.0, Mean Corpuscular Hemoglobin Concent 31.2 L, Red Cell Distribution Width 16.4 H, Calcium Level 9.2 Vital Signs Date Time Temp Pulse Resp B/P (MAP) Pulse Ox O2 Delivery O2 Flow Rate FiO2 06/09/19 04:00 97.9 71 16 107/57 (74) 99 2.0 I&O- Last 24 Hours up to 6 AM 06/09/19 05:59 Intake Total 1380 ml Output Total 200 ml Balance 1180 ml CHELO AGEE DO Jun 09, 2019 08:04
--- NOTE | 2019-06-09 14:11 | IPN ---
DATE OF SERVICE: 06/09/2019 Mrs. Lenka iLng was seen this morning. She was sitting in a chair in her room in no acute distress at rest. She denies any chest pain or palpitations. She continued to have significant bilateral pedal edema. She stated that she is passing more urine, but it seems that she is still in a positive balance and her weight has increased from 102.4 yesterday 06/08/2019 to 103.1 this morning 06/09/2019. She has no cough. She denies any nausea, vomiting, diarrhea, melena, hematemesis, abdominal pain. On physical examination, the patient is alert and awake. Her most recent vital signs reveal a blood pressure of 105/55 with a pulse of 70, respirations 16 to 18 and her maximum temperature is 97.9 degrees Fahrenheit with an oxygen saturation of 97-99% on 2 liters cannula. According to the in and out record, she has a positive fluid balance of 1.2 liters. Examination of the Head: Atraumatic. Neck is supple with extended jugular. The lungs revealed decreased breath sounds at the bases with minimal crackles. The heart examination revealed irregular heart sounds without gallops. The PMI is displaced inferiorly and laterally. There is no rub. Abdomen is obese and nontender. Extremities revealed +3 bilateral leg pedal edema. Neurological examination is negative for focal deficit. LABORATORY DATA: BMP done today revealed a sodium of 133, chloride 93, CO2 35, BUN 86, creatinine 1.84, GFR 28.2, fasting glucose 124, with a calcium of 9.2. CBC revealed WBC of 6.1, hemoglobin 11.9, hematocrit 33.2 and platelets 244,000. INR today is 1.90 and yesterday it was 2.0. IMPRESSION: 1. Decompensated congestive heart failure, systolic and diastolic in nature, with a severely depressed global left ventricular systolic function and AICD biventricular pacemaker implantation. According to the records, the patient does not seem to be responding to the diuretics and she will be given more metolazone today and if this remains the same, we may have to start her on IV pressors in order to diurese her so she can be discharged home. In order to prevent hypotension and desatting and deterioration of her kidney function, I have decreased the Entresto. If needed, will stop the spirolactone. It does not seems that she was receiving the Entresto, the last dose was on 06/07/2019. 2. Atrial fibrillation with history of AV hillary ablation and permanent pacemaker implantation. Currently on anticoagulation therapy. There is no report of bleeding. 3. History of mechanical prosthetic mitral valve, on Coumadin. She is also on Lovenox, her INR is not quite yet therapeutic. Target INR is 2.5-3.5. 4. History of hypertension and she is being monitored. Blood pressure has been soft. She has not been receiving the Entresto. 5. Chronic kidney disease stage 4 and she will need to be monitored while on the diuretics. It was a pleasure to participate in the care of Mrs. Lenka Ling for her underlying cardiac condition. I will continue to monitor along with you and tomorrow Dr. Castellanos will be back to see her. The case will be discussed with Dr. Ron. Maybe we can restart using a Tyler catheter for better fluid monitoring.
[2019-06-09 15:54] VITALS: BP 106/56
[2019-06-09] MEDS ORDERED: metOLazone 2.5 MG TAB PO ONE (16:00)
[2019-06-09] MEDS: WARFARIN SOD 7.5 MG TAB PO SCH (17:10)
[2019-06-09 20:00] VITALS: BP 108/58
[2019-06-09] MEDS: ACETAMINOPHEN 500 MG TAB PO SCH (20:00)
[2019-06-09] MEDS: SENOKOT S TAB PO SCH (20:00)
[2019-06-09 23:59] VITALS: BP 104/59
[2019-06-10] VITALS (7 sets, daily range): BP systolic 96–120; BP diastolic 50–56
[2019-06-10 04:43] LABS: CALCIUM LEVEL 9.5 MG/DL (8.8-10.2); CREATININE FOR GFR 1.79 MG/DL (0.55-1.30); GLOMERULAR FILTRATION RATE 29.1 (>39)
[2019-06-10 04:45] LABS: INR 1.85; PROTHROMBIN TIME 21.1 SECONDS (11.8-14.0)
[2019-06-10] MEDS: SLF 3 ML SYR IV SCH ×3 (05:28→21:18)
[2019-06-10] MEDS: HumaLOG INSULIN (NovoLOG) PER UNIT SC SCH ×4 (08:08→20:49)
[2019-06-10] MEDS: ALLOPURINOL 100 MG TAB PO SCH (08:09)
[2019-06-10] MEDS: FOLIC ACID 1 MG TAB PO SCH (08:09)
[2019-06-10] MEDS: MULTIVITAMINS/MINERALS THERAP 1 TAB PO SCH (08:09)
[2019-06-10] MEDS: ATORVASTATIN 10 MG TAB PO SCH (08:09)
[2019-06-10] MEDS: SPIRONOLACTONE 25 MG TAB PO SCH (08:09)
[2019-06-10] MEDS: DIGOXIN 0.0625MG PER 1/2TABLET PO SCH (08:09)
[2019-06-10] MEDS: METOPROLOL SUCC *XL* 12.5MG PER 1/2 TAB (TopROL *XL*) PO SCH ×2 (08:09→13:40)
[2019-06-10] MEDS: NYSTATIN 100,000 UNITS/GM TOPICAL PWD 15 GM TOP SCH ×2 (08:10→21:18)
[2019-06-10] MEDS: TORSEMIDE 20 MG TAB PO SCH (08:10)
[2019-06-10] MEDS: ENOXAPARIN 100MG/1ML SYRINGE (J1650) SC SCH (08:10)
[2019-06-10] MEDS: ACETAMINOPHEN TAB 650MG DOSE (2X325MG) PO PRN (08:16)
[2019-06-10] MEDS: ENTRESTO 24-26MG TABLET (SACUBITRIL/VALSARTAN) PO SCH ×2 (12:00→21:16)
[2019-06-10] MEDS: MILRINONE IV SCH (13:40)
[2019-06-10] MEDS: DEXTROSE IV SCH (13:40)
[2019-06-10] MEDS: [UNRECOGNIZED DRUG - OTHER] IV SCH (13:40)
[2019-06-10] MEDS ORDERED: TORSEMIDE 20 MG TAB PO SCH (14:00)
[2019-06-10] MEDS: TORSEMIDE 100 MG TAB PO SCH (16:39)
[2019-06-10] MEDS: WARFARIN SOD 7.5 MG TAB PO SCH (16:39)
--- NOTE | 2019-06-10 17:14 | IPNPDOC ---
Text Note Date of Service The patient was seen on 06/10/19. NOTE S: Doing better. worried about who was admitted with CP. States mild GUZMAN/SOB with activity. poor sleep last night but no orthopnea. This AM, her BP too low for entresto, metoprolol, torsemide . Metoprolol and torsemide given later in afternon but then hypotension agian prior to second dose of torsemide (This was held and BP to be rechecked at 2000 to see if able to give). SHe is asymptomatic with hypotension O: Vitals as below; weight inaccurate; I/O somewhat accurate,patient leaking around key balloon General: pleasant , mild distress . 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 continue with entresto,metoprolol, turosemide and spironolactone. an ticipate bump in creatinine to 1.8 with diuresis Inaccurate I/O due to urine incontinence Inaccurate weight (bedscale/chair weights) Her baseline weight 80kg, Anticipate need to diurese 10-15 more kg slowly to avoid hypotension and LOYD - continue 1500cc fluid restriction; BNP improving. 2) LOYD - iatrogenic. baseline creatinine 0.9 with GFR above 60; anticipated bump in creat to 1.8 with diuretics before decreasing regimen. Avoid hypotension. 3) Elevated Troponin Level - demand ischemia- NSTEMI type II in the setting of CHF and LOYD It appears that the patient had a cardiac cath done in May of 2018 for elevated Troponin levels and was found to have normal coronary arteries Dr Bhat has discussed the case with Dr. Castellanos on admission, he has recommended to treat the decompensated CHF, and does not recommend another cardiac cath given the recent cardiac catheterization results and evidence of acute on chronic decompensation of systolic heart failure due to nonadherence of medications. We will cont to monitor cardiac markers 4) Chronic atrial fibrillation - currently rate controlled. Continue metoprolol, Digoxin, - adjust warfarin dose for INR 2.5-3.5 due to underlying mechanical MV ; restart therapeutic lovenox 1mg/kg as INR under 2.0 today High decision making due to adjusting medication (warfarin) to avoid toxicity 5) History of mechanical mitral valve Continue Coumadin with goal INR of 2.5-3.5 6) Diabetes mellitus with hyperglycemia - no hypoglycemia Insulin sliding scale 7) essential Hypertension, stable - hold parameters on med to avoid hypotension 8) Gout Continue allopurinol - renal dose 9) GERD Continue PPI 10) Dyslipidemia Continue statin VS,Fishbone, I+O VS, Fishbone, I+O Laboratory Tests 06/10/19 04:10 Calcium Level 9.5 Vital Signs Date Time Temp Pulse Resp B/P (MAP) Pulse Ox O2 Delivery O2 Flow Rate FiO2 06/10/19 12:00 2.0 06/10/19 12:00 96.9 61 16 100/56 (71) 99 I&O- Last 24 Hours up to 6 AM 06/10/19 06:00 Intake Total 990 ml Output Total 1600 ml Balance -610 ml CHELO AGEE DO Jun 10, 2019 13:00
--- NOTE | 2019-06-10 18:09 | IPN ---
DATE: 06/10/2019 OBJECTIVE: The patient is not having any dyspnea at rest. She is aware that she has ongoing edema in both legs. No chest pain or chest discomfort. No dizziness or lightheadedness. No palpations. PHYSICAL EXAMINATION: Pleasant elderly woman not in any respiratory or psychologic distress. Morbidly obese. Weight 101.2 kg. Temperature 96.9, pulse 70 (regular), respiratory rate 16, blood pressure (BP) 104/58, oxygen saturation 99% on oxygen 2 liters (by nasal canula). Jugular venous pulsations were to the angle of the jaw with the patient sitting up at 70 degrees. First heart sound (second heart sound was loud). Grade 2/6 systolic ejection murmur at right 2nd interspace with radiation towards the carotids and also towards the apex. No S3. No diastolic murmurs. Respiratory: Expansion effort is fair. No crackles or wheezes. Abdomen is obese, soft, nontender with normal bowel sounds. 1 cm pitting edema is present at mid tibial level bilaterally. Stasis dermatitis is present in both legs. LABORATORY WORK 06/10/2109 shows sodium 134, chloride 4.0, chloride 94, CO2 36, BUN 86, creatinine 1.79, estimated glomerular filtration rate (GFR) 29.1, glucose 133. ASSESSMENT AND PLAN: 1. Heart failure (systolic and diastolic, acute on chronic). The patient remains decompensated. She has continued to generate a net negative fluid balance, but remains quite decompensated. I have added milrinone IV. I will increase the dose of torsemide to 100 mg twice a day. Continue Entresto 24-26 mg twice a day. Continue metoprolol succinate 12.5 mg daily. 2. Nonischemic dilated cardiomyopathy. As per heart failure category above. 3. Chronic atrial fibrillation. The patient is on Warfarin for atrial fibrillation and status post mechanical mitral valve replacement. She was subtherapeutic with a PT/INR of 1.5 today. She is getting some Lovenox subcutaneous while she is subtherapeutic. She is status post RF ablation of the AV node and status post biventricular ICD in situ She is biventricular paced at 70 beats per minute. 4. Status post biventricular ICD in situ. The patient's ICD is currently set at 70 beats per minute. Stable. 5. 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 Status post Biventricular ICD in situ. Stable. 6. Status post mechanical mitral valve replacement and tricuspid valve repair. Stable. Normally functioning mitral valve mechanical prosthesis. 7. Systemic hypertension. Blood pressure (BP) controlled. Continue valsartan and spironolactone and metoprolol succinate in current dosages. As noted above, I will increase the dosage of torsemide. 8. Moderate aortic stenosis with mild regurgitation. Stable. 9. Hypercholesterolemia. Continue DASH diet and statin therapy. 10. Hypertension heart disease with heart failure. As per heart failure category above. 11. Elevated troponin I is secondary to decompensated heart failure.
[2019-06-10] MEDS ORDERED: metOLazone 5 MG TAB PO ONE (21:00)
[2019-06-10] MEDS: SENOKOT S TAB PO SCH (21:16)
[2019-06-10] MEDS: ACETAMINOPHEN 500 MG TAB PO SCH (21:17)
[2019-06-10] MEDS ORDERED: TORSEMIDE 100 MG TAB PO ONE (22:00)
[2019-06-11] MEDS: [UNRECOGNIZED DRUG - OTHER] IV SCH ×3 (01:35→23:48)
[2019-06-11] MEDS: DEXTROSE IV SCH ×3 (01:35→23:48)
[2019-06-11] MEDS: MILRINONE IV SCH ×3 (01:35→23:48)
[2019-06-11 04:00] VITALS: BP 107/52
[2019-06-11 05:16] LABS: HEMOGLOBIN 11.3 g/dl (12.0-15.5); MEAN CORPUSCULAR HGB CONC 31.4 g/dl (32.0-36.5); MEAN CORPUSCULAR VOLUME 86.1 fl (80.0-96.0); PLATELET COUNT, AUTOMATED 200 10^3/uL (150-450); RED BLOOD COUNT 4.18 10^6/uL (4.00-5.40); WHITE BLOOD COUNT 6.9 10^3/uL (4.0-10.0)
[2019-06-11 05:32] LABS: INR 2.25; PROTHROMBIN TIME 24.7 SECONDS (11.8-14.0)
[2019-06-11] MEDS: SLF 3 ML SYR IV SCH ×3 (05:36→20:41)
[2019-06-11 05:38] LABS: ALBUMIN 3.3 GM/DL (3.2-5.2); BILIRUBIN,TOTAL 0.7 MG/DL (0.2-1.0); CALCIUM LEVEL 9.6 MG/DL (8.8-10.2); CREATININE FOR GFR 1.64 MG/DL (0.55-1.30); GLOMERULAR FILTRATION RATE 32.2 (>39); POTASSIUM SERUM 3.6 MEQ/L (3.5-5.1); TOTAL PROTEIN 6.1 GM/DL (6.4-8.2)
[2019-06-11 08:00] VITALS: BP 104/55
[2019-06-11] MEDS: HumaLOG INSULIN (NovoLOG) PER UNIT SC SCH ×4 (08:00→20:02)
[2019-06-11] MEDS: ENOXAPARIN 100MG/1ML SYRINGE (J1650) SC SCH (08:00)
[2019-06-11] MEDS: TORSEMIDE 100 MG TAB PO SCH ×2 (08:01→17:28)
[2019-06-11] MEDS: SPIRONOLACTONE 25 MG TAB PO SCH (08:01)
[2019-06-11] MEDS: MULTIVITAMINS/MINERALS THERAP 1 TAB PO SCH (08:02)
[2019-06-11] MEDS: FOLIC ACID 1 MG TAB PO SCH (08:02)
[2019-06-11] MEDS: ATORVASTATIN 10 MG TAB PO SCH (08:02)
[2019-06-11] MEDS: DIGOXIN 0.0625MG PER 1/2TABLET PO SCH (08:07)
[2019-06-11] MEDS: NYSTATIN 100,000 UNITS/GM TOPICAL PWD 15 GM TOP SCH ×2 (08:08→20:03)
[2019-06-11] MEDS: ALLOPURINOL 100 MG TAB PO SCH (08:08)
[2019-06-11] MEDS: ENTRESTO 24-26MG TABLET (SACUBITRIL/VALSARTAN) PO SCH ×3 (08:08→20:05)
[2019-06-11] MEDS: METOPROLOL SUCC *XL* 12.5MG PER 1/2 TAB (TopROL *XL*) PO SCH (08:11)
--- NOTE | 2019-06-11 09:49 | REP ---
PA and lateral chest: Comparison is 06/08/2019. Cardiomegaly, sternotomy wires, cardiac valve replacements and pacemaker are all unchanged. The vascular redistribution and mild interstitial infiltrates are unchanged. There are small bilateral pleural effusions. I suspect these have decreased in size. Impression: I suspect that the bilateral pleural effusions have slightly decreased in size. There is no other interval change. Electronically Signed by Bruce Allen MD 06/11/2019 09:40 A
[2019-06-11 12:00] VITALS: BP 104/49
[2019-06-11 16:00] VITALS: BP 108/53
--- NOTE | 2019-06-11 16:41 | IPNPDOC ---
Text Note Date of Service The patient was seen on 06/11/19. NOTE S: Patient seen and examined at bedside. Had no complaints. O: Vitals as below General - NAD, sitting up in chair, well groomed Eyes - PERRLA, EOM intact Neck - No noticeable or palpable swelling, redness or rash around throat or on face Lymph Nodes - No lymphadenopathy Cardiovascular - RRR no m/r/g, no JVD, no carotid bruits Lungs - Clear to auscltation, no use of acessory muscles, no crackles or wheezes. 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 Metolazone and Milrinone drip added -Inaccurate I/O due to urine incontinence and urine leakage around balloon - continue 1500cc fluid restriction; BNP improving. #AKl - iatrogenic. baseline creatinine 0.9 with GFR above 60; - Avoid hypotension. # Elevated Troponin Level - demand ischemia- NSTEMI type II in the setting of CHF and LOYD -cardiology following -We will cont to monitor cardiac markers # Chronic atrial fibrillation - currently rate controlled. -Continue metoprolol, Digoxin, - adjust warfarin dose for INR 2.5-3.5 - due to underlying mechanical MV ; restart therapeutic lovenox 1mg/kg as INR2.5 today # History of mechanical mitral valve -Continue Coumadin with goal INR of 2.5-3.5 # Diabetes mellitus with hyperglycemia - no hypoglycemia Insulin sliding scale #essential Hypertension, stable - hold parameters on med to avoid hypotension # Gout -Continue allopurinol - renal dose # GERD -Continue PPI #Dyslipidemia -Continue statin DVT PPx- Lovenox and coumadin Dispo: pending clinical improvement VS,Fishbone, I+O VS, Fishbone, I+O Laboratory Tests 06/11/19 04:42 Red Blood Count 4.18, Mean Corpuscular Volume 86.1, Mean Corpuscular Hemoglobin 27.0, Mean Corpuscular Hemoglobin Concent 31.4 L, Red Cell Distribution Width 16.7 H, Calcium Level 9.6, Aspartate Amino Transf (AST/SGOT) 23, Alanine Aminotransferase (ALT/SGPT) 23, Alkaline Phosphatase 136 H, Total Bilirubin 0.7, Total Protein 6.1 L, Albumin 3.3 Vital Signs Date Time Temp Pulse Resp B/P (MAP) Pulse Ox O2 Delivery O2 Flow Rate FiO2 06/11/19 12:00 2.0 06/11/19 12:00 96.8 67 16 104/49 (69) 100 I&O- Last 24 Hours up to 6 AM 06/11/19 06:00 Intake Total 1332 ml Output Total 3650 ml Balance -2318 ml WILLIAN DE SANTIAGO MD Jun 11, 2019 16:41
[2019-06-11] MEDS: WARFARIN SOD 7.5 MG TAB PO SCH (17:28)
[2019-06-11 20:00] VITALS: BP 97/54
[2019-06-11] MEDS: ACETAMINOPHEN 500 MG TAB PO SCH (20:03)
[2019-06-11] MEDS: SENOKOT S TAB PO SCH (20:03)
[2019-06-11 23:59] VITALS: BP 100/49
[2019-06-12 04:00] VITALS: BP 99/56
[2019-06-12 04:52] LABS: HEMATOCRIT 35.7 % (36.0-47.0); HEMOGLOBIN 11.4 g/dl (12.0-15.5); MEAN CORPUSCULAR HEMOGLOBIN 27.2 pg (27.0-33.0); MEAN CORPUSCULAR HGB CONC 31.9 g/dl (32.0-36.5); MEAN CORPUSCULAR VOLUME 85.2 fl (80.0-96.0); PLATELET COUNT, AUTOMATED 228 10^3/uL (150-450); RED BLOOD COUNT 4.19 10^6/uL (4.00-5.40); WHITE BLOOD COUNT 6.7 10^3/uL (4.0-10.0)
[2019-06-12 05:03] LABS: INR 2.59; PROTHROMBIN TIME 27.6 SECONDS (11.8-14.0)
[2019-06-12] MEDS: SLF 3 ML SYR IV SCH ×3 (05:04→22:00)
[2019-06-12 05:14] LABS: CALCIUM LEVEL 9.3 MG/DL (8.8-10.2); CREATININE FOR GFR 1.55 MG/DL (0.55-1.30); GLOMERULAR FILTRATION RATE 34.3 (>39); POTASSIUM SERUM 3.9 MEQ/L (3.5-5.1)
[2019-06-12] MEDS: HumaLOG INSULIN (NovoLOG) PER UNIT SC SCH ×4 (07:38→20:22)
[2019-06-12 07:55] VITALS: BP 100/50
[2019-06-12] MEDS: DIGOXIN 0.0625MG PER 1/2TABLET PO SCH (08:01)
[2019-06-12] MEDS: ENTRESTO 24-26MG TABLET (SACUBITRIL/VALSARTAN) PO SCH ×2 (08:01→20:23)
[2019-06-12] MEDS: METOPROLOL SUCC *XL* 12.5MG PER 1/2 TAB (TopROL *XL*) PO SCH (08:01)
[2019-06-12] MEDS: ATORVASTATIN 10 MG TAB PO SCH (08:01)
[2019-06-12] MEDS: ALLOPURINOL 100 MG TAB PO SCH (08:02)
[2019-06-12] MEDS: SPIRONOLACTONE 25 MG TAB PO SCH (08:02)
[2019-06-12] MEDS: FOLIC ACID 1 MG TAB PO SCH (08:02)
[2019-06-12] MEDS: NYSTATIN 100,000 UNITS/GM TOPICAL PWD 15 GM TOP SCH ×2 (08:02→20:31)
[2019-06-12] MEDS: TORSEMIDE 100 MG TAB PO SCH ×2 (08:02→17:42)
[2019-06-12] MEDS: MULTIVITAMINS/MINERALS THERAP 1 TAB PO SCH (08:02)
[2019-06-12] MEDS: [UNRECOGNIZED DRUG - OTHER] IV SCH (11:47)
[2019-06-12] MEDS: MILRINONE IV SCH (11:47)
[2019-06-12] MEDS: DEXTROSE IV SCH (11:47)
[2019-06-12 12:00] VITALS: BP 114/56
[2019-06-12 15:45] VITALS: BP 117/59
--- NOTE | 2019-06-12 16:41 | IPNPDOC ---
Text Note Date of Service The patient was seen on 06/12/19. NOTE S: Patient seen and examined at bedside. Had no complaints. O: Vitals as below General - NAD, sitting up in chair, well groomed Eyes - PERRLA, EOM intact Neck - No noticeable or palpable swelling, redness or rash around throat or on face Lymph Nodes - No lymphadenopathy Cardiovascular - RRR no m/r/g, no JVD, no carotid bruits Lungs - Clear to auscltation, no use of acessory muscles, no crackles or wheezes. 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 Metolazone and Milrinone drip added -Inaccurate I/O due to urine incontinence and urine leakage around balloon - continue 1500cc fluid restriction; BNP improving. #Hematuria 2/2 coagulapthy 2/2 coumadin and lovenox - Lovenox discontinued by cardiology -Case discussed with towboat operator Dr. Castellanos who recommends to continue Coumadin for now and closely monitor hemoglobin #AKl - iatrogenic. baseline creatinine 0.9 with GFR above 60; - Avoid hypotension. # Elevated Troponin Level - demand ischemia- NSTEMI type II in the setting of CHF and LOYD -cardiology following -We will cont to monitor cardiac markers # Chronic atrial fibrillation - currently rate controlled. -Continue metoprolol, Digoxin, - adjust warfarin dose for INR 2.5-3.5 - due to underlying mechanical MV ; # History of mechanical mitral valve -Continue Coumadin with goal INR of 2.5-3.5 # Diabetes mellitus with hyperglycemia - no hypoglycemia Insulin sliding scale #essential Hypertension, stable - hold parameters on med to avoid hypotension # Gout -Continue allopurinol - renal dose # GERD -Continue PPI #Dyslipidemia -Continue statin DVT PPx- Lovenox and coumadin Dispo: pending clinical improvement VS,[place], I+O VS, Fishbone, I+O Laboratory Tests 06/12/19 04:41 Red Blood Count 4.19, Mean Corpuscular Volume 85.2, Mean Corpuscular Hemoglobin 27.2, Mean Corpuscular Hemoglobin Concent 31.9 L, Red Cell Distribution Width 1 6.9 H, Calcium Level 9.3 Vital Signs Date Time Temp Pulse Resp B/P (MAP) Pulse Ox O2 Delivery O2 Flow Rate FiO2 06/12/19 15:45 97.4 71 18 117/59 (78) 97 2.0 I&O- Last 24 Hours up to 6 AM 06/12/19 06:00 Intake Total 882 ml Output Total 1775 ml Balance -893 ml WILLIAN DE SANTIAGO MD Jun 12, 2019 16:41
[2019-06-12] MEDS: WARFARIN SOD 7.5 MG TAB PO SCH (17:42)
[2019-06-12 18:27] LABS: HEMOGLOBIN 11.7 g/dl (12.0-15.5); MEAN CORPUSCULAR HEMOGLOBIN 27.1 pg (27.0-33.0); MEAN CORPUSCULAR HGB CONC 32.5 g/dl (32.0-36.5); MEAN CORPUSCULAR VOLUME 83.3 fl (80.0-96.0); PLATELET COUNT, AUTOMATED 232 10^3/uL (150-450); RED BLOOD COUNT 4.32 10^6/uL (4.00-5.40)
[2019-06-12 20:00] VITALS: BP 105/59
[2019-06-12] MEDS: SENOKOT S TAB PO SCH (20:31)
[2019-06-12] MEDS: ACETAMINOPHEN 500 MG TAB PO SCH (20:31)
[2019-06-12] MEDS: BISACODYL 5 MG TAB PO PRN (20:33)
[2019-06-13] VITALS (7 sets, daily range): BP systolic 101–139; BP diastolic 44–56
[2019-06-13] MEDS: DEXTROSE IV SCH ×3 (00:10→23:27)
[2019-06-13] MEDS: MILRINONE IV SCH ×3 (00:10→23:27)
[2019-06-13] MEDS: [UNRECOGNIZED DRUG - OTHER] IV SCH ×3 (00:10→23:27)
[2019-06-13] MEDS: SLF 3 ML SYR IV SCH ×3 (05:03→21:51)
[2019-06-13 05:51] LABS: HEMATOCRIT 36.2 % (36.0-47.0); HEMOGLOBIN 11.4 g/dl (12.0-15.5); MEAN CORPUSCULAR HEMOGLOBIN 26.9 pg (27.0-33.0); MEAN CORPUSCULAR HGB CONC 31.5 g/dl (32.0-36.5); MEAN CORPUSCULAR VOLUME 85.4 fl (80.0-96.0); PLATELET COUNT, AUTOMATED 204 10^3/uL (150-450); RED BLOOD COUNT 4.24 10^6/uL (4.00-5.40); WHITE BLOOD COUNT 6.4 10^3/uL (4.0-10.0)
[2019-06-13 05:59] LABS: INR 2.79; PROTHROMBIN TIME 29.3 SECONDS (11.8-14.0)
[2019-06-13 06:18] LABS: CALCIUM LEVEL 9.7 MG/DL (8.8-10.2); CREATININE FOR GFR 1.57 MG/DL (0.55-1.30); GLOMERULAR FILTRATION RATE 33.8 (>39); POTASSIUM SERUM 3.7 MEQ/L (3.5-5.1)
[2019-06-13] MEDS: HumaLOG INSULIN (NovoLOG) PER UNIT SC SCH ×4 (08:44→20:42)
[2019-06-13] MEDS: ENTRESTO 24-26MG TABLET (SACUBITRIL/VALSARTAN) PO SCH ×2 (08:44→20:41)
[2019-06-13] MEDS: FOLIC ACID 1 MG TAB PO SCH (08:45)
[2019-06-13] MEDS: METOPROLOL SUCC *XL* 12.5MG PER 1/2 TAB (TopROL *XL*) PO SCH (08:45)
[2019-06-13] MEDS: SPIRONOLACTONE 25 MG TAB PO SCH (08:45)
[2019-06-13] MEDS: DIGOXIN 0.0625MG PER 1/2TABLET PO SCH (08:45)
[2019-06-13] MEDS: ALLOPURINOL 100 MG TAB PO SCH (08:46)
[2019-06-13] MEDS: NYSTATIN 100,000 UNITS/GM TOPICAL PWD 15 GM TOP SCH ×2 (08:46→20:42)
[2019-06-13] MEDS: MULTIVITAMINS/MINERALS THERAP 1 TAB PO SCH (08:46)
[2019-06-13] MEDS: TORSEMIDE 100 MG TAB PO SCH ×2 (08:46→16:45)
[2019-06-13] MEDS: ATORVASTATIN 10 MG TAB PO SCH (08:46)
--- NOTE | 2019-06-13 15:25 | IPNPDOC ---
Text Note Date of Service The patient was seen on 06/13/19. NOTE Subjective: The patient is seen sitting upright in her chair. Her is at bedside. She is again asking why she has leg swelling. I have again explained to her and her that she has heart failure. This has been explained to them by others. Objective: Please see vital signs below General: Patient is conversant. She is not breathless or short of breath. HENT: Neck is supple, no adenopathy or thyromegaly, or mucosa is moist, no scleral injection Cardiovascular: Regular rate and rhythm, patient has grade 2 to 3/6 systolic murmur at left sternal border, I also note jugular venous distention Respiratory: Fairly good air movement, no coarse breath sounds or crackles or wheezes, no active cough. Extremities: Patient has remarkable pitting edema to both legs and ankles, they are tender to palpation. Skin: Patient has discoloration to her lower legs consistent with changes seen with diabetes. Assessment/Plan: 1. Acute on chronic systolic and diastolic congestive heart failure--decompensated. Patient is on appropriate medical therapy. In addition, she is on high-dose diuretic and is now on milrinone drip. Although she has high urine output she has only minimal improvement. We appreciate the assistance of the cardiology service. 2. Valvular heart disease. Patient has history of mitral valve replacement. She remains on anticoagulation therapy with Coumadin. 3. Sac-oivltyj-kckqvomiw diabetes mellitus. Accu-Cheks currently range 144-177. This is reasonable control for her for now. 4. Chronic atrial fibrillation. Patient remains rate controlled on metoprolol and remains on chronic anticoagulation with Coumadin. VS,Fishbone, I+O VS, Fishbone, I+O Laboratory Tests 06/12/19 18:15 Red Blood Count 4.32, Mean Corpuscular Volume 83.3, Mean Corpuscular Hemoglobin 27.1, Mean Corpuscular Hemoglobin Concent 32.5, Red Cell Distribution Width 17.0 H 06/13/19 05:14 Red Blood Count 4.24, Mean Corpuscular Volume 85.4, Mean Corpuscular Hemoglobin 26.9 L, Mean Corpuscular Hemoglobin Concent 31.5 L, Red Cell Distribution Width 17.2 H, Calcium Level 9.7 Vital Signs Date Time Temp Pulse Resp B/P (MAP) Pulse Ox O2 Delivery O2 Flow Rate FiO2 06/13/19 12:00 2.0 06/13/19 11:29 96.9 75 18 112/53 (61) 98 I&O- Last 24 Hours up to 6 AM 06/13/19 06:00 Intake Total 753 ml Output Total 2250 ml Balance -1497 ml HUMBLE PALUMBO MD Jun 13, 2019 15:25
[2019-06-13] MEDS: WARFARIN SOD 7.5 MG TAB PO SCH (16:45)
[2019-06-13] MEDS: ACETAMINOPHEN 500 MG TAB PO SCH (20:41)
[2019-06-13] MEDS: SENOKOT S TAB PO SCH (20:41)
--- NOTE | 2019-06-13 22:07 | IPN ---
DATE: 06/13/2019 SUBJECTIVE: The patient reports she walked 150 feet in the hallway without being short of breath. No dizziness or lightheadedness. She notices ongoing bilateral leg edema and can not really notice any change. No chest pain or chest discomfort. PHYSICAL EXAMINATION: No respiratory or psychologic distress. Temperature 97.5, pulse 66, respiratory rate 18, blood pressure 105/44, oxygen saturation 98% on oxygen two liters provided by nasal cannula. First heart sound normal. Second heart sound was single. Grade 1 systolic ejection murmur right second interspace. No diastolic murmurs appreciated. No S3 appreciated. Carotids were at the angle of the jaw with the patient sitting up at 90 degrees. Respiratory expansion effort was good. No crackles or wheezes. Abdomen was soft and nontender with normal bowel sounds. 8 mm of pitting edema was present at the mid tibia level bilaterally. INVESTIGATIONS: Laboratory work 06/13/2019 was reviewed: Hemoglobin 11.4, hematocrit 36.1. PT/INR 2.79. Sodium 135, potassium 3.7, chloride 89, CO2 40, BUN 86, creatinine 1.57, estimated GFR 33.8, glucose 118. ASSESSMENT AND PLAN: 1. Heart failure, acute on chronic, systolic and diastolic. The patient remains decompensated but she is generating good net negative fluid balance. Fluid balance is somewhat difficult to assess due to urinary loss around the Tyler catheter making accurate input and output difficult. Her weight is coming down and the edema in her legs is becoming less. The plan will be to continue the current medical therapy for heart failure consisting of metoprolol succinate 25 mg daily, Torsemide 100 mg twice a day, Entresto 24/26 mg twice a day, spironolactone 25 mg daily, digoxin 0.0625 mg daily, and milrinone IV 0.28 mcg/kg/minute IV. 2. Nonischemic dilated cardiomyopathy. As per heart failure category above. 3. Chronic atrial fibrillation. The patient is status post atrioventricular (AV) hillary ablation. Continue warfarin. She is on digoxin and metoprolol for management for heart failure as described above. 4. Biventricular implantable cardioverter defibrillator (ICD) in situ. Currently set at a base rate of 70 beats per minute. Stable. 5. Status post AV hillary ablation resulting in complete heart block. Stable. Status post biventricular ICD in situ. 6. Status post mitral valve replacement with mechanical valve. Also status post tricuspid valve repair. Stable. Mitral valve prosthesis is functioning normally. 7. Systemic hypertension. Blood pressure controlled. Continue current antihypertensive regimen. 8. Aortic stenosis (probably moderate). Also mild aortic regurgitation. Nonrheumatic. Stable. 9. Hypercholesterolemia. Continue on a cardiac diet and atorvastatin 10 mg daily. 10. Hypertensive heart disease with heart failure. As per heart failure category above. 11. Elevated troponin I. The patient's elevated troponin I is secondary to decompensated heart failure. Prior cardiac catheterizations did not show any significant coronary artery disease (CAD). Continue with treatment of heart failure.
[2019-06-14 04:00] VITALS: BP 106/60
[2019-06-14 05:52] LABS: HEMATOCRIT 35.7 % (36.0-47.0); HEMOGLOBIN 11.4 g/dl (12.0-15.5); MEAN CORPUSCULAR HEMOGLOBIN 27.7 pg (27.0-33.0); MEAN CORPUSCULAR HGB CONC 31.9 g/dl (32.0-36.5); MEAN CORPUSCULAR VOLUME 86.9 fl (80.0-96.0); PLATELET COUNT, AUTOMATED 228 10^3/uL (150-450); RED BLOOD COUNT 4.11 10^6/uL (4.00-5.40); WHITE BLOOD COUNT 6.8 10^3/uL (4.0-10.0)
[2019-06-14] MEDS: SLF 3 ML SYR IV SCH ×3 (06:06→22:00)
[2019-06-14 06:31] LABS: CALCIUM LEVEL 9.5 MG/DL (8.8-10.2); CREATININE FOR GFR 1.7 MG/DL (0.55-1.30); GLOMERULAR FILTRATION RATE 30.9 (>39)
[2019-06-14] MEDS: HumaLOG INSULIN (NovoLOG) PER UNIT SC SCH ×4 (07:45→20:37)
[2019-06-14 08:00] VITALS: BP 106/53
[2019-06-14] MEDS: ENTRESTO 24-26MG TABLET (SACUBITRIL/VALSARTAN) PO SCH ×2 (08:51→20:14)
[2019-06-14] MEDS: DIGOXIN 0.0625MG PER 1/2TABLET PO SCH (08:51)
[2019-06-14] MEDS: METOPROLOL SUCC *XL* 25MG TAB (TopROL *XL*) PO SCH (08:51)
[2019-06-14] MEDS: TORSEMIDE 100 MG TAB PO SCH ×2 (08:51→17:14)
[2019-06-14] MEDS: ALLOPURINOL 100 MG TAB PO SCH (08:52)
[2019-06-14] MEDS: SPIRONOLACTONE 25 MG TAB PO SCH (08:52)
[2019-06-14] MEDS: MULTIVITAMINS/MINERALS THERAP 1 TAB PO SCH (08:52)
[2019-06-14] MEDS: FOLIC ACID 1 MG TAB PO SCH (08:52)
[2019-06-14] MEDS: ATORVASTATIN 10 MG TAB PO SCH (08:52)
[2019-06-14] MEDS: NYSTATIN 100,000 UNITS/GM TOPICAL PWD 15 GM TOP SCH ×2 (08:52→20:38)
[2019-06-14 11:24] VITALS: BP 94/46
[2019-06-14] MEDS: DEXTROSE IV SCH ×2 (13:02→23:13)
[2019-06-14] MEDS: [UNRECOGNIZED DRUG - OTHER] IV SCH ×2 (13:02→23:13)
[2019-06-14] MEDS: MILRINONE IV SCH ×2 (13:02→23:13)
[2019-06-14 16:00] VITALS: BP 99/48
[2019-06-14] MEDS: WARFARIN SOD 7.5 MG TAB PO SCH (17:14)
--- NOTE | 2019-06-14 17:39 | IPNPDOC ---
Text Note Date of Service The patient was seen on 06/14/19. NOTE Subjective: The patient is seen sitting upright in her chair. Today, the patient understands that she has heart failure. She appears to understand that she is having an extended stay in the hospital. She remains on milrinone drip. Objective: Please see vital signs below General: Patient is conversant. She is not breathless or short of breath. HENT: Neck is supple, no adenopathy or thyromegaly, or mucosa is moist, no scleral injection Cardiovascular: Regular rate and rhythm, patient has grade 2 to 3/6 systolic murmur at left sternal border, I also note jugular venous distention Respiratory: Fairly good air movement, no coarse breath sounds or crackles or wheezes, no active cough. Abdominal: Soft, nontender, significant central obesity Extremities: Patient has remarkable pitting edema to both legs and ankles, they are tender to palpation, serial compression devices are in place Skin: Patient has discoloration to her lower legs consistent with changes seen with diabetes. Assessment/Plan: 1. Acute on chronic systolic and diastolic congestive heart failure--decompensat ed. Patient is on appropriate medical therapy. In addition, she is on high-dose diuretic and is now on milrinone drip. Although she has high urine output she has only minimal improvement. We appreciate the assistance of the cardiology service. 2. Valvular heart disease. Patient has history of mitral valve replacement. She remains on anticoagulation therapy with Coumadin. Additionally, she has had tricuspid valve repair and has moderate aortic stenosis. 3. Vgq-vjafwdh-cgxkggxiq diabetes mellitus. Accu-Cheks currently range 144-177. This is reasonable control for her for now. 4. Chronic atrial fibrillation. Patient remains rate controlled on metoprolol and digoxin and remains on chronic anticoagulation with Coumadin. Toprol and digoxin are also contributory to management of her congestive heart failure. VS,Fishbone, I+O VS, Fishbone, I+O Laboratory Tests 06/14/19 05:30 Red Blood Count 4.11, Mean Corpuscular Volume 86.9, Mean Corpuscular Hemoglobin 27.7, Mean Corpuscular Hemoglobin Concent 31.9 L, Red Cell Distribution Width 17.2 H, Calcium Level 9.5 Vital Signs Date Time Temp Pulse Resp B/P (MAP) Pulse Ox O2 Delivery O2 Flow Rate FiO2 06/14/19 16:00 97.2 70 18 99/48 (65) 99 2.0 I&O- Last 24 Hours up to 6 AM 06/14/19 06:00 Intake Total 953 ml Output Total 850 ml Balance 103 ml HUMBLE PALUMBO MD Jun 14, 2019 17:39
[2019-06-14 20:00] VITALS: BP 100/52
[2019-06-14] MEDS: ACETAMINOPHEN 500 MG TAB PO SCH (20:39)
[2019-06-14] MEDS: SENOKOT S TAB PO SCH (20:39)
[2019-06-14 23:59] VITALS: BP 93/44
[2019-06-15 04:00] VITALS: BP 110/53
[2019-06-15 05:15] LABS: HEMATOCRIT 34.4 % (36.0-47.0); MEAN CORPUSCULAR HEMOGLOBIN 27.6 pg (27.0-33.0); MEAN CORPUSCULAR VOLUME 86.4 fl (80.0-96.0); PLATELET COUNT, AUTOMATED 217 10^3/uL (150-450); RED BLOOD COUNT 3.98 10^6/uL (4.00-5.40)
[2019-06-15] MEDS: SLF 3 ML SYR IV SCH ×3 (05:19→22:35)
[2019-06-15 05:36] LABS: CALCIUM LEVEL 9.4 MG/DL (8.8-10.2); CREATININE FOR GFR 1.89 MG/DL (0.55-1.30); GLOMERULAR FILTRATION RATE 27.3 (>39); POTASSIUM SERUM 3.7 MEQ/L (3.5-5.1)
[2019-06-15 06:20] LABS: MAGNESIUM LEVEL 1.9 MG/DL (1.8-2.4)
[2019-06-15 08:00] VITALS: BP 114/56
[2019-06-15] MEDS: TORSEMIDE 100 MG TAB PO SCH ×2 (08:17→16:53)
[2019-06-15] MEDS: DIGOXIN 0.0625MG PER 1/2TABLET PO SCH (08:17)
[2019-06-15] MEDS: ATORVASTATIN 10 MG TAB PO SCH (08:17)
[2019-06-15] MEDS: FOLIC ACID 1 MG TAB PO SCH (08:17)
[2019-06-15] MEDS: NYSTATIN 100,000 UNITS/GM TOPICAL PWD 15 GM TOP SCH ×2 (08:17→21:32)
[2019-06-15] MEDS: HumaLOG INSULIN (NovoLOG) PER UNIT SC SCH ×4 (08:17→21:00)
[2019-06-15] MEDS: ENTRESTO 24-26MG TABLET (SACUBITRIL/VALSARTAN) PO SCH ×2 (08:17→21:00)
[2019-06-15] MEDS: SPIRONOLACTONE 25 MG TAB PO SCH (08:18)
[2019-06-15] MEDS: MULTIVITAMINS/MINERALS THERAP 1 TAB PO SCH (08:18)
[2019-06-15] MEDS: ALLOPURINOL 100 MG TAB PO SCH (08:18)
[2019-06-15] MEDS: METOPROLOL SUCC *XL* 25MG TAB (TopROL *XL*) PO SCH (08:18)
[2019-06-15] MEDS: MILRINONE IV SCH ×2 (10:38→23:14)
[2019-06-15] MEDS: DEXTROSE IV SCH ×2 (10:38→23:14)
[2019-06-15] MEDS: [UNRECOGNIZED DRUG - OTHER] IV SCH ×2 (10:38→23:14)
[2019-06-15 12:00] VITALS: BP 97/50
[2019-06-15] MEDS ORDERED: metOLazone 2.5 MG TAB PO ONE (12:00)
--- NOTE | 2019-06-15 12:59 | IPN ---
DATE: 06/15/2019 I saw Mrs. Ling and spoke to her and her who is present in her room. She keeps complaining about severe peripheral edema and is frustrated by the lack of improvement. She also complained about epistaxis that occurred last night and it occurred on a few other occasions in previous days, not very severe and not very long lasting. Denies any chest discomfort. Vital signs: Blood pressure 114/56, heart rate is 70. She is in atrial fibrillation with consistent biventricular pacing. She has very rare ventricular ectopy based on her telemetry reviews. She is afebrile. Saturation 98% on 2 liters of oxygen. Weight is documented at 99.2 kg, which is slightly up from yesterday. Fluid balance yesterday was recorded as positive 600 and only 800 mL of urine were documented as an output. She is alert and oriented and appropriate. Her jugular venous pressure (JVP) is extremely elevated, at least 10 cm above clavicle if not higher. Lungs are reasonably clear, though I do not appreciate evidence for clear-cut pleural effusions. No crackles or wheezing. Heart exam reveals regular rhythm. There are intact prosthetic sounds coming from her mitral valve. There is a faint systolic murmur over the base, maybe 2/6 intensity. Abdomen is distended but soft. There is 4+ edema to her groins. Neurologically, she is alert and oriented and appropriate. LABORATORY: Sodium 133, potassium 3.7, BUN 104, creatinine 1.9 for GFR 27 and glucose 146, hemoglobin 11, hematocrit 34, platelet count 217,000 and INR is 2.8. ASSESSMENT/PLAN: Mrs. Ling is a rather unfortunate 79-year-old female who has dilated cardiomyopathy, chronic atrial fibrillation, status post atrial atrioventricular (AV) hillary ablation and biventricular implantable cardioverter defibrillator (ICD) in place. She has had recurrent episodes of congestive heart failure and is incredibly resistant to therapy. Currently she is on metoprolol succinate 25 mg daily, torsemide 100 mg twice a day, milrinone infusion, Entresto 24/26 mg twice a day, spironolactone 25 mg daily and in spite of this regimen, she has not been diuresing adequately. The renal function is slowly deteriorating. I am very pessimistic about her prognosis. I talked to her and her , and it seems to me that they are not well aware of the gravity of her situation. I explained to them that so far we have not been able to accomplish much, and it is possible that we will not be able to improve her condition. I am going to add Zaroxolyn to her diuretics, only 2.5 mg as a trial. I also am going to hold the night dose of warfarin because her international normalized ratio (INR) is slightly on the high side, and she continues to have episodes of epistaxis. Hopefully, we will be able to diurese her somewhat. 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 Kennedy will take over her care on Monday.
--- NOTE | 2019-06-15 15:58 | IPNPDOC ---
Text Note Date of Service The patient was seen on 06/15/19. NOTE Subjective: The patient is seen sitting upright in her chair. Patient again does not appear to understand her overall clinical conditions; she is asking me when we are going to give her diuretic. I have explained to her that she has been on torsemide for days. She also remains on milrinone drip. The patient has what appears to be refractory acute on chronic systolic and diastolic congestive heart failure. Objective: Please see vital signs below General: Patient is conversant. She is not breathless or short of breath. HENT: Neck is supple, no adenopathy or thyromegaly, or mucosa is moist, no scleral injection Cardiovascular: Regular rate and rhythm, patient has grade 2 to 3/6 systolic murmur at left sternal border, I also note jugular venous distention Respiratory: Fairly good air movement, no coarse breath sounds or crackles or wheezes, no active cough. Abdominal: Soft, nontender, significant central obesity Extremities: Patient has remarkable pitting edema to both legs and ankles, they are tender to palpation, they are weeping fluid that is draining onto the floor. Skin: Patient has discoloration to her lower legs consistent with changes seen with diabetes. Assessment/Plan: 1. Acute on chronic systolic and diastolic congestive heart failure--decompensated. Patient is on appropriate medical therapy. In addition, she is on high-dose diuretic and is now on milrinone drip. Although she has high urine output she has only minimal improvement. We appreciate the assistance of the cardiology service. The patient does not have understanding of her clinical condition. 2. Valvular heart disease. Patient has history of mitral valve replacement. She remains on anticoagulation therapy with Coumadin. Additionally, she has had tricuspid valve repair and has moderate aortic stenosis. 3. Irk-rihxtki-qqxhuxnmj diabetes mellitus. Accu-Cheks currently range 144-177. This is reasonable control for her for now. 4. Chronic atrial fibrillation. Patient remains rate controlled on metoprolol and digoxin and remains on chronic anticoagulation with Coumadin. Toprol and digoxin are also contributory to management of her congestive heart failure. VS,Fishbone, I+O VS, Fishbone, I+O Laboratory Tests 06/15/19 04:49 Red Blood Count 3.98 L, Mean Corpuscular Volume 86.4, Mean Corpuscular Hemoglobin 27.6, Mean Corpuscular Hemoglobin Concent 32.0, Red Cell Distribution Width 17.3 H, Calcium Level 9.4 Vital Signs Date Time Temp Pulse Resp B/P (MAP) Pulse Ox O2 Delivery O2 Flow Rate FiO2 06/15/19 12:00 97.0 69 18 97/50 (66) 97 2.0 I&O- Last 24 Hours up to 6 AM 06/15/19 06:00 Intake Total 1454 ml Output Total 800 ml Balance 654 ml HUMBLE PALUMBO MD Jun 15, 2019 15:58
[2019-06-15 16:00] VITALS: BP 105/58
[2019-06-15 20:00] VITALS: BP 90/50
[2019-06-15] MEDS: SENOKOT S TAB PO SCH (21:31)
[2019-06-15] MEDS: ACETAMINOPHEN 500 MG TAB PO SCH (21:31)
[2019-06-16] VITALS (7 sets, daily range): BP systolic 80–110; BP diastolic 47–53
[2019-06-16 04:12] LABS: HEMATOCRIT 32.6 % (36.0-47.0); HEMOGLOBIN 10.4 g/dl (12.0-15.5); MEAN CORPUSCULAR HEMOGLOBIN 27.6 pg (27.0-33.0); MEAN CORPUSCULAR HGB CONC 31.9 g/dl (32.0-36.5); MEAN CORPUSCULAR VOLUME 86.5 fl (80.0-96.0); PLATELET COUNT, AUTOMATED 208 10^3/uL (150-450); RED BLOOD COUNT 3.77 10^6/uL (4.00-5.40); WHITE BLOOD COUNT 5.9 10^3/uL (4.0-10.0)
[2019-06-16 04:33] LABS: CALCIUM LEVEL 9.2 MG/DL (8.8-10.2); CREATININE FOR GFR 2.14 MG/DL (0.55-1.30); GLOMERULAR FILTRATION RATE 23.7 (>39)
[2019-06-16] MEDS: SLF 3 ML SYR IV SCH ×3 (06:00→21:49)
[2019-06-16] MEDS: HumaLOG INSULIN (NovoLOG) PER UNIT SC SCH ×4 (08:18→20:34)
[2019-06-16] MEDS: METOPROLOL SUCC *XL* 25MG TAB (TopROL *XL*) PO SCH (08:19)
[2019-06-16] MEDS: TORSEMIDE 100 MG TAB PO SCH ×2 (08:19→18:02)
[2019-06-16] MEDS: ATORVASTATIN 10 MG TAB PO SCH (08:19)
[2019-06-16] MEDS: SPIRONOLACTONE 25 MG TAB PO SCH (08:19)
[2019-06-16] MEDS: DIGOXIN 0.0625MG PER 1/2TABLET PO SCH (08:19)
[2019-06-16] MEDS: ENTRESTO 24-26MG TABLET (SACUBITRIL/VALSARTAN) PO SCH ×2 (08:19→20:33)
[2019-06-16] MEDS: MULTIVITAMINS/MINERALS THERAP 1 TAB PO SCH (08:19)
[2019-06-16] MEDS: FOLIC ACID 1 MG TAB PO SCH (08:19)
[2019-06-16] MEDS: ALLOPURINOL 100 MG TAB PO SCH (08:19)
[2019-06-16] MEDS: NYSTATIN 100,000 UNITS/GM TOPICAL PWD 15 GM TOP SCH ×2 (08:20→20:35)
[2019-06-16] MEDS: MILRINONE IV SCH (12:02)
[2019-06-16] MEDS: [UNRECOGNIZED DRUG - OTHER] IV SCH (12:02)
[2019-06-16] MEDS: DEXTROSE IV SCH (12:02)
--- NOTE | 2019-06-16 13:45 | IPNPDOC ---
Text Note Date of Service The patient was seen on 06/16/19. NOTE SUBJECTIVE: This is a 79 year-old female with acute on chronic systolic and diastolic congestive heart failure that is remarkably decompensated. She has had poor response to diuretics and milrinone drip. OBJECTIVE: Please see vital signs below General: Patient is conversant. She is not breathless or short of breath. She is currently up in a chair with her legs elevated. HENT: Neck is supple, no adenopathy or thyromegaly, or mucosa is moist, no scleral injection Cardiovascular: Regular rate and rhythm, patient has grade 2 to 3/6 systolic murmur at left sternal border, I also note jugular venous distention. Respiratory: Fairly good air movement, no coarse breath sounds or crackles or wheezes, no active cough. Abdominal: Soft, nontender, significant central obesity Extremities: Patient has remarkable pitting edema to both legs and ankles, they are tender to palpation, they are weeping fluid onto the pillow under her legs Skin: Patient has discoloration to her lower legs consistent with changes seen with diabetes. Psych: The patient does not have cognitive understanding of her current clinical condition Laboratory data review: The patient has had gradual increase to her creatinine. Today it is 2.14. ASSESSMENT/PLAN: 1. Acute on chronic systolic and diastolic congestive heart failure--decompensated. Patient is on appropriate medical therapy. In addition, she is on high-dose diuretic (Torsemide 100 mg daily) and is now on milrinone drip. Although she has good urine output she has only minimal improvement. We appreciate the assistance of the cardiology service. The patient does not have understanding of her clinical condition or poor prognosis. 2. Valvular heart disease. Patient has history of mitral valve replacement. She remains on anticoagulation therapy with Coumadin. Additionally, she has had tricuspid valve repair and has moderate aortic stenosis. 3. Aak-jrnrjak-lhtkbnanz diabetes mellitus. Accu-Cheks currently range 144-177. This is reasonable control for her for now. 4. Chronic atrial fibrillation. Patient remains rate controlled on metoprolol and digoxin and remains on chronic anticoagulation with Coumadin. Toprol and digoxin are also contributory to management of her congestive heart failure. 5. Chronic kidney disease stage III. Exacerbated by diuretic therapy. VS,Fishbone, I+O VS, Fishbone, I+O Laboratory Tests 06/16/19 03:42 Red Blood Count 3.77 L, Mean Corpuscular Volume 86.5, Mean Corpuscular Hemoglobin 27.6, Mean Corpuscular Hemoglobin Concent 31.9 L, Red Cell Distribution Width 17.5 H, Calcium Level 9.2 Vital Signs Date Time Temp Pulse Resp B/P (MAP) Pulse Ox O2 Delivery O2 Flow Rate FiO2 06/16/19 12:00 97.8 70 20 101/53 (20) 95 2.0 I&O- Last 24 Hours up to 6 AM 06/16/19 06:00 Intake Total 800 ml Output Total 800 ml Balance 0 ml HUMBLE PALUMBO MD Jun 16, 2019 13:45
--- NOTE | 2019-06-16 14:35 | IPN ---
DATE: 06/16/2019 Mrs. Ling is in a bad mood today. She tells me that she is very discouraged by the fact that she is not making any progress. She continues to be grossly edematous, but denies any dyspnea or chest discomfort. She got an extra dose of Zaroxolyn yesterday, but unfortunately, her fluid balance was not sufficiently negative, and she had episode of hypotension last night. Her creatinine also is slightly higher than it was yesterday. On vital signs, blood pressure 94/48, heart rate is 70. She is almost exclusively ventricularly paced with underlying atrial fibrillation. She had two episodes of brief nonsustained ventricular tachycardia (VT) yesterday. She is afebrile. Saturation 96% on 2 liters of oxygen. Weight is documented at 99.7 kg. Fluid balance yesterday was recorded as essentially equal even though weight is slightly up since yesterday. On physical examination, she appears alert and oriented and appropriate. Her jugular venous pressure (JVP) is extremely high, even in sitting position at least 8 or 10 cm above clavicle. Lungs are relatively clear even though she does have crackles over both bases. I do not appreciate wheezes. Air movement is fair at best. Heart exam reveals regular rhythm with intact metallic prosthetic sounds. Abdomen is soft. There is anasarca to the level of the abdomen. LABORATORY: Hemoglobin is 10.4, hematocrit 32.6, platelet count 208,000. Basic metabolic panel: Sodium 133, potassium 4.0, BUN 110, creatinine 2.1 and glucose 142. INR has not been checked actually for several days. ASSESSMENT/PLAN: Mrs. 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 Currently, she is in the florid congestive heart failure and failed attempts to achieve adequate diuresis. I had a discussion with her and her yesterday explaining that the prognosis is poor and in spite of our efforts, we have not made significant improvements in her condition. I had this discussion again today, and I expressed my pessimism about our possibility to accomplish adequate outcome. I personally think that the patient should be approached, and I believe that the best potential solution for her is to pursue hospice care because I am not convinced that there are therapeutic interventions that can reverse her course. But because she has established relationship with Dr. Kennedy and Dr. Castellanos for over 20 years, I would leave the discussion to Dr. Kennedy who takes over her care starting tomorrow morning. I did not make any medication changes today. REKHA
[2019-06-16] MEDS: WARFARIN SOD 7.5 MG TAB PO SCH (18:02)
[2019-06-16] MEDS: SENOKOT S TAB PO SCH (20:32)
[2019-06-16] MEDS: ACETAMINOPHEN 500 MG TAB PO SCH (20:33)
[2019-06-17] VITALS (8 sets, daily range): BP systolic 104–121; BP diastolic 51–58
[2019-06-17] MEDS: DEXTROSE IV SCH ×2 (00:05→11:59)
[2019-06-17] MEDS: MILRINONE IV SCH ×2 (00:05→11:59)
[2019-06-17] MEDS: [UNRECOGNIZED DRUG - OTHER] IV SCH ×2 (00:05→11:59)
[2019-06-17 05:28] LABS: HEMATOCRIT 33.3 % (36.0-47.0); HEMOGLOBIN 10.6 g/dl (12.0-15.5); MEAN CORPUSCULAR HEMOGLOBIN 27.4 pg (27.0-33.0); MEAN CORPUSCULAR HGB CONC 31.8 g/dl (32.0-36.5); PLATELET COUNT, AUTOMATED 225 10^3/uL (150-450); RED BLOOD COUNT 3.87 10^6/uL (4.00-5.40); WHITE BLOOD COUNT 6.2 10^3/uL (4.0-10.0)
[2019-06-17 05:40] LABS: INR 2.37; PROTHROMBIN TIME 25.7 SECONDS (11.8-14.0)
[2019-06-17 05:44] LABS: ALBUMIN 3.3 GM/DL (3.2-5.2); BILIRUBIN,TOTAL 0.8 MG/DL (0.2-1.0); CALCIUM LEVEL 9.7 MG/DL (8.8-10.2); CREATININE FOR GFR 2.07 MG/DL (0.55-1.30); GLOMERULAR FILTRATION RATE 24.6 (>39); POTASSIUM SERUM 3.8 MEQ/L (3.5-5.1); TOTAL PROTEIN 6.9 GM/DL (6.4-8.2)
[2019-06-17] MEDS: SLF 3 ML SYR IV SCH ×3 (05:46→22:13)
[2019-06-17] MEDS: SPIRONOLACTONE 25 MG TAB PO SCH (08:14)
[2019-06-17] MEDS: HumaLOG INSULIN (NovoLOG) PER UNIT SC SCH ×4 (08:14→21:00)
[2019-06-17] MEDS: ENTRESTO 24-26MG TABLET (SACUBITRIL/VALSARTAN) PO SCH ×3 (08:15→21:00)
[2019-06-17] MEDS: FOLIC ACID 1 MG TAB PO SCH (08:15)
[2019-06-17] MEDS: TORSEMIDE 100 MG TAB PO SCH ×2 (08:15→17:03)
[2019-06-17] MEDS: ATORVASTATIN 10 MG TAB PO SCH (08:16)
[2019-06-17] MEDS: DIGOXIN 0.0625MG PER 1/2TABLET PO SCH (08:16)
[2019-06-17] MEDS: MULTIVITAMINS/MINERALS THERAP 1 TAB PO SCH (08:17)
[2019-06-17] MEDS: ALLOPURINOL 100 MG TAB PO SCH (08:18)
[2019-06-17] MEDS: NYSTATIN 100,000 UNITS/GM TOPICAL PWD 15 GM TOP SCH ×2 (08:18→22:11)
[2019-06-17] MEDS: METOPROLOL SUCC *XL* 25MG TAB (TopROL *XL*) PO SCH (08:18)
[2019-06-17] MEDS: WARFARIN SOD 7.5 MG TAB PO SCH (17:03)
[2019-06-17] MEDS ORDERED: MORPHINE 10MG/0.5ML ORAL CONCENTRATE SOLUTION U/D SL PRN (20:15)
--- NOTE | 2019-06-17 20:37 | IPNPDOC ---
Text Note Date of Service The patient was seen on 06/17/19. NOTE Subjective: Patient states she is breathing ok, has no acute complaints. She endorses her LE edema is persistent and has not been improving much despite medical therapies and is frustrated. She is hopeful to speak to cardiology today. GEN: sitting in recliner comfortably, NAD HEENT: MMM, JVD noted, neck supple Cardio: RRR, systolic murmur at left sternal boarder Resp: good air movement, no wheezing, rales or ronchi Abd: s, nt, nd, bs present Ext: severe pitting edema past the knees, wheeping edema noted, mild tenderness to palpation. Psych: normal mood/affect, poor insight Skin: chronic stasis dermatitis secondary to edema ASSESSMENT/PLAN: 1. Acute on chronic systolic and diastolic congestive heart failuredecompensated, likely end stage. Patient is on appropriate medical therapy. In addition, she is on high-dose diuretic (Torsemide 100 mg daily) and is now on milrinone drip. Although she has good urine output she has only minimal improvement. We appreciate the assistance of the cardiology service. The patient does not have understanding of her clinical condition or poor prognosis. Pending follow up with Dr. Kennedy for hospice care discussion with family. -Continue milrinone, Entresto, Lipitor, Digoxin, Toprol XL, Spironolactone, Torsemide. 2. Valvular heart disease. Patient has history of mitral valve replacement. She remains on anticoagulation therapy with Coumadin. Additionally, she has had tricuspid valve repair and has moderate aortic stenosis. 3. Vvc-ymhusyt-rkuafybek diabetes mellitus. Accu-Cheks generally well controlled. This is reasonable control for her for now. Continue insulin regimen 4. Chronic atrial fibrillation. Patient remains rate controlled on metoprolol and digoxin and remains on chronic anticoagulation with Coumadin. Toprol and digoxin are also contributory to management of her congestive heart failure. 5. Chronic kidney disease stage III. Exacerbated by diuretic therapy. Extremely poor overall prognosis Vital Signs Date Time Temp Pulse Resp B/P (MAP) Pulse Ox O2 Delivery O2 Flow Rate FiO2 06/17/19 20:00 97.2 69 18 106/54 (71) 95 2.0 06/17/19 16:09 2.0 06/17/19 16:00 97.9 70 17 121/58 (79) 95 2.0 06/17/19 14:00 2.0 06/17/19 12:36 2.0 06/17/19 12:00 97.8 69 17 121/57 (78) 95 2.0 06/17/19 08:18 69 106/51 06/17/19 08:16 69 06/17/19 08:00 97.1 69 17 106/51 (69) 93 2.0 06/17/19 08:00 2.0 06/17/19 05:00 97.2 74 20 111/53 (72) 95 2.0 06/17/19 04:00 2.0 06/17/19 00:00 2.0 06/17/19 00:00 97.6 65 20 104/51 (68) 95 2.0 Intake & Output 06/17/19 06:00 Intake Total 890 ml Output Total 800 ml Balance 90 ml Laboratory Tests 06/17/19 04:56: White Blood Count 6.2, Red Blood Count 3.87L, Hemoglobin 10.6L, Hematocrit 33.3L, Mean Corpuscular Volume 86.0, Mean Corpuscular Hemoglobin 27.4, Mean Corpuscular Hemoglobin Concent 31.8L, Red Cell Distribution Width 17.6H, Platelet Count 225, Nucleated Red Blood Cells % (auto) 0.0, Prothrombin Time 25.7H, Prothromb Time International Ratio 2.37, Blood Urea Nitrogen 111H, Creatinine 2.07H, Sodium Level 131L, Potassium Level 3.8, Chloride Level 87L, Carbon Dioxide Level 37H, Calcium Level 9.7, Aspartate Amino Transf (AST/SGOT) 27, Alanine Aminotransferase (ALT/SGPT) 23, Alkaline Phosphatase 122H, Total B ilirubin 0.8, Total Protein 6.9, Albumin 3.3, Anion Gap 7L, Glomerular Filtration Rate 24.6L, Fasting Glucose 128H, Albumin/Globulin Ratio 0.92L 06/17/19 11:52: Bedside Glucose (Misc Panel) 253H 06/17/19 16:56: Bedside Glucose (Misc Panel) 134H Current Medications Medications (Trade) Dose Ordered Sig/Jasper Route PRN Reason Start Time Stop Time Status Last Admin Dose Admin Acetaminophen (Tylenol Tab) 650 mg Q6HP PRN PO PAIN / FEVER 06/03/19 10:45 06/10/19 08:16 650 MG Allopurinol (Zyloprim) 100 mg DAILY PO 06/05/19 09:00 06/17/19 08:18 100 MG Bisacodyl (Dulcolax Tab) 10 mg DAILYPRN PRN PO CONSTIPATION 06/07/19 13:30 06/12/19 20:33 10 MG Folic Acid (Folic Acid) 1 mg DAILY PO 05/30/19 09:00 06/17/19 08:15 1 MG Insulin Human Lispro (HumaLOG INSULIN) SEE PROTOCOL TABLE AC SC 05/30/19 17:30 06/17/19 17:04 2 UNITS Magnesium Hydroxide (Milk Of Magnesia) 30 ml DAILYPRN PRN PO CONSTIPATION 06/01/19 13:00 06/02/19 04:13 30 ML Multivitamins (Theragram-M) 1 tab DAILY PO 05/30/19 09:00 06/17/19 08:17 1 TAB Nystatin (Mycostatin Powder, Nystop) Apply to groin, abdomi... BID TOP 05/31/19 09:00 06/17/19 08:18 1 DOSE Sacubitril/ Valsartan (Entresto 24-26 Mg) 1 tab BID PO 06/10/19 12:00 06/17/19 12:02 1 TAB Senna/Docusate Sodium (Senokot S) 1 tab QHS PO 05/31/19 21:00 06/16/19 20:32 1 TAB Sodium Chloride (Saline Lock Flush) 2 ml SLF IV 06/01/19 22:00 06/17/19 14:00 2 ML Spironolactone (Aldactone) 25 mg QAM PO 06/09/19 09:00 06/17/19 08:14 25 MG Torsemide (Demadex) 100 mg BID@ PO 06/10/19 17:00 06/17/19 17:03 100 MG Warfarin Sodium (Coumadin) 7.5 mg DAILY@17 PO 06/09/19 17:00 Future hold 06/17/19 17:03 7.5 MG VS,Fishbone, I+O VS, Fishbone, I+O Laboratory Tests 06/17/19 04:56 Red Blood Count 3.87 L, Mean Corpuscular Volume 86.0, Mean Corpuscular Hemoglobin 27.4, Mean Corpuscular Hemoglobin Concent 31.8 L, Red Cell Distribution Width 17.6 H, Calcium Level 9.7, Aspartate Amino Transf (AST/SGOT) 27, Alanine Aminotransferase (ALT/SGPT) 23, Alkaline Phosphatase 122 H, Total Bilirubin 0.8, Total Protein 6.9, Albumin 3.3 Vital Signs Date Time Temp Pulse Resp B/P (MAP) Pulse Ox O2 Delivery O2 Flow Rate FiO2 06/17/19 20:00 97.2 69 18 106/54 (71) 95 2.0 I&O- Last 24 Hours up to 6 AM 06/17/19 06:00 Intake Total 890 ml Output Total 800 ml Balance 90 ml KELL BURNS MD Jun 17, 2019 20:37
--- NOTE | 2019-06-17 20:39 | IPN ---
DATE: 06/17/2019 CARDIOLOGY PROGRESS NOTE SUBJECTIVE: At this point, the patient denies shortness of breath, is still able to get up out of her bedside lounge chair to the bathroom without chest discomfort or lightheadedness. Remains grossly edematous despite aggressive measures. She understands her advanced end-stage situation and requests to be allowed to pass in her sleep. OBJECTIVE: Pleasant, morbidly obese elderly lady lay comfortably in her bedside recliner with her legs elevated. Bright, alert and oriented. Heart rate 70 beats per minute (bpm) and regular, blood pressure 121/58. Oxygen (O2) saturation 95% with supplemental oxygen by nasal prongs at 2 liters. Her current weight is no more than 2 kg down from her admission weight May 29, 2019. Despite aggressive combination medical therapy, intake and output (I and O) balance was only minus 150 mL, and she has only taken in 852 mL today. The last few days she has not generated a negative fluid balance and has been gaining weight. No pallor or central cyanosis. Neck veins are above the angle of her jaw with her sitting. Increased anteroposterior chest diameter with no current inspiratory rales or expiratory rhonchi. Has gross systemic edema with pitting up to her lower thoracic spine and below. Some erythema of her lower extremities, suggesting possible development of cellulitis with her gross lower leg swelling. 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 BLOOD WORK: Hemoglobin 10.4 down from 11.8 on admission. Normal white blood cell count and platelet count. PT/INR of 25.7/2.37. Currently in electrolyte balance with degree of metabolic alkalosis, likely related to hypoventilation and her diuretic therapy. BUN today is 111 up from 56 on admission, creatinine 2.0 up from 1.5 on admission, serum albumin was 3.3. Other liver function studies are normal at this time. IMPRESSION/PLAN: 1. Heart failure (systolic and diastolic): The patient and her understand the lack of progress with her edematous condition. We have spoken frankly regarding her end-stage non-fixable state as well as her wish to be DO NOT RESUSCITATE (DNR) and comfort care. Curiously, despite having a DNR her biventricular implantable cardioverter defibrillator is still active. I have programmed her tachycardia features off as per her request. 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 We will ensure that morphine sublingually is available for use as necessary. 2. Chronic atrial fibrillation/complete heart block/biventricular implantable cardioverter defibrillator (ICD) in situ: Her rhythm has been quite regular with her device, and she has been free of potentially malignant ventricular arrhythmia. On her present oral anticoagulant therapy, no symptoms or signs of embolic phenomenon or bleeding complication. In light of her worsening renal insufficiency, her digoxin therapy has been discontinued. At this point, it would not be expected to be of any use. 3. Nonischemic cardiomyopathy: As per #1, likely related to multiple factors including morbid obesity and chronic mitral valvular heart disease along with hypoventilation syndrome, pulmonary hypertension/element of cor pulmonale and her right heart failure. Clinically, her systemic congestion appears worse than her pulmonary congestion. 4. Mitral valve disorder (nonrheumatic)/post mitral valve replacement: Recent echocardiogram shows appropriate function of her prosthetic valve. Has no symptoms or signs of endocarditis with normal white blood cell count despite her lower extremity erythema. Will continue with her oral anticoagulant for the time being. As mentioned, we certainly respect her wish to be DNR given her advanced, end-stage, non-fixable cardiovascular condition. We will continue to follow her socially with you. REKHA
[2019-06-17] MEDS: SENOKOT S TAB PO SCH (21:00)
[2019-06-17] MEDS: ACETAMINOPHEN 500 MG TAB PO SCH (21:00)
[2019-06-18] MEDS: ACETAMINOPHEN TAB 650MG DOSE (2X325MG) PO PRN (02:56)
[2019-06-18] MEDS: SLF 3 ML SYR IV SCH (04:51)
[2019-06-18] MEDS: HumaLOG INSULIN (NovoLOG) PER UNIT SC SCH (07:30)
[2019-06-18] MEDS: ENTRESTO 24-26MG TABLET (SACUBITRIL/VALSARTAN) PO SCH (09:00)
[2019-06-18] MEDS: SPIRONOLACTONE 25 MG TAB PO SCH (09:00)
[2019-06-18] MEDS: ALLOPURINOL 100 MG TAB PO SCH (09:00)
[2019-06-18] MEDS: MULTIVITAMINS/MINERALS THERAP 1 TAB PO SCH (09:00)
[2019-06-18] MEDS: FOLIC ACID 1 MG TAB PO SCH (09:00)
[2019-06-18] MEDS: TORSEMIDE 100 MG TAB PO SCH (09:00)
[2019-06-18] MEDS: NYSTATIN 100,000 UNITS/GM TOPICAL PWD 15 GM TOP SCH (09:00)
--- NOTE | 2019-06-18 10:27 | IPNPDOC ---
Text Note Date of Service The patient was seen on 06/18/19. NOTE S: 79 yo female with endstage CHF (EF 20%), DM and Afib. She wants comfort care measures only. She has refused all meds and lab draws today. She had extensive conversation with Dr Kennedy regarding comfort care. Currently she states no CP, no SOB. still with chronic leg edema. 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 D/C meds, labs, transfer to med surg; hospice consulted. VS,Fishbone, I+O VS, Fishbone, I+O Vital Signs Date Time Temp Pulse Resp B/P (MAP) Pulse Ox O2 Delivery O2 Flow Rate FiO2 06/18/19 08:00 2.0 06/17/19 20:00 97.2 69 18 106/54 (71) 95 I&O- Last 24 Hours up to 6 AM 06/18/19 06:00 Intake Total 877 ml Output Total 1300 ml Balance -423 ml CHELO AGEE DO Jun 18, 2019 10:27
[2019-06-18] MEDS ORDERED: ATROPINE SULFATE 1% OP SOLN 2 ML BTL SL PRN (10:30)
[2019-06-18] MEDS ORDERED: FLEET ENEMA PR PRN (10:30)
[2019-06-18] MEDS ORDERED: BISACODYL 10 MG SUPP PR PRN (10:30)
[2019-06-18] MEDS ORDERED: ONDANSETRON 4 MG ORAL DISINTEGRATING TAB (Q0162 PER 1MG) PO PRN (10:30)
[2019-06-18] MEDS ORDERED: LORazepam 1 MG TAB PO PRN (10:30)
[2019-06-18] MEDS ORDERED: ACETAMINOPHEN 650 MG SUPP PR PRN (10:30)
[2019-06-18] MEDS ORDERED: SCOPOLAMINE 1MG TRANSDERMAL PATCH TOP PRN (10:30)
[2019-06-18] MEDS ORDERED: HYOSCYAMINE SULFATE 0.125 MG SUBL TABLET PO PRN (10:30)
[2019-06-19] MEDS: ACETAMINOPHEN TAB 650MG DOSE (2X325MG) PO PRN (08:38)
--- NOTE | 2019-06-19 09:29 | IPNPDOC ---
Text Note Date of Service The patient was seen on 06/19/19. 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 son and present. patient states feels good, no SOB, no CP O: Vitals not performed. 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 Downgrade to [facility]; social worker health services to assist with disposition VS,Fishbone, I+O VS, Alyssae, I+O Vital Signs Date Time Temp Pulse Resp B/P (MAP) Pulse Ox O2 Delivery O2 Flow Rate FiO2 06/19/19 04:00 2.0 06/17/19 20:00 97.2 69 18 106/54 (71) 95 I&O- Last 24 Hours up to 6 AM 06/19/19 06:00 Intake Total 360 ml Output Total 1000 ml Balance -640 ml CHELO AGEE DO Jun 19, 2019 09:29
[2019-06-19 18:55] VITALS: BP 113/91
[2019-06-20] MEDS: ACETAMINOPHEN TAB 650MG DOSE (2X325MG) PO PRN ×2 (05:52→22:00)
[2019-06-21] MEDS ORDERED: SCOP1PAT2 TOP (08:19)
[2019-06-21] MEDS ORDERED: ATRO1OPD SL (08:19)
[2019-06-21] MEDS ORDERED: ONDA4TAB6 PO (08:19)
[2019-06-21] MEDS ORDERED: ATIV1TAB7 PO (08:19)
[2019-06-21] MEDS ORDERED: MORP20SO PO (08:19)
[2019-06-21] MEDS ORDERED: ACET1TAB55 PO (08:19)
[2019-06-21] MEDS ORDERED: BISAC5TA PO (08:19)
[2019-06-21] MEDS ORDERED: FLEEENE12 PR (08:19)
[2019-06-21] MEDS ORDERED: HYOS125TA PO (08:19)
[2019-06-21] MEDS ORDERED: BISA10SU PR (08:19)
--- NOTE | 2019-06-21 14:32 | DS.PDOC ---
Discharge Summary General Date of Admission May 29, 2019 at 16:16 Date of Discharge 06/21/19 Primary Care Physician: SARA BAUER DO Attending Physician: CHELO AGEE DO Specialist/Consultants Involve Dr Daniels, Dr Castellanos, Dr Kennedy, Dr Nicole Discharge Summary PROCEDURES PERFORMED DURING STAY: 06/07/19 Pacemaker reprogrammed base pacing rate from 80 bpm down to 60 bpm 06/17/19 biventricular implantable cardioverter defibrillator - programmed her tachycardia features off as per her request. 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 3) Elevated Troponin Level - demand ischemia- NSTEMI type II in the setting of CHF and LOYD 4) Chronic atrial fibrillation - 5) History of mechanical mitral valve 6) Diabetes mellitus without fdc insulin with hyperglycemia - no hypoglycemia 7) essential Hypertension 8) Gout 9) GERD 10) Dyslipidemia COMPLICATIONS/CHIEF COMPLAINT: Congestive Heart Failure. HISTORY OF PRESENT ILLNESS: 79-year-old female with past medical history of hypertension, dyslipidemia, mitral valve replacement, tricuspid valve repair, chronic atrial fibrillation, gout, and systolic and diastolic congestive heart failure status post ICD with a left ventricular ejection fraction of 20% from April 2019 presented to the ER with a chief complaint of increased shortness of breath and increased lower extremity swelling. See H&P for details. HOSPITAL COURSE: Patient admitted and diuresis using IV lasix , fluid restriction attempted but unsuccessful. She was unable to tolerated entresto, betablocker and lasix/spironolactone due to hypotension. Cardiology consulted and pacemaker rate adjusted, started on IV milronone, metropolol and digoxin without improvement. She had elevated troponins (negative cardiac cath in 2018) and suggestive of demand ischemia from CHF. With diuresis there was slight bump in creat to 1.8. Cardiology discussed with patient her endstage CHF diagnosis and patient requested withdraw of medical treatments, comfort measures only and subsequent hospice. DISCHARGE MEDICATIONS: Please see below. ALLERGIES: Please see below. PHYSICAL EXAMINATION ON DISCHARGE: VITAL SIGNS: Please see below. GENERAL: pleasant NAD AAOx3 CARDIOVASCULAR EXAMINATION: irreg/irreg EXT:3+ pitting edema with weeping blisters LABORATORY DATA: Please see below. IMAGIN06/06/19 ECHO: Prominently dilated and mildly symmetrically hypertrophied left ventricle with fairly global hypokinesis and virtual apical akinesis resulting in severe impairment of global resting systolic function. Grossly dilated left atrium. At least mildly dilated right ventricle with hypokinesis and Doppler evidence of at least moderate to moderately severe pulmonary hypertension. Moderately dilated right atrium and IVC with virtually absent respiratory collapse in keeping with elevated central venous pressure/right heart failure. Moderately severe calcific aortic stenosis with mild insufficiency. Normal aortic root size. Echogenic mechanical bileaflet prosthetic mitral valve with visible leaflet motion and only trace insufficiency. Normal appearing tricuspid valve with moderately severe tricuspid insufficiency. Pacing leads could be visualized traversing right heart structures. No separate intracardiac mass or pericardial effusion. PROGNOSIS: poor ACTIVITY: as tolerated DIET: regular DISCHARGE PLAN: Follow up with hospice provider prn DISPOSITION: hospice DISCHARGE INSTRUCTIONS: none ITEMS TO FOLLOWUP ON ON OUTPATIENT: none DISCHARGE CONDITION: stable TIME SPENT ON DISCHARGE: 20 minutes. Vital Signs/I&Os Vital Signs Date Time Temp Pulse Resp B/P (MAP) Pulse Ox O2 Delivery O2 Flow Rate FiO2 06/20/19 21:00 2.0 06/19/19 18:55 98.2 69 17 113/91 (98) 96 I&O- Last 24 Hours up to 6 AM 06/21/19 06:00 Intake Total 1040 ml Output Total 1100 ml Balance -60 ml Laboratory Data Labs 24H Item Value Date Time Patient Weight 99.2 kg 06/17/19 0600 Patient Weight 102.1 kg 06/11/19 0400 Patient Weight 102.1 kg 06/06/19 0400 Patient Weight 89.2 kg 05/29/19 1755 Patient Weight 100.7 kg 06/01/19 0600 White Blood Count 6.2 10^3/uL 06/17/19 0456 Hemoglobin 10.6 g/dl L 06/17/19 0456 Hematocrit 33.3 % L 06/17/19 0456 Platelet Count 225 10^3/uL 06/17/19 0456 Sodium Level 131 MEQ/L L 06/17/19 0456 Potassium Level 3.8 MEQ/L 06/17/19 0456 Blood Urea Nitrogen 111 MG/DL H 06/17/19 0456 Creatinine 2.07 MG/DL H 06/17/19 0456 Fasting Glucose 128 MG/DL H 06/17/19 0456 Calcium Level 9.7 MG/DL 06/17/19 0456 Alkaline Phosphatase 122 U/L H 06/17/19 0456 Albumin 3.3 GM/DL 06/17/19 0456 Troponin I 2.86 NG/ML *H 06/07/19 0518 SA-Ybk-[id number]-Type Natriuretic Peptide 3643 PG/ML H 06/07/19 0518 Troponin I 3.00 NG/ML *H 06/05/19 0443 DA-Nae-A-Type Natriuretic Peptide 5532 PG/ML H 06/05/19 0443 Sodium Level 138 MEQ/L 06/06/19 0431 Potassium Level 3.7 MEQ/L 06/06/19 0431 Blood Urea Nitrogen 72 MG/DL H 06/06/19 0431 Creatinine 1.57 MG/DL H 06/06/19 0431 Sodium Level 138 MEQ/L 05/29/19 1253 Potassium Level 4.1 MEQ/L 05/29/19 1253 Blood Urea Nitrogen 56 MG/DL H 05/29/19 1253 Creatinine 1.54 MG/DL H 05/29/19 1253 Troponin I 3.04 NG/ML *H 05/29/19 1253 ZJ-Anc-J-Type Natriuretic Peptide 7457 PG/ML H 05/29/19 1253 Thyroid Stimulating Hormone (TSH) 0.839 uIU/ML 05/29/19 1253 Vital Signs Label Value Date Time Patient Temperature 98.2 degrees F 06/19/191854 Temperature Source Oral 06/19/191854 Pulse 69 06/19/191854 Respiratory Rate 17 bpm 06/19/191854 Blood Pressure Assessment 113/91 (98) 06/19/191854 Bedside Pulse Oximetry 96 % 06/19/191854 Discharge Medications Scheduled PRN Acetaminophen (Acetaminophen) 325 Mg Tablet, 650 MG PO Q6HP PRN for PAIN / FEVER Atropine Sulfate (Atropine Sulfate) 1% 2ML Drops, 1 DROP SL Q2HP PRN for TERMINAL SECRETIONS Bisacodyl (Bisacodyl) 5 Mg Tablet.dr, 10 MG PO DAILYPRN PRN for CONSTIPATION Bisacodyl (Bisacodyl) 10 Mg Supp.rect, 10 MG RI Q24HP PRN for CONSTIPATION Hyoscyamine Sulfate (Hyoscyamine Sulfate) 0.125 Mg Tab.subl, 0.125 MG PO Q4HP PRN for TERMINAL SECRETIONS Lorazepam (Ativan) 1 Mg Tablet, 1 MG PO Q2HP PRN for ANXIETY Morphine Sulfate (Morphine Sulfate) 20 Mg/5 Ml Solution, 1.25 ML PO Q4H PRN for PAIN Ondansetron (Ondansetron Odt) 4 Mg Tab.rapdis, 4 MG PO Q6HP PRN for NAUSEA OR VOMITING Scopolamine (Transderm-Scop) 1 Each Patch.td.3, 1 MG TOP Q3DP PRN for EXCESSIVE SECRETIONS Sodium Phosphate,Corson-Dibasic (Fleet Enema) 133 Ml Enema, 1 EA RI DAILYPRN PRN for CONSTIPATION Allergies Coded Allergies: No Known Allergies (Verified , 09/20/17) CHELO AGEE DO Jun 21, 2019 08:21
== END 2019-06-21 10:50 | disposition home or self-care (01) | DRG 280 ==
LOC: M ED 12:13 → M ED INP 16:16 → M PCU 17:59 → M MSPAV 06-19 18:54
PROVIDERS: ADMIT Internal Medicine; ATTEND Family Medicine
DX: I13.0 Hypertensive heart and chronic kidney disease with heart failure and stage 1 through stage 4 chronic kidney disease, or unspecified chronic kidney disease (principal); I21.4 Non-ST elevation (NSTEMI) myocardial infarction; I50.43 Acute on chronic combined systolic (congestive) and diastolic (congestive) heart failure; N17.9 Acute kidney failure, unspecified; I44.2 Atrioventricular block, complete; E87.2 Acidosis; N18.3 Chronic kidney disease, stage 3 (moderate); E11.649 Type 2 diabetes mellitus with hypoglycemia without coma; E78.5 Hyperlipidemia, unspecified; M10.9 Gout, unspecified; K21.9 Gastro-esophageal reflux disease without esophagitis; I48.2 Chronic atrial fibrillation; Z91.19 Patient's noncompliance with other medical treatment and regimen; Z51.5 Encounter for palliative care; Z79.899 Other long term (current) drug therapy; I27.20 Pulmonary hypertension, unspecified; I08.2 Rheumatic disorders of both aortic and tricuspid valves; Z95.2 Presence of prosthetic heart valve; Z66 Do not resuscitate; R31.9 Hematuria, unspecified